=== PATIENT | male | born 1965 | race African-American/Black ===

== ENCOUNTER 2016-05-20 10:17 | Inpatient (IN) | payer OTHER ==
[2016-05-20 10:42] VITALS: BMI 31.4
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
[2016-05-20] MEDS ORDERED: MAGNESIUM HYDROX 2400MG/30ML ORAL SUSPENSION 30 ML CUP PO PRN (11:15)
[2016-05-20] MEDS ORDERED: NICOTINE POLACRILEX 4 MG GUM BUC PRN (11:15)
[2016-05-20] MEDS ORDERED: IBUPROFEN 400 MG TABLET (FP) PO PRN (11:15)
[2016-05-20] MEDS ORDERED: MENTHOL/PHENOL 1 EACH UD MM PRN (11:15)
[2016-05-20] MEDS ORDERED: guaiFENesin/D-METHORPHAN HB 10 ML UNIT-DOSE CUPS PO PRN (11:15)
[2016-05-20] MEDS ORDERED: MAG HYDROX/AL HYDROX/SIMETH 30 ML UNIT-DOSE CUP PO PRN (11:15)
[2016-05-20] MEDS ORDERED: chlordiazePOXIDE HCL 25 MG CAPSULE PO PRN (11:15)
[2016-05-20] MEDS ORDERED: hydrOXYzine PAMOATE 50 MG CAPSULE (FP) PO PRN (11:15)
[2016-05-20] MEDS ORDERED: P-EPHED 60MG/TRIPROLIDI 2.5MG TABLET PO PRN (11:15)
[2016-05-20] MEDS ORDERED: LOPERAMIDE HCL 2 MG CAPSULE PO PRN (11:15)
[2016-05-20] MEDS ORDERED: ACETAMINOPHEN 325 MG TABLET (FP) PO PRN (11:15)
[2016-05-20] MEDS ORDERED: MAGNESIUM CITRATE 300 ML BOTTLE PO PRN (11:15)
[2016-05-20 13:43] LABS: URINE APPEARANCE CLEAR; URINE BILIRUBIN NEGATIVE (NEGATIVE); URINE BLOOD NEGATIVE (NEGATIVE); URINE COLOR YELLOW; URINE GLUCOSE (UA) NEGATIVE (NEGATIVE); URINE KETONE NEGATIVE (NEGATIVE); URINE LEUK ESTERASE NEGATIVE (NEGATIVE); URINE NITRITE NEGATIVE (NEGATIVE); URINE PROTEIN NEGATIVE (NEGATIVE); URINE UROBILINOGEN NEGATIVE E.U./dl (0.2-1.0)
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
[2016-05-20] MEDS: chlordiazePOXIDE HCL 25 MG CAPSULE PO SCH ×2 (17:29→22:10)
[2016-05-20] MEDS ORDERED: diphenhydrAMINE HCL 50 MG CAPSULE PO PRN (22:00)
[2016-05-20] MEDS: THIAMINE HCL 100 MG TABLET (FP) PO SCH (22:10)
[2016-05-21] MEDS: chlordiazePOXIDE HCL 25 MG CAPSULE PO SCH ×4 (05:40→22:24)
[2016-05-21 09:46] LABS: MCH 25.7 pg (25.7-33.7); MEAN CELL VOLUME 80.4 fl (80-96); MEAN PLT VOLUME 8.6 fl (7.5-11.1); PLATELET COUNT 179 K/MM3 (134-434); RDW 14.5 % (11.9-15.9)
[2016-05-21] MEDS: PRENATAL VITAMINS W/ FOLIC ACID TABLET (FP) PO SCH (10:08)
[2016-05-21 10:19] LABS: ALBUMIN 3.2 g/dl (3.4-5.0); ALK PHOS 52 U/L (45-117); ANION GAP 8 (8-16); BILIRUBIN,TOTAL 0.5 mg/dL (0.2-1.0); CALCIUM 8.7 mg/dL (8.5-10.1); CO2 25 mmol/L (21-32); GLUCOSE,RANDOM 106 mg/dL (74-106); SGOT/AST 14 U/L (15-37); SGPT/ALT 21 U/L (12-78); TOT PROT 6.4 g/dl (6.4-8.2)
--- NOTE | 2016-05-21 14:27 | PN ---
S CIWA - CIWA Score Nausea/Vomitin Muscle Tremors: 3 Anxiety: 1-Mildly Anxious Agitation: 2 Paroxysmal Sweats: 3 Orientation: 0-Oriented Tacttile Disturbances: 1-Very Mild Itch/Numbness Auditory Disturbances: 0-None Visual Disturbances: 1-Very Mild Sensitivity Headache: 0-None Present CIWA-Ar Total Score: 13 BHS Progress Note (SOAP) Subjective: Body Aches, Headache, Sweating, Interrupted Sleep, Diarrhea. Objective: 05/21/16 14:26 Vital Signs Temperature 97.1 F L 05/21/16 13:21 Pulse Rate 74 05/21/16 13:21 Respiratory Rate 18 05/21/16 13:21 Blood Pressure 114/79 05/21/16 13:21 O2 Sat by Pulse Oximetry (%) Laboratory Last Values WBC 4.0 K/mm3 (4.0-10.0) 05/21/16 07:30 RBC 4.97 M/mm3 (4.00-5.60) 05/21/16 07:30 Hgb 12.8 GM/dL (11.7-16.9) 05/21/16 07:30 Hct 39.9 % (35.4-49) 05/21/16 07:30 MCV 80.4 fl (80-96) 05/21/16 07:30 MCHC 32.0 g/dl (32.0-35.9) 05/21/16 07:30 RDW 14.5 % (11.9-15.9) 05/21/16 07:30 Plt Count 179 K/MM3 (134-434) 05/21/16 07:30 MPV 8.6 fl (7.5-11.1) 05/21/16 07:30 Sodium 142 mmol/L (136-145) 05/21/16 07:20 Potassium 4.1 mmol/L (3.5-5.1) 05/21/16 07:20 Chloride 109 mmol/L (98-107) H 05/21/16 07:20 Carbon Dioxide 25 mmol/L (21-32) 05/21/16 07:20 Anion Gap 8 (8-16) 05/21/16 07:20 BUN 13 mg/dL (7-18) 05/21/16 07:20 Creatinine 1.0 mg/dL (0.7-1.3) D 05/21/16 07:20 Creat Clearance w eGFR > 60 (>60) 05/21/16 07:20 Random Glucose 106 mg/dL (74-106) 05/21/16 07:20 Calcium 8.7 mg/dL (8.5-10.1) 05/21/16 07:20 Total Bilirubin 0.5 mg/dL (0.2-1.0) D 05/21/16 07:20 AST 14 U/L (15-37) L 05/21/16 07:20 ALT 21 U/L (12-78) 05/21/16 07:20 Alkaline Phosphatase 52 U/L (45-117) 05/21/16 07:20 Total Protein 6.4 g/dl (6.4-8.2) 05/21/16 07:20 Albumin 3.2 g/dl (3.4-5.0) L 05/21/16 07:20 Urine Color Yellow 05/20/16 13:34 Urine Appearance Clear 05/20/16 13:34 Urine pH 5.0 (5.0-8.0) 05/20/16 13:34 Ur Specific [place] 1.025 (1.001-1.035) 05/20/16 13:34 Urine Protein Negative (NEGATIVE) 05/20/16 13:34 Urine Glucose (UA) Negative (NEGATIVE) 05/20/16 13:34 Urine Ketones Negative (NEGATIVE) 05/20/16 13:34 Urine Blood Negative (NEGATIVE) 05/20/16 13:34 Urine Nitrite Negative (NEGATIVE) 05/20/16 13:34 Urine Bilirubin Negative (NEGATIVE) 05/20/16 13:34 Urine Urobilinogen Negative E.U./dl (0.2-1.0) 05/20/16 13:34 Ur Leukocyte Esterase Negative (NEGATIVE) 05/20/16 13:34 LABS NOTED. Assessment: 05/21/16 14:26 WITHDRAWAL SYMPTOMS. Plan: CONTINUE DETOX.
[2016-05-21] MEDS: THIAMINE HCL 100 MG TABLET (FP) PO SCH (22:24)
[2016-05-22] MEDS: chlordiazePOXIDE HCL 25 MG CAPSULE PO SCH ×2 (05:54→10:36)
[2016-05-22] MEDS: PRENATAL VITAMINS W/ FOLIC ACID TABLET (FP) PO SCH (10:36)
--- NOTE | 2016-05-22 14:09 | PN ---
S CIWA - CIWA Score Nausea/Vomitin-No Nausea/No Vomiting Muscle Tremors: 3 Anxiety: 4-Mod. Anxious/Guarded Agitation: 4-Moderately Restless Paroxysmal Sweats: 3 Orientation: 0-Oriented Tacttile Disturbances: 0-None Auditory Disturbances: 0-None Visual Disturbances: 0-None Headache: 0-None Present CIWA-Ar Total Score: 14 BHS Progress Note (SOAP) Subjective: ANXIETY,TREMORS,SWEATING,INTERRUPTED SLEEP,RESTLESS. Objective: 05/22/16 14:08 Vital Signs - 8 hr 05/22/16 05/22/16 06:18 10:37 Temperature 98.1 F 97.4 F L Pulse Rate 67 73 Respiratory 18 16 Rate Blood Pressure 125/87 141/91 Laboratory Tests 05/20/16 05/21/16 05/21/16 13:34 07:20 07:20 WBC RBC Hgb Hct MCV MCHC RDW Plt Count MPV Sodium 142 Potassium 4.1 Chloride 109 H Carbon Dioxide 25 Anion Gap 8 BUN 13 Creatinine 1.0 D Creat Clearance w eGFR > 60 Random Glucose 106 Calcium 8.7 Total Bilirubin 0.5 D AST 14 L ALT 21 Alkaline Phosphatase 52 Total Protein 6.4 Albumin 3.2 L Urine Color Yellow Urine Appearance Clear Urine pH 5.0 Ur Specific [place] 1.025 Urine Protein Negative Urine Glucose (UA) Negative Urine Ketones Negative Urine Blood Negative Urine Nitrite Negative Urine Bilirubin Negative Urine Urobilinogen Negative Ur Leukocyte Esterase Negative RPR Titer Nonreactive 05/21/16 07:30 WBC 4.0 RBC 4.97 Hgb 12.8 Hct 39.9 MCV 80.4 MCHC 32.0 RDW 14.5 Plt Count 179 MPV 8.6 Sodium Potassium Chloride Carbon Dioxide Anion Gap BUN Creatinine Creat Clearance w eGFR Random Glucose Calcium Total Bilirubin AST ALT Alkaline Phosphatase Total Protein Albumin Urine Color Urine Appearance Urine pH Ur Specific [place] Urine Protein Urine Glucose (UA) Urine Ketones Urine Blood Urine Nitrite Urine Bilirubin Urine Urobilinogen Ur Leukocyte Esterase RPR Titer LABS NOTED Assessment: 05/22/16 14:08 WITHDRAWAL SX. Plan: CONTINUE DETOX
[2016-05-22] MEDS: chlordiazePOXIDE 5 MG CAPSULE PO SCH ×2 (17:43→22:15)
[2016-05-22] MEDS: THIAMINE HCL 100 MG TABLET (FP) PO SCH (22:15)
[2016-05-23] MEDS: chlordiazePOXIDE 5 MG CAPSULE PO SCH ×2 (05:47→10:25)
[2016-05-23] MEDS: PRENATAL VITAMINS W/ FOLIC ACID TABLET (FP) PO SCH (10:25)
--- NOTE | 2016-05-23 13:43 | PN ---
BHS Progress Note (SOAP) Subjective: SWEATING,INTERRUPTED SLEEP,RESTLESS Objective: 05/23/16 13:41 Vital Signs - 8 hr 05/23/16 05/23/16 06:42 10:50 Temperature 96.9 F L 96.2 F L Pulse Rate 82 76 Respiratory 16 18 Rate Blood Pressure 123/89 130/90 Laboratory Last Values WBC 4.0 K/mm3 (4.0-10.0) 05/21/16 07:30 RBC 4.97 M/mm3 (4.00-5.60) 05/21/16 07:30 Hgb 12.8 GM/dL (11.7-16.9) 05/21/16 07:30 Hct 39.9 % (35.4-49) 05/21/16 07:30 MCV 80.4 fl (80-96) 05/21/16 07:30 MCHC 32.0 g/dl (32.0-35.9) 05/21/16 07:30 RDW 14.5 % (11.9-15.9) 05/21/16 07:30 Plt Count 179 K/MM3 (134-434) 05/21/16 07:30 MPV 8.6 fl (7.5-11.1) 05/21/16 07:30 Sodium 142 mmol/L (136-145) 05/21/16 07:20 Potassium 4.1 mmol/L (3.5-5.1) 05/21/16 07:20 Chloride 109 mmol/L (98-107) H 05/21/16 07:20 Carbon Dioxide 25 mmol/L (21-32) 05/21/16 07:20 Anion Gap 8 (8-16) 05/21/16 07:20 BUN 13 mg/dL (7-18) 05/21/16 07:20 Creatinine 1.0 mg/dL (0.7-1.3) D 05/21/16 07:20 Creat Clearance w eGFR > 60 (>60) 05/21/16 07:20 Random Glucose 106 mg/dL (74-106) 05/21/16 07:20 Calcium 8.7 mg/dL (8.5-10.1) 05/21/16 07:20 Total Bilirubin 0.5 mg/dL (0.2-1.0) D 05/21/16 07:20 AST 14 U/L (15-37) L 05/21/16 07:20 ALT 21 U/L (12-78) 05/21/16 07:20 Alkaline Phosphatase 52 U/L (45-117) 05/21/16 07:20 Total Protein 6.4 g/dl (6.4-8.2) 05/21/16 07:20 Albumin 3.2 g/dl (3.4-5.0) L 05/21/16 07:20 Urine Color Yellow 05/20/16 13:34 Urine Appearance Clear 05/20/16 13:34 Urine pH 5.0 (5.0-8.0) 05/20/16 13:34 Ur Specific [place] 1.025 (1.001-1.035) 05/20/16 13:34 Urine Protein Negative (NEGATIVE) 05/20/16 13:34 Urine Glucose (UA) Negative (NEGATIVE) 05/20/16 13:34 Urine Ketones Negative (NEGATIVE) 05/20/16 13:34 Urine Blood Negative (NEGATIVE) 05/20/16 13:34 Urine Nitrite Negative (NEGATIVE) 05/20/16 13:34 Urine Bilirubin Negative (NEGATIVE) 05/20/16 13:34 Urine Urobilinogen Negative E.U./dl (0.2-1.0) 05/20/16 13:34 Ur Leukocyte Esterase Negative (NEGATIVE) 05/20/16 13:34 RPR Titer Nonreactive (NONREACTIVE) 05/21/16 07:20 LABS NOTED Assessment: 05/23/16 13:42 WITHDRAWAL SX. Plan: CONTINUE DETOX
[2016-05-23] MEDS: chlordiazePOXIDE HCL 10 MG CAPSULE PO SCH ×2 (17:22→22:36)
[2016-05-23] MEDS: THIAMINE HCL 100 MG TABLET (FP) PO SCH (22:36)
[2016-05-24] MEDS: chlordiazePOXIDE HCL 10 MG CAPSULE PO SCH ×2 (06:40→10:08)
[2016-05-24 06:58] VITALS: BP 135/94; PULSE 73; TEMP 98.5
--- NOTE | 2016-05-24 08:39 | PN ---
S Progress Note (SOAP) Subjective: ALERT,NO COMPLAINT Objective: 05/24/16 08:37 Vital Signs Temperature 98.5 F 05/24/16 06:57 Pulse Rate 73 05/24/16 06:57 Respiratory Rate 18 05/24/16 06:57 Blood Pressure 135/94 05/24/16 06:57 O2 Sat by Pulse Oximetry (%) Assessment: 05/24/16 08:38 DETOX COMPLETED,NO WITHDRAWAL SYMPTOM Plan: DISCHARGE TODAY,FOLLOW UP WITH AFTER CARE PROGRAM ARRANGEMENT
--- NOTE | 2016-05-24 08:41 | DS ---
[facility] Detox Discharge Summary Admission Date: 05/20/16 Discharge Date: 05/24/16 - History Present History: Alcohol Dependence, Cocaine Dependence Additional Comments: FOLLOW UP WITH AFTER CARE PROGRAM ARRANGEMENT Pertinent Past History: DEPRESSION - Physical Exam Results Vital Signs: Vital Signs Temperature 98.5 F 05/24/16 06:57 Pulse Rate 73 05/24/16 06:57 Respiratory Rate 18 05/24/16 06:57 Blood Pressure 135/94 05/24/16 06:57 O2 Sat by Pulse Oximetry (%) Pertinent Admission Physical Exam Findings: WITHDRAWAL SYMPTOM - Treatment Hospital Course: Detox Protocol Followed, Detoxed Safely, Responded well, Discharged Condition Good Patient has Accepted a Rehab Referral to: DECLINED - Medication Discharge Medications: Ambulatory Orders Bupropion HCl [Wellbutrin -] 75 mg PO DAILY 05/20/16 - AMA Did Patient Leave Against Medical Advice: No
[2016-05-24] MEDS: PRENATAL VITAMINS W/ FOLIC ACID TABLET (FP) PO SCH (10:08)
== END 2016-05-24 09:00 | disposition home or self-care (01) | DRG 774 ==
LOC: YASAS 10:17 → Y3N 11:45
PROVIDERS: ADMIT Internal Medicine; ATTEND Internal Medicine
PROC: HZ2ZZZZ Detoxification Services for Substance Abuse Treatment (ICD-10-PCS; principal; 2016-05-20)
DX: F10.230 Alcohol dependence with withdrawal, uncomplicated (principal); F14.20 Cocaine dependence, uncomplicated; F17.210 Nicotine dependence, cigarettes, uncomplicated; F19.24 Other psychoactive substance dependence with psychoactive substance-induced mood disorder; Z86.69 Personal history of other diseases of the nervous system and sense organs; Z87.442 Personal history of urinary calculi
CPT/HCPCS: 36415; 80053; 81003; 85027; 86593; 93005; 93010

== ENCOUNTER 2016-08-30 09:34 | Inpatient (IN) | payer OTHER ==
[2016-08-30 10:21] VITALS: BMI 29.7
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
[2016-08-30] MEDS ORDERED: MAGNESIUM CITRATE 300 ML BOTTLE PO PRN (13:57)
[2016-08-30] MEDS ORDERED: NICOTINE POLACRILEX 2 MG GUM BUC PRN (13:57)
[2016-08-30] MEDS ORDERED: ACETAMINOPHEN 325 MG TABLET (FP) PO PRN (13:57)
[2016-08-30] MEDS ORDERED: hydrOXYzine PAMOATE 25 MG CAPSULE (FP) PO PRN (13:57)
[2016-08-30] MEDS ORDERED: IBUPROFEN 400 MG TABLET (FP) PO PRN (13:57)
[2016-08-30] MEDS ORDERED: guaiFENesin/D-METHORPHAN HB 10 ML UNIT-DOSE CUPS PO PRN (13:57)
[2016-08-30] MEDS ORDERED: MENTHOL/PHENOL 1 EACH UD MM PRN (13:57)
[2016-08-30] MEDS ORDERED: diphenhydrAMINE HCL 50 MG CAPSULE PO PRN (13:57)
[2016-08-30] MEDS ORDERED: P-EPHED 60MG/TRIPROLIDI 2.5MG TABLET PO PRN (13:57)
[2016-08-30] MEDS ORDERED: chlordiazePOXIDE HCL 25 MG CAPSULE PO PRN (13:57)
[2016-08-30] MEDS ORDERED: LOPERAMIDE HCL 2 MG CAPSULE PO PRN (13:57)
[2016-08-30] MEDS ORDERED: MAGNESIUM HYDROX 2400MG/30ML ORAL SUSPENSION 30 ML CUP PO PRN (13:57)
[2016-08-30] MEDS ORDERED: MAG HYDROX/AL HYDROX/SIMETH 30 ML UNIT-DOSE CUP PO PRN (13:57)
[2016-08-30] MEDS ORDERED: chlordiazePOXIDE HCL 25 MG CAPSULE PO ONE (14:02)
[2016-08-30] MEDS: NICOTINE 14 MG/24 HOURS TOPICAL PATCH TD SCH (14:34)
[2016-08-30 17:02] LABS: URINE APPEARANCE CLEAR; URINE BILIRUBIN NEGATIVE (NEGATIVE); URINE BLOOD NEGATIVE (NEGATIVE); URINE COLOR COLORLESS; URINE GLUCOSE (UA) NEGATIVE (NEGATIVE); URINE KETONE NEGATIVE (NEGATIVE); URINE LEUK ESTERASE NEGATIVE (NEGATIVE); URINE NITRITE NEGATIVE (NEGATIVE); URINE PROTEIN NEGATIVE (NEGATIVE); URINE UROBILINOGEN NEGATIVE E.U./dl (0.2-1.0)
[2016-08-30 17:06] LABS: HIV 1 & 2 AB NEGATIVE; HIV 1 AGp24 NEGATIVE
[2016-08-30] MEDS: chlordiazePOXIDE HCL 25 MG CAPSULE PO SCH ×2 (19:16→22:09)
[2016-08-30] MEDS: THIAMINE HCL 100 MG TABLET (FP) PO SCH (22:09)
[2016-08-31] MEDS: chlordiazePOXIDE HCL 25 MG CAPSULE PO SCH ×4 (06:10→22:07)
[2016-08-31 09:42] LABS: MCH 25.9 pg (25.7-33.7); MCHC 32.3 g/dl (32.0-35.9); MEAN CELL VOLUME 80.3 fl (80-96); MEAN PLT VOLUME 8.5 fl (7.5-11.1); RDW 14.3 % (11.9-15.9); WHITE BLOOD COUNT 9.6 K/mm3 (4.0-10.0)
--- NOTE | 2016-08-31 09:57 | PN ---
S CIWA - CIWA Score Nausea/Vomitin Muscle Tremors: 3 Anxiety: 3 Agitation: 3 Paroxysmal Sweats: 1-Minimal Palms Moist Orientation: 0-Oriented Tacttile Disturbances: 1-Very Mild Itch/Numbness Auditory Disturbances: 1-Very Mild Visual Disturbances: 1-Very Mild Sensitivity Headache: 2-Mild CIWA-Ar Total Score: 18 BHS Progress Note (SOAP) Subjective: alert,irritable,anxious,pain in body,back,tremor,interrupted sleep Objective: 08/31/16 09:55 Vital Signs Temperature 96.8 F L 08/31/16 09:50 Pulse Rate 64 08/31/16 09:50 Respiratory Rate 18 08/31/16 09:50 Blood Pressure 127/87 08/31/16 09:50 O2 Sat by Pulse Oximetry (%) 08/31/16 09:56 ekg nsr,normal ecg Laboratory Last Values WBC 9.6 K/mm3 (4.0-10.0) D 08/31/16 06:00 RBC 5.34 M/mm3 (4.00-5.60) 08/31/16 06:00 Hgb 13.9 GM/dL (11.7-16.9) 08/31/16 06:00 Hct 42.9 % (35.4-49) 08/31/16 06:00 MCV 80.3 fl (80-96) 08/31/16 06:00 MCHC 32.3 g/dl (32.0-35.9) 08/31/16 06:00 RDW 14.3 % (11.9-15.9) 08/31/16 06:00 MPV 8.5 fl (7.5-11.1) 08/31/16 06:00 Urine Color Colorless 08/30/16 15:00 Urine Appearance Clear 08/30/16 15:00 Urine pH 6.0 (5.0-8.0) 08/30/16 15:00 Ur Specific [place] 1.004 (1.001-1.035) 08/30/16 15:00 Urine Protein Negative (NEGATIVE) 08/30/16 15:00 Urine Glucose (UA) Negative (NEGATIVE) 08/30/16 15:00 Urine Ketones Negative (NEGATIVE) 08/30/16 15:00 Urine Blood Negative (NEGATIVE) 08/30/16 15:00 Urine Nitrite Negative (NEGATIVE) 08/30/16 15:00 Urine Bilirubin Negative (NEGATIVE) 08/30/16 15:00 Urine Urobilinogen Negative E.U./dl (0.2-1.0) 08/30/16 15:00 Ur Leukocyte Esterase Negative (NEGATIVE) 08/30/16 15:00 HIV 1&2 Antibody Screen Negative 08/30/16 10:00 HIV P24 Antigen Negative 08/30/16 10:00 labs pending Assessment: 08/31/16 09:57 withdrawal symptom Plan: continue detox
[2016-08-31] MEDS: PRENATAL VITAMINS W/ FOLIC ACID TABLET (FP) PO SCH (10:11)
[2016-08-31] MEDS: NICOTINE 14 MG/24 HOURS TOPICAL PATCH TD SCH (10:12)
--- NOTE | 2016-08-31 10:16 | CONSULT ---
[facility] Psychiatric Consult - Data Date of interview: 08/31/16 Admission source: [facility] Identifying data: This is 51 years old male with no psychiatric hospitalization history intoxicated with: Cocaine, Alcohol and Nicotine Substance Abuse History: Smoking history: Current every day smoker. Have you smoked in the past 12 months: Yes. Aproximately how many cigarettes per day: 14. Cigars Per Day: 0. Hx Chewing Tobacco Use: No. Initiated information on smoking cessation: Yes. 'Breaking Loose' booklet given: 08/30/16. - Substance & Tx. History. Hx Alcohol Use: Yes (BEER). Hx Substance Use: (COCAINE). Substance Use Type: Alcohol, Cocaine. Hx Substance Use Treatment: Yes ([facility]- DETOX). - Substances Abused. Alcohol. Route: Oral. Frequency: Daily. Amount used: 12 pk beer. Age of first use: 25. Date of Last Use: 08/30/16. * * Cocaine. Route: Smoking. Frequency: Daily. Amount used: $20-50. Age of first use: 25. Date of Last Use: 08/30/16 Medical History: Denies Psychiatric History: Patient reports history of dewpression, as per computer thereis a history of MDD, reports no medications taking prior to admission, denies suicidal history as well Physical/Sexual Abuse/Trauma History: Denies Additional Comment: Observation. Detox Unit Care Protocol Mental Status Exam - Mental Status Exam Alert and Oriented to: Person Cognitive Function: Fair Patient Appearance: Unkempt Mood: Sad Affect: Mood Congruent Patient Behavior: Cooperative Speech Pattern: Appropriate Voice Loudness: Mildly Soft/Quiet Thought Process: Circumstantial Thought Disorder: Being Controlled Hallucinations: Denies Suicidal Ideation: Denies Homicidal Ideation: Denies Insight/Judgement: Fair Sleep: Difficulty falling asleep Appetite: Fair Muscle strength/Tone: Normal Gait/Station: Normal Additional Comments: Observation. Detox Unit Care Protocol Psychiatric Findings - Problem List ([place] 1, 2,3) (1) Cocaine dependence, uncomplicated Current Visit: Yes Status: Acute (2) Nicotine dependence Current Visit: Yes Status: Acute Qualifiers: Nicotine product type: cigarettes Substance use status: in withdrawal Qualified Code(s): F17.213 - Nicotine dependence, cigarettes, with withdrawal (3) Alcohol dependence with uncomplicated withdrawal Current Visit: No Status: Acute (4) MDD (major depressive disorder) Current Visit: No Status: Suspected (5) Substance induced mood disorder Current Visit: No Status: Suspected - Initial Treatment Plan Initial Treatment Plan: Observation. Detox Unit Care Protocol
[2016-08-31 10:35] LABS: ALBUMIN 4.1 g/dl (3.4-5.0); ALK PHOS 62 U/L (45-117); ANION GAP 14 (8-16); BILIRUBIN,TOTAL 0.5 mg/dL (0.2-1.0); CALCIUM 9.1 mg/dL (8.5-10.1); CO2 24 mmol/L (21-32); COCKROFT - GAULT 89.77; CREATININE 1.2 mg/dL (0.7-1.3); GLUCOSE,RANDOM 103 mg/dL (74-106); SGOT/AST 20 U/L (15-37); SGPT/ALT 20 U/L (12-78); TOT PROT 7.7 g/dl (6.4-8.2)
--- NOTE | 2016-08-31 11:49 | EKG ---
Test Reason : Blood Pressure : / mmHG Vent. Rate : 070 BPM Atrial Rate : 070 BPM P-R Int : 164 ms QRS Dur : 108 ms QT Int : 406 ms P-R-T Axes : 057 046 037 degrees QTc Int : 438 ms NORMAL SINUS RHYTHM NORMAL ECG NO PREVIOUS ECGS AVAILABLE Confirmed by RAMYA HARO MD ([id number]) on 08/31/2016 11:49:00 AM Referred By: Cristo Polk Confirmed By:RAMYA HARO MD
[2016-08-31 13:49] LABS: PLATELET ESTIMATE ADEQUATE (NORMAL)
[2016-08-31] MEDS: THIAMINE HCL 100 MG TABLET (FP) PO SCH (22:07)
[2016-09-01] MEDS: chlordiazePOXIDE HCL 25 MG CAPSULE PO SCH ×2 (05:17→10:37)
--- NOTE | 2016-09-01 10:03 | PN ---
S CIWA - CIWA Score Nausea/Vomitin Muscle Tremors: 3 Anxiety: 3 Agitation: 2 Paroxysmal Sweats: 1-Minimal Palms Moist Orientation: 0-Oriented Tacttile Disturbances: 1-Very Mild Itch/Numbness Auditory Disturbances: 1-Very Mild Visual Disturbances: 1-Very Mild Sensitivity Headache: 2-Mild CIWA-Ar Total Score: 17 BHS Progress Note (SOAP) Subjective: ALERT,IRRITABLE,ANXIOUS,INTERRUPTED SLEEP,TREMOR Objective: 09/01/16 10:02 Vital Signs Temperature 98.2 F 09/01/16 06:00 Pulse Rate 69 09/01/16 06:00 Respiratory Rate 18 09/01/16 06:00 Blood Pressure 129/80 09/01/16 06:00 O2 Sat by Pulse Oximetry (%) Laboratory Last Values WBC 9.6 K/mm3 (4.0-10.0) D 08/31/16 06:00 RBC 5.34 M/mm3 (4.00-5.60) 08/31/16 06:00 Hgb 13.9 GM/dL (11.7-16.9) 08/31/16 06:00 Hct 42.9 % (35.4-49) 08/31/16 06:00 MCV 80.3 fl (80-96) 08/31/16 06:00 MCHC 32.3 g/dl (32.0-35.9) 08/31/16 06:00 RDW 14.3 % (11.9-15.9) 08/31/16 06:00 Plt Count No Result Required. 08/31/16 06:00 MPV 8.5 fl (7.5-11.1) 08/31/16 06:00 Platelet Estimate Adequate (NORMAL) 08/31/16 06:00 Platelet Comment Slt plt clumping 08/31/16 06:00 Sodium 142 mmol/L (136-145) 08/31/16 06:00 Potassium 3.7 mmol/L (3.5-5.1) 08/31/16 06:00 Chloride 104 mmol/L (98-107) 08/31/16 06:00 Carbon Dioxide 24 mmol/L (21-32) 08/31/16 06:00 Anion Gap 14 (8-16) 08/31/16 06:00 BUN 13 mg/dL (7-18) 08/31/16 06:00 Creatinine 1.2 mg/dL (0.7-1.3) 08/31/16 06:00 Creat Clearance w eGFR > 60 (>60) 08/31/16 06:00 Random Glucose 103 mg/dL (74-106) 08/31/16 06:00 Calcium 9.1 mg/dL (8.5-10.1) 08/31/16 06:00 Total Bilirubin 0.5 mg/dL (0.2-1.0) 08/31/16 06:00 AST 20 U/L (15-37) D 08/31/16 06:00 ALT 20 U/L (12-78) 08/31/16 06:00 Alkaline Phosphatase 62 U/L (45-117) 08/31/16 06:00 Total Protein 7.7 g/dl (6.4-8.2) D 08/31/16 06:00 Albumin 4.1 g/dl (3.4-5.0) D 08/31/16 06:00 Urine Color Colorless 08/30/16 15:00 Urine Appearance Clear 08/30/16 15:00 Urine pH 6.0 (5.0-8.0) 08/30/16 15:00 Ur Specific [place] 1.004 (1.001-1.035) 08/30/16 15:00 Urine Protein Negative (NEGATIVE) 08/30/16 15:00 Urine Glucose (UA) Negative (NEGATIVE) 08/30/16 15:00 Urine Ketones Negative (NEGATIVE) 08/30/16 15:00 Urine Blood Negative (NEGATIVE) 08/30/16 15:00 Urine Nitrite Negative (NEGATIVE) 08/30/16 15:00 Urine Bilirubin Negative (NEGATIVE) 08/30/16 15:00 Urine Urobilinogen Negative E.U./dl (0.2-1.0) 08/30/16 15:00 Ur Leukocyte Esterase Negative (NEGATIVE) 08/30/16 15:00 RPR Titer Nonreactive (NONREACTIVE) 08/31/16 06:00 HIV 1&2 Antibody Screen Negative 08/30/16 10:00 HIV P24 Antigen Negative 08/30/16 10:00 Assessment: 09/01/16 10:02 WITHDRAWAL SYMPTOM Plan: CONTINUE DETOX
[2016-09-01] MEDS: PRENATAL VITAMINS W/ FOLIC ACID TABLET (FP) PO SCH (10:37)
[2016-09-01] MEDS: NICOTINE 14 MG/24 HOURS TOPICAL PATCH TD SCH (10:37)
[2016-09-01] MEDS: chlordiazePOXIDE 5 MG CAPSULE PO SCH ×2 (17:30→22:52)
[2016-09-01] MEDS: THIAMINE HCL 100 MG TABLET (FP) PO SCH (22:52)
[2016-09-02] MEDS: chlordiazePOXIDE 5 MG CAPSULE PO SCH ×2 (06:17→11:17)
[2016-09-02] MEDS: PRENATAL VITAMINS W/ FOLIC ACID TABLET (FP) PO SCH (11:17)
[2016-09-02] MEDS: NICOTINE 14 MG/24 HOURS TOPICAL PATCH TD SCH (11:17)
--- NOTE | 2016-09-02 14:15 | PN ---
BHS Progress Note (SOAP) Subjective: ALERT,IRRITABLE,ANXIOUS,INTERRUPTED SLEEP Objective: 09/02/16 14:14 Vital Signs Temperature 97.9 F 09/02/16 10:25 Pulse Rate 70 09/02/16 10:25 Respiratory Rate 16 09/02/16 10:25 Blood Pressure 137/94 09/02/16 10:25 O2 Sat by Pulse Oximetry (%) Assessment: 09/02/16 14:15 WITHDRAWAL SYMPTOM Plan: CONTINUE DETOX,DISCHARGE IN [place]
[2016-09-02] MEDS: chlordiazePOXIDE HCL 10 MG CAPSULE PO SCH ×2 (17:55→22:59)
[2016-09-02] MEDS ORDERED: chlordiazePOXIDE 5 MG CAPSULE ONE (21:49)
[2016-09-02] MEDS: THIAMINE HCL 100 MG TABLET (FP) PO SCH (22:36)
[2016-09-03] MEDS ORDERED: chlordiazePOXIDE 5 MG CAPSULE ONE (04:24)
[2016-09-03] MEDS: chlordiazePOXIDE HCL 10 MG CAPSULE PO SCH (05:40)
[2016-09-03 06:57] VITALS: BP 140/90; PULSE 82; TEMP 97.5
--- NOTE | 2016-09-03 08:05 | PN ---
S Progress Note (SOAP) Subjective: ALERT,NO COMPLAINT Objective: 09/03/16 08:16 Vital Signs Temperature 97.5 F L 09/03/16 06:56 Pulse Rate 82 09/03/16 06:56 Respiratory Rate 20 09/03/16 06:56 Blood Pressure 140/90 09/03/16 06:56 O2 Sat by Pulse Oximetry (%) 09/03/16 08:16 Assessment: 09/03/16 08:16 DETOX COMPLETED,NO WITHDRAWAL SYMPTOM 09/03/16 08:16 Plan: DISCHARGE TODAY,FOLLOW UP WITH AFTER CARE PROGRAM ARRANGEMENT
--- NOTE | 2016-09-03 08:23 | DS ---
[facility] Detox Discharge Summary Admission Date: 08/30/16 Discharge Date: 09/03/16 - History Present History: Alcohol Dependence, Cocaine Dependence Additional Comments: FOLLOW UP WITH AFTER CARE PROGRAM ARRANGEMENT Pertinent Past History: NICOTINE DEPENDENCE - Physical Exam Results Vital Signs: Vital Signs Temperature 97.5 F L 09/03/16 06:56 Pulse Rate 82 09/03/16 06:56 Respiratory Rate 20 09/03/16 06:56 Blood Pressure 140/90 09/03/16 06:56 O2 Sat by Pulse Oximetry (%) Pertinent Admission Physical Exam Findings: WITHDRAWAL SYMPTOM - Treatment Hospital Course: Detox Protocol Followed, Detoxed Safely, Responded well, Discharged Condition Good Patient has Accepted a Rehab Referral to: DECLINED - Medication Discharge Medications: Ambulatory Orders NK [No Known Home Medication] 08/30/16 - Diagnosis (1) Cocaine dependence, uncomplicated Current Visit: Yes Status: Acute (2) Nicotine dependence Current Visit: Yes Status: Acute Qualifiers: Nicotine product type: cigarettes Substance use status: in withdrawal Qualified Code(s): F17.213 - Nicotine dependence, cigarettes, with withdrawal (3) Alcohol dependence with uncomplicated withdrawal Current Visit: No Status: Acute (4) MDD (major depressive disorder) Current Visit: No Status: Suspected - AMA Did Patient Leave Against Medical Advice: No
== END 2016-09-03 09:19 | disposition home or self-care (01) | DRG 774 ==
LOC: YASAS 09:34 → Y6N 11:34
PROVIDERS: ADMIT Internal Medicine Addiction Medicine; ATTEND Internal Medicine Addiction Medicine
PROC: HZ2ZZZZ Detoxification Services for Substance Abuse Treatment (ICD-10-PCS; principal; 2016-08-30)
DX: F10.230 Alcohol dependence with withdrawal, uncomplicated (principal); F14.20 Cocaine dependence, uncomplicated; F17.213 Nicotine dependence, cigarettes, with withdrawal; F33.9 Major depressive disorder, recurrent, unspecified; F19.24 Other psychoactive substance dependence with psychoactive substance-induced mood disorder; Z91.14 Patient's other noncompliance with medication regimen
CPT/HCPCS: 36415; 80053; 81003; 85027; 86593; 87389; 93005; 93010

== ENCOUNTER 2017-01-03 13:52 | Inpatient (IN) | payer OTHER ==
[2017-01-03 16:48] VITALS: BMI 29.0
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
[2017-01-03] MEDS ORDERED: guaiFENesin/D-METHORPHAN HB 10 ML UNIT-DOSE CUPS PO PRN (18:41)
[2017-01-03] MEDS ORDERED: hydrOXYzine PAMOATE 50 MG CAPSULE (FP) PO PRN (18:41)
[2017-01-03] MEDS ORDERED: ACETAMINOPHEN 325 MG TABLET (FP) PO PRN (18:41)
[2017-01-03] MEDS ORDERED: MAGNESIUM HYDROX 2400MG/30ML ORAL SUSPENSION 30 ML CUP PO PRN (18:41)
[2017-01-03] MEDS ORDERED: NICOTINE POLACRILEX 4 MG GUM BC PRN (18:41)
[2017-01-03] MEDS ORDERED: diphenhydrAMINE HCL 50 MG CAPSULE PO PRN (18:41)
[2017-01-03] MEDS ORDERED: MAG HYDROX/AL HYDROX/SIMETH 30 ML UNIT-DOSE CUP PO PRN (18:41)
[2017-01-03] MEDS ORDERED: chlordiazePOXIDE HCL 25 MG CAPSULE PO PRN (18:41)
[2017-01-03] MEDS ORDERED: MENTHOL/PHENOL 1 EACH UD MM PRN (18:41)
[2017-01-03] MEDS ORDERED: MAGNESIUM CITRATE 300 ML BOTTLE PO PRN (18:41)
[2017-01-03] MEDS ORDERED: P-EPHED 60MG/TRIPROLIDI 2.5MG TABLET PO PRN (18:41)
[2017-01-03] MEDS ORDERED: LOPERAMIDE HCL 2 MG CAPSULE PO PRN (18:41)
[2017-01-03] MEDS: THIAMINE HCL 100 MG TABLET (FP) PO SCH (23:00)
[2017-01-03] MEDS: chlordiazePOXIDE HCL 25 MG CAPSULE PO SCH (23:00)
[2017-01-03] MEDS: RANITIDINE HCL 150 MG TABLET (FP) PO SCH (23:00)
[2017-01-03 23:32] LABS: PH,URINE 5.5 (5.0-8.0); URINE APPEARANCE SL CLOUDY; URINE BILIRUBIN NEGATIVE (NEGATIVE); URINE BLOOD NEGATIVE (NEGATIVE); URINE COLOR LT. YELLOW; URINE GLUCOSE (UA) NEGATIVE (NEGATIVE); URINE KETONE NEGATIVE (NEGATIVE); URINE NITRITE NEGATIVE (NEGATIVE); URINE PROTEIN NEGATIVE (NEGATIVE); URINE UROBILINOGEN 0.2 mg/dL (0.2-1.0)
[2017-01-03 23:33] LABS: URINE LEUK ESTERASE TRACE (NEGATIVE)
[2017-01-04 01:20] LABS: URINE BACTERIA RARE /hpf (NONE SEEN); URINE HYALINE CAST 7 /lpf; URINE MUCUS MANY; URINE RBC <1 /hpf (0-3); URINE WBC 27 /hpf (3-5)
[2017-01-04] MEDS: chlordiazePOXIDE HCL 25 MG CAPSULE PO SCH ×4 (06:21→22:50)
[2017-01-04 09:52] LABS: MCH 26.7 pg (25.7-33.7); MCHC 33.1 g/dl (32.0-35.9); MEAN CELL VOLUME 80.7 fl (80-96); MEAN PLT VOLUME 8.7 fl (7.5-11.1); PLATELET COUNT 172 K/MM3 (134-434); RDW 14.1 % (11.9-15.9); WHITE BLOOD COUNT 3.8 K/mm3 (4.0-10.0)
[2017-01-04 10:27] LABS: ALK PHOS 58 U/L (45-117); ANION GAP 7 (8-16); BILIRUBIN,TOTAL 0.3 mg/dL (0.2-1.0); CALCIUM 8.2 mg/dL (8.5-10.1); CO2 27 mmol/L (21-32); CREATININE 1.3 mg/dL (0.7-1.3); GLUCOSE,RANDOM 111 mg/dL (74-106); SGOT/AST 15 U/L (15-37); SGPT/ALT 15 U/L (12-78); TOT PROT 6.1 g/dl (6.4-8.2)
[2017-01-04 11:03] LABS: HIV 1 & 2 AB NEGATIVE; HIV 1 AGp24 NEGATIVE
[2017-01-04] MEDS: RANITIDINE HCL 150 MG TABLET (FP) PO SCH ×2 (11:21→22:49)
[2017-01-04] MEDS: NICOTINE 21 MG/24 HOURS TOPICAL PATCH TD SCH (11:21)
[2017-01-04] MEDS: PRENATAL VITAMINS W/ FOLIC ACID TABLET (FP) PO SCH (11:21)
--- NOTE | 2017-01-04 12:26 | PN ---
[facility] CIWA - CIWA Score Nausea/Vomitin-No Nausea/No Vomiting Muscle Tremors: 4-Moderate,w/Arms Extend Anxiety: 4-Mod. Anxious/Guarded Agitation: 4-Moderately Restless Paroxysmal Sweats: 1-Minimal Palms Moist Orientation: 0-Oriented Tacttile Disturbances: 3-Moderate Itch/Numb/Burn Auditory Disturbances: 0-None Visual Disturbances: 0-None Headache: 0-None Present CIWA-Ar Total Score: 16 BHS Progress Note (SOAP) Subjective: ANXIETY,SWEATS,TREMORS. Objective: 01/04/17 12:24 Vital Signs Temperature 96.7 F L 01/04/17 09:58 Pulse Rate 57 L 01/04/17 09:58 Respiratory Rate 18 01/04/17 09:58 Blood Pressure 142/96 01/04/17 09:58 O2 Sat by Pulse Oximetry (%) Laboratory Last Values WBC 3.8 K/mm3 (4.0-10.0) L D 01/04/17 07:00 RBC 5.03 M/mm3 (4.00-5.60) 01/04/17 07:00 Hgb 13.4 GM/dL (11.7-16.9) 01/04/17 07:00 Hct 40.6 % (35.4-49) 01/04/17 07:00 MCV 80.7 fl (80-96) 01/04/17 07:00 MCH 26.7 pg (25.7-33.7) 01/04/17 07:00 MCHC 33.1 g/dl (32.0-35.9) 01/04/17 07:00 RDW 14.1 % (11.9-15.9) 01/04/17 07:00 Plt Count 172 K/MM3 (134-434) 01/04/17 07:00 MPV 8.7 fl (7.5-11.1) 01/04/17 07:00 Sodium 142 mmol/L (136-145) 01/04/17 07:00 Potassium 3.8 mmol/L (3.5-5.1) 01/04/17 07:00 Chloride 108 mmol/L (98-107) H 01/04/17 07:00 Carbon Dioxide 27 mmol/L (21-32) 01/04/17 07:00 Anion Gap 7 (8-16) L 01/04/17 07:00 BUN 17 mg/dL (7-18) D 01/04/17 07:00 Creatinine 1.3 mg/dL (0.7-1.3) 01/04/17 07:00 Creat Clearance w eGFR 58.43 (>60) 01/04/17 07:00 Random Glucose 111 mg/dL (74-106) H 01/04/17 07:00 Calcium 8.2 mg/dL (8.5-10.1) L 01/04/17 07:00 Total Bilirubin 0.3 mg/dL (0.2-1.0) D 01/04/17 07:00 AST 15 U/L (15-37) D 01/04/17 07:00 ALT 15 U/L (12-78) D 01/04/17 07:00 Alkaline Phosphatase 58 U/L (45-117) 01/04/17 07:00 Total Protein 6.1 g/dl (6.4-8.2) L D 01/04/17 07:00 Albumin 3.0 g/dl (3.4-5.0) L D 01/04/17 07:00 Urine Color Lt. yellow 01/03/17 20:56 Urine Appearance Sl cloudy 01/03/17 20:56 Urine pH 5.5 (5.0-8.0) 01/03/17 20:56 Ur Specific [place] 1.025 (1.005-1.025) 01/03/17 20:56 Urine Protein Negative (NEGATIVE) 01/03/17 20:56 Urine Glucose (UA) Negative (NEGATIVE) 01/03/17 20:56 Urine Ketones Negative (NEGATIVE) 01/03/17 20:56 Urine Blood Negative (NEGATIVE) 01/03/17 20:56 Urine Nitrite Negative (NEGATIVE) 01/03/17 20:56 Urine Bilirubin Negative (NEGATIVE) 01/03/17 20:56 Urine Urobilinogen 0.2 mg/dL (0.2-1.0) 01/03/17 20:56 Ur Leukocyte Esterase Trace (NEGATIVE) 01/03/17 20:56 Urine RBC <1 /hpf (0-3) 01/03/17 20:56 Urine WBC 27 /hpf (3-5) 01/03/17 20:56 Ur Epithelial Cells Rare /hpf (FEW) 01/03/17 20:56 Urine Bacteria Rare /hpf (NONE SEEN) 01/03/17 20:56 Hyaline Casts 7 /lpf 01/03/17 20:56 Urine Mucus Many 01/03/17 20:56 RPR Titer Nonreactive (NONREACTIVE) 01/04/17 07:00 HIV 1&2 Antibody Screen Negative 01/04/17 07:00 HIV P24 Antigen Negative 01/04/17 07:00 LABS NOTED Assessment: 01/04/17 12:25 WITHDRAWAL SX Plan: CONTINUE DETOX
--- NOTE | 2017-01-04 14:59 | EKG ---
Test Reason : Blood Pressure : / mmHG Vent. Rate : 071 BPM Atrial Rate : 071 BPM P-R Int : 158 ms QRS Dur : 102 ms QT Int : 406 ms P-R-T Axes : 054 048 035 degrees QTc Int : 441 ms NORMAL SINUS RHYTHM NORMAL ECG WHEN COMPARED WITH ECG OF 30-AUG-2016 13:41, NO SIGNIFICANT CHANGE WAS FOUND Confirmed by RAMYA HARO MD ([id number]) on 01/04/2017 2:59:21 PM Referred By: Balta Manuel Confirmed By:RAMYA HARO MD
[2017-01-04] MEDS: THIAMINE HCL 100 MG TABLET (FP) PO SCH (22:49)
[2017-01-05] MEDS: chlordiazePOXIDE HCL 25 MG CAPSULE PO SCH ×3 (06:07→19:01)
[2017-01-05] MEDS: RANITIDINE HCL 150 MG TABLET (FP) PO SCH ×2 (11:19→22:13)
[2017-01-05] MEDS: PRENATAL VITAMINS W/ FOLIC ACID TABLET (FP) PO SCH (11:19)
[2017-01-05] MEDS: NICOTINE 21 MG/24 HOURS TOPICAL PATCH TD SCH (11:20)
--- NOTE | 2017-01-05 12:36 | PN ---
[facility] CIWA - CIWA Score Nausea/Vomitin-No Nausea/No Vomiting Muscle Tremors: 4-Moderate,w/Arms Extend Anxiety: 4-Mod. Anxious/Guarded Agitation: 3 Paroxysmal Sweats: 2 Orientation: 0-Oriented Tacttile Disturbances: 2-Mild Itch/Numbness/Burn Auditory Disturbances: 0-None Visual Disturbances: 0-None Headache: 0-None Present CIWA-Ar Total Score: 15 BHS Progress Note (SOAP) Subjective: ANXIETY,SWEATS,FATIGUE. Objective: 01/05/17 12:35 Vital Signs Temperature 96.7 F L 01/05/17 09:40 Pulse Rate 18 L 01/05/17 09:40 Respiratory Rate 78 H 01/05/17 09:40 Blood Pressure 121/86 01/05/17 09:40 O2 Sat by Pulse Oximetry (%) Laboratory Last Values WBC 3.8 K/mm3 (4.0-10.0) L D 01/04/17 07:00 RBC 5.03 M/mm3 (4.00-5.60) 01/04/17 07:00 Hgb 13.4 GM/dL (11.7-16.9) 01/04/17 07:00 Hct 40.6 % (35.4-49) 01/04/17 07:00 MCV 80.7 fl (80-96) 01/04/17 07:00 MCH 26.7 pg (25.7-33.7) 01/04/17 07:00 MCHC 33.1 g/dl (32.0-35.9) 01/04/17 07:00 RDW 14.1 % (11.9-15.9) 01/04/17 07:00 Plt Count 172 K/MM3 (134-434) 01/04/17 07:00 MPV 8.7 fl (7.5-11.1) 01/04/17 07:00 Sodium 142 mmol/L (136-145) 01/04/17 07:00 Potassium 3.8 mmol/L (3.5-5.1) 01/04/17 07:00 Chloride 108 mmol/L (98-107) H 01/04/17 07:00 Carbon Dioxide 27 mmol/L (21-32) 01/04/17 07:00 Anion Gap 7 (8-16) L 01/04/17 07:00 BUN 17 mg/dL (7-18) D 01/04/17 07:00 Creatinine 1.3 mg/dL (0.7-1.3) 01/04/17 07:00 Creat Clearance w eGFR 58.43 (>60) 01/04/17 07:00 Random Glucose 111 mg/dL (74-106) H 01/04/17 07:00 Calcium 8.2 mg/dL (8.5-10.1) L 01/04/17 07:00 Total Bilirubin 0.3 mg/dL (0.2-1.0) D 01/04/17 07:00 AST 15 U/L (15-37) D 01/04/17 07:00 ALT 15 U/L (12-78) D 01/04/17 07:00 Alkaline Phosphatase 58 U/L (45-117) 01/04/17 07:00 Total Protein 6.1 g/dl (6.4-8.2) L D 01/04/17 07:00 Albumin 3.0 g/dl (3.4-5.0) L D 01/04/17 07:00 Urine Color Lt. yellow 01/03/17 20:56 Urine Appearance Sl cloudy 01/03/17 20:56 Urine pH 5.5 (5.0-8.0) 01/03/17 20:56 Ur Specific [place] 1.025 (1.005-1.025) 01/03/17 20:56 Urine Protein Negative (NEGATIVE) 01/03/17 20:56 Urine Glucose (UA) Negative (NEGATIVE) 01/03/17 20:56 Urine Ketones Negative (NEGATIVE) 01/03/17 20:56 Urine Blood Negative (NEGATIVE) 01/03/17 20:56 Urine Nitrite Negative (NEGATIVE) 01/03/17 20:56 Urine Bilirubin Negative (NEGATIVE) 01/03/17 20:56 Urine Urobilinogen 0.2 mg/dL (0.2-1.0) 01/03/17 20:56 Ur Leukocyte Esterase Trace (NEGATIVE) 01/03/17 20:56 Urine RBC <1 /hpf (0-3) 01/03/17 20:56 Urine WBC 27 /hpf (3-5) 01/03/17 20:56 Ur Epithelial Cells Rare /hpf (FEW) 01/03/17 20:56 Urine Bacteria Rare /hpf (NONE SEEN) 01/03/17 20:56 Hyaline Casts 7 /lpf 01/03/17 20:56 Urine Mucus Many 01/03/17 20:56 RPR Titer Nonreactive (NONREACTIVE) 01/04/17 07:00 HIV 1&2 Antibody Screen Negative 01/04/17 07:00 HIV P24 Antigen Negative 01/04/17 07:00 Assessment: 01/05/17 12:35 WITHDRAWAL SX Plan: CONTINUE DETOX REPEAT UA INCREASE PO FLUIDS
[2017-01-05] MEDS: THIAMINE HCL 100 MG TABLET (FP) PO SCH (22:13)
[2017-01-05] MEDS: chlordiazePOXIDE 5 MG CAPSULE PO SCH (22:13)
[2017-01-06] MEDS: chlordiazePOXIDE 5 MG CAPSULE PO SCH ×3 (05:39→18:17)
[2017-01-06] MEDS: RANITIDINE HCL 150 MG TABLET (FP) PO SCH ×2 (11:15→22:48)
[2017-01-06] MEDS: PRENATAL VITAMINS W/ FOLIC ACID TABLET (FP) PO SCH (11:15)
[2017-01-06] MEDS: NICOTINE 21 MG/24 HOURS TOPICAL PATCH TD SCH (11:16)
--- NOTE | 2017-01-06 19:44 | PN ---
S Progress Note (SOAP) Subjective: Diarrhea, Fatigue, Sweating. Objective: PT. A & O X 2 (DISORIENTED ABOUT DAY / DATE). PT. OBSERVED AMBULATING ON UNIT. NO ACUTE DISTRESS. 01/06/17 19:40 Vital Signs Temperature 97.8 F 01/06/17 18:51 Pulse Rate 69 01/06/17 18:51 Respiratory Rate 18 01/06/17 18:51 Blood Pressure 130/82 01/06/17 18:51 O2 Sat by Pulse Oximetry (%) Laboratory Tests 01/03/17 01/04/17 01/04/17 20:56 07:00 07:00 WBC 3.8 L D RBC 5.03 Hgb 13.4 Hct 40.6 MCV 80.7 MCH 26.7 MCHC 33.1 RDW 14.1 Plt Count 172 MPV 8.7 Sodium Potassium Chloride Carbon Dioxide Anion Gap BUN Creatinine Creat Clearance w eGFR Random Glucose Calcium Total Bilirubin AST ALT Alkaline Phosphatase Total Protein Albumin Urine Color Lt. yellow Urine Appearance Sl cloudy Urine pH 5.5 Ur Specific [place] 1.025 Urine Protein Negative Urine Glucose (UA) Negative Urine Ketones Negative Urine Blood Negative Urine Nitrite Negative Urine Bilirubin Negative Urine Urobilinogen 0.2 Ur Leukocyte Esterase Trace Urine RBC <1 Urine WBC 27 Ur Epithelial Cells Rare Urine Bacteria Rare Hyaline Casts 7 Urine Mucus Many RPR Titer HIV 1&2 Antibody Screen Negative HIV P24 Antigen Negative 01/04/17 01/04/17 07:00 07:00 WBC RBC Hgb Hct MCV MCH MCHC RDW Plt Count MPV Sodium 142 Potassium 3.8 Chloride 108 H Carbon Dioxide 27 Anion Gap 7 L BUN 17 D Creatinine 1.3 Creat Clearance w eGFR 58.43 Random Glucose 111 H Calcium 8.2 L Total Bilirubin 0.3 D AST 15 D ALT 15 D Alkaline Phosphatase 58 Total Protein 6.1 L D Albumin 3.0 L D Urine Color Urine Appearance Urine pH Ur Specific [place] Urine Protein Urine Glucose (UA) Urine Ketones Urine Blood Urine Nitrite Urine Bilirubin Urine Urobilinogen Ur Leukocyte Esterase Urine RBC Urine WBC Ur Epithelial Cells Urine Bacteria Hyaline Casts Urine Mucus RPR Titer Nonreactive HIV 1&2 Antibody Screen HIV P24 Antigen LABS NOTED. Assessment: 01/06/17 19:41 WITHDRAWAL SYMPTOMS. Plan: CONTINUE DETOX.
[2017-01-06] MEDS: chlordiazePOXIDE HCL 10 MG CAPSULE PO SCH (22:47)
[2017-01-06] MEDS: THIAMINE HCL 100 MG TABLET (FP) PO SCH (22:47)
[2017-01-07] MEDS: chlordiazePOXIDE HCL 10 MG CAPSULE PO SCH ×2 (05:28→10:06)
[2017-01-07 10:01] VITALS: BP 131/57; PULSE 66; TEMP 97.4
[2017-01-07] MEDS: PRENATAL VITAMINS W/ FOLIC ACID TABLET (FP) PO SCH (10:06)
[2017-01-07] MEDS: NICOTINE 21 MG/24 HOURS TOPICAL PATCH TD SCH (10:06)
[2017-01-07] MEDS: RANITIDINE HCL 150 MG TABLET (FP) PO SCH (10:06)
--- NOTE | 2017-01-07 13:45 | DS ---
[facility] Detox Discharge Summary Admission Date: 01/03/17 Discharge Date: 01/07/17 - History Present History: Alcohol Dependence, Cocaine Dependence Pertinent Past History: Denies - Physical Exam Results Vital Signs: Vital Signs Temperature 97.4 F L 01/07/17 10:01 Pulse Rate 66 01/07/17 10:01 Respiratory Rate 18 01/07/17 10:01 Blood Pressure 131/57 01/07/17 10:01 O2 Sat by Pulse Oximetry (%) Pertinent Admission Physical Exam Findings: Withdrawal symptoms Laboratory Tests 01/03/17 01/04/17 01/04/17 20:56 07:00 07:00 WBC 3.8 L D RBC 5.03 Hgb 13.4 Hct 40.6 MCV 80.7 MCH 26.7 MCHC 33.1 RDW 14.1 Plt Count 172 MPV 8.7 Sodium Potassium Chloride Carbon Dioxide Anion Gap BUN Creatinine Creat Clearance w eGFR Random Glucose Calcium Total Bilirubin AST ALT Alkaline Phosphatase Total Protein Albumin Urine Color Lt. yellow Urine Appearance Sl cloudy Urine pH 5.5 Ur Specific [place] 1.025 Urine Protein Negative Urine Glucose (UA) Negative Urine Ketones Negative Urine Blood Negative Urine Nitrite Negative Urine Bilirubin Negative Urine Urobilinogen 0.2 Ur Leukocyte Esterase Trace Urine RBC <1 Urine WBC 27 Ur Epithelial Cells Rare Urine Bacteria Rare Hyaline Casts 7 Urine Mucus Many RPR Titer HIV 1&2 Antibody Screen Negative HIV P24 Antigen Negative 01/04/17 01/04/17 07:00 07:00 WBC RBC Hgb Hct MCV MCH MCHC RDW Plt Count MPV Sodium 142 Potassium 3.8 Chloride 108 H Carbon Dioxide 27 Anion Gap 7 L BUN 17 D Creatinine 1.3 Creat Clearance w eGFR 58.43 Random Glucose 111 H Calcium 8.2 L Total Bilirubin 0.3 D AST 15 D ALT 15 D Alkaline Phosphatase 58 Total Protein 6.1 L D Albumin 3.0 L D Urine Color Urine Appearance Urine pH Ur Specific [place] Urine Protein Urine Glucose (UA) Urine Ketones Urine Blood Urine Nitrite Urine Bilirubin Urine Urobilinogen Ur Leukocyte Esterase Urine RBC Urine WBC Ur Epithelial Cells Urine Bacteria Hyaline Casts Urine Mucus RPR Titer Nonreactive HIV 1&2 Antibody Screen HIV P24 Antigen Labs noted - Treatment Hospital Course: Detox Protocol Followed, Detoxed Safely, Responded well, Discharged Condition Good - Medication Discharge Medications: Ambulatory Orders NK [No Known Home Medication] 01/03/17 - Diagnosis (1) Alcohol dependence with uncomplicated withdrawal Status: Acute (2) Cocaine dependence, uncomplicated Status: Chronic (3) Nicotine dependence Status: Chronic Qualifiers: Nicotine product type: cigarettes Substance use status: in withdrawal Qualified Code(s): F17.213 - Nicotine dependence, cigarettes, with withdrawal (4) GERD (gastroesophageal reflux disease) Status: Acute Qualifiers: Esophagitis presence: without esophagitis Qualified Code(s): K21.9 - Gastro-esophageal reflux disease without esophagitis - AMA Did Patient Leave Against Medical Advice: No
== END 2017-01-07 11:20 | disposition home or self-care (01) | DRG 774 ==
LOC: YASAS 13:52 → Y3N 18:11
PROVIDERS: ADMIT Internal Medicine; ATTEND Internal Medicine
PROC: HZ2ZZZZ Detoxification Services for Substance Abuse Treatment (ICD-10-PCS; principal; 2017-01-03)
DX: F10.230 Alcohol dependence with withdrawal, uncomplicated (principal); F14.20 Cocaine dependence, uncomplicated; F17.213 Nicotine dependence, cigarettes, with withdrawal; K21.9 Gastro-esophageal reflux disease without esophagitis; Z87.438 Personal history of other diseases of male genital organs
CPT/HCPCS: 36415; 80053; 81003; 81015; 85027; 86593; 87389; 93005; 93010

== ENCOUNTER 2017-03-04 09:57 | Inpatient (IN) | payer OTHER ==
[2017-03-04 10:19] VITALS: BMI 31.0
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
[2017-03-04] MEDS ORDERED: MAGNESIUM HYDROX 2400MG/30ML ORAL SUSPENSION 30 ML CUP PO PRN (12:26)
[2017-03-04] MEDS ORDERED: MAGNESIUM CITRATE 300 ML BOTTLE PO PRN (12:26)
[2017-03-04] MEDS ORDERED: NICOTINE POLACRILEX 4 MG GUM BUC PRN (12:26)
[2017-03-04] MEDS ORDERED: hydrOXYzine PAMOATE 50 MG CAPSULE (FP) PO PRN (12:26)
[2017-03-04] MEDS ORDERED: diphenhydrAMINE HCL 50 MG CAPSULE PO PRN (12:26)
[2017-03-04] MEDS ORDERED: chlordiazePOXIDE HCL 25 MG CAPSULE PO PRN (12:26)
[2017-03-04] MEDS ORDERED: guaiFENesin/D-METHORPHAN HB 10 ML UNIT-DOSE CUPS PO PRN (12:26)
[2017-03-04] MEDS ORDERED: P-EPHED 60MG/TRIPROLIDI 2.5MG TABLET PO PRN (12:26)
[2017-03-04] MEDS ORDERED: ACETAMINOPHEN 325 MG TABLET (FP) PO PRN (12:26)
[2017-03-04] MEDS ORDERED: IBUPROFEN 400 MG TABLET (FP) PO PRN (12:26)
[2017-03-04] MEDS ORDERED: LOPERAMIDE HCL 2 MG CAPSULE PO PRN (12:26)
[2017-03-04] MEDS ORDERED: MAG HYDROX/AL HYDROX/SIMETH 30 ML UNIT-DOSE CUP PO PRN (12:26)
[2017-03-04] MEDS ORDERED: MENTHOL/PHENOL 1 EACH UD MM PRN (12:26)
[2017-03-04] MEDS ORDERED: chlordiazePOXIDE HCL 25 MG CAPSULE PO ONE (16:00)
[2017-03-04 17:33] LABS: URINE APPEARANCE CLEAR; URINE BILIRUBIN NEGATIVE (NEGATIVE); URINE BLOOD NEGATIVE (NEGATIVE); URINE COLOR YELLOW; URINE GLUCOSE (UA) NEGATIVE (NEGATIVE); URINE KETONE NEGATIVE (NEGATIVE); URINE NITRITE NEGATIVE (NEGATIVE); URINE PROTEIN NEGATIVE (NEGATIVE)
[2017-03-04] MEDS: chlordiazePOXIDE HCL 25 MG CAPSULE PO SCH ×2 (17:58→22:42)
[2017-03-04 20:32] LABS: URINE LEUK ESTERASE Negative (NEGATIVE)
[2017-03-04] MEDS: THIAMINE HCL 100 MG TABLET (FP) PO SCH (22:42)
[2017-03-05] MEDS: chlordiazePOXIDE HCL 25 MG CAPSULE PO SCH ×4 (05:35→22:34)
[2017-03-05 09:48] LABS: MCHC 31.9 g/dl (32.0-35.9); MEAN CELL VOLUME 81.3 fl (80-96); MEAN PLT VOLUME 8.3 fl (7.5-11.1); PLATELET COUNT 177 K/MM3 (134-434); RDW 13.8 % (11.9-15.9); WHITE BLOOD COUNT 3.6 K/mm3 (4.0-10.0)
[2017-03-05 10:16] LABS: ALBUMIN 3.2 g/dl (3.4-5.0); ALK PHOS 57 U/L (45-117); ANION GAP 7 (8-16); BILIRUBIN,TOTAL 0.3 mg/dL (0.2-1.0); CALCIUM 8.4 mg/dL (8.5-10.1); CO2 27 mmol/L (21-32); CREATININE 1.1 mg/dL (0.7-1.3); GLUCOSE,RANDOM 110 mg/dL (74-106); SGOT/AST 17 U/L (15-37); SGPT/ALT 19 U/L (12-78); TOT PROT 6.3 g/dl (6.4-8.2)
[2017-03-05] MEDS: PRENATAL VITAMINS W/ FOLIC ACID TABLET (FP) PO SCH (10:33)
[2017-03-05] MEDS: NICOTINE 21 MG/24 HOURS TOPICAL PATCH TD SCH (10:35)
[2017-03-05 10:42] LABS: HIV 1 & 2 AB NEGATIVE; HIV 1 AGp24 NEGATIVE
--- NOTE | 2017-03-05 12:15 | PN ---
S CIWA - CIWA Score Nausea/Vomitin Muscle Tremors: 3 Anxiety: 3 Agitation: 2 Paroxysmal Sweats: 1-Minimal Palms Moist Orientation: 0-Oriented Tacttile Disturbances: 1-Very Mild Itch/Numbness Auditory Disturbances: 1-Very Mild Visual Disturbances: 0-None Headache: 2-Mild CIWA-Ar Total Score: 16 BHS Progress Note (SOAP) Subjective: alert,irritable,anxious,interrupted sleep,tremor Objective: 03/05/17 12:14 Vital Signs Temperature 96.7 F L 03/05/17 11:07 Pulse Rate 69 03/05/17 11:07 Respiratory Rate 20 03/05/17 11:07 Blood Pressure 119/76 03/05/17 11:07 O2 Sat by Pulse Oximetry (%) ekg nsr,normal ecg Laboratory Last Values WBC 3.6 K/mm3 (4.0-10.0) L 03/05/17 07:00 RBC 4.93 M/mm3 (4.00-5.60) 03/05/17 07:00 Hgb 12.8 GM/dL (11.7-16.9) 03/05/17 07:00 Hct 40.1 % (35.4-49) 03/05/17 07:00 MCV 81.3 fl (80-96) 03/05/17 07:00 MCH 26.0 pg (25.7-33.7) 03/05/17 07:00 MCHC 31.9 g/dl (32.0-35.9) L 03/05/17 07:00 RDW 13.8 % (11.9-15.9) 03/05/17 07:00 Plt Count 177 K/MM3 (134-434) 03/05/17 07:00 MPV 8.3 fl (7.5-11.1) 03/05/17 07:00 Sodium 141 mmol/L (136-145) 03/05/17 07:00 Potassium 4.2 mmol/L (3.5-5.1) 03/05/17 07:00 Chloride 107 mmol/L (98-107) 03/05/17 07:00 Carbon Dioxide 27 mmol/L (21-32) 03/05/17 07:00 Anion Gap 7 (8-16) L 03/05/17 07:00 BUN 15 mg/dL (7-18) 03/05/17 07:00 Creatinine 1.1 mg/dL (0.7-1.3) 03/05/17 07:00 Creat Clearance w eGFR > 60 (>60) 03/05/17 07:00 Random Glucose 110 mg/dL (74-106) H 03/05/17 07:00 Calcium 8.4 mg/dL (8.5-10.1) L 03/05/17 07:00 Total Bilirubin 0.3 mg/dL (0.2-1.0) 03/05/17 07:00 AST 17 U/L (15-37) 03/05/17 07:00 ALT 19 U/L (12-78) D 03/05/17 07:00 Alkaline Phosphatase 57 U/L (45-117) 03/05/17 07:00 Total Protein 6.3 g/dl (6.4-8.2) L 03/05/17 07:00 Albumin 3.2 g/dl (3.4-5.0) L 03/05/17 07:00 Urine Color Yellow 03/04/17 17:19 Urine Appearance Clear 03/04/17 17:19 Urine pH 5.0 (5.0-8.0) 03/04/17 17:19 Ur Specific [place] 1.020 (1.005-1.025) 03/04/17 17:19 Urine Protein Negative (NEGATIVE) 03/04/17 17:19 Urine Glucose (UA) Negative (NEGATIVE) 03/04/17 17:19 Urine Ketones Negative (NEGATIVE) 03/04/17 17:19 Urine Blood Negative (NEGATIVE) 03/04/17 17:19 Urine Nitrite Negative (NEGATIVE) 03/04/17 17:19 Urine Bilirubin Negative (NEGATIVE) 03/04/17 17:19 Urine Urobilinogen 2.0 mg/dL (0.2-1.0) 03/04/17 17:19 Ur Leukocyte Esterase Negative (NEGATIVE) 03/04/17 17:19 RPR Titer Nonreactive (NONREACTIVE) 03/05/17 07:00 HIV 1&2 Antibody Screen Negative 03/05/17 07:00 HIV P24 Antigen Negative 03/05/17 07:00 Assessment: 03/05/17 12:15 withdrawal symptom Plan: continue detox
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
[2017-03-05] MEDS: THIAMINE HCL 100 MG TABLET (FP) PO SCH (22:34)
[2017-03-06] MEDS: chlordiazePOXIDE HCL 25 MG CAPSULE PO SCH ×2 (05:39→10:36)
--- NOTE | 2017-03-06 07:23 | EKG ---
Test Reason : Blood Pressure : / mmHG Vent. Rate : 065 BPM Atrial Rate : 065 BPM P-R Int : 156 ms QRS Dur : 102 ms QT Int : 418 ms P-R-T Axes : 045 039 026 degrees QTc Int : 434 ms NORMAL SINUS RHYTHM NORMAL ECG WHEN COMPARED WITH ECG OF 03-JAN-2017 18:54, NO SIGNIFICANT CHANGE WAS FOUND Confirmed by BIRDIE PEREZ MD ([id number]) on 03/06/2017 7:23:00 AM Referred By: Confirmed By:BIRDIE PEREZ MD
[2017-03-06] MEDS: PRENATAL VITAMINS W/ FOLIC ACID TABLET (FP) PO SCH (10:36)
[2017-03-06] MEDS: NICOTINE 21 MG/24 HOURS TOPICAL PATCH TD SCH (10:36)
--- NOTE | 2017-03-06 11:15 | PN ---
S CIWA - CIWA Score Nausea/Vomitin Muscle Tremors: 3 Anxiety: 3 Agitation: 2 Paroxysmal Sweats: 1-Minimal Palms Moist Orientation: 0-Oriented Tacttile Disturbances: 1-Very Mild Itch/Numbness Auditory Disturbances: 1-Very Mild Visual Disturbances: 0-None Headache: 2-Mild CIWA-Ar Total Score: 16 BHS Progress Note (SOAP) Subjective: alert,irritable,anxious,interrupted sleep,tremor Objective: 03/06/17 11:14 Vital Signs Temperature 98.4 F 03/06/17 10:00 Pulse Rate 73 03/06/17 10:00 Respiratory Rate 18 03/06/17 10:00 Blood Pressure 139/84 03/06/17 10:00 O2 Sat by Pulse Oximetry (%) Assessment: 03/06/17 11:14 withdrawal symptom Plan: continue detox
[2017-03-06] MEDS: chlordiazePOXIDE 5 MG CAPSULE PO SCH ×2 (18:28→22:40)
[2017-03-06] MEDS: THIAMINE HCL 100 MG TABLET (FP) PO SCH (22:40)
[2017-03-07] MEDS: chlordiazePOXIDE 5 MG CAPSULE PO SCH ×2 (05:25→10:37)
[2017-03-07] MEDS: PRENATAL VITAMINS W/ FOLIC ACID TABLET (FP) PO SCH (10:37)
[2017-03-07] MEDS: NICOTINE 21 MG/24 HOURS TOPICAL PATCH TD SCH (10:37)
--- NOTE | 2017-03-07 11:43 | PN ---
S Progress Note (SOAP) Subjective: alert,irritable,interrupted sleep Objective: 03/07/17 11:42 Vital Signs Temperature 97.9 F 03/07/17 10:00 Pulse Rate 71 03/07/17 10:00 Respiratory Rate 20 03/07/17 10:00 Blood Pressure 130/87 03/07/17 10:00 O2 Sat by Pulse Oximetry (%) Assessment: 03/07/17 11:43 withdrawal symptom Plan: continue detox,discharge in am
[2017-03-07] MEDS: chlordiazePOXIDE HCL 10 MG CAPSULE PO SCH ×2 (17:28→22:42)
[2017-03-07] MEDS: THIAMINE HCL 100 MG TABLET (FP) PO SCH (22:42)
[2017-03-08] MEDS: chlordiazePOXIDE HCL 10 MG CAPSULE PO SCH (05:30)
--- NOTE | 2017-03-08 08:12 | DS ---
[facility] Detox Discharge Summary Admission Date: 03/04/17 Discharge Date: 03/08/17 - History Present History: Alcohol Dependence, Cocaine Dependence Additional Comments: follow up with after care program as arrangement Pertinent Past History: gerd nicotine dependence - Physical Exam Results Vital Signs: Vital Signs Temperature 96.9 F L 03/08/17 06:35 Pulse Rate 70 03/08/17 06:35 Respiratory Rate 18 03/08/17 06:35 Blood Pressure 150/90 03/08/17 06:35 O2 Sat by Pulse Oximetry (%) Pertinent Admission Physical Exam Findings: withdrawal symptom - Treatment Hospital Course: Detox Protocol Followed, Detoxed Safely, Responded well, Discharged Condition Good Patient has Accepted a Rehab Referral to: declined - Medication Discharge Medications: Ambulatory Orders NK [No Known Home Medication] 01/03/17 - Diagnosis (1) Alcohol dependence with uncomplicated withdrawal Current Visit: Yes Status: Acute (2) Cocaine dependence, uncomplicated Current Visit: Yes Status: Acute (3) Nicotine dependence Current Visit: Yes Status: Acute Qualifiers: Nicotine product type: cigarettes Substance use status: uncomplicated Qualified Code(s): F17.210 - Nicotine dependence, cigarettes, uncomplicated; F17.210 - Nicotine dependence, cigarettes, uncomplicated (4) GERD (gastroesophageal reflux disease) Current Visit: Yes Status: Chronic Qualifiers: Esophagitis presence: without esophagitis Qualified Code(s): K21.9 - Gastro-esophageal reflux disease without esophagitis; K21.9 - Gastro- esophageal reflux disease without esophagitis; K21.9 - Gastro-esophageal reflux disease without esophagitis (5) Substance induced mood disorder Current Visit: Yes Status: Acute - AMA Did Patient Leave Against Medical Advice: No
[2017-03-08] MEDS: PRENATAL VITAMINS W/ FOLIC ACID TABLET (FP) PO SCH (09:10)
[2017-03-08 09:55] VITALS: BP 118/70; PULSE 80; TEMP 97.8
== END 2017-03-08 09:20 | disposition home or self-care (01) | DRG 774 ==
LOC: YASAS 09:57 → Y6N 14:04
PROVIDERS: ADMIT Internal Medicine; ATTEND Internal Medicine
PROC: HZ2ZZZZ Detoxification Services for Substance Abuse Treatment (ICD-10-PCS; principal; 2017-03-04)
DX: F10.230 Alcohol dependence with withdrawal, uncomplicated (principal); F14.20 Cocaine dependence, uncomplicated; F17.210 Nicotine dependence, cigarettes, uncomplicated; F19.24 Other psychoactive substance dependence with psychoactive substance-induced mood disorder; F32.9 Major depressive disorder, single episode, unspecified; K21.9 Gastro-esophageal reflux disease without esophagitis
CPT/HCPCS: 36415; 80053; 81003; 85027; 86593; 87389; 93005; 93010

== ENCOUNTER 2017-05-17 10:53 | Inpatient (IN) | payer OTHER ==
[2017-05-17 14:15] VITALS: BMI 32.1
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
[2017-05-17] MEDS ORDERED: MAGNESIUM CITRATE 300 ML BOTTLE PO PRN (15:48)
[2017-05-17] MEDS ORDERED: P-EPHED 60MG/TRIPROLIDI 2.5MG TABLET PO PRN (15:48)
[2017-05-17] MEDS ORDERED: MAG HYDROX/AL HYDROX/SIMETH 30 ML UNIT-DOSE CUP PO PRN (15:48)
[2017-05-17] MEDS ORDERED: IBUPROFEN 400 MG TABLET (FP) PO PRN (15:48)
[2017-05-17] MEDS ORDERED: MAGNESIUM HYDROX 2400MG/30ML ORAL SUSPENSION 30 ML CUP PO PRN (15:48)
[2017-05-17] MEDS ORDERED: guaiFENesin/D-METHORPHAN HB 10 ML UNIT-DOSE CUPS PO PRN (15:48)
[2017-05-17] MEDS ORDERED: ACETAMINOPHEN 325 MG TABLET (FP) PO PRN (15:48)
[2017-05-17] MEDS ORDERED: LOPERAMIDE HCL 2 MG CAPSULE PO PRN (15:48)
[2017-05-17] MEDS ORDERED: chlordiazePOXIDE HCL 25 MG CAPSULE PO PRN (15:48)
[2017-05-17] MEDS ORDERED: NICOTINE POLACRILEX 2 MG GUM BUC PRN (15:48)
[2017-05-17] MEDS ORDERED: MENTHOL/PHENOL 1 EACH UD MM PRN (15:48)
[2017-05-17] MEDS ORDERED: chlordiazePOXIDE HCL 25 MG CAPSULE PO ONE (17:15)
[2017-05-17] MEDS: NICOTINE 14 MG/24 HOURS TOPICAL PATCH TD SCH (17:51)
[2017-05-17] MEDS: chlordiazePOXIDE HCL 25 MG CAPSULE PO SCH ×2 (17:52→22:05)
[2017-05-17 21:01] LABS: URINE APPEARANCE CLEAR; URINE BILIRUBIN NEGATIVE (NEGATIVE); URINE BLOOD NEGATIVE (NEGATIVE); URINE COLOR YELLOW; URINE GLUCOSE (UA) NEGATIVE (NEGATIVE); URINE KETONE NEGATIVE (NEGATIVE); URINE LEUK ESTERASE NEGATIVE (NEGATIVE); URINE NITRITE NEGATIVE (NEGATIVE); URINE PROTEIN NEGATIVE (NEGATIVE); URINE UROBILINOGEN NEGATIVE mg/dL (0.2-1.0)
[2017-05-17] MEDS: THIAMINE HCL 100 MG TABLET (FP) PO SCH (22:05)
[2017-05-18] MEDS: chlordiazePOXIDE HCL 25 MG CAPSULE PO SCH ×4 (05:08→22:14)
--- NOTE | 2017-05-18 09:53 | EKG ---
Test Reason : Blood Pressure : / mmHG Vent. Rate : 073 BPM Atrial Rate : 073 BPM P-R Int : 158 ms QRS Dur : 104 ms QT Int : 404 ms P-R-T Axes : 048 036 024 degrees QTc Int : 445 ms NORMAL SINUS RHYTHM NORMAL ECG WHEN COMPARED WITH ECG OF 04-MAR-2017 14:28, NO SIGNIFICANT CHANGE WAS FOUND Confirmed by ZAIRA SANTANA MD ([id number]) on 05/18/2017 9:52:33 AM Referred By: Confirmed By:ZAIRA SANTANA MD
[2017-05-18 09:56] LABS: HEMATOCRIT 44.2 % (35.4-49); MCHC 31.8 g/dl (32.0-35.9); MEAN CELL VOLUME 81.8 fl (80-96); MEAN PLT VOLUME 8.7 fl (7.5-11.1); PLATELET COUNT 202 K/MM3 (134-434); RDW 13.9 % (11.9-15.9)
[2017-05-18 10:00] LABS: CHLORIDE 108 mmol/L (98-107); POTASSIUM 3.9 mmol/L (3.5-5.1); SODIUM 142 mmol/L (136-145)
[2017-05-18 10:09] LABS: ALBUMIN 3.8 g/dl (3.4-5.0); ALK PHOS 61 U/L (45-117); ANION GAP 7 (8-16); BILIRUBIN,TOTAL 0.5 mg/dL (0.2-1.0); BLOOD UREA NITROGEN 18 mg/dL (7-18); CALCIUM 8.8 mg/dL (8.5-10.1); CO2 27 mmol/L (21-32); CREATININE 1.3 mg/dL (0.7-1.3); GLUCOSE,RANDOM 126 mg/dL (74-106); SGOT/AST 21 U/L (15-37); SGPT/ALT 19 U/L (12-78); TOT PROT 7.3 g/dl (6.4-8.2)
[2017-05-18] MEDS: PRENATAL VITAMINS W/ FOLIC ACID TABLET (FP) PO SCH (10:14)
[2017-05-18] MEDS: NICOTINE 14 MG/24 HOURS TOPICAL PATCH TD SCH (10:14)
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
--- NOTE | 2017-05-18 12:05 | PN ---
[facility] CIWA - CIWA Score Nausea/Vomitin-No Nausea/No Vomiting Muscle Tremors: 4-Moderate,w/Arms Extend Anxiety: 4-Mod. Anxious/Guarded Agitation: 4-Moderately Restless Paroxysmal Sweats: 1-Minimal Palms Moist Orientation: 0-Oriented Tacttile Disturbances: 3-Moderate Itch/Numb/Burn Auditory Disturbances: 0-None Visual Disturbances: 0-None Headache: 0-None Present CIWA-Ar Total Score: 16 BHS Progress Note (SOAP) Subjective: ANXIETY,TREMORS,SWEATS,FATIGUE. Objective: 05/18/17 12:36 Vital Signs Temperature 97.0 F L 05/18/17 09:12 Pulse Rate 74 05/18/17 09:12 Respiratory Rate 20 05/18/17 09:12 Blood Pressure 105/74 05/18/17 09:12 O2 Sat by Pulse Oximetry (%) Laboratory Last Values WBC 5.0 K/mm3 (4.0-10.0) D 05/18/17 06:05 RBC 5.40 M/mm3 (4.00-5.60) 05/18/17 06:05 Hgb 14.0 GM/dL (11.7-16.9) 05/18/17 06:05 Hct 44.2 % (35.4-49) 05/18/17 06:05 MCV 81.8 fl (80-96) 05/18/17 06:05 MCH 26.0 pg (25.7-33.7) 05/18/17 06:05 MCHC 31.8 g/dl (32.0-35.9) L 05/18/17 06:05 RDW 13.9 % (11.9-15.9) 05/18/17 06:05 Plt Count 202 K/MM3 (134-434) 05/18/17 06:05 MPV 8.7 fl (7.5-11.1) 05/18/17 06:05 Sodium 142 mmol/L (136-145) 05/18/17 06:05 Potassium 3.9 mmol/L (3.5-5.1) 05/18/17 06:05 Chloride 108 mmol/L (98-107) H 05/18/17 06:05 Carbon Dioxide 27 mmol/L (21-32) 05/18/17 06:05 Anion Gap 7 (8-16) L 05/18/17 06:05 BUN 18 mg/dL (7-18) 05/18/17 06:05 Creatinine 1.3 mg/dL (0.7-1.3) 05/18/17 06:05 Creat Clearance w eGFR 58.20 (>60) 05/18/17 06:05 Random Glucose 126 mg/dL (74-106) H 05/18/17 06:05 Calcium 8.8 mg/dL (8.5-10.1) 05/18/17 06:05 Total Bilirubin 0.5 mg/dL (0.2-1.0) D 05/18/17 06:05 AST 21 U/L (15-37) D 05/18/17 06:05 ALT 19 U/L (12-78) 05/18/17 06:05 Alkaline Phosphatase 61 U/L (45-117) 05/18/17 06:05 Total Protein 7.3 g/dl (6.4-8.2) 05/18/17 06:05 Albumin 3.8 g/dl (3.4-5.0) 05/18/17 06:05 Urine Color Yellow 05/17/17 18:30 Urine Appearance Clear 05/17/17 18:30 Urine pH 5.0 (5.0-8.0) 05/17/17 18:30 Ur Specific [place] 1.023 (1.001-1.035) 05/17/17 18:30 Urine Protein Negative (NEGATIVE) 05/17/17 18:30 Urine Glucose (UA) Negative (NEGATIVE) 05/17/17 18:30 Urine Ketones Negative (NEGATIVE) 05/17/17 18:30 Urine Blood Negative (NEGATIVE) 05/17/17 18:30 Urine Nitrite Negative (NEGATIVE) 05/17/17 18:30 Urine Bilirubin Negative (NEGATIVE) 05/17/17 18:30 Urine Urobilinogen Negative mg/dL (0.2-1.0) 05/17/17 18:30 Ur Leukocyte Esterase Negative (NEGATIVE) 05/17/17 18:30 RPR Titer Nonreactive (NONREACTIVE) 05/18/17 06:05 Assessment: 05/18/17 12:36 WITHDRAWAL SX Plan: CONTINUE DETOX
[2017-05-18] MEDS: THIAMINE HCL 100 MG TABLET (FP) PO SCH (22:14)
[2017-05-19] MEDS: chlordiazePOXIDE HCL 25 MG CAPSULE PO SCH ×2 (05:38→10:14)
[2017-05-19] MEDS: PRENATAL VITAMINS W/ FOLIC ACID TABLET (FP) PO SCH (10:13)
[2017-05-19] MEDS: NICOTINE 14 MG/24 HOURS TOPICAL PATCH TD SCH (10:14)
--- NOTE | 2017-05-19 15:59 | PN ---
[facility] CIWA - CIWA Score Nausea/Vomitin-No Nausea/No Vomiting Muscle Tremors: 4-Moderate,w/Arms Extend Anxiety: 3 Agitation: 3 Paroxysmal Sweats: No Perspiration Orientation: 0-Oriented Tacttile Disturbances: 2-Mild Itch/Numbness/Burn Auditory Disturbances: 2-Mild Harshness/Frighten Visual Disturbances: 2-Mild Sensitivity Headache: 0-None Present CIWA-Ar Total Score: 16 S Progress Note (SOAP) Subjective: Constipation, Fatigue, Tremors. Objective: PT. A & O X 3. NO ACUTE DISTRESS. 05/19/17 16:00 Vital Signs Temperature 97.1 F L 05/19/17 13:30 Pulse Rate 72 05/19/17 13:30 Respiratory Rate 17 05/19/17 13:30 Blood Pressure 128/83 05/19/17 13:30 O2 Sat by Pulse Oximetry (%) Laboratory Tests 05/17/17 05/17/17 05/18/17 09:25 18:30 06:05 WBC 5.0 D RBC 5.40 Hgb 14.0 Hct 44.2 MCV 81.8 MCH 26.0 MCHC 31.8 L RDW 13.9 Plt Count 202 MPV 8.7 Sodium Potassium Chloride Carbon Dioxide Anion Gap BUN Creatinine Creat Clearance w eGFR Random Glucose Calcium Total Bilirubin AST ALT Alkaline Phosphatase Total Protein Albumin Urine Color Yellow Urine Appearance Clear Urine pH 5.0 Ur Specific [place] 1.023 Urine Protein Negative Urine Glucose (UA) Negative Urine Ketones Negative Urine Blood Negative Urine Nitrite Negative Urine Bilirubin Negative Urine Urobilinogen Negative Ur Leukocyte Esterase Negative RPR Titer HIV 1&2 Antibody Screen Negative HIV P24 Antigen Negative 05/18/17 05/18/17 06:05 06:05 WBC RBC Hgb Hct MCV MCH MCHC RDW Plt Count MPV Sodium 142 Potassium 3.9 Chloride 108 H Carbon Dioxide 27 Anion Gap 7 L BUN 18 Creatinine 1.3 Creat Clearance w eGFR 58.20 Random Glucose 126 H Calcium 8.8 Total Bilirubin 0.5 D AST 21 D ALT 19 Alkaline Phosphatase 61 Total Protein 7.3 Albumin 3.8 Urine Color Urine Appearance Urine pH Ur Specific [place] Urine Protein Urine Glucose (UA) Urine Ketones Urine Blood Urine Nitrite Urine Bilirubin Urine Urobilinogen Ur Leukocyte Esterase RPR Titer Nonreactive HIV 1&2 Antibody Screen HIV P24 Antigen LABS NOTED. Assessment: 05/19/17 16:00 WITHDRAWAL SYMPTOMS. Plan: CONTINUE DETOX.
[2017-05-19] MEDS: chlordiazePOXIDE 5 MG CAPSULE PO SCH ×2 (17:41→22:13)
[2017-05-19] MEDS: THIAMINE HCL 100 MG TABLET (FP) PO SCH (22:13)
[2017-05-20] MEDS: chlordiazePOXIDE 5 MG CAPSULE PO SCH ×2 (05:34→10:08)
[2017-05-20] MEDS: PRENATAL VITAMINS W/ FOLIC ACID TABLET (FP) PO SCH (10:08)
[2017-05-20] MEDS: NICOTINE 14 MG/24 HOURS TOPICAL PATCH TD SCH (10:09)
--- NOTE | 2017-05-20 11:18 | PN ---
BHS Progress Note (SOAP) Subjective: Sweating, stomach ache, interrupted sleep, tremor, chills, back pain Objective: 05/20/17 11:14 Last Vital Signs Temp Pulse Resp BP Pulse Ox 96.8 F L 72 19 136/86 05/20/17 09:01 05/20/17 09:01 05/20/17 09:01 05/20/17 09:01 Laboratory Tests 05/17/17 05/17/17 05/18/17 09:25 18:30 06:05 WBC 5.0 D RBC 5.40 Hgb 14.0 Hct 44.2 MCV 81.8 MCH 26.0 MCHC 31.8 L RDW 13.9 Plt Count 202 MPV 8.7 Sodium Potassium Chloride Carbon Dioxide Anion Gap BUN Creatinine Creat Clearance w eGFR Random Glucose Calcium Total Bilirubin AST ALT Alkaline Phosphatase Total Protein Albumin Urine Color Yellow Urine Appearance Clear Urine pH 5.0 Ur Specific [place] 1.023 Urine Protein Negative Urine Glucose (UA) Negative Urine Ketones Negative Urine Blood Negative Urine Nitrite Negative Urine Bilirubin Negative Urine Urobilinogen Negative Ur Leukocyte Esterase Negative RPR Titer HIV 1&2 Antibody Screen Negative HIV P24 Antigen Negative 05/18/17 05/18/17 06:05 06:05 WBC RBC Hgb Hct MCV MCH MCHC RDW Plt Count MPV Sodium 142 Potassium 3.9 Chloride 108 H Carbon Dioxide 27 Anion Gap 7 L BUN 18 Creatinine 1.3 Creat Clearance w eGFR 58.20 Random Glucose 126 H Calcium 8.8 Total Bilirubin 0.5 D AST 21 D ALT 19 Alkaline Phosphatase 61 Total Protein 7.3 Albumin 3.8 Urine Color Urine Appearance Urine pH Ur Specific [place] Urine Protein Urine Glucose (UA) Urine Ketones Urine Blood Urine Nitrite Urine Bilirubin Urine Urobilinogen Ur Leukocyte Esterase RPR Titer Nonreactive HIV 1&2 Antibody Screen HIV P24 Antigen Labs noted: prerenal azotemia and hyperglycemia Assessment: 05/20/17 11:16 Withdrawal symptoms Noted with prerenal azotemia and hyperglycemia Plan: Continue detox Prerenal azotemia: encouraged to drink lots of water for hydration, repeat BMP Hyperglycemia: repeat fasting glucose, send HbA1c
[2017-05-20] MEDS: chlordiazePOXIDE HCL 10 MG CAPSULE PO SCH ×2 (17:20→22:13)
[2017-05-20] MEDS: THIAMINE HCL 100 MG TABLET (FP) PO SCH (22:13)
[2017-05-21] MEDS: chlordiazePOXIDE HCL 10 MG CAPSULE PO SCH ×2 (05:02→10:08)
[2017-05-21 09:18] VITALS: BP 136/93; PULSE 75; TEMP 96.5
[2017-05-21] MEDS: NICOTINE 14 MG/24 HOURS TOPICAL PATCH TD SCH (10:08)
[2017-05-21] MEDS: PRENATAL VITAMINS W/ FOLIC ACID TABLET (FP) PO SCH (10:08)
[2017-05-21] MEDS ORDERED: BACITRACIN 0.9 GM PACKET TP SCH (11:30)
--- NOTE | 2017-05-21 12:00 | PN ---
BHS Progress Note (SOAP) Subjective: DECREASED ANXIETY. SWEATS. PT REFERRED TO REHAB IF BED AVAILABLE TODAY. Objective: 05/21/17 11:59 Vital Signs Temperature 96.5 F L 05/21/17 09:17 Pulse Rate 75 05/21/17 09:17 Respiratory Rate 18 05/21/17 09:17 Blood Pressure 136/93 05/21/17 09:17 O2 Sat by Pulse Oximetry (%) Laboratory Last Values WBC 5.0 K/mm3 (4.0-10.0) D 05/18/17 06:05 RBC 5.40 M/mm3 (4.00-5.60) 05/18/17 06:05 Hgb 14.0 GM/dL (11.7-16.9) 05/18/17 06:05 Hct 44.2 % (35.4-49) 05/18/17 06:05 MCV 81.8 fl (80-96) 05/18/17 06:05 MCH 26.0 pg (25.7-33.7) 05/18/17 06:05 MCHC 31.8 g/dl (32.0-35.9) L 05/18/17 06:05 RDW 13.9 % (11.9-15.9) 05/18/17 06:05 Plt Count 202 K/MM3 (134-434) 05/18/17 06:05 MPV 8.7 fl (7.5-11.1) 05/18/17 06:05 Sodium 142 mmol/L (136-145) 05/18/17 06:05 Potassium 3.9 mmol/L (3.5-5.1) 05/18/17 06:05 Chloride 108 mmol/L (98-107) H 05/18/17 06:05 Carbon Dioxide 27 mmol/L (21-32) 05/18/17 06:05 Anion Gap 7 (8-16) L 05/18/17 06:05 BUN 18 mg/dL (7-18) 05/18/17 06:05 Creatinine 1.3 mg/dL (0.7-1.3) 05/18/17 06:05 Creat Clearance w eGFR 58.20 (>60) 05/18/17 06:05 Random Glucose 126 mg/dL (74-106) H 05/18/17 06:05 Calcium 8.8 mg/dL (8.5-10.1) 05/18/17 06:05 Total Bilirubin 0.5 mg/dL (0.2-1.0) D 05/18/17 06:05 AST 21 U/L (15-37) D 05/18/17 06:05 ALT 19 U/L (12-78) 05/18/17 06:05 Alkaline Phosphatase 61 U/L (45-117) 05/18/17 06:05 Total Protein 7.3 g/dl (6.4-8.2) 05/18/17 06:05 Albumin 3.8 g/dl (3.4-5.0) 05/18/17 06:05 Urine Color Yellow 05/17/17 18:30 Urine Appearance Clear 05/17/17 18:30 Urine pH 5.0 (5.0-8.0) 05/17/17 18:30 Ur Specific [place] 1.023 (1.001-1.035) 05/17/17 18:30 Urine Protein Negative (NEGATIVE) 05/17/17 18:30 Urine Glucose (UA) Negative (NEGATIVE) 05/17/17 18:30 Urine Ketones Negative (NEGATIVE) 05/17/17 18:30 Urine Blood Negative (NEGATIVE) 05/17/17 18:30 Urine Nitrite Negative (NEGATIVE) 05/17/17 18:30 Urine Bilirubin Negative (NEGATIVE) 05/17/17 18:30 Urine Urobilinogen Negative mg/dL (0.2-1.0) 05/17/17 18:30 Ur Leukocyte Esterase Negative (NEGATIVE) 05/17/17 18:30 RPR Titer Nonreactive (NONREACTIVE) 05/18/17 06:05 HIV 1&2 Antibody Screen Negative 05/17/17 09:25 HIV P24 Antigen Negative 05/17/17 09:25 Assessment: 05/21/17 11:59 WITHDRAWAL SX Plan: CONTINUE DETOX
[2017-05-21 12:18] LABS: ANION GAP 9 (8-16); BLOOD UREA NITROGEN 16 mg/dL (7-18); CALCIUM 8.2 mg/dL (8.5-10.1); CHLORIDE 109 mmol/L (98-107); CO2 26 mmol/L (21-32); CREATININE 1.2 mg/dL (0.7-1.3); GLUCOSE,RANDOM 135 mg/dL (74-106); POTASSIUM 3.8 mmol/L (3.5-5.1); SODIUM 144 mmol/L (136-145)
== END 2017-05-21 01:30 | disposition home or self-care (01) | DRG 774 ==
LOC: YASAS 10:53 → Y3N 15:50
PROVIDERS: ADMIT Internal Medicine; ATTEND Internal Medicine
PROC: HZ2ZZZZ Detoxification Services for Substance Abuse Treatment (ICD-10-PCS; principal; 2017-05-17)
DX: F10.230 Alcohol dependence with withdrawal, uncomplicated (principal); F14.20 Cocaine dependence, uncomplicated; F12.20 Cannabis dependence, uncomplicated; F17.213 Nicotine dependence, cigarettes, with withdrawal; F33.9 Major depressive disorder, recurrent, unspecified; F19.24 Other psychoactive substance dependence with psychoactive substance-induced mood disorder; R79.89 Other specified abnormal findings of blood chemistry; R73.9 Hyperglycemia, unspecified; Z87.438 Personal history of other diseases of male genital organs
CPT/HCPCS: 36415; 80048; 80053; 81003; 83036; 85027; 86593; 87389; 93005; 93010

== ENCOUNTER 2017-07-03 08:42 | Inpatient (IN) | payer OTHER ==
[2017-07-03 10:11] VITALS: BMI 32.5
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
[2017-07-03] MEDS ORDERED: IBUPROFEN 400 MG TABLET (FP) PO PRN (12:01)
[2017-07-03] MEDS ORDERED: guaiFENesin/D-METHORPHAN HB 10 ML UNIT-DOSE CUPS PO PRN (12:01)
[2017-07-03] MEDS ORDERED: LOPERAMIDE HCL 2 MG CAPSULE PO PRN (12:01)
[2017-07-03] MEDS ORDERED: chlordiazePOXIDE HCL 25 MG CAPSULE PO PRN (12:01)
[2017-07-03] MEDS ORDERED: MAGNESIUM CITRATE 300 ML BOTTLE PO PRN (12:01)
[2017-07-03] MEDS ORDERED: MAGNESIUM HYDROX 2400MG/30ML ORAL SUSPENSION 30 ML CUP PO PRN (12:01)
[2017-07-03] MEDS ORDERED: MENTHOL/PHENOL 1 EACH UD MM PRN (12:01)
[2017-07-03] MEDS ORDERED: P-EPHED 60MG/TRIPROLIDI 2.5MG TABLET PO PRN (12:01)
[2017-07-03] MEDS ORDERED: MAG HYDROX/AL HYDROX/SIMETH 30 ML UNIT-DOSE CUP PO PRN (12:01)
[2017-07-03] MEDS ORDERED: hydrOXYzine PAMOATE 50 MG CAPSULE (FP) PO PRN (12:01)
[2017-07-03] MEDS ORDERED: ACETAMINOPHEN 325 MG TABLET (FP) PO PRN (13:00)
[2017-07-03] MEDS ORDERED: chlordiazePOXIDE HCL 25 MG CAPSULE PO ONE (13:00)
[2017-07-03] MEDS: chlordiazePOXIDE HCL 25 MG CAPSULE PO SCH ×2 (17:37→22:25)
[2017-07-03] MEDS: THIAMINE HCL 100 MG TABLET (FP) PO SCH (22:25)
[2017-07-03 23:45] LABS: URINE APPEARANCE CLEAR; URINE BILIRUBIN NEGATIVE (NEGATIVE); URINE BLOOD NEGATIVE (NEGATIVE); URINE COLOR YELLOW; URINE GLUCOSE (UA) NEGATIVE (NEGATIVE); URINE KETONE NEGATIVE (NEGATIVE); URINE LEUK ESTERASE NEGATIVE (NEGATIVE); URINE NITRITE NEGATIVE (NEGATIVE); URINE PROTEIN NEGATIVE (NEGATIVE)
[2017-07-04] MEDS: chlordiazePOXIDE HCL 25 MG CAPSULE PO SCH ×4 (06:11→22:18)
--- NOTE | 2017-07-04 10:04 | EKG ---
Test Reason : Blood Pressure : / mmHG Vent. Rate : 064 BPM Atrial Rate : 064 BPM P-R Int : 166 ms QRS Dur : 096 ms QT Int : 416 ms P-R-T Axes : 049 038 029 degrees QTc Int : 429 ms NORMAL SINUS RHYTHM NORMAL ECG WHEN COMPARED WITH ECG OF 17-MAY-2017 17:53, NO SIGNIFICANT CHANGE WAS FOUND Confirmed by SASCHA OWEN MD ([id number]) on 07/04/2017 10:04:50 AM Referred By: Confirmed By:SASCHA OWEN MD
[2017-07-04 10:07] LABS: HEMATOCRIT 42.4 % (35.4-49); HEMOGLOBIN 13.7 GM/dL (11.7-16.9); MCH 26.1 pg (25.7-33.7); MCHC 32.3 g/dl (32.0-35.9); MEAN CELL VOLUME 80.6 fl (80-96); MEAN PLT VOLUME 8.8 fl (7.5-11.1); PLATELET COUNT 181 K/MM3 (134-434); RBC 5.26 M/mm3 (4.00-5.60); RDW 13.2 % (11.9-15.9); WHITE BLOOD COUNT 5.2 K/mm3 (4.0-10.0)
--- NOTE | 2017-07-04 10:11 | CONSULT ---
[facility] Psychiatric Consult - Data Date of interview: 07/04/17 Admission source: [facility] Identifying data: This IS 52 years old male, , father of one, living alone onPA, with alcohol and cocaine dependence,seeking detox. Reports no psychiatric hospitalization history Substance Abuse History: Smoking Cessation. Smoking history: Current every day smoker. Have you smoked in the past 12 months: Yes. Aproximately how many cigarettes per day: 14. Cigars Per Day: 0. Hx Chewing Tobacco Use: No. Initiated information on smoking cessation: Yes. 'Breaking Loose' booklet given : 07/03/17. - Substance & Tx. History. Hx Alcohol Use: Yes. Hx Substance Use : Yes. Substance Use Type: Alcohol, Cocaine. Hx Substance Use Treatment: Yes ( [facility] 05/17/17 to 05/21/17). - Substances Abused. Alcohol. Route: Oral. Frequency: Daily. Amount used: 1 pint of geoff/6 packs of 22 ozs of beer. Age of first use: 20. Date of Last Use: 07/02/17. Cocaine. Route: Smoking. Frequency: 3-6 times per week. Amount used: 30$. Age of first use: 25. Date of Last Use: 07/02/17 Medical History: Right Knee surgery history, Right kidney stone history Psychiatric History: Patoent reports history of MDD, denies suicidal history, reports taking prior to admission : Wellbutrin XR 300mg poqd Physical/Sexual Abuse/Trauma History: Denies Additional Comment: Wellbutrin XR 300mg poqd Mental Status Exam - Mental Status Exam Alert and Oriented to: Person Cognitive Function: Fair Patient Appearance: Well Groomed Mood: Apprehensive Affect: Mood Congruent Patient Behavior: Cooperative Speech Pattern: Appropriate Voice Loudness: Normal Thought Process: Goal Oriented Thought Disorder: Being Controlled Hallucinations: Denies Suicidal Ideation: Denies Homicidal Ideation: Denies Insight/Judgement: Fair Sleep: Difficulty falling asleep Appetite: Fair Muscle strength/Tone: Normal Gait/Station: Normal Additional Comments: Wellbutrin XR 300mg poqd Psychiatric Findings - Problem List ([place] 1, 2,3) (1) Alcohol dependence with uncomplicated withdrawal Current Visit: No Status: Acute (2) Substance induced mood disorder Current Visit: No Status: Acute (3) Cannabis dependence Current Visit: No Status: Chronic (4) Cocaine dependence, uncomplicated Current Visit: No Status: Chronic (5) MDD (major depressive disorder) Current Visit: No Status: Chronic (6) Nicotine dependence Current Visit: No Status: Chronic Qualifiers: Nicotine product type: cigarettes Substance use status: in withdrawal Qualified Code(s): F17.213 - Nicotine dependence, cigarettes, with withdrawal - Initial Treatment Plan Initial Treatment Plan: Wellbutrin XR 300mg poqd
[2017-07-04 10:52] LABS: ALBUMIN 3.8 g/dl (3.4-5.0); ALK PHOS 62 U/L (45-117); ANION GAP 6 (8-16); BILIRUBIN,TOTAL 0.3 mg/dL (0.2-1.0); BLOOD UREA NITROGEN 17 mg/dL (7-18); CALCIUM 8.9 mg/dL (8.5-10.1); CHLORIDE 108 mmol/L (98-107); CO2 27 mmol/L (21-32); CREATININE 1.2 mg/dL (0.7-1.3); GLUCOSE,RANDOM 105 mg/dL (74-106); POTASSIUM 4.3 mmol/L (3.5-5.1); SGOT/AST 13 U/L (15-37); SGPT/ALT 16 U/L (12-78); SODIUM 141 mmol/L (136-145); TOT PROT 7.2 g/dl (6.4-8.2)
[2017-07-04] MEDS: PRENATAL VITAMINS W/ FOLIC ACID TABLET (FP) PO SCH (10:58)
--- NOTE | 2017-07-04 11:26 | PN ---
S CIWA - CIWA Score Nausea/Vomitin Muscle Tremors: 3 Anxiety: 3 Agitation: 3 Paroxysmal Sweats: 1-Minimal Palms Moist Orientation: 0-Oriented Tacttile Disturbances: 1-Very Mild Itch/Numbness Auditory Disturbances: 1-Very Mild Visual Disturbances: 0-None Headache: 2-Mild CIWA-Ar Total Score: 17 BHS Progress Note (SOAP) Subjective: alert,irritable,anxious,interrupted sleep,tremor,pain in the body Objective: 07/04/17 11:25 Vital Signs Temperature 99.1 F 07/04/17 10:24 Pulse Rate 91 H 07/04/17 10:24 Respiratory Rate 18 07/04/17 10:24 Blood Pressure 144/95 07/04/17 10:24 O2 Sat by Pulse Oximetry (%) 07/04/17 11:25 ekg nsr,normal ecg Laboratory Last Values WBC 5.2 K/mm3 (4.0-10.0) 07/04/17 05:50 RBC 5.26 M/mm3 (4.00-5.60) 07/04/17 05:50 Hgb 13.7 GM/dL (11.7-16.9) 07/04/17 05:50 Hct 42.4 % (35.4-49) 07/04/17 05:50 MCV 80.6 fl (80-96) 07/04/17 05:50 MCH 26.1 pg (25.7-33.7) 07/04/17 05:50 MCHC 32.3 g/dl (32.0-35.9) 07/04/17 05:50 RDW 13.2 % (11.9-15.9) 07/04/17 05:50 Plt Count 181 K/MM3 (134-434) 07/04/17 05:50 MPV 8.8 fl (7.5-11.1) 07/04/17 05:50 Sodium 141 mmol/L (136-145) 07/04/17 05:50 Potassium 4.3 mmol/L (3.5-5.1) 07/04/17 05:50 Chloride 108 mmol/L (98-107) H 07/04/17 05:50 Carbon Dioxide 27 mmol/L (21-32) 07/04/17 05:50 Anion Gap 6 (8-16) L 07/04/17 05:50 BUN 17 mg/dL (7-18) 07/04/17 05:50 Creatinine 1.2 mg/dL (0.7-1.3) 07/04/17 05:50 Creat Clearance w eGFR > 60 (>60) 07/04/17 05:50 Random Glucose 105 mg/dL (74-106) D 07/04/17 05:50 Calcium 8.9 mg/dL (8.5-10.1) 07/04/17 05:50 Total Bilirubin 0.3 mg/dL (0.2-1.0) D 07/04/17 05:50 AST 13 U/L (15-37) L D 07/04/17 05:50 ALT 16 U/L (12-78) 07/04/17 05:50 Alkaline Phosphatase 62 U/L (45-117) 07/04/17 05:50 Total Protein 7.2 g/dl (6.4-8.2) 07/04/17 05:50 Albumin 3.8 g/dl (3.4-5.0) 07/04/17 05:50 Urine Color Yellow 07/03/17 20:21 Urine Appearance Clear 07/03/17 20:21 Urine pH 6.0 (5.0-8.0) 07/03/17 20:21 Ur Specific [place] 1.025 (1.001-1.035) 07/03/17 20:21 Urine Protein Negative (NEGATIVE) 07/03/17 20:21 Urine Glucose (UA) Negative (NEGATIVE) 07/03/17 20:21 Urine Ketones Negative (NEGATIVE) 07/03/17 20:21 Urine Blood Negative (NEGATIVE) 07/03/17 20:21 Urine Nitrite Negative (NEGATIVE) 07/03/17 20:21 Urine Bilirubin Negative (NEGATIVE) 07/03/17 20:21 Urine Urobilinogen 2.0 mg/dL (0.2-1.0) 07/03/17 20:21 Ur Leukocyte Esterase Negative (NEGATIVE) 07/03/17 20:21 Assessment: 07/04/17 11:26 withdrawal symptom Plan: continue detox
[2017-07-04] MEDS ORDERED: FLU VACCINE QUAD 60 MCG/0.5 ML (MDV 17-18) IM ONE (12:00)
[2017-07-04] MEDS: THIAMINE HCL 100 MG TABLET (FP) PO SCH (22:18)
[2017-07-05] MEDS: chlordiazePOXIDE HCL 25 MG CAPSULE PO SCH ×2 (05:53→10:27)
[2017-07-05] MEDS: PRENATAL VITAMINS W/ FOLIC ACID TABLET (FP) PO SCH (10:27)
--- NOTE | 2017-07-05 10:43 | PN ---
S CIWA - CIWA Score Nausea/Vomitin Muscle Tremors: 3 Anxiety: 3 Agitation: 2 Paroxysmal Sweats: 1-Minimal Palms Moist Orientation: 0-Oriented Tacttile Disturbances: 1-Very Mild Itch/Numbness Auditory Disturbances: 1-Very Mild Visual Disturbances: 0-None Headache: 2-Mild CIWA-Ar Total Score: 16 BHS Progress Note (SOAP) Subjective: ALERT,IRRITABLE,ANXIOUS,INTERRUPTED SLEEP,TREMOR Objective: 07/05/17 10:42 Vital Signs Temperature 97.7 F 07/05/17 06:00 Pulse Rate 73 07/05/17 06:00 Respiratory Rate 18 07/05/17 06:00 Blood Pressure 141/91 07/05/17 06:00 O2 Sat by Pulse Oximetry (%) Laboratory Last Values WBC 5.2 K/mm3 (4.0-10.0) 07/04/17 05:50 RBC 5.26 M/mm3 (4.00-5.60) 07/04/17 05:50 Hgb 13.7 GM/dL (11.7-16.9) 07/04/17 05:50 Hct 42.4 % (35.4-49) 07/04/17 05:50 MCV 80.6 fl (80-96) 07/04/17 05:50 MCH 26.1 pg (25.7-33.7) 07/04/17 05:50 MCHC 32.3 g/dl (32.0-35.9) 07/04/17 05:50 RDW 13.2 % (11.9-15.9) 07/04/17 05:50 Plt Count 181 K/MM3 (134-434) 07/04/17 05:50 MPV 8.8 fl (7.5-11.1) 07/04/17 05:50 Sodium 141 mmol/L (136-145) 07/04/17 05:50 Potassium 4.3 mmol/L (3.5-5.1) 07/04/17 05:50 Chloride 108 mmol/L (98-107) H 07/04/17 05:50 Carbon Dioxide 27 mmol/L (21-32) 07/04/17 05:50 Anion Gap 6 (8-16) L 07/04/17 05:50 BUN 17 mg/dL (7-18) 07/04/17 05:50 Creatinine 1.2 mg/dL (0.7-1.3) 07/04/17 05:50 Creat Clearance w eGFR > 60 (>60) 07/04/17 05:50 Random Glucose 105 mg/dL (74-106) D 07/04/17 05:50 Calcium 8.9 mg/dL (8.5-10.1) 07/04/17 05:50 Total Bilirubin 0.3 mg/dL (0.2-1.0) D 07/04/17 05:50 AST 13 U/L (15-37) L D 07/04/17 05:50 ALT 16 U/L (12-78) 07/04/17 05:50 Alkaline Phosphatase 62 U/L (45-117) 07/04/17 05:50 Total Protein 7.2 g/dl (6.4-8.2) 07/04/17 05:50 Albumin 3.8 g/dl (3.4-5.0) 07/04/17 05:50 Urine Color Yellow 07/03/17 20:21 Urine Appearance Clear 07/03/17 20:21 Urine pH 6.0 (5.0-8.0) 07/03/17 20:21 Ur Specific [place] 1.025 (1.001-1.035) 07/03/17 20:21 Urine Protein Negative (NEGATIVE) 07/03/17 20:21 Urine Glucose (UA) Negative (NEGATIVE) 07/03/17 20:21 Urine Ketones Negative (NEGATIVE) 07/03/17 20:21 Urine Blood Negative (NEGATIVE) 07/03/17 20:21 Urine Nitrite Negative (NEGATIVE) 07/03/17 20:21 Urine Bilirubin Negative (NEGATIVE) 07/03/17 20:21 Urine Urobilinogen 2.0 mg/dL (0.2-1.0) 07/03/17 20:21 Ur Leukocyte Esterase Negative (NEGATIVE) 07/03/17 20:21 RPR Titer Nonreactive (NONREACTIVE) 07/04/17 05:50 HIV 1&2 Antibody Screen Negative 07/04/17 05:50 HIV P24 Antigen Negative 07/04/17 05:50 Assessment: 07/05/17 10:42 WITHDRAWAL SYMPTOM Plan: CONTINUE DETOX
[2017-07-05] MEDS: chlordiazePOXIDE 5 MG CAPSULE PO SCH ×2 (16:42→22:14)
[2017-07-05] MEDS: THIAMINE HCL 100 MG TABLET (FP) PO SCH (22:14)
[2017-07-06] MEDS: chlordiazePOXIDE 5 MG CAPSULE PO SCH ×2 (05:29→11:30)
--- NOTE | 2017-07-06 10:42 | PN ---
S Progress Note (SOAP) Subjective: alert,irritable,anxious,interrupted sleep Objective: 07/06/17 10:41 Vital Signs Temperature 97.7 F 07/06/17 06:00 Pulse Rate 83 07/06/17 06:00 Respiratory Rate 18 07/06/17 06:00 Blood Pressure 140/92 07/06/17 06:00 O2 Sat by Pulse Oximetry (%) Assessment: 07/06/17 10:41 withdrawal symptom Plan: continue detox,discharge in am
[2017-07-06] MEDS: PRENATAL VITAMINS W/ FOLIC ACID TABLET (FP) PO SCH (11:30)
--- NOTE | 2017-07-06 15:39 | PN ---
BHS Progress Note Note: Pt is able to go today to rehab. Pt is a feeling comfortable no s/s of withdrawal sx noted. d/c today
--- NOTE | 2017-07-06 15:41 | DS ---
[facility] Detox Discharge Summary Admission Date: 07/03/17 Discharge Date: 07/06/17 - History Present History: Alcohol Dependence, Cannabis Dependence, Cocaine Dependence - Physical Exam Results Vital Signs: Vital Signs Temperature 96.3 F L 07/06/17 13:46 Pulse Rate 82 07/06/17 13:46 Respiratory Rate 18 07/06/17 13:46 Blood Pressure 135/81 07/06/17 13:46 O2 Sat by Pulse Oximetry (%) - Treatment Hospital Course: Detox Protocol Followed, Detoxed Safely, Responded well, Discharged Condition Good, Rehab Referral Accepted - Medication Discharge Medications: Ambulatory Orders Bupropion HCl [Wellbutrin Xl -] 300 mg PO DAILY #30 tab.sr.24h 07/04/17 - Diagnosis (1) History of right knee surgery Current Visit: Yes Status: Chronic (2) Injury of left rotator cuff Current Visit: Yes Status: Chronic (3) Kidney stone on right side Current Visit: Yes Status: Acute (4) Alcohol dependence with uncomplicated withdrawal Current Visit: Yes Status: Chronic (5) Diabetes mellitus Current Visit: Yes Status: Chronic Qualifiers: Diabetes mellitus type: type 1 (6) Substance induced mood disorder Current Visit: No Status: Acute (7) Cannabis dependence Current Visit: No Status: Chronic (8) Cocaine dependence, uncomplicated Current Visit: No Status: Chronic (9) GERD (gastroesophageal reflux disease) Current Visit: No Status: Chronic Qualifiers: Esophagitis presence: without esophagitis Qualified Code(s): K21.9 - Gastro -esophageal reflux disease without esophagitis (10) MDD (major depressive disorder) Current Visit: No Status: Chronic (11) Nicotine dependence Current Visit: No Status: Chronic Qualifiers: Nicotine product type: cigarettes Substance use status: in withdrawal Qualified Code(s): F17.213 - Nicotine dependence, cigarettes, with withdrawal - AMA Did Patient Leave Against Medical Advice: No (going to rehab. )
[2017-07-06] MEDS: chlordiazePOXIDE HCL 10 MG CAPSULE PO SCH ×2 (18:13→22:01)
[2017-07-06] MEDS: THIAMINE HCL 100 MG TABLET (FP) PO SCH (22:01)
[2017-07-07] MEDS: chlordiazePOXIDE HCL 10 MG CAPSULE PO SCH ×2 (05:52→12:08)
--- NOTE | 2017-07-07 08:42 | DS ---
[facility] Detox Discharge Summary Admission Date: 07/03/17 Discharge Date: 07/07/17 - History Present History: Alcohol Dependence, Cocaine Dependence Additional Comments: follow up with after care program rehab as arrangement Pertinent Past History: kidney stone history of right knee injury history of left rotator cuff injury major depressive disorder - Physical Exam Results Vital Signs: Vital Signs Temperature 97.7 F 07/07/17 06:54 Pulse Rate 82 07/07/17 06:54 Respiratory Rate 18 07/07/17 06:54 Blood Pressure 134/87 07/07/17 06:54 O2 Sat by Pulse Oximetry (%) Pertinent Admission Physical Exam Findings: withdrawal symptom and finding - Treatment Hospital Course: Detox Protocol Followed, Detoxed Safely, Responded well, Discharged Condition Good, Rehab Referral Accepted Patient has Accepted a Rehab Referral to: [facility] - Medication Discharge Medications: Ambulatory Orders Bupropion HCl [Wellbutrin Xl -] 300 mg PO DAILY #30 tab.sr.24h 07/04/17 - Diagnosis (1) Alcohol dependence with uncomplicated withdrawal Current Visit: Yes Status: Chronic (2) Cocaine dependence, uncomplicated Current Visit: No Status: Chronic (3) MDD (major depressive disorder) Current Visit: No Status: Chronic (4) Nicotine dependence Current Visit: No Status: Chronic Qualifiers: Nicotine product type: cigarettes Substance use status: in withdrawal Qualified Code(s): F17.213 - Nicotine dependence, cigarettes, with withdrawal (5) History of right knee surgery Current Visit: Yes Status: Chronic (6) Injury of left rotator cuff Current Visit: Yes Status: Chronic (7) Kidney stone on right side Current Visit: Yes Status: Acute - AMA Did Patient Leave Against Medical Advice: No
[2017-07-07 09:54] VITALS: BP 139/90; PULSE 80; TEMP 97.3
[2017-07-07] MEDS: PRENATAL VITAMINS W/ FOLIC ACID TABLET (FP) PO SCH (12:08)
== END 2017-07-07 12:30 | disposition other institution (70) | DRG 774 ==
LOC: YASAS 08:42 → Y6N 12:51
PROVIDERS: ADMIT Internal Medicine; ATTEND Internal Medicine
PROC: HZ2ZZZZ Detoxification Services for Substance Abuse Treatment (ICD-10-PCS; principal; 2017-07-03)
DX: F10.230 Alcohol dependence with withdrawal, uncomplicated (principal); F14.20 Cocaine dependence, uncomplicated; F17.213 Nicotine dependence, cigarettes, with withdrawal; F33.9 Major depressive disorder, recurrent, unspecified; F19.24 Other psychoactive substance dependence with psychoactive substance-induced mood disorder; K21.9 Gastro-esophageal reflux disease without esophagitis; Z87.442 Personal history of urinary calculi; Z87.438 Personal history of other diseases of male genital organs
CPT/HCPCS: 36415; 80053; 81003; 85027; 86593; 87389; 90688; 93005; 93010

== ENCOUNTER 2017-10-01 09:22 | Inpatient (IN) | payer OTHER ==
[2017-10-01 11:02] VITALS: BMI 34.4
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
[2017-10-01] MEDS ORDERED: MAGNESIUM CITRATE 300 ML BOTTLE PO PRN (13:25)
[2017-10-01] MEDS ORDERED: guaiFENesin/D-METHORPHAN HB 10 ML UNIT-DOSE CUPS PO PRN (13:25)
[2017-10-01] MEDS ORDERED: IBUPROFEN 400 MG TABLET (FP) PO PRN (13:25)
[2017-10-01] MEDS ORDERED: NICOTINE POLACRILEX 2 MG GUM BC PRN (13:25)
[2017-10-01] MEDS ORDERED: MENTHOL/PHENOL 1 EACH UD MM PRN (13:25)
[2017-10-01] MEDS ORDERED: ACETAMINOPHEN 325 MG TABLET (FP) PO PRN (13:25)
[2017-10-01] MEDS ORDERED: MAGNESIUM HYDROX 2400MG/30ML ORAL SUSPENSION 30 ML CUP PO PRN (13:25)
[2017-10-01] MEDS ORDERED: P-EPHED 60MG/TRIPROLIDI 2.5MG TABLET PO PRN (13:25)
[2017-10-01] MEDS ORDERED: MAG HYDROX/AL HYDROX/SIMETH 30 ML UNIT-DOSE CUP PO PRN (13:25)
[2017-10-01] MEDS ORDERED: LOPERAMIDE HCL 2 MG CAPSULE PO PRN (13:25)
[2017-10-01] MEDS ORDERED: hydrOXYzine PAMOATE 50 MG CAPSULE (FP) PO PRN (13:25)
[2017-10-01] MEDS ORDERED: chlordiazePOXIDE HCL 25 MG CAPSULE PO PRN (13:27)
[2017-10-01] MEDS ORDERED: chlordiazePOXIDE HCL 25 MG CAPSULE PO ONE (14:30)
[2017-10-01 17:42] LABS: URINE APPEARANCE CLEAR; URINE BILIRUBIN NEGATIVE (<2.0 mg/dL); URINE COLOR YELLOW; URINE GLUCOSE (UA) NEGATIVE (NEGATIVE); URINE KETONE NEGATIVE (NEGATIVE); URINE LEUK ESTERASE NEGATIVE (NEGATIVE); URINE NITRITE NEGATIVE (NEGATIVE); URINE PROTEIN NEGATIVE (NEGATIVE)
[2017-10-01] MEDS: chlordiazePOXIDE HCL 25 MG CAPSULE PO SCH ×2 (17:58→22:13)
[2017-10-01] MEDS ORDERED: MELATONIN 5 MG TABLETS PO PRN (22:00)
[2017-10-01] MEDS: THIAMINE HCL 100 MG TABLET (FP) PO SCH (22:13)
[2017-10-02] MEDS: chlordiazePOXIDE HCL 25 MG CAPSULE PO SCH ×4 (05:20→22:05)
[2017-10-02 10:20] LABS: HEMATOCRIT 39.1 % (35.4-49); HEMOGLOBIN 12.8 GM/dL (11.7-16.9); MCH 26.6 pg (25.7-33.7); MCHC 32.8 g/dl (32.0-35.9); MEAN CELL VOLUME 81.2 fl (80-96); MEAN PLT VOLUME 8.8 fl (7.5-11.1); PLATELET COUNT 184 K/MM3 (134-434); RBC 4.82 M/mm3 (4.00-5.60)
[2017-10-02] MEDS: PRENATAL VITAMINS W/ FOLIC ACID TABLET (FP) PO SCH (10:23)
[2017-10-02] MEDS: NICOTINE 21 MG/24 HOURS TOPICAL PATCH TD SCH (10:24)
[2017-10-02 10:36] LABS: CHLORIDE 108 mmol/L (98-107); POTASSIUM 4.2 mmol/L (3.5-5.1); SODIUM 143 mmol/L (136-145)
[2017-10-02 10:52] LABS: ALBUMIN 3.6 g/dl (3.4-5.0); ALK PHOS 60 U/L (45-117); ANION GAP 7 (8-16); BILIRUBIN,TOTAL 0.4 mg/dL (0.2-1.0); BLOOD UREA NITROGEN 13 mg/dL (7-18); CALCIUM 8.6 mg/dL (8.5-10.1); CO2 28 mmol/L (21-32); CREATININE 1.2 mg/dL (0.7-1.3); GLUCOSE,RANDOM 88 mg/dL (74-106); SGOT/AST 19 U/L (15-37); SGPT/ALT 19 U/L (12-78); TOT PROT 7.2 g/dl (6.4-8.2)
--- NOTE | 2017-10-02 12:01 | EKG ---
Test Reason : Blood Pressure : / mmHG Vent. Rate : 069 BPM Atrial Rate : 069 BPM P-R Int : 158 ms QRS Dur : 104 ms QT Int : 414 ms P-R-T Axes : 042 044 027 degrees QTc Int : 443 ms NORMAL SINUS RHYTHM NORMAL ECG WHEN COMPARED WITH ECG OF 03-JUL-2017 15:10, NO SIGNIFICANT CHANGE WAS FOUND Confirmed by MD ORALIA, SHANI ([id number]) on 10/02/2017 12:01:21 PM Referred By: Confirmed By:SHANI BARTON MD
--- NOTE | 2017-10-02 13:16 | PN ---
S CIWA - CIWA Score Nausea/Vomitin-No Nausea/No Vomiting Muscle Tremors: None Anxiety: 4-Mod. Anxious/Guarded Agitation: 2 Paroxysmal Sweats: 3 Orientation: 0-Oriented Tacttile Disturbances: 0-None Auditory Disturbances: 3-Moderate Harsh/Frighten Visual Disturbances: 3-Moderate Sensitivity Headache: 0-None Present CIWA-Ar Total Score: 15 BHS Progress Note (SOAP) Subjective: Body Aches, Fatigue, Anxious, Sweating. Objective: PATIENT A & O X 3, OBSERVED AMBULATING ON UNIT. NO ACUTE DISTRESS. 10/02/17 13:14 Vital Signs Temperature 97.4 F L 10/02/17 09:18 Pulse Rate 70 10/02/17 09:18 Respiratory Rate 18 10/02/17 09:18 Blood Pressure 103/69 10/02/17 09:18 O2 Sat by Pulse Oximetry (%) Laboratory Tests 10/01/17 10/02/17 10/02/17 14:00 06:00 06:00 WBC 5.0 RBC 4.82 Hgb 12.8 Hct 39.1 MCV 81.2 MCH 26.6 MCHC 32.8 RDW 14.0 Plt Count 184 MPV 8.8 Sodium 143 Potassium 4.2 Chloride 108 H Carbon Dioxide 28 Anion Gap 7 L BUN 13 D Creatinine 1.2 Creat Clearance w eGFR > 60 Random Glucose 88 Calcium 8.6 Total Bilirubin 0.4 D AST 19 D ALT 19 Alkaline Phosphatase 60 Total Protein 7.2 Albumin 3.6 Urine Color Yellow Urine Appearance Clear Urine pH 6.0 Ur Specific [place] 1.024 Urine Protein Negative Urine Glucose (UA) Negative Urine Ketones Negative Urine Blood Negative Urine Nitrite Negative Urine Bilirubin Negative Urine Urobilinogen 2.0 Ur Leukocyte Esterase Negative RPR Titer 10/02/17 06:00 WBC RBC Hgb Hct MCV MCH MCHC RDW Plt Count MPV Sodium Potassium Chloride Carbon Dioxide Anion Gap BUN Creatinine Creat Clearance w eGFR Random Glucose Calcium Total Bilirubin AST ALT Alkaline Phosphatase Total Protein Albumin Urine Color Urine Appearance Urine pH Ur Specific [place] Urine Protein Urine Glucose (UA) Urine Ketones Urine Blood Urine Nitrite Urine Bilirubin Urine Urobilinogen Ur Leukocyte Esterase RPR Titer Nonreactive LABS NOTED. Assessment: 10/02/17 13:15 WITHDRAWAL SYMPTOMS. Plan: CONTINUE DETOX.
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
[2017-10-02] MEDS: THIAMINE HCL 100 MG TABLET (FP) PO SCH (22:05)
[2017-10-02] MEDS: risperiDONE 1 MG TABLET (FP) PO SCH (22:05)
[2017-10-03] MEDS: chlordiazePOXIDE HCL 25 MG CAPSULE PO SCH ×2 (05:38→10:54)
[2017-10-03] MEDS: NICOTINE 21 MG/24 HOURS TOPICAL PATCH TD SCH (10:54)
[2017-10-03] MEDS: risperiDONE 1 MG TABLET (FP) PO SCH ×2 (10:54→22:12)
[2017-10-03] MEDS: PRENATAL VITAMINS W/ FOLIC ACID TABLET (FP) PO SCH (10:54)
--- NOTE | 2017-10-03 14:12 | PN ---
S CIWA - CIWA Score Nausea/Vomitin-No Nausea/No Vomiting Muscle Tremors: 2 Anxiety: 3 Agitation: 3 Paroxysmal Sweats: 2 Orientation: 2-Disoriented Date<2 days Tacttile Disturbances: 0-None Auditory Disturbances: 0-None Visual Disturbances: 2-Mild Sensitivity Headache: 0-None Present CIWA-Ar Total Score: 14 BHS Progress Note (SOAP) Subjective: Anxious, Fatigue, Tremors. Objective: PATIENT A & O X 2 (UNCERTAIN ABOUT CURRENT DAY / DATE). NO ACUTE DISTRESS. 10/03/17 14:14 Vital Signs Temperature 95.5 F L 10/03/17 09:30 Pulse Rate 69 10/03/17 09:30 Respiratory Rate 18 10/03/17 09:30 Blood Pressure 110/77 10/03/17 09:30 O2 Sat by Pulse Oximetry (%) Laboratory Tests 10/01/17 10/02/17 10/02/17 14:00 06:00 06:00 WBC 5.0 RBC 4.82 Hgb 12.8 Hct 39.1 MCV 81.2 MCH 26.6 MCHC 32.8 RDW 14.0 Plt Count 184 MPV 8.8 Sodium 143 Potassium 4.2 Chloride 108 H Carbon Dioxide 28 Anion Gap 7 L BUN 13 D Creatinine 1.2 Creat Clearance w eGFR > 60 Random Glucose 88 Calcium 8.6 Total Bilirubin 0.4 D AST 19 D ALT 19 Alkaline Phosphatase 60 Total Protein 7.2 Albumin 3.6 Urine Color Yellow Urine Appearance Clear Urine pH 6.0 Ur Specific [place] 1.024 Urine Protein Negative Urine Glucose (UA) Negative Urine Ketones Negative Urine Blood Negative Urine Nitrite Negative Urine Bilirubin Negative Urine Urobilinogen 2.0 Ur Leukocyte Esterase Negative RPR Titer 10/02/17 06:00 WBC RBC Hgb Hct MCV MCH MCHC RDW Plt Count MPV Sodium Potassium Chloride Carbon Dioxide Anion Gap BUN Creatinine Creat Clearance w eGFR Random Glucose Calcium Total Bilirubin AST ALT Alkaline Phosphatase Total Protein Albumin Urine Color Urine Appearance Urine pH Ur Specific [place] Urine Protein Urine Glucose (UA) Urine Ketones Urine Blood Urine Nitrite Urine Bilirubin Urine Urobilinogen Ur Leukocyte Esterase RPR Titer Nonreactive LABS NOTED. Assessment: 10/03/17 14:14 WITHDRAWAL SYMPTOMS. Plan: CONTINUE DETOX.
[2017-10-03] MEDS: chlordiazePOXIDE 5 MG CAPSULE PO SCH ×2 (17:43→22:12)
[2017-10-03] MEDS: THIAMINE HCL 100 MG TABLET (FP) PO SCH (22:12)
[2017-10-04] MEDS: chlordiazePOXIDE 5 MG CAPSULE PO SCH ×2 (05:46→10:22)
[2017-10-04] MEDS: PRENATAL VITAMINS W/ FOLIC ACID TABLET (FP) PO SCH (10:22)
[2017-10-04] MEDS: risperiDONE 1 MG TABLET (FP) PO SCH ×2 (10:22→23:31)
[2017-10-04] MEDS: NICOTINE 21 MG/24 HOURS TOPICAL PATCH TD SCH (10:22)
--- NOTE | 2017-10-04 11:37 | PN ---
BHS Progress Note (SOAP) Subjective: Fatigue, Anxious. Objective: PATIENT A & O X 3. NO ACUTE DISTRESS. 10/04/17 11:36 Vital Signs Temperature 96.1 F L 10/04/17 09:31 Pulse Rate 83 10/04/17 09:31 Respiratory Rate 20 10/04/17 09:31 Blood Pressure 95/64 10/04/17 09:31 O2 Sat by Pulse Oximetry (%) Laboratory Tests 10/01/17 10/02/17 10/02/17 14:00 06:00 06:00 WBC 5.0 RBC 4.82 Hgb 12.8 Hct 39.1 MCV 81.2 MCH 26.6 MCHC 32.8 RDW 14.0 Plt Count 184 MPV 8.8 Sodium 143 Potassium 4.2 Chloride 108 H Carbon Dioxide 28 Anion Gap 7 L BUN 13 D Creatinine 1.2 Creat Clearance w eGFR > 60 Random Glucose 88 Calcium 8.6 Total Bilirubin 0.4 D AST 19 D ALT 19 Alkaline Phosphatase 60 Total Protein 7.2 Albumin 3.6 Urine Color Yellow Urine Appearance Clear Urine pH 6.0 Ur Specific [place] 1.024 Urine Protein Negative Urine Glucose (UA) Negative Urine Ketones Negative Urine Blood Negative Urine Nitrite Negative Urine Bilirubin Negative Urine Urobilinogen 2.0 Ur Leukocyte Esterase Negative RPR Titer 10/02/17 06:00 WBC RBC Hgb Hct MCV MCH MCHC RDW Plt Count MPV Sodium Potassium Chloride Carbon Dioxide Anion Gap BUN Creatinine Creat Clearance w eGFR Random Glucose Calcium Total Bilirubin AST ALT Alkaline Phosphatase Total Protein Albumin Urine Color Urine Appearance Urine pH Ur Specific [place] Urine Protein Urine Glucose (UA) Urine Ketones Urine Blood Urine Nitrite Urine Bilirubin Urine Urobilinogen Ur Leukocyte Esterase RPR Titer Nonreactive LABS NOTED. Assessment: 10/04/17 11:36 WITHDRAWAL SYMPTOMS. Plan: CONTINUE DETOX. PATIENT SCHEDULED FOR D/C TOMORROW.
[2017-10-04] MEDS: chlordiazePOXIDE HCL 10 MG CAPSULE PO SCH ×2 (17:50→23:31)
[2017-10-04] MEDS: THIAMINE HCL 100 MG TABLET (FP) PO SCH (23:31)
[2017-10-05] MEDS: chlordiazePOXIDE HCL 10 MG CAPSULE PO SCH (05:46)
[2017-10-05 09:32] VITALS: BP 101/79; PULSE 79; TEMP 93.5
--- NOTE | 2017-10-05 12:42 | PN ---
BHS Progress Note (SOAP) Subjective: Patient denies current Detox symptoms and reports that he feels well overall. Objective: PATIENT A & O X 3, OBSERVED AMBULATING ON UNIT. NO ACUTE DISTRESS. 10/05/17 12:41 Vital Signs Temperature 93.5 F L 10/05/17 09:30 Pulse Rate 79 10/05/17 09:30 Respiratory Rate 16 10/05/17 09:30 Blood Pressure 101/79 10/05/17 09:30 O2 Sat by Pulse Oximetry (%) Laboratory Tests 10/01/17 10/02/17 10/02/17 14:00 06:00 06:00 WBC 5.0 RBC 4.82 Hgb 12.8 Hct 39.1 MCV 81.2 MCH 26.6 MCHC 32.8 RDW 14.0 Plt Count 184 MPV 8.8 Sodium 143 Potassium 4.2 Chloride 108 H Carbon Dioxide 28 Anion Gap 7 L BUN 13 D Creatinine 1.2 Creat Clearance w eGFR > 60 Random Glucose 88 Calcium 8.6 Total Bilirubin 0.4 D AST 19 D ALT 19 Alkaline Phosphatase 60 Total Protein 7.2 Albumin 3.6 Urine Color Yellow Urine Appearance Clear Urine pH 6.0 Ur Specific [place] 1.024 Urine Protein Negative Urine Glucose (UA) Negative Urine Ketones Negative Urine Blood Negative Urine Nitrite Negative Urine Bilirubin Negative Urine Urobilinogen 2.0 Ur Leukocyte Esterase Negative RPR Titer 10/02/17 06:00 WBC RBC Hgb Hct MCV MCH MCHC RDW Plt Count MPV Sodium Potassium Chloride Carbon Dioxide Anion Gap BUN Creatinine Creat Clearance w eGFR Random Glucose Calcium Total Bilirubin AST ALT Alkaline Phosphatase Total Protein Albumin Urine Color Urine Appearance Urine pH Ur Specific [place] Urine Protein Urine Glucose (UA) Urine Ketones Urine Blood Urine Nitrite Urine Bilirubin Urine Urobilinogen Ur Leukocyte Esterase RPR Titer Nonreactive LABS NOTED. Assessment: 10/05/17 12:41 COMPLETION OF DETOX REGIMEN. Plan: PATIENT SCHEDULED FOR DISCHARGE FROM DETOX UNIT TODAY.
--- NOTE | 2017-10-05 12:46 | DS ---
[facility] Detox Discharge Summary Admission Date: 10/01/17 Discharge Date: 10/05/17 - History Present History: Alcohol Dependence, Cannabis Dependence, Cocaine Dependence Additional Comments: PATIENT GOING TO [facility] ([place] FOR AFTERCARE. PATIENT WAS DISCHARGED FORM DETOX UNIT IN STABLE MEDICAL CONDITION. Pertinent Past History: Nicotine Dependence, GERD, Anxiety, Insomnia, Schizoaffective Disorder. - Physical Exam Results Vital Signs: Vital Signs Temperature 93.5 F L 10/05/17 09:30 Pulse Rate 79 10/05/17 09:30 Respiratory Rate 16 10/05/17 09:30 Blood Pressure 101/79 10/05/17 09:30 O2 Sat by Pulse Oximetry (%) Pertinent Admission Physical Exam Findings: WITHDRAWAL SYMPTOMS. Laboratory Tests 10/01/17 10/02/17 10/02/17 14:00 06:00 06:00 WBC 5.0 RBC 4.82 Hgb 12.8 Hct 39.1 MCV 81.2 MCH 26.6 MCHC 32.8 RDW 14.0 Plt Count 184 MPV 8.8 Sodium 143 Potassium 4.2 Chloride 108 H Carbon Dioxide 28 Anion Gap 7 L BUN 13 D Creatinine 1.2 Creat Clearance w eGFR > 60 Random Glucose 88 Calcium 8.6 Total Bilirubin 0.4 D AST 19 D ALT 19 Alkaline Phosphatase 60 Total Protein 7.2 Albumin 3.6 Urine Color Yellow Urine Appearance Clear Urine pH 6.0 Ur Specific [place] 1.024 Urine Protein Negative Urine Glucose (UA) Negative Urine Ketones Negative Urine Blood Negative Urine Nitrite Negative Urine Bilirubin Negative Urine Urobilinogen 2.0 Ur Leukocyte Esterase Negative RPR Titer 10/02/17 06:00 WBC RBC Hgb Hct MCV MCH MCHC RDW Plt Count MPV Sodium Potassium Chloride Carbon Dioxide Anion Gap BUN Creatinine Creat Clearance w eGFR Random Glucose Calcium Total Bilirubin AST ALT Alkaline Phosphatase Total Protein Albumin Urine Color Urine Appearance Urine pH Ur Specific [place] Urine Protein Urine Glucose (UA) Urine Ketones Urine Blood Urine Nitrite Urine Bilirubin Urine Urobilinogen Ur Leukocyte Esterase RPR Titer Nonreactive LABS NOTED. - Treatment Hospital Course: Detox Protocol Followed, Detoxed Safely, Responded well, Discharged Condition Good Patient has Accepted a Rehab Referral to: PATIENT GOING TO [facility] ([place] FOR AFTERCARE. - Medication Discharge Medications: Ambulatory Orders Bupropion HCl [Wellbutrin Xl -] 300 mg PO DAILY #30 tab.sr.24h 07/19/17 Risperidone [Risperdal] 2 mg PO BID #60 tablet 07/19/17 Bupropion HCl [Wellbutrin Xl -] 150 mg PO DAILY #30 tab.sr.24h 10/03/17 Risperidone [Risperdal] 3 mg PO HS #30 tablet 10/03/17 - Diagnosis (1) Anxiety Status: Acute (2) Cocaine dependence, uncomplicated Status: Acute (3) Alcohol dependence with uncomplicated withdrawal Status: Acute (4) Nicotine dependence Status: Acute Qualifiers: Nicotine product type: cigarettes Substance use status: in withdrawal Qualified Code(s): F17.213 - Nicotine dependence, cigarettes, with withdrawal (5) Cannabis dependence Status: Acute (6) MDD (major depressive disorder) Status: Chronic Qualifiers: Major depression recurrence: recurrent Active/Remission status: remission status unspecified Qualified Code(s): F33.9 - Major depressive disorder, recurrent, unspecified (7) Insomnia Status: Acute Qualifiers: Insomnia type: unspecified Qualified Code(s): G47.00 - Insomnia, unspecified (8) Substance induced mood disorder Status: Acute (9) Schizoaffective disorder Status: Chronic Qualifiers: Schizoaffective disorder type: unspecified Qualified Code(s): F25.9 - Schizoaffective disorder, unspecified - AMA Did Patient Leave Against Medical Advice: No
== END 2017-10-05 10:12 | disposition home or self-care (01) | DRG 774 ==
LOC: YASAS 09:22 → Y3N 13:33
PROVIDERS: ADMIT Internal Medicine; ATTEND Internal Medicine
PROC: HZ2ZZZZ Detoxification Services for Substance Abuse Treatment (ICD-10-PCS; principal; 2017-10-01)
DX: F10.230 Alcohol dependence with withdrawal, uncomplicated (principal); F14.20 Cocaine dependence, uncomplicated; F12.20 Cannabis dependence, uncomplicated; F17.213 Nicotine dependence, cigarettes, with withdrawal; F19.24 Other psychoactive substance dependence with psychoactive substance-induced mood disorder; F33.9 Major depressive disorder, recurrent, unspecified; F41.9 Anxiety disorder, unspecified; F25.9 Schizoaffective disorder, unspecified; G47.00 Insomnia, unspecified; Z87.828 Personal history of other (healed) physical injury and trauma; Z87.442 Personal history of urinary calculi
CPT/HCPCS: 36415; 80053; 81003; 85027; 86593; 93005; 93010; J2794

== ENCOUNTER 2018-01-12 11:10 | Inpatient (IN) | payer OTHER ==
[2018-01-12 11:46] VITALS: BMI 32.8
[2018-01-12] MEDS ORDERED: guaiFENesin/D-METHORPHAN HB 10 ML UNIT-DOSE CUPS PO PRN (12:02)
[2018-01-12] MEDS ORDERED: MAGNESIUM CITRATE 300 ML BOTTLE PO PRN (12:02)
[2018-01-12] MEDS ORDERED: LOPERAMIDE HCL 2 MG CAPSULE PO PRN (12:02)
[2018-01-12] MEDS ORDERED: chlordiazePOXIDE HCL 25 MG CAPSULE PO PRN (12:02)
[2018-01-12] MEDS ORDERED: ACETAMINOPHEN 325 MG TABLET (FP) PO PRN (12:02)
[2018-01-12] MEDS ORDERED: hydrOXYzine PAMOATE 25 MG CAPSULE (FP) PO PRN (12:02)
[2018-01-12] MEDS ORDERED: MAG HYDROX/AL HYDROX/SIMETH 30 ML UNIT-DOSE CUP PO PRN (12:02)
[2018-01-12] MEDS ORDERED: IBUPROFEN 400 MG TABLET (FP) PO PRN (12:02)
[2018-01-12] MEDS ORDERED: MENTHOL/PHENOL 1 EACH UD MM PRN (12:02)
[2018-01-12] MEDS ORDERED: P-EPHED 60MG/TRIPROLIDI 2.5MG TABLET PO PRN (12:02)
[2018-01-12] MEDS ORDERED: MAGNESIUM HYDROX 2400MG/30ML ORAL SUSPENSION 30 ML CUP PO PRN (12:02)
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
[2018-01-12] MEDS ORDERED: chlordiazePOXIDE HCL 25 MG CAPSULE PO ONE (12:30)
[2018-01-12] MEDS: chlordiazePOXIDE HCL 25 MG CAPSULE PO SCH ×2 (17:06→22:40)
[2018-01-12 17:15] LABS: URINE APPEARANCE TURBID; URINE BILIRUBIN NEGATIVE (<2.0 mg/dL); URINE COLOR AMBER; URINE GLUCOSE (UA) NEGATIVE (NEGATIVE); URINE KETONE NEGATIVE (NEGATIVE); URINE LEUK ESTERASE NEGATIVE (NEGATIVE); URINE NITRITE NEGATIVE (NEGATIVE); URINE UROBILINOGEN NEGATIVE mg/dL (0.2-1.0)
[2018-01-12 17:17] LABS: URINE PROTEIN 1+ (NEGATIVE)
[2018-01-12 17:19] LABS: EPI CELLS RARE /HPF (FEW); URINE MUCUS RARE
--- NOTE | 2018-01-12 18:46 | EKG ---
Test Reason : Blood Pressure : / mmHG Vent. Rate : 073 BPM Atrial Rate : 073 BPM P-R Int : 158 ms QRS Dur : 104 ms QT Int : 390 ms P-R-T Axes : 051 036 027 degrees QTc Int : 429 ms NORMAL SINUS RHYTHM NORMAL ECG WHEN COMPARED WITH ECG OF 01-OCT-2017 15:15, NO SIGNIFICANT CHANGE WAS FOUND Confirmed by STU NICOLAS MD ([id number]) on 01/12/2018 6:46:34 PM Referred By: Confirmed By:STU NICOLAS MD
[2018-01-12] MEDS ORDERED: MELATONIN 5 MG TABLETS PO PRN (22:00)
[2018-01-12] MEDS: THIAMINE HCL 100 MG TABLET (FP) PO SCH (22:39)
[2018-01-13] MEDS: chlordiazePOXIDE HCL 25 MG CAPSULE PO SCH ×4 (05:15→22:34)
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
[2018-01-13] MEDS: PRENATAL VITAMINS W/ FOLIC ACID TABLET (FP) PO SCH (10:12)
[2018-01-13 10:36] LABS: HEMATOCRIT 40.3 % (35.4-49); HEMOGLOBIN 12.8 GM/dL (11.7-16.9); MCH 25.3 pg (25.7-33.7); MCHC 31.7 g/dl (32.0-35.9); MEAN CELL VOLUME 79.6 fl (80-96); MEAN PLT VOLUME 8.4 fl (7.5-11.1); PLATELET COUNT 147 K/MM3 (134-434); RBC 5.06 M/mm3 (4.00-5.60); RDW 14.4 % (11.9-15.9); WHITE BLOOD COUNT 4.2 K/mm3 (4.0-10.0)
[2018-01-13 10:37] LABS: CHLORIDE 109 mmol/L (98-107); POTASSIUM 4.2 mmol/L (3.5-5.1); SODIUM 143 mmol/L (136-145)
[2018-01-13 10:43] LABS: ALBUMIN 3.5 g/dl (3.4-5.0); ANION GAP 8 MMOL/L (8-16); BLOOD UREA NITROGEN 16 mg/dL (7-18); CALCIUM 8.7 mg/dL (8.5-10.1); CO2 26 mmol/L (21-32); CREATININE 1.1 mg/dL (0.7-1.3); GLUCOSE,RANDOM 101 mg/dL (74-106); SGOT/AST 16 U/L (15-37); SGPT/ALT 18 U/L (12-78)
[2018-01-13 10:45] LABS: ALK PHOS 51 U/L (45-117); BILIRUBIN,TOTAL 0.3 mg/dL (0.2-1.0); TOT PROT 6.7 g/dl (6.4-8.2)
[2018-01-13] MEDS: risperiDONE 2 MG TABLET PO SCH (13:23)
--- NOTE | 2018-01-13 14:34 | PN ---
[facility] CIWA - CIWA Score Nausea/Vomitin-Mild Nausea/No Vomiting Muscle Tremors: 4-Moderate,w/Arms Extend Anxiety: 1-Mildly Anxious Agitation: 1-Slight > Activity Paroxysmal Sweats: No Perspiration Orientation: 0-Oriented Tacttile Disturbances: 0-None Auditory Disturbances: 0-None Visual Disturbances: 0-None Headache: 0-None Present CIWA-Ar Total Score: 7 S Progress Note (SOAP) Subjective: Mild anxiety and restlessness. tremors of hands. mild nausea w/o vomiting. Objective: Alert and oriented x 3. Respirations quiet and unlabored. Gait steady. Lab Results WBC 4.2 K/mm3 (4.0-10.0) 01/13/18 07:30 RBC 5.06 M/mm3 (4.00-5.60) 01/13/18 07:30 Hgb 12.8 GM/dL (11.7-16.9) 01/13/18 07:30 Hct 40.3 % (35.4-49) 01/13/18 07:30 MCV 79.6 fl (80-96) L 01/13/18 07:30 MCHC 31.7 g/dl (32.0-35.9) L 01/13/18 07:30 RDW 14.4 % (11.9-15.9) 01/13/18 07:30 Plt Count 147 K/MM3 (134-434) D 01/13/18 07:30 Sodium 143 mmol/L (136-145) 01/13/18 07:30 Potassium 4.2 mmol/L (3.5-5.1) 01/13/18 07:30 Chloride 109 mmol/L (98-107) H 01/13/18 07:30 Carbon Dioxide 26 mmol/L (21-32) 01/13/18 07:30 Anion Gap 8 MMOL/L (8-16) 01/13/18 07:30 BUN 16 mg/dL (7-18) 01/13/18 07:30 Creatinine 1.1 mg/dL (0.7-1.3) 01/13/18 07:30 Random Glucose 101 mg/dL (74-106) 01/13/18 07:30 Calcium 8.7 mg/dL (8.5-10.1) 01/13/18 07:30 Labs reviewed. Vital Signs 01/13/18 10:00 Temperature 97.5 F L Pulse Rate 65 Respiratory 18 Rate Blood Pressure 122/72 01/13/18 14:31 Assessment: Withdrawal symptoms. 01/13/18 14:32 Plan: Continue detox protocol.
[2018-01-13] MEDS: THIAMINE HCL 100 MG TABLET (FP) PO SCH (22:34)
[2018-01-13] MEDS: risperiDONE 3 MG TABLET PO SCH (22:34)
[2018-01-14] MEDS: chlordiazePOXIDE HCL 25 MG CAPSULE PO SCH ×2 (06:04→10:14)
[2018-01-14] MEDS: risperiDONE 2 MG TABLET PO SCH (10:13)
[2018-01-14] MEDS: PRENATAL VITAMINS W/ FOLIC ACID TABLET (FP) PO SCH (10:13)
--- NOTE | 2018-01-14 10:57 | PN ---
S CIWA - CIWA Score Nausea/Vomitin-Mild Nausea/No Vomiting Muscle Tremors: 2 Anxiety: 2 Agitation: 1-Slight > Activity Paroxysmal Sweats: 2 Orientation: 0-Oriented Tacttile Disturbances: 1-Very Mild Itch/Numbness Auditory Disturbances: 0-None Visual Disturbances: 0-None Headache: 0-None Present CIWA-Ar Total Score: 9 BHS Progress Note (SOAP) Subjective: interrupted sleep otherwise better. Objective: 01/14/18 10:56 Vital Signs Temperature 98.7 F 01/14/18 09:29 Pulse Rate 74 01/14/18 09:29 Respiratory Rate 20 01/14/18 09:29 Blood Pressure 113/54 01/14/18 09:29 O2 Sat by Pulse Oximetry (%) Laboratory Tests 01/12/18 01/13/18 01/13/18 12:54 07:30 07:30 WBC 4.2 RBC 5.06 Hgb 12.8 Hct 40.3 MCV 79.6 L MCH 25.3 L MCHC 31.7 L RDW 14.4 Plt Count 147 D MPV 8.4 Sodium 143 Potassium 4.2 Chloride 109 H Carbon Dioxide 26 Anion Gap 8 BUN 16 Creatinine 1.1 Creat Clearance w eGFR > 60 Random Glucose 101 Calcium 8.7 Total Bilirubin 0.3 AST 16 ALT 18 Alkaline Phosphatase 51 Total Protein 6.7 Albumin 3.5 Urine Color [place] Urine Appearance Turbid Urine pH 5.0 Ur Specific [place] 1.026 Urine Protein 1+ H Urine Glucose (UA) Negative Urine Ketones Negative Urine Blood Negative Urine Nitrite Negative Urine Bilirubin Negative Urine Urobilinogen Negative Ur Leukocyte Esterase Negative Urine WBC (Auto) <1 Urine RBC (Auto) None Ur Epithelial Cells Rare Urine Mucus Rare RPR Titer HIV 1&2 Antibody Screen HIV P24 Antigen 01/13/18 01/13/18 07:30 07:30 WBC RBC Hgb Hct MCV MCH MCHC RDW Plt Count MPV Sodium Potassium Chloride Carbon Dioxide Anion Gap BUN Creatinine Creat Clearance w eGFR Random Glucose Calcium Total Bilirubin AST ALT Alkaline Phosphatase Total Protein Albumin Urine Color Urine Appearance Urine pH Ur Specific [place] Urine Protein Urine Glucose (UA) Urine Ketones Urine Blood Urine Nitrite Urine Bilirubin Urine Urobilinogen Ur Leukocyte Esterase Urine WBC (Auto) Urine RBC (Auto) Ur Epithelial Cells Urine Mucus RPR Titer Nonreactive HIV 1&2 Antibody Screen Negative HIV P24 Antigen Negative pt aox3 in nad ambulating Assessment: 01/14/18 10:56 withdrawal sx's Plan: cont. detox increase fluids
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
[2018-01-14] MEDS: chlordiazePOXIDE 5 MG CAPSULE PO SCH ×2 (18:05→22:20)
[2018-01-14] MEDS: THIAMINE HCL 100 MG TABLET (FP) PO SCH (22:20)
[2018-01-14] MEDS: risperiDONE 3 MG TABLET PO SCH (22:23)
[2018-01-15] MEDS: chlordiazePOXIDE 5 MG CAPSULE PO SCH ×2 (05:32→10:20)
[2018-01-15 09:17] VITALS: BP 130/94; PULSE 78; TEMP 97.7
[2018-01-15] MEDS: PRENATAL VITAMINS W/ FOLIC ACID TABLET (FP) PO SCH (10:20)
[2018-01-15] MEDS: risperiDONE 2 MG TABLET PO SCH (10:20)
--- NOTE | 2018-01-15 11:16 | PN ---
[facility] Progress Note Note: Patient medically stable. c/o of interrupted sleep. Vital Signs Temperature 97.7 F 01/15/18 09:17 Pulse Rate 78 01/15/18 09:17 Respiratory Rate 18 01/15/18 09:17 Blood Pressure 130/94 01/15/18 09:17 O2 Sat by Pulse Oximetry (%) Laboratory Last Values WBC 4.2 K/mm3 (4.0-10.0) 01/13/18 07:30 RBC 5.06 M/mm3 (4.00-5.60) 01/13/18 07:30 Hgb 12.8 GM/dL (11.7-16.9) 01/13/18 07:30 Hct 40.3 % (35.4-49) 01/13/18 07:30 MCV 79.6 fl (80-96) L 01/13/18 07:30 MCH 25.3 pg (25.7-33.7) L 01/13/18 07:30 MCHC 31.7 g/dl (32.0-35.9) L 01/13/18 07:30 RDW 14.4 % (11.9-15.9) 01/13/18 07:30 Plt Count 147 K/MM3 (134-434) D 01/13/18 07:30 MPV 8.4 fl (7.5-11.1) 01/13/18 07:30 Sodium 143 mmol/L (136-145) 01/13/18 07:30 Potassium 4.2 mmol/L (3.5-5.1) 01/13/18 07:30 Chloride 109 mmol/L (98-107) H 01/13/18 07:30 Carbon Dioxide 26 mmol/L (21-32) 01/13/18 07:30 Anion Gap 8 MMOL/L (8-16) 01/13/18 07:30 BUN 16 mg/dL (7-18) 01/13/18 07:30 Creatinine 1.1 mg/dL (0.7-1.3) 01/13/18 07:30 Creat Clearance w eGFR > 60 (>60) 01/13/18 07:30 Random Glucose 101 mg/dL (74-106) 01/13/18 07:30 Calcium 8.7 mg/dL (8.5-10.1) 01/13/18 07:30 Total Bilirubin 0.3 mg/dL (0.2-1.0) 01/13/18 07:30 AST 16 U/L (15-37) 01/13/18 07:30 ALT 18 U/L (12-78) 01/13/18 07:30 Alkaline Phosphatase 51 U/L (45-117) 01/13/18 07:30 Total Protein 6.7 g/dl (6.4-8.2) 01/13/18 07:30 Albumin 3.5 g/dl (3.4-5.0) 01/13/18 07:30 Urine Color [place] 01/12/18 12:54 Urine Appearance Turbid 01/12/18 12:54 Urine pH 5.0 (5.0-8.0) 01/12/18 12:54 Ur Specific [place] 1.026 (1.001-1.035) 01/12/18 12:54 Urine Protein 1+ (NEGATIVE) H 01/12/18 12:54 Urine Glucose (UA) Negative (NEGATIVE) 01/12/18 12:54 Urine Ketones Negative (NEGATIVE) 01/12/18 12:54 Urine Blood Negative (NEGATIVE) 01/12/18 12:54 Urine Nitrite Negative (NEGATIVE) 01/12/18 12:54 Urine Bilirubin Negative (<2.0 mg/dL) 01/12/18 12:54 Urine Urobilinogen Negative mg/dL (0.2-1.0) 01/12/18 12:54 Ur Leukocyte Esterase Negative (NEGATIVE) 01/12/18 12:54 Urine WBC (Auto) <1 /hpf (3-5) 01/12/18 12:54 Urine RBC (Auto) None /hpf (0-3) 01/12/18 12:54 Ur Epithelial Cells Rare /HPF (FEW) 01/12/18 12:54 Urine Mucus Rare 01/12/18 12:54 RPR Titer Nonreactive (NONREACTIVE) 01/13/18 07:30 HIV 1&2 Antibody Screen Negative 01/13/18 07:30 HIV P24 Antigen Negative 01/13/18 07:30 Aox3 no distress full ROM ambulating in the unit withdrawal symptoms continue detox
--- NOTE | 2018-01-15 13:06 | DS ---
[facility] Detox Discharge Summary Admission Date: 01/12/18 Discharge Date: 01/15/18 - History Present History: Alcohol Dependence, Cannabis Dependence, Cocaine Dependence Additional Comments: Patient medically stable. Patient to follow up with primary care provider 1 - 2 weeks and follow with after care referral. - Physical Exam Results Vital Signs: Vital Signs Temperature 97.7 F 01/15/18 09:17 Pulse Rate 78 01/15/18 09:17 Respiratory Rate 18 01/15/18 09:17 Blood Pressure 130/94 01/15/18 09:17 O2 Sat by Pulse Oximetry (%) Pertinent Admission Physical Exam Findings: Vital Signs Temperature 97.7 F 01/15/18 09:17 Pulse Rate 78 01/15/18 09:17 Respiratory Rate 18 01/15/18 09:17 Blood Pressure 130/94 01/15/18 09:17 O2 Sat by Pulse Oximetry (%) Laboratory Last Values WBC 4.2 K/mm3 (4.0-10.0) 01/13/18 07:30 RBC 5.06 M/mm3 (4.00-5.60) 01/13/18 07:30 Hgb 12.8 GM/dL (11.7-16.9) 01/13/18 07:30 Hct 40.3 % (35.4-49) 01/13/18 07:30 MCV 79.6 fl (80-96) L 01/13/18 07:30 MCH 25.3 pg (25.7-33.7) L 01/13/18 07:30 MCHC 31.7 g/dl (32.0-35.9) L 01/13/18 07:30 RDW 14.4 % (11.9-15.9) 01/13/18 07:30 Plt Count 147 K/MM3 (134-434) D 01/13/18 07:30 MPV 8.4 fl (7.5-11.1) 01/13/18 07:30 Sodium 143 mmol/L (136-145) 01/13/18 07:30 Potassium 4.2 mmol/L (3.5-5.1) 01/13/18 07:30 Chloride 109 mmol/L (98-107) H 01/13/18 07:30 Carbon Dioxide 26 mmol/L (21-32) 01/13/18 07:30 Anion Gap 8 MMOL/L (8-16) 01/13/18 07:30 BUN 16 mg/dL (7-18) 01/13/18 07:30 Creatinine 1.1 mg/dL (0.7-1.3) 01/13/18 07:30 Creat Clearance w eGFR > 60 (>60) 01/13/18 07:30 Random Glucose 101 mg/dL (74-106) 01/13/18 07:30 Calcium 8.7 mg/dL (8.5-10.1) 01/13/18 07:30 Total Bilirubin 0.3 mg/dL (0.2-1.0) 01/13/18 07:30 AST 16 U/L (15-37) 01/13/18 07:30 ALT 18 U/L (12-78) 01/13/18 07:30 Alkaline Phosphatase 51 U/L (45-117) 01/13/18 07:30 Total Protein 6.7 g/dl (6.4-8.2) 01/13/18 07:30 Albumin 3.5 g/dl (3.4-5.0) 01/13/18 07:30 Urine Color Darlene 01/12/18 12:54 Urine Appearance Turbid 01/12/18 12:54 Urine pH 5.0 (5.0-8.0) 01/12/18 12:54 Ur Specific [place] 1.026 (1.001-1.035) 01/12/18 12:54 Urine Protein 1+ (NEGATIVE) H 01/12/18 12:54 Urine Glucose (UA) Negative (NEGATIVE) 01/12/18 12:54 Urine Ketones Negative (NEGATIVE) 01/12/18 12:54 Urine Blood Negative (NEGATIVE) 01/12/18 12:54 Urine Nitrite Negative (NEGATIVE) 01/12/18 12:54 Urine Bilirubin Negative (<2.0 mg/dL) 01/12/18 12:54 Urine Urobilinogen Negative mg/dL (0.2-1.0) 01/12/18 12:54 Ur Leukocyte Esterase Negative (NEGATIVE) 01/12/18 12:54 Urine WBC (Auto) <1 /hpf (3-5) 01/12/18 12:54 Urine RBC (Auto) None /hpf (0-3) 01/12/18 12:54 Ur Epithelial Cells Rare /HPF (FEW) 01/12/18 12:54 Urine Mucus Rare 01/12/18 12:54 RPR Titer Nonreactive (NONREACTIVE) 01/13/18 07:30 HIV 1&2 Antibody Screen Negative 01/13/18 07:30 HIV P24 Antigen Negative 01/13/18 07:30 - Treatment Hospital Course: Detox Protocol Followed, Detoxed Safely, Responded well, Discharged Condition Good Patient has Accepted a Rehab Referral to: Follow up with out patient care - Medication Discharge Medications: Ambulatory Orders Risperidone [Risperdal] 3 mg PO HS #30 tablet 10/03/17 Risperidone [Risperdal] 2 mg PO DAILY 01/12/18 - Diagnosis (1) Alcohol dependence with uncomplicated withdrawal Status: Chronic (2) Cocaine dependence, uncomplicated Status: Chronic (3) GERD (gastroesophageal reflux disease) Status: Chronic Qualifiers: Esophagitis presence: without esophagitis Qualified Code(s): K21.9 - Gastro -esophageal reflux disease without esophagitis (4) Nicotine dependence Status: Chronic Qualifiers: Nicotine product type: cigarettes Substance use status: in withdrawal Qualified Code(s): F17.213 - Nicotine dependence, cigarettes, with withdrawal - AMA Did Patient Leave Against Medical Advice: No
[2018-01-15] MEDS ORDERED: chlordiazePOXIDE HCL 10 MG CAPSULE PO SCH (17:00)
== END 2018-01-15 13:15 | disposition home or self-care (01) | DRG 774 ==
LOC: YASAS 11:10 → Y6N 12:25
PROVIDERS: ADMIT Surgery; ATTEND Surgery
PROC: HZ2ZZZZ Detoxification Services for Substance Abuse Treatment (ICD-10-PCS; principal; 2018-01-12)
DX: F10.230 Alcohol dependence with withdrawal, uncomplicated (principal); F14.20 Cocaine dependence, uncomplicated; F12.20 Cannabis dependence, uncomplicated; F17.213 Nicotine dependence, cigarettes, with withdrawal; F41.9 Anxiety disorder, unspecified; F19.24 Other psychoactive substance dependence with psychoactive substance-induced mood disorder; F19.282 Other psychoactive substance dependence with psychoactive substance-induced sleep disorder; F25.9 Schizoaffective disorder, unspecified; F20.0 Paranoid schizophrenia; K21.9 Gastro-esophageal reflux disease without esophagitis; Z98.890 Other specified postprocedural states; Z87.442 Personal history of urinary calculi
CPT/HCPCS: 36415; 80053; 81003; 81015; 85027; 86593; 87389; 93005; 93010

== ENCOUNTER 2018-02-28 13:28 | Inpatient (IN) | payer OTHER ==
[2018-02-28 14:33] VITALS: BMI 33.8
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
[2018-02-28] MEDS ORDERED: LOPERAMIDE HCL 2 MG CAPSULE PO PRN (16:28)
[2018-02-28] MEDS ORDERED: MAGNESIUM CITRATE 300 ML BOTTLE PO PRN (16:28)
[2018-02-28] MEDS ORDERED: chlordiazePOXIDE HCL 25 MG CAPSULE PO PRN (16:28)
[2018-02-28] MEDS ORDERED: ACETAMINOPHEN 325 MG TABLET (FP) PO PRN (16:28)
[2018-02-28] MEDS ORDERED: MAGNESIUM HYDROX 2400MG/30ML ORAL SUSPENSION 30 ML CUP PO PRN (16:28)
[2018-02-28] MEDS ORDERED: MAG HYDROX/AL HYDROX/SIMETH 30 ML UNIT-DOSE CUP PO PRN (16:28)
[2018-02-28] MEDS ORDERED: guaiFENesin/D-METHORPHAN HB 10 ML UNIT-DOSE CUPS PO PRN (16:28)
[2018-02-28] MEDS ORDERED: P-EPHED 60MG/TRIPROLIDI 2.5MG TABLET PO PRN (16:28)
[2018-02-28] MEDS ORDERED: IBUPROFEN 400 MG TABLET (FP) PO PRN (16:28)
[2018-02-28] MEDS ORDERED: MENTHOL/PHENOL 1 EACH UD MM PRN (16:28)
[2018-02-28] MEDS ORDERED: NICOTINE POLACRILEX 2 MG GUM BC PRN (16:28)
[2018-02-28] MEDS ORDERED: chlordiazePOXIDE HCL 25 MG CAPSULE PO ONE (18:00)
[2018-02-28] MEDS ORDERED: MELATONIN 5 MG TABLETS PO PRN (22:00)
[2018-02-28] MEDS: THIAMINE HCL 100 MG TABLET (FP) PO SCH (22:24)
[2018-02-28] MEDS: chlordiazePOXIDE HCL 25 MG CAPSULE PO SCH (22:24)
[2018-03-01 00:59] LABS: URINE APPEARANCE CLEAR; URINE BILIRUBIN NEGATIVE (<2.0 mg/dL); URINE COLOR YELLOW; URINE GLUCOSE (UA) NEGATIVE (NEGATIVE); URINE KETONE NEGATIVE (NEGATIVE); URINE LEUK ESTERASE NEGATIVE (NEGATIVE); URINE NITRITE NEGATIVE (NEGATIVE); URINE PROTEIN NEGATIVE (NEGATIVE); URINE UROBILINOGEN NEGATIVE mg/dL (0.2-1.0)
[2018-03-01] MEDS: chlordiazePOXIDE HCL 25 MG CAPSULE PO SCH ×4 (05:55→22:30)
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
[2018-03-01 10:00] LABS: HEMATOCRIT 40.2 % (35.4-49); HEMOGLOBIN 12.6 GM/dL (11.7-16.9); MCH 25.2 pg (25.7-33.7); MCHC 31.4 g/dl (32.0-35.9); MEAN CELL VOLUME 80.2 fl (80-96); MEAN PLT VOLUME 8.4 fl (7.5-11.1); PLATELET COUNT 174 K/MM3 (134-434); RBC 5.02 M/mm3 (4.00-5.60); RDW 14.4 % (11.9-15.9); WHITE BLOOD COUNT 3.6 K/mm3 (4.0-10.0)
[2018-03-01 10:12] LABS: ALBUMIN 3.4 g/dl (3.4-5.0); ALK PHOS 53 U/L (45-117); ANION GAP 4 MMOL/L (8-16); BILIRUBIN,TOTAL 0.5 mg/dL (0.2-1); BLOOD UREA NITROGEN 19 mg/dL (7-18); CALCIUM 8.9 mg/dL (8.5-10.1); CHLORIDE 109 mmol/L (98-107); CO2 26 mmol/L (21-32); GLUCOSE,RANDOM 107 mg/dL (74-106); POTASSIUM 4.4 mmol/L (3.5-5.1); SGOT/AST 26 U/L (15-37); SGPT/ALT 27 U/L (13-61); SODIUM 139 mmol/L (136-145); TOT PROT 6.9 g/dl (6.4-8.2)
--- NOTE | 2018-03-01 10:14 | EKG ---
Test Reason : Blood Pressure : / mmHG Vent. Rate : 070 BPM Atrial Rate : 070 BPM P-R Int : 154 ms QRS Dur : 094 ms QT Int : 432 ms P-R-T Axes : 043 034 030 degrees QTc Int : 466 ms POOR DATA QUALITY, INTERPRETATION MAY BE ADVERSELY AFFECTED NORMAL SINUS RHYTHM NORMAL ECG WHEN COMPARED WITH ECG OF 12-JAN-2018 13:37, NO SIGNIFICANT CHANGE WAS FOUND Confirmed by ESTHER CARDENAS, ZAIRA ([id number]) on 03/01/2018 10:14:36 AM Referred By: Confirmed By:ZAIRA SANTANA MD
[2018-03-01] MEDS: NICOTINE 14 MG/24 HOURS TOPICAL PATCH TD SCH (10:29)
[2018-03-01] MEDS: PRENATAL VITAMINS W/ FOLIC ACID TABLET (FP) PO SCH (10:31)
--- NOTE | 2018-03-01 11:01 | PN ---
S CIWA - CIWA Score Nausea/Vomitin Muscle Tremors: 2 Anxiety: 3 Agitation: 1-Slight > Activity Paroxysmal Sweats: No Perspiration Orientation: 0-Oriented Tacttile Disturbances: 0-None Auditory Disturbances: 0-None Visual Disturbances: 0-None Headache: 3-Moderate CIWA-Ar Total Score: 12 [facility] Progress Note (SOAP) Subjective: PATIENT C/O HEADACHE, SHAKES, NAUSEA AND DIARRHEA Objective: 03/01/18 10:59 Vital Signs Temperature 98.3 F 03/01/18 10:06 Pulse Rate 91 H 03/01/18 10:06 Respiratory Rate 18 03/01/18 10:06 Blood Pressure 103/53 L 03/01/18 10:06 O2 Sat by Pulse Oximetry (%) Laboratory Tests 03/01/18 03/01/18 03/01/18 00:30 07:00 07:00 WBC 3.6 L RBC 5.02 Hgb 12.6 Hct 40.2 MCV 80.2 MCH 25.2 L MCHC 31.4 L RDW 14.4 Plt Count 174 MPV 8.4 Sodium 139 Potassium 4.4 Chloride 109 H Carbon Dioxide 26 Anion Gap 4 L BUN 19 H Creatinine 1.0 Creat Clearance w eGFR > 60 Random Glucose 107 H Calcium 8.9 Total Bilirubin 0.5 AST 26 ALT 27 Alkaline Phosphatase 53 Total Protein 6.9 Albumin 3.4 Urine Color Yellow Urine Appearance Clear Urine pH 5.0 Ur Specific [place] 1.015 Urine Protein Negative Urine Glucose (UA) Negative Urine Ketones Negative Urine Blood Negative Urine Nitrite Negative Urine Bilirubin Negative Urine Urobilinogen Negative Ur Leukocyte Esterase Negative ALERT AND ORIENTED SKIN WARM AND DRY CAR S1S2 RESP CTA BL GI SOFT, BS+, NT EXT +TREMORS, FULL ROM Assessment: 03/01/18 11:00 WITHDRAWAL SYNDROME Plan: CONTINUE DETOX ORDERED CONTINUE ORAL FLUIDS IMMODIUM PRN CONTINUED CONTINUE TO MONITOR CLINICALLY
[2018-03-01] MEDS: risperiDONE 1 MG TABLET (FP) PO SCH (11:54)
[2018-03-01] MEDS: THIAMINE HCL 100 MG TABLET (FP) PO SCH (22:30)
[2018-03-01] MEDS: risperiDONE 2 MG TABLET PO SCH (22:45)
[2018-03-02] MEDS: chlordiazePOXIDE HCL 25 MG CAPSULE PO SCH ×3 (06:14→17:57)
[2018-03-02] MEDS: risperiDONE 1 MG TABLET (FP) PO SCH (10:28)
[2018-03-02] MEDS: NICOTINE 14 MG/24 HOURS TOPICAL PATCH TD SCH (10:28)
[2018-03-02] MEDS: PRENATAL VITAMINS W/ FOLIC ACID TABLET (FP) PO SCH (10:30)
--- NOTE | 2018-03-02 10:54 | PN ---
[facility] CIWA - CIWA Score Nausea/Vomitin-No Nausea/No Vomiting Muscle Tremors: 2 Anxiety: 3 Agitation: 2 Paroxysmal Sweats: 2 Orientation: 0-Oriented Tacttile Disturbances: 2-Mild Itch/Numbness/Burn Auditory Disturbances: 0-None Visual Disturbances: 0-None Headache: 0-None Present CIWA-Ar Total Score: 11 [facility] Progress Note (SOAP) Subjective: fatigue, anxious, dry skin, interrupted sleep, b/t shoulder pain Objective: 03/02/18 10:54 Vital Signs Temperature 97.9 F 03/02/18 10:19 Pulse Rate 82 03/02/18 10:19 Respiratory Rate 18 03/02/18 10:19 Blood Pressure 127/85 03/02/18 10:19 O2 Sat by Pulse Oximetry (%) Laboratory Last Values WBC 3.6 K/mm3 (4.0-10.0) L 03/01/18 07:00 RBC 5.02 M/mm3 (4.00-5.60) 03/01/18 07:00 Hgb 12.6 GM/dL (11.7-16.9) 03/01/18 07:00 Hct 40.2 % (35.4-49) 03/01/18 07:00 MCV 80.2 fl (80-96) 03/01/18 07:00 MCH 25.2 pg (25.7-33.7) L 03/01/18 07:00 MCHC 31.4 g/dl (32.0-35.9) L 03/01/18 07:00 RDW 14.4 % (11.9-15.9) 03/01/18 07:00 Plt Count 174 K/MM3 (134-434) 03/01/18 07:00 MPV 8.4 fl (7.5-11.1) 03/01/18 07:00 Sodium 139 mmol/L (136-145) 03/01/18 07:00 Potassium 4.4 mmol/L (3.5-5.1) 03/01/18 07:00 Chloride 109 mmol/L (98-107) H 03/01/18 07:00 Carbon Dioxide 26 mmol/L (21-32) 03/01/18 07:00 Anion Gap 4 MMOL/L (8-16) L 03/01/18 07:00 BUN 19 mg/dL (7-18) H 03/01/18 07:00 Creatinine 1.0 mg/dL (0.55-1.3) 03/01/18 07:00 Creat Clearance w eGFR > 60 (>60) 03/01/18 07:00 Random Glucose 107 mg/dL (74-106) H 03/01/18 07:00 Calcium 8.9 mg/dL (8.5-10.1) 03/01/18 07:00 Total Bilirubin 0.5 mg/dL (0.2-1) 03/01/18 07:00 AST 26 U/L (15-37) 03/01/18 07:00 ALT 27 U/L (13-61) 03/01/18 07:00 Alkaline Phosphatase 53 U/L (45-117) 03/01/18 07:00 Total Protein 6.9 g/dl (6.4-8.2) 03/01/18 07:00 Albumin 3.4 g/dl (3.4-5.0) 03/01/18 07:00 Urine Color Yellow 03/01/18 00:30 Urine Appearance Clear 03/01/18 00:30 Urine pH 5.0 (5.0-8.0) 03/01/18 00:30 Ur Specific [place] 1.015 (1.010-1.035) 03/01/18 00:30 Urine Protein Negative (NEGATIVE) 03/01/18 00:30 Urine Glucose (UA) Negative (NEGATIVE) 03/01/18 00:30 Urine Ketones Negative (NEGATIVE) 03/01/18 00:30 Urine Blood Negative (NEGATIVE) 03/01/18 00:30 Urine Nitrite Negative (NEGATIVE) 03/01/18 00:30 Urine Bilirubin Negative (<2.0 mg/dL) 03/01/18 00:30 Urine Urobilinogen Negative mg/dL (0.2-1.0) 03/01/18 00:30 Ur Leukocyte Esterase Negative (NEGATIVE) 03/01/18 00:30 RPR Titer Nonreactive (NONREACTIVE) 03/01/18 07:00 HIV 1&2 Antibody Screen Negative 03/01/18 07:00 HIV P24 Antigen Negative 03/01/18 07:00 Aox3 no distress skin intact , + dry skin + b/t shoulder pain, full ROM, ambulating in the unit withdrawal sx increase fluids continue detox continue to monitor
[2018-03-02] MEDS: VITAMINS A AND D TOPICAL OINTMENT 60 GM TUBE TP SCH ×2 (13:37→22:37)
[2018-03-02] MEDS: chlordiazePOXIDE 5 MG CAPSULE PO SCH (22:36)
[2018-03-02] MEDS: THIAMINE HCL 100 MG TABLET (FP) PO SCH (22:36)
[2018-03-02] MEDS: risperiDONE 2 MG TABLET PO SCH (22:36)
[2018-03-03] MEDS: chlordiazePOXIDE 5 MG CAPSULE PO SCH ×3 (06:05→17:03)
[2018-03-03] MEDS: NICOTINE 14 MG/24 HOURS TOPICAL PATCH TD SCH (10:28)
[2018-03-03] MEDS: risperiDONE 1 MG TABLET (FP) PO SCH (10:28)
[2018-03-03] MEDS: PRENATAL VITAMINS W/ FOLIC ACID TABLET (FP) PO SCH (10:28)
[2018-03-03] MEDS: VITAMINS A AND D TOPICAL OINTMENT 60 GM TUBE TP SCH ×2 (10:31→22:47)
--- NOTE | 2018-03-03 13:12 | PN ---
[facility] Progress Note (SOAP) Subjective: feeling better less sweat no tremor no gi distress social with peers in day room Objective: 03/03/18 13:12 Vital Signs Temperature 97.5 F L 03/03/18 09:50 Pulse Rate 82 03/03/18 09:50 Respiratory Rate 18 03/03/18 09:50 Blood Pressure 137/95 03/03/18 09:50 O2 Sat by Pulse Oximetry (%) Laboratory Last Values WBC 3.6 K/mm3 (4.0-10.0) L 03/01/18 07:00 RBC 5.02 M/mm3 (4.00-5.60) 03/01/18 07:00 Hgb 12.6 GM/dL (11.7-16.9) 03/01/18 07:00 Hct 40.2 % (35.4-49) 03/01/18 07:00 MCV 80.2 fl (80-96) 03/01/18 07:00 MCH 25.2 pg (25.7-33.7) L 03/01/18 07:00 MCHC 31.4 g/dl (32.0-35.9) L 03/01/18 07:00 RDW 14.4 % (11.9-15.9) 03/01/18 07:00 Plt Count 174 K/MM3 (134-434) 03/01/18 07:00 MPV 8.4 fl (7.5-11.1) 03/01/18 07:00 Sodium 139 mmol/L (136-145) 03/01/18 07:00 Potassium 4.4 mmol/L (3.5-5.1) 03/01/18 07:00 Chloride 109 mmol/L (98-107) H 03/01/18 07:00 Carbon Dioxide 26 mmol/L (21-32) 03/01/18 07:00 Anion Gap 4 MMOL/L (8-16) L 03/01/18 07:00 BUN 19 mg/dL (7-18) H 03/01/18 07:00 Creatinine 1.0 mg/dL (0.55-1.3) 03/01/18 07:00 Creat Clearance w eGFR > 60 (>60) 03/01/18 07:00 Random Glucose 107 mg/dL (74-106) H 03/01/18 07:00 Calcium 8.9 mg/dL (8.5-10.1) 03/01/18 07:00 Total Bilirubin 0.5 mg/dL (0.2-1) 03/01/18 07:00 AST 26 U/L (15-37) 03/01/18 07:00 ALT 27 U/L (13-61) 03/01/18 07:00 Alkaline Phosphatase 53 U/L (45-117) 03/01/18 07:00 Total Protein 6.9 g/dl (6.4-8.2) 03/01/18 07:00 Albumin 3.4 g/dl (3.4-5.0) 03/01/18 07:00 Urine Color Yellow 03/01/18 00:30 Urine Appearance Clear 03/01/18 00:30 Urine pH 5.0 (5.0-8.0) 03/01/18 00:30 Ur Specific [place] 1.015 (1.010-1.035) 03/01/18 00:30 Urine Protein Negative (NEGATIVE) 03/01/18 00:30 Urine Glucose (UA) Negative (NEGATIVE) 03/01/18 00:30 Urine Ketones Negative (NEGATIVE) 03/01/18 00:30 Urine Blood Negative (NEGATIVE) 03/01/18 00:30 Urine Nitrite Negative (NEGATIVE) 03/01/18 00:30 Urine Bilirubin Negative (<2.0 mg/dL) 03/01/18 00:30 Urine Urobilinogen Negative mg/dL (0.2-1.0) 03/01/18 00:30 Ur Leukocyte Esterase Negative (NEGATIVE) 03/01/18 00:30 RPR Titer Nonreactive (NONREACTIVE) 03/01/18 07:00 HIV 1&2 Antibody Screen Negative 03/01/18 07:00 HIV P24 Antigen Negative 03/01/18 07:00 lab noted Assessment: 03/03/18 13:12 mild withdrawal sx Plan: medically supervised detox
[2018-03-03] MEDS: THIAMINE HCL 100 MG TABLET (FP) PO SCH (22:47)
[2018-03-03] MEDS: risperiDONE 2 MG TABLET PO SCH (22:47)
[2018-03-03] MEDS: chlordiazePOXIDE HCL 10 MG CAPSULE PO SCH (22:47)
[2018-03-04] MEDS: chlordiazePOXIDE HCL 10 MG CAPSULE PO SCH ×2 (06:16→10:29)
--- NOTE | 2018-03-04 08:46 | DS ---
[facility] Detox Discharge Summary Admission Date: 02/28/18 Discharge Date: 03/04/18 - History Present History: Alcohol Dependence Additional Comments: 52 years old male admitted on 02/28/18 with alcohol withdrawal sx completed alcohol detox regimen tolerated well denies alcohol withdrawal sx alert oriented x 3 no acute distress aftercare [facility];s - Physical Exam Results Vital Signs: Vital Signs Temperature 98.1 F 03/04/18 06:00 Pulse Rate 80 03/04/18 06:00 Respiratory Rate 20 03/04/18 06:00 Blood Pressure 110/78 03/04/18 06:00 O2 Sat by Pulse Oximetry (%) Pertinent Admission Physical Exam Findings: alcohol withdrawal sx Vital Signs Temperature 96.7 F L 03/04/18 09:23 Pulse Rate 103 H 03/04/18 09:23 Respiratory Rate 20 03/04/18 09:23 Blood Pressure 134/88 03/04/18 09:23 O2 Sat by Pulse Oximetry (%) Laboratory Last Values WBC 3.6 K/mm3 (4.0-10.0) L 03/01/18 07:00 RBC 5.02 M/mm3 (4.00-5.60) 03/01/18 07:00 Hgb 12.6 GM/dL (11.7-16.9) 03/01/18 07:00 Hct 40.2 % (35.4-49) 03/01/18 07:00 MCV 80.2 fl (80-96) 03/01/18 07:00 MCH 25.2 pg (25.7-33.7) L 03/01/18 07:00 MCHC 31.4 g/dl (32.0-35.9) L 03/01/18 07:00 RDW 14.4 % (11.9-15.9) 03/01/18 07:00 Plt Count 174 K/MM3 (134-434) 03/01/18 07:00 MPV 8.4 fl (7.5-11.1) 03/01/18 07:00 Sodium 139 mmol/L (136-145) 03/01/18 07:00 Potassium 4.4 mmol/L (3.5-5.1) 03/01/18 07:00 Chloride 109 mmol/L (98-107) H 03/01/18 07:00 Carbon Dioxide 26 mmol/L (21-32) 03/01/18 07:00 Anion Gap 4 MMOL/L (8-16) L 03/01/18 07:00 BUN 19 mg/dL (7-18) H 03/01/18 07:00 Creatinine 1.0 mg/dL (0.55-1.3) 03/01/18 07:00 Creat Clearance w eGFR > 60 (>60) 03/01/18 07:00 Random Glucose 107 mg/dL (74-106) H 03/01/18 07:00 Calcium 8.9 mg/dL (8.5-10.1) 03/01/18 07:00 Total Bilirubin 0.5 mg/dL (0.2-1) 03/01/18 07:00 AST 26 U/L (15-37) 03/01/18 07:00 ALT 27 U/L (13-61) 03/01/18 07:00 Alkaline Phosphatase 53 U/L (45-117) 03/01/18 07:00 Total Protein 6.9 g/dl (6.4-8.2) 03/01/18 07:00 Albumin 3.4 g/dl (3.4-5.0) 03/01/18 07:00 Urine Color Yellow 03/01/18 00:30 Urine Appearance Clear 03/01/18 00:30 Urine pH 5.0 (5.0-8.0) 03/01/18 00:30 Ur Specific [place] 1.015 (1.010-1.035) 03/01/18 00:30 Urine Protein Negative (NEGATIVE) 03/01/18 00:30 Urine Glucose (UA) Negative (NEGATIVE) 03/01/18 00:30 Urine Ketones Negative (NEGATIVE) 03/01/18 00:30 Urine Blood Negative (NEGATIVE) 03/01/18 00:30 Urine Nitrite Negative (NEGATIVE) 03/01/18 00:30 Urine Bilirubin Negative (<2.0 mg/dL) 03/01/18 00:30 Urine Urobilinogen Negative mg/dL (0.2-1.0) 03/01/18 00:30 Ur Leukocyte Esterase Negative (NEGATIVE) 03/01/18 00:30 RPR Titer Nonreactive (NONREACTIVE) 03/01/18 07:00 HIV 1&2 Antibody Screen Negative 03/01/18 07:00 HIV P24 Antigen Negative 03/01/18 07:00 lab noted - Treatment Hospital Course: Detox Protocol Followed, Detoxed Safely, Responded well, Discharged Condition Good, Rehab Referral Accepted Patient has Accepted a Rehab Referral to: [facility] - Medication Discharge Medications: Ambulatory Orders Risperidone [Risperdal -] 3 mg PO HS #30 tablet 10/03/17 Risperidone [Risperdal] 2 mg PO DAILY 01/12/18 - Diagnosis (1) Alcohol dependence with uncomplicated withdrawal Current Visit: Yes Status: Acute (2) Schizophrenia Current Visit: Yes Status: Suspected Qualifiers: Schizophrenia type: unspecified Qualified Code(s): F20.9 - Schizophrenia, unspecified (3) Nicotine dependence Current Visit: Yes Status: Acute Qualifiers: Nicotine product type: cigarettes Substance use status: in withdrawal Qualified Code(s): F17.213 - Nicotine dependence, cigarettes, with withdrawal - AMA Did Patient Leave Against Medical Advice: No
[2018-03-04] MEDS: risperiDONE 1 MG TABLET (FP) PO SCH (10:29)
[2018-03-04] MEDS: PRENATAL VITAMINS W/ FOLIC ACID TABLET (FP) PO SCH (10:29)
[2018-03-04] MEDS: VITAMINS A AND D TOPICAL OINTMENT 60 GM TUBE TP SCH (10:30)
[2018-03-04] MEDS: NICOTINE 14 MG/24 HOURS TOPICAL PATCH TD SCH (10:30)
[2018-03-04 13:33] VITALS: BP 140/79; PULSE 86; TEMP 98.1
== END 2018-03-04 13:55 | disposition other institution (70) | DRG 774 ==
LOC: YASAS 13:28 → Y6N 17:40
PROC: HZ2ZZZZ Detoxification Services for Substance Abuse Treatment (ICD-10-PCS; principal; 2018-02-28)
DX: F10.230 Alcohol dependence with withdrawal, uncomplicated (principal); F14.20 Cocaine dependence, uncomplicated; F12.20 Cannabis dependence, uncomplicated; F17.213 Nicotine dependence, cigarettes, with withdrawal; F25.9 Schizoaffective disorder, unspecified; F29 Unspecified psychosis not due to a substance or known physiological condition; K21.9 Gastro-esophageal reflux disease without esophagitis; E66.9 Obesity, unspecified; Z68.33 Body mass index [BMI] 33.0-33.9, adult
CPT/HCPCS: 36415; 80053; 81003; 85027; 86593; 87389; 93005; 93010; J2794

== ENCOUNTER 2018-03-04 14:06 | Inpatient (IN) | payer OTHER ==
[2018-03-04 14:44] VITALS: BMI 34.6
[2018-03-04] MEDS ORDERED: MAG HYDROX/AL HYDROX/SIMETH 30 ML UNIT-DOSE CUP PO PRN (16:16)
[2018-03-04] MEDS ORDERED: ACETAMINOPHEN 325 MG TABLET (FP) PO PRN (16:16)
[2018-03-04] MEDS ORDERED: MENTHOL/PHENOL 1 EACH UD MM PRN (16:16)
[2018-03-04] MEDS ORDERED: hydrOXYzine PAMOATE 50 MG CAPSULE (FP) PO PRN (16:16)
[2018-03-04] MEDS ORDERED: NICOTINE POLACRILEX 2 MG GUM BUC PRN (16:16)
[2018-03-04] MEDS ORDERED: P-EPHED 60MG/TRIPROLIDI 2.5MG TABLET PO PRN (16:16)
[2018-03-04] MEDS ORDERED: MAGNESIUM HYDROX 2400MG/30ML ORAL SUSPENSION 30 ML CUP PO PRN (16:16)
[2018-03-04] MEDS ORDERED: guaiFENesin/D-METHORPHAN HB 10 ML UNIT-DOSE CUPS PO PRN (16:16)
[2018-03-04] MEDS ORDERED: MAGNESIUM CITRATE 300 ML BOTTLE PO PRN (16:16)
[2018-03-04] MEDS ORDERED: IBUPROFEN 400 MG TABLET (FP) PO PRN (16:16)
[2018-03-04] MEDS ORDERED: LOPERAMIDE HCL 2 MG CAPSULE PO PRN (16:16)
--- NOTE | 2018-03-04 16:18 | HP ---
[facility] Rehab Assess/Revision - Admission History Admitted to Rehab from: [facility] [place] Date of Admission to Rehab: 03/04/18 - Vital signs Vital Signs: Vital Signs Period Temp Pulse Resp BP Sys/Lubin Pulse Ox Last 24 Hr 97.8 F 85 18 138/90 - Findings Detox History & Physical reviewed: Yes Concur with findings: Yes Inpatient Rehab Admission - Initial Determination Are CD services needed?: Yes Free of communicable disease: Yes Not in need of hospitalization: Yes - Rehab Admission Criteria Patient is meeting Inpatient Rehab admission criteria:: Yes
[2018-03-04] MEDS ORDERED: MELATONIN 5 MG TABLETS PO PRN (22:00)
[2018-03-04] MEDS: risperiDONE 3 MG TABLET PO SCH (22:10)
[2018-03-04] MEDS: THIAMINE HCL 100 MG TABLET (FP) PO SCH (22:10)
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
[2018-03-05] MEDS: risperiDONE 2 MG TABLET PO SCH (10:51)
[2018-03-05] MEDS: PRENATAL VITAMINS W/ FOLIC ACID TABLET (FP) PO SCH (10:52)
[2018-03-05] MEDS: NICOTINE 14 MG/24 HOURS TOPICAL PATCH TD SCH (10:52)
[2018-03-05] MEDS ORDERED: FLU VACCINE QUAD 60 MCG/0.5 ML (MDV 18-19) IM ONE (12:00)
[2018-03-05] MEDS: risperiDONE 3 MG TABLET PO SCH (21:45)
[2018-03-05] MEDS: THIAMINE HCL 100 MG TABLET (FP) PO SCH (21:45)
[2018-03-06] MEDS: risperiDONE 2 MG TABLET PO SCH (10:40)
[2018-03-06] MEDS: NICOTINE 14 MG/24 HOURS TOPICAL PATCH TD SCH (10:40)
[2018-03-06] MEDS: PRENATAL VITAMINS W/ FOLIC ACID TABLET (FP) PO SCH (10:40)
[2018-03-06] MEDS: risperiDONE 3 MG TABLET PO SCH (22:11)
[2018-03-06] MEDS: THIAMINE HCL 100 MG TABLET (FP) PO SCH (22:11)
[2018-03-07] MEDS: NICOTINE 14 MG/24 HOURS TOPICAL PATCH TD SCH (10:36)
[2018-03-07] MEDS: PRENATAL VITAMINS W/ FOLIC ACID TABLET (FP) PO SCH (10:36)
[2018-03-07] MEDS: risperiDONE 2 MG TABLET PO SCH (10:36)
[2018-03-07] MEDS: THIAMINE HCL 100 MG TABLET (FP) PO SCH (22:15)
[2018-03-07] MEDS: risperiDONE 3 MG TABLET PO SCH (22:15)
[2018-03-08] MEDS: NICOTINE 14 MG/24 HOURS TOPICAL PATCH TD SCH (10:05)
[2018-03-08] MEDS: PRENATAL VITAMINS W/ FOLIC ACID TABLET (FP) PO SCH (10:05)
[2018-03-08] MEDS: risperiDONE 2 MG TABLET PO SCH (10:05)
[2018-03-08] MEDS: THIAMINE HCL 100 MG TABLET (FP) PO SCH (21:43)
[2018-03-08] MEDS: risperiDONE 3 MG TABLET PO SCH (21:43)
[2018-03-09] MEDS: PRENATAL VITAMINS W/ FOLIC ACID TABLET (FP) PO SCH (10:10)
[2018-03-09] MEDS: NICOTINE 14 MG/24 HOURS TOPICAL PATCH TD SCH (10:10)
[2018-03-09] MEDS: risperiDONE 2 MG TABLET PO SCH (10:10)
[2018-03-09] MEDS: risperiDONE 3 MG TABLET PO SCH (22:17)
[2018-03-09] MEDS: THIAMINE HCL 100 MG TABLET (FP) PO SCH (22:17)
[2018-03-10] MEDS: NICOTINE 14 MG/24 HOURS TOPICAL PATCH TD SCH (09:58)
[2018-03-10] MEDS: PRENATAL VITAMINS W/ FOLIC ACID TABLET (FP) PO SCH (09:58)
[2018-03-10] MEDS: risperiDONE 2 MG TABLET PO SCH (09:58)
[2018-03-10] MEDS: THIAMINE HCL 100 MG TABLET (FP) PO SCH (21:43)
[2018-03-10] MEDS: risperiDONE 3 MG TABLET PO SCH (21:43)
[2018-03-11] MEDS: PRENATAL VITAMINS W/ FOLIC ACID TABLET (FP) PO SCH (10:26)
[2018-03-11] MEDS: risperiDONE 2 MG TABLET PO SCH (10:27)
[2018-03-11] MEDS: NICOTINE 14 MG/24 HOURS TOPICAL PATCH TD SCH (10:28)
[2018-03-11] MEDS: THIAMINE HCL 100 MG TABLET (FP) PO SCH (22:00)
[2018-03-11] MEDS: risperiDONE 3 MG TABLET PO SCH (22:00)
[2018-03-12] MEDS: NICOTINE 14 MG/24 HOURS TOPICAL PATCH TD SCH (10:34)
[2018-03-12] MEDS: risperiDONE 2 MG TABLET PO SCH (10:34)
[2018-03-12] MEDS: PRENATAL VITAMINS W/ FOLIC ACID TABLET (FP) PO SCH (10:34)
[2018-03-12] MEDS: THIAMINE HCL 100 MG TABLET (FP) PO SCH (21:53)
[2018-03-12] MEDS: risperiDONE 3 MG TABLET PO SCH (21:53)
[2018-03-13] MEDS: PRENATAL VITAMINS W/ FOLIC ACID TABLET (FP) PO SCH (10:21)
[2018-03-13] MEDS: NICOTINE 14 MG/24 HOURS TOPICAL PATCH TD SCH (10:22)
[2018-03-13] MEDS: risperiDONE 2 MG TABLET PO SCH (10:22)
[2018-03-13] MEDS: risperiDONE 3 MG TABLET PO SCH (21:48)
[2018-03-13] MEDS: THIAMINE HCL 100 MG TABLET (FP) PO SCH (21:49)
[2018-03-14] MEDS: PRENATAL VITAMINS W/ FOLIC ACID TABLET (FP) PO SCH (10:41)
[2018-03-14] MEDS: NICOTINE 14 MG/24 HOURS TOPICAL PATCH TD SCH (10:41)
[2018-03-14] MEDS: risperiDONE 2 MG TABLET PO SCH (10:41)
[2018-03-14] MEDS: THIAMINE HCL 100 MG TABLET (FP) PO SCH (21:59)
[2018-03-14] MEDS: risperiDONE 3 MG TABLET PO SCH (21:59)
[2018-03-15] MEDS: PRENATAL VITAMINS W/ FOLIC ACID TABLET (FP) PO SCH (10:31)
[2018-03-15] MEDS: risperiDONE 2 MG TABLET PO SCH (10:31)
[2018-03-15] MEDS: NICOTINE 14 MG/24 HOURS TOPICAL PATCH TD SCH (10:32)
[2018-03-15] MEDS: risperiDONE 3 MG TABLET PO SCH (21:52)
[2018-03-15] MEDS: THIAMINE HCL 100 MG TABLET (FP) PO SCH (21:52)
[2018-03-16] MEDS: PRENATAL VITAMINS W/ FOLIC ACID TABLET (FP) PO SCH (10:47)
[2018-03-16] MEDS: NICOTINE 14 MG/24 HOURS TOPICAL PATCH TD SCH (10:47)
[2018-03-16] MEDS: risperiDONE 2 MG TABLET PO SCH (10:47)
[2018-03-16] MEDS: risperiDONE 3 MG TABLET PO SCH (22:04)
[2018-03-16] MEDS: THIAMINE HCL 100 MG TABLET (FP) PO SCH (22:04)
[2018-03-17 07:01] VITALS: PULSE 68
[2018-03-17] MEDS: risperiDONE 2 MG TABLET PO SCH (10:31)
[2018-03-17] MEDS: PRENATAL VITAMINS W/ FOLIC ACID TABLET (FP) PO SCH (10:31)
[2018-03-17] MEDS: NICOTINE 14 MG/24 HOURS TOPICAL PATCH TD SCH (10:32)
[2018-03-17] MEDS: THIAMINE HCL 100 MG TABLET (FP) PO SCH (21:12)
[2018-03-17] MEDS: risperiDONE 3 MG TABLET PO SCH (21:12)
--- NOTE | 2018-03-18 06:57 | PN ---
Psychiatric Progress Note Vital Signs: Vital Signs Period Temp Pulse Resp BP Sys/Lubin Pulse Ox Last 24 Hr 97.7 F 68 18-18 131/91 Date of Session: 03/18/18 Chief Complaint:: Discharge Note HPI: Patient addressing Alcohol, Cocaine and Cannabis Dependence comorbid with Nicotine Dependence and Paranoid Schizophrenia ROS: GERD Current Medications: Active Medications Generic Name Dose Route Start Last Admin Trade Name Freq PRN Reason Stop Dose Admin Acetaminophen 650 mg 03/04/18 16:16 Tylenol - PO Q4H PRN FEVER Al Hydroxide/Mg Hydroxide 30 ml 03/04/18 16:16 Mylanta Oral Suspension - PO Q6H PRN DYSPEPSIA Eucalyptus/Menthol/Phenol/Sorbitol 1 each 03/04/18 16:16 Cepastat Lozenge - MM Q4H PRN SORE THROAT Guaifenesin 10 ml 03/04/18 16:16 Robitussin Dm - PO Q6H PRN COUGH Hydroxyzine Pamoate 50 mg 03/04/18 16:16 Vistaril - PO Q4H PRN AGITATION Ibuprofen 400 mg 03/04/18 16:16 Motrin - PO Q6H PRN Pain Level 4-6 Loperamide HCl 4 mg 03/04/18 16:16 Imodium - PO Q6H PRN DIARRHEA Magnesium Citrate 300 ml 03/04/18 16:16 Citroma - PO Q48H PRN CONSTIPATION Magnesium Hydroxide 30 ml 03/04/18 16:16 Milk Of Magnesia - PO DAILY PRN CONSTIPATION Melatonin 5 mg 03/04/18 22:00 Melatonin PO HS PRN INSOMNIA Nicotine 14 mg 03/05/18 10:00 03/17/18 10:32 Nicoderm Patch - TD Not Given DAILY KIAH Nicotine Polacrilex 2 mg 03/04/18 16:16 Nicorette Gum - BUC Q2H PRN NICOTINE REPLACEMENT RX Multivit/Folic Acid/Iron 1 tab 03/05/18 10:00 03/17/18 10:31 Vitamins (Sjr) - PO 1 tab DAILY KIAH Administration Pseudoephedrine/Triprolidine 1 combo 03/04/18 16:16 Actifed - PO TID PRN NASAL CONGESTION Risperidone 2 mg 03/05/18 10:00 03/17/18 10:31 Risperdal - PO 2 mg DAILY KIAH Administration Risperidone 3 mg 03/04/18 22:00 03/17/18 21:12 Risperdal - PO 3 mg HS KIAH Administration Thiamine HCl 100 mg 03/04/18 22:00 03/17/18 21:12 Vitamin B1 - PO 100 mg HS KIAH Administration Current Side Effect: No Lab tests ordered: Yes Lab tests reviewed: Yes Provider note:: Patient has completed this program today. He has met his treatment goals and will continue to address his issues in outpatient treatment at [facility] at [address] [place] [address] [place] [address]. Told grant writer that from his participation in this program, he has learned to surround himself with a sober support network in order to maitain abstinence. He responded well to Risperdal 2 mg daily & 3 mg HS. Scripts for 30 days supply of medication is electronically transmitted to [facility] at [address] [place] [address]. He is stable for discharge today Total face to face time:: 35 Mental Status Exam - Mental Status Exam Alert and Oriented to: Time, Place, Person Cognitive Function: Fair Patient Appearance: Well Groomed Mood: Hopeful, Euthymic Affect: Appropriate Patient Behavior: Cooperative Speech Pattern: Clear Voice Loudness: Normal Thought Process: Intact, Goal Oriented Thought Disorder: Not Present Hallucinations: Denies Suicidal Ideation: Denies Homicidal Ideation: Denies Insight/Judgement: Fair Sleep: Fair Appetite: Good Muscle strength/Tone: Normal Gait/Station: Normal Psychiatric Treatment Plan - Problem List (1) Alcohol dependence Current Visit: No (2) Cocaine dependence Current Visit: No Qualifiers: Substance use status: uncomplicated Qualified Code(s): F14.20 - Cocaine dependence, uncomplicated (3) Cannabis dependence Current Visit: Yes (4) Paranoid schizophrenia Current Visit: No (5) Schizoaffective disorder Current Visit: No Qualifiers: Schizoaffective disorder type: unspecified Qualified Code(s): F25.9 - Schizoaffective disorder, unspecified (6) GERD (gastroesophageal reflux disease) Current Visit: No Qualifiers: Esophagitis presence: without esophagitis Qualified Code(s): K21.9 - Gastro -esophageal reflux disease without esophagitis (7) History of right knee surgery Current Visit: No (8) Injury of left rotator cuff Current Visit: No Qualifiers: Encounter type: sequela Qualified Code(s): S46.002S - Unspecified injury of muscle(s) and tendon(s) of the rotator cuff of left shoulder, sequela (9) Kidney stone on right side Current Visit: No (10) Nicotine dependence Current Visit: No Qualifiers: Nicotine product type: cigarettes Substance use status: in withdrawal Qualified Code(s): F17.213 - Nicotine dependence, cigarettes, with withdrawal Initial treatment plan: Patient is discharged today and referred to [facility] for outpatient treatment
[2018-03-18 07:26] VITALS: BP 143/89; TEMP 97.9
== END 2018-03-18 08:25 | disposition home or self-care (01) | DRG 772 ==
LOC: YASAS 14:06 → Y3W 14:07
PROVIDERS: ADMIT Psychiatry & Neurology Psychiatry; ATTEND Psychiatry & Neurology Psychiatry
PROC: HZ42ZZZ Group Counseling for Substance Abuse Treatment, Cognitive-Behavioral (ICD-10-PCS; principal; 2018-03-04)
DX: F10.20 Alcohol dependence, uncomplicated (principal); F14.20 Cocaine dependence, uncomplicated; F12.20 Cannabis dependence, uncomplicated; F17.213 Nicotine dependence, cigarettes, with withdrawal; F20.0 Paranoid schizophrenia; F25.9 Schizoaffective disorder, unspecified; K21.9 Gastro-esophageal reflux disease without esophagitis; Z87.438 Personal history of other diseases of male genital organs
CPT/HCPCS: 90688; G0008

== ENCOUNTER 2018-04-20 12:40 | Inpatient (IN) | payer OTHER ==
[2018-04-20 13:24] VITALS: BMI 32.2
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
[2018-04-20] MEDS ORDERED: MAGNESIUM HYDROX 2400MG/30ML ORAL SUSPENSION 30 ML CUP PO PRN (15:10)
[2018-04-20] MEDS ORDERED: MENTHOL/PHENOL 1 EACH UD MM PRN (15:10)
[2018-04-20] MEDS ORDERED: IBUPROFEN 400 MG TABLET (FP) PO PRN (15:10)
[2018-04-20] MEDS ORDERED: guaiFENesin/D-METHORPHAN HB 10 ML UNIT-DOSE CUPS PO PRN (15:10)
[2018-04-20] MEDS ORDERED: LOPERAMIDE HCL 2 MG CAPSULE PO PRN (15:10)
[2018-04-20] MEDS ORDERED: MAG HYDROX/AL HYDROX/SIMETH 30 ML UNIT-DOSE CUP PO PRN (15:10)
[2018-04-20] MEDS ORDERED: chlordiazePOXIDE HCL 25 MG CAPSULE PO PRN (15:10)
[2018-04-20] MEDS ORDERED: P-EPHED 60MG/TRIPROLIDI 2.5MG TABLET PO PRN (15:10)
[2018-04-20] MEDS ORDERED: ACETAMINOPHEN 325 MG TABLET (FP) PO PRN (15:10)
[2018-04-20] MEDS ORDERED: MAGNESIUM CITRATE 300 ML BOTTLE PO PRN (15:10)
[2018-04-20] MEDS: chlordiazePOXIDE HCL 25 MG CAPSULE PO SCH ×2 (18:56→22:22)
[2018-04-20] MEDS ORDERED: MELATONIN 5 MG TABLETS PO PRN (22:00)
[2018-04-20] MEDS: THIAMINE HCL 100 MG TABLET (FP) PO SCH (22:22)
[2018-04-20] MEDS: valACYclovir HCL 500 MG TABLET (FP) PO SCH (22:22)
[2018-04-21 02:18] LABS: URINE APPEARANCE CLEAR; URINE BILIRUBIN NEGATIVE (<2.0 mg/dL); URINE COLOR YELLOW; URINE GLUCOSE (UA) NEGATIVE (NEGATIVE); URINE KETONE TRACE (NEGATIVE); URINE LEUK ESTERASE TRACE (NEGATIVE); URINE NITRITE NEGATIVE (NEGATIVE); URINE PROTEIN NEGATIVE (NEGATIVE)
[2018-04-21 02:27] LABS: EPI CELLS RARE /HPF (FEW); URINE MUCUS RARE
[2018-04-21] MEDS: chlordiazePOXIDE HCL 25 MG CAPSULE PO SCH ×4 (05:36→22:46)
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
[2018-04-21] MEDS: PRENATAL VITAMINS W/ FOLIC ACID TABLET (FP) PO SCH (10:07)
[2018-04-21] MEDS: valACYclovir HCL 500 MG TABLET (FP) PO SCH ×2 (10:07→22:46)
[2018-04-21 10:44] LABS: HEMATOCRIT 39.2 % (35.4-49); HEMOGLOBIN 12.3 GM/dL (11.7-16.9); MCH 25.3 pg (25.7-33.7); MCHC 31.4 g/dl (32.0-35.9); MEAN CELL VOLUME 80.4 fl (80-96); MEAN PLT VOLUME 8.4 fl (7.5-11.1); PLATELET COUNT 187 K/MM3 (134-434); RBC 4.88 M/mm3 (4.00-5.60); RDW 14.7 % (11.9-15.9); WHITE BLOOD COUNT 3.4 K/mm3 (4.0-10.0)
[2018-04-21 10:45] LABS: ALBUMIN 3.2 g/dl (3.4-5.0); ALK PHOS 53 U/L (45-117); ANION GAP 9 MMOL/L (8-16); BILIRUBIN,TOTAL 0.2 mg/dL (0.2-1); BLOOD UREA NITROGEN 19 mg/dL (7-18); CALCIUM 8.7 mg/dL (8.5-10.1); CHLORIDE 108 mmol/L (98-107); CO2 28 mmol/L (21-32); CREATININE 1.2 mg/dL (0.55-1.3); GLUCOSE,RANDOM 129 mg/dL (74-106); POTASSIUM 3.9 mmol/L (3.5-5.1); SGOT/AST 18 U/L (15-37); SGPT/ALT 19 U/L (13-61); SODIUM 145 mmol/L (136-145); TOT PROT 6.4 g/dl (6.4-8.2)
--- NOTE | 2018-04-21 14:40 | PN ---
S CIWA - CIWA Score Nausea/Vomitin-Mild Nausea/No Vomiting Muscle Tremors: 3 Anxiety: 2 Agitation: 1-Slight > Activity Paroxysmal Sweats: 1-Minimal Palms Moist Orientation: 1-Uncertain about Date Tacttile Disturbances: 0-None Auditory Disturbances: 0-None Visual Disturbances: 0-None Headache: 1-Very Mild CIWA-Ar Total Score: 10 BHS Progress Note (SOAP) Subjective: tremor sweat restlessness gi distress Objective: 04/21/18 14:39 Vital Signs Temperature 97.6 F 04/21/18 14:09 Pulse Rate 71 04/21/18 14:09 Respiratory Rate 18 04/21/18 14:09 Blood Pressure 115/79 04/21/18 14:09 O2 Sat by Pulse Oximetry (%) Laboratory Last Values WBC 3.4 K/mm3 (4.0-10.0) L 04/21/18 07:10 RBC 4.88 M/mm3 (4.00-5.60) 04/21/18 07:10 Hgb 12.3 GM/dL (11.7-16.9) 04/21/18 07:10 Hct 39.2 % (35.4-49) 04/21/18 07:10 MCV 80.4 fl (80-96) 04/21/18 07:10 MCH 25.3 pg (25.7-33.7) L 04/21/18 07:10 MCHC 31.4 g/dl (32.0-35.9) L 04/21/18 07:10 RDW 14.7 % (11.9-15.9) 04/21/18 07:10 Plt Count 187 K/MM3 (134-434) 04/21/18 07:10 MPV 8.4 fl (7.5-11.1) 04/21/18 07:10 Sodium 145 mmol/L (136-145) 04/21/18 07:10 Potassium 3.9 mmol/L (3.5-5.1) 04/21/18 07:10 Chloride 108 mmol/L (98-107) H 04/21/18 07:10 Carbon Dioxide 28 mmol/L (21-32) 04/21/18 07:10 Anion Gap 9 MMOL/L (8-16) 04/21/18 07:10 BUN 19 mg/dL (7-18) H 04/21/18 07:10 Creatinine 1.2 mg/dL (0.55-1.3) 04/21/18 07:10 Creat Clearance w eGFR > 60 (>60) 04/21/18 07:10 Random Glucose 129 mg/dL (74-106) H 04/21/18 07:10 Calcium 8.7 mg/dL (8.5-10.1) 04/21/18 07:10 Total Bilirubin 0.2 mg/dL (0.2-1) 04/21/18 07:10 AST 18 U/L (15-37) 04/21/18 07:10 ALT 19 U/L (13-61) 04/21/18 07:10 Alkaline Phosphatase 53 U/L (45-117) 04/21/18 07:10 Total Protein 6.4 g/dl (6.4-8.2) 04/21/18 07:10 Albumin 3.2 g/dl (3.4-5.0) L 04/21/18 07:10 Urine Color Yellow 04/21/18 01:00 Urine Appearance Clear 04/21/18 01:00 Urine pH 5.0 (5.0-8.0) 04/21/18 01:00 Ur Specific [place] 1.023 (1.010-1.035) 04/21/18 01:00 Urine Protein Negative (NEGATIVE) 04/21/18 01:00 Urine Glucose (UA) Negative (NEGATIVE) 04/21/18 01:00 Urine Ketones Trace (NEGATIVE) H 04/21/18 01:00 Urine Blood Negative (NEGATIVE) 04/21/18 01:00 Urine Nitrite Negative (NEGATIVE) 04/21/18 01:00 Urine Bilirubin Negative (<2.0 mg/dL) 04/21/18 01:00 Urine Urobilinogen 2.0 mg/dL (0.2-1.0) 04/21/18 01:00 Ur Leukocyte Esterase Trace (NEGATIVE) 04/21/18 01:00 Urine WBC (Auto) 6 /hpf (3-5) 04/21/18 01:00 Urine RBC (Auto) 1 /hpf (0-3) 04/21/18 01:00 Ur Epithelial Cells Rare /HPF (FEW) 04/21/18 01:00 Urine Mucus Rare 04/21/18 01:00 RPR Titer Nonreactive (NONREACTIVE) 04/21/18 07:10 lab noted Assessment: 04/21/18 14:40 withdrawal sx Plan: continue detox
[2018-04-21] MEDS: THIAMINE HCL 100 MG TABLET (FP) PO SCH (22:46)
[2018-04-22] MEDS: chlordiazePOXIDE HCL 25 MG CAPSULE PO SCH ×2 (06:09→10:18)
--- NOTE | 2018-04-22 10:15 | PN ---
[facility] CIWA - CIWA Score Nausea/Vomitin-No Nausea/No Vomiting Muscle Tremors: 3 Anxiety: 3 Agitation: 3 Paroxysmal Sweats: 2 Orientation: 0-Oriented Tacttile Disturbances: 0-None Auditory Disturbances: 0-None Visual Disturbances: 0-None Headache: 0-None Present CIWA-Ar Total Score: 11 S Progress Note (SOAP) Subjective: sweats body aches mild shakes anxiety Objective: 04/22/18 10:14 Vital Signs Temperature 98.2 F 04/22/18 09:09 Pulse Rate 68 04/22/18 09:09 Respiratory Rate 18 04/22/18 09:09 Blood Pressure 117/77 04/22/18 09:09 O2 Sat by Pulse Oximetry (%) Laboratory Tests 04/21/18 04/21/18 04/21/18 01:00 07:10 07:10 WBC 3.4 L RBC 4.88 Hgb 12.3 Hct 39.2 MCV 80.4 MCH 25.3 L MCHC 31.4 L RDW 14.7 Plt Count 187 MPV 8.4 Sodium 145 Potassium 3.9 Chloride 108 H Carbon Dioxide 28 Anion Gap 9 BUN 19 H Creatinine 1.2 Creat Clearance w eGFR > 60 Random Glucose 129 H Calcium 8.7 Total Bilirubin 0.2 AST 18 ALT 19 Alkaline Phosphatase 53 Total Protein 6.4 Albumin 3.2 L Urine Color Yellow Urine Appearance Clear Urine pH 5.0 Ur Specific [place] 1.023 Urine Protein Negative Urine Glucose (UA) Negative Urine Ketones Trace H Urine Blood Negative Urine Nitrite Negative Urine Bilirubin Negative Urine Urobilinogen 2.0 Ur Leukocyte Esterase Trace Urine WBC (Auto) 6 Urine RBC (Auto) 1 Ur Epithelial Cells Rare Urine Mucus Rare RPR Titer 04/21/18 07:10 WBC RBC Hgb Hct MCV MCH MCHC RDW Plt Count MPV Sodium Potassium Chloride Carbon Dioxide Anion Gap BUN Creatinine Creat Clearance w eGFR Random Glucose Calcium Total Bilirubin AST ALT Alkaline Phosphatase Total Protein Albumin Urine Color Urine Appearance Urine pH Ur Specific [place] Urine Protein Urine Glucose (UA) Urine Ketones Urine Blood Urine Nitrite Urine Bilirubin Urine Urobilinogen Ur Leukocyte Esterase Urine WBC (Auto) Urine RBC (Auto) Ur Epithelial Cells Urine Mucus RPR Titer Nonreactive aaox3 ambulating no acute distress Assessment: 04/22/18 10:14 withdrawal sx Plan: continue detox increase fluids
[2018-04-22] MEDS: PRENATAL VITAMINS W/ FOLIC ACID TABLET (FP) PO SCH (10:18)
[2018-04-22] MEDS: valACYclovir HCL 500 MG TABLET (FP) PO SCH ×2 (10:18→22:16)
[2018-04-22] MEDS: chlordiazePOXIDE 5 MG CAPSULE PO SCH ×2 (17:33→22:16)
[2018-04-22] MEDS: THIAMINE HCL 100 MG TABLET (FP) PO SCH (22:16)
[2018-04-23] MEDS: chlordiazePOXIDE 5 MG CAPSULE PO SCH ×2 (05:46→10:11)
--- NOTE | 2018-04-23 10:02 | PN ---
BHS Progress Note (SOAP) Subjective: feeling better little sweats Objective: 04/23/18 10:02 Vital Signs Temperature 97.4 F L 04/23/18 09:16 Pulse Rate 69 04/23/18 09:16 Respiratory Rate 18 04/23/18 09:16 Blood Pressure 144/81 04/23/18 09:16 O2 Sat by Pulse Oximetry (%) aaox3 ambulating no acute distress Assessment: 04/23/18 10:02 mild withdrawal sx Plan: continue detox increase fluids d/c in am
[2018-04-23] MEDS: PRENATAL VITAMINS W/ FOLIC ACID TABLET (FP) PO SCH (10:11)
[2018-04-23] MEDS: valACYclovir HCL 500 MG TABLET (FP) PO SCH ×2 (10:11→22:14)
[2018-04-23] MEDS: chlordiazePOXIDE HCL 10 MG CAPSULE PO SCH ×2 (17:50→22:14)
[2018-04-23] MEDS: THIAMINE HCL 100 MG TABLET (FP) PO SCH (22:15)
[2018-04-24] MEDS: chlordiazePOXIDE HCL 10 MG CAPSULE PO SCH (06:31)
[2018-04-24 07:06] VITALS: BP 139/89; PULSE 62; TEMP 97
--- NOTE | 2018-04-24 09:06 | DS ---
[facility] Detox Discharge Summary Admission Date: 04/20/18 Discharge Date: 04/24/18 - History Present History: Alcohol Dependence, Cannabis Dependence, Cocaine Dependence - Physical Exam Results Vital Signs: Vital Signs Temperature 97 F L 04/24/18 07:05 Pulse Rate 62 04/24/18 07:05 Respiratory Rate 18 04/24/18 07:05 Blood Pressure 139/89 04/24/18 07:05 O2 Sat by Pulse Oximetry (%) - Treatment Hospital Course: Detox Protocol Followed, Detoxed Safely, Responded well, Discharged Condition Good, Rehab Referral Accepted - Medication Discharge Medications: Ambulatory Orders Risperidone [Risperdal -] 2 mg PO DAILY 03/04/18 Risperidone [Risperdal -] 3 mg PO HS #30 tablet 03/18/18 - Diagnosis (1) Alcohol dependence with uncomplicated withdrawal Current Visit: Yes Status: Chronic (2) Cocaine dependence, uncomplicated Current Visit: Yes Status: Chronic (3) Herpes simplex Current Visit: Yes Status: Acute (4) Nicotine dependence Current Visit: Yes Status: Chronic Qualifiers: Nicotine product type: cigarettes Substance use status: in withdrawal Qualified Code(s): F17.213 - Nicotine dependence, cigarettes, with withdrawal (5) Anxiety Current Visit: No Status: Acute (6) Cannabis dependence Current Visit: Yes Status: Chronic (7) Insomnia Current Visit: No Status: Acute Qualifiers: Insomnia type: unspecified Qualified Code(s): G47.00 - Insomnia, unspecified (8) Substance induced mood disorder Current Visit: No Status: Acute (9) Substance induced mood disorder Current Visit: No Status: Acute (10) Substance-induced sleep disorder Current Visit: No Status: Acute (11) Cocaine dependence Current Visit: No Status: Chronic Qualifiers: Substance use status: uncomplicated Qualified Code(s): F14.20 - Cocaine dependence, uncomplicated (12) GERD (gastroesophageal reflux disease) Current Visit: Yes Status: Chronic Qualifiers: Esophagitis presence: without esophagitis Qualified Code(s): K21.9 - Gastro -esophageal reflux disease without esophagitis (13) MDD (major depressive disorder) Current Visit: No Status: Chronic Qualifiers: Major depression recurrence: recurrent Active/Remission status: remission status unspecified Qualified Code(s): F33.9 - Major depressive disorder, recurrent, unspecified (14) Paranoid schizophrenia Current Visit: No Status: Chronic (15) Injury of left rotator cuff Current Visit: No Status: Suspected Qualifiers: Encounter type: sequela Qualified Code(s): S46.002S - Unspecified injury of muscle(s) and tendon(s) of the rotator cuff of left shoulder, sequela (16) Psychiatric disorder Current Visit: No Status: Suspected (17) Schizophrenia Current Visit: No Status: Suspected Qualifiers: Schizophrenia type: unspecified Qualified Code(s): F20.9 - Schizophrenia, unspecified (18) Kidney stone on right side Current Visit: No Status: Resolved (19) Schizoaffective disorder Current Visit: No Status: Ruled-out Qualifiers: Schizoaffective disorder type: unspecified Qualified Code(s): F25.9 - Schizoaffective disorder, unspecified - AMA Did Patient Leave Against Medical Advice: No (referred to outpatient)
== END 2018-04-24 08:59 | disposition home or self-care (01) | DRG 774 ==
LOC: YASAS 12:40 → Y6N 18:13
PROVIDERS: ATTEND Neuromusculoskeletal Medicine & OMM
PROC: HZ2ZZZZ Detoxification Services for Substance Abuse Treatment (ICD-10-PCS; principal; 2018-04-20)
DX: F10.230 Alcohol dependence with withdrawal, uncomplicated (principal); F14.20 Cocaine dependence, uncomplicated; F12.20 Cannabis dependence, uncomplicated; F20.0 Paranoid schizophrenia; F33.9 Major depressive disorder, recurrent, unspecified; F19.24 Other psychoactive substance dependence with psychoactive substance-induced mood disorder; F41.9 Anxiety disorder, unspecified; F99 Mental disorder, not otherwise specified; B00.9 Herpesviral infection, unspecified; G47.00 Insomnia, unspecified; Z87.442 Personal history of urinary calculi; Z86.19 Personal history of other infectious and parasitic diseases
CPT/HCPCS: 36415; 80053; 81003; 81015; 85027; 86593

== ENCOUNTER 2018-07-05 11:28 | Inpatient (IN) | payer OTHER ==
[2018-07-05 11:34] VITALS: BMI 34.1
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
[2018-07-05] MEDS ORDERED: MAGNESIUM HYDROX 2400MG/30ML ORAL SUSPENSION 30 ML CUP PO PRN (12:42)
[2018-07-05] MEDS ORDERED: IBUPROFEN 400 MG TABLET (FP) PO PRN (12:42)
[2018-07-05] MEDS ORDERED: NICOTINE POLACRILEX 2 MG GUM BUC PRN (12:42)
[2018-07-05] MEDS ORDERED: ACETAMINOPHEN 325 MG TABLET (FP) PO PRN (12:42)
[2018-07-05] MEDS ORDERED: MENTHOL/PHENOL 1 EACH UD MM PRN (12:42)
[2018-07-05] MEDS ORDERED: guaiFENesin/D-METHORPHAN HB 10 ML UNIT-DOSE CUPS PO PRN (12:42)
[2018-07-05] MEDS ORDERED: MAGNESIUM CITRATE 300 ML BOTTLE PO PRN (12:42)
[2018-07-05] MEDS ORDERED: MAG HYDROX/AL HYDROX/SIMETH 30 ML UNIT-DOSE CUP PO PRN (12:42)
[2018-07-05] MEDS: diazePAM 5 MG TABLET PO SCH ×2 (14:26→22:08)
[2018-07-05] MEDS ORDERED: MELATONIN 5 MG TABLETS PO PRN (22:00)
[2018-07-05] MEDS: THIAMINE HCL 100 MG TABLET (FP) PO SCH (22:08)
[2018-07-06] MEDS: diazePAM 5 MG TABLET PO SCH ×3 (05:39→22:32)
[2018-07-06] MEDS: PRENATAL VITAMINS W/ FOLIC ACID TABLET (FP) PO SCH (10:45)
[2018-07-06] MEDS: diazePAM 5 MG TABLET PO PRN (10:45)
[2018-07-06 11:28] LABS: ALBUMIN 3.9 g/dl (3.4-5.0); ALK PHOS 54 U/L (45-117); ANION GAP 7 MMOL/L (8-16); BILIRUBIN,TOTAL 0.3 mg/dL (0.2-1); BLOOD UREA NITROGEN 14 mg/dL (7-18); CALCIUM 8.9 mg/dL (8.5-10.1); CHLORIDE 108 mmol/L (98-107); CO2 27 mmol/L (21-32); CREATININE 1.2 mg/dL (0.55-1.3); GLUCOSE,RANDOM 129 mg/dL (74-106); POTASSIUM 3.5 mmol/L (3.5-5.1); SGOT/AST 17 U/L (15-37); SGPT/ALT 22 U/L (13-61); SODIUM 141 mmol/L (136-145); TOT PROT 7.8 g/dl (6.4-8.2)
[2018-07-06 11:41] LABS: HEMATOCRIT 39.6 % (35.4-49); HEMOGLOBIN 13.4 GM/dL (11.7-16.9); MCHC 33.8 g/dl (32.0-35.9); MEAN CELL VOLUME 79.9 fl (80-96); MEAN PLT VOLUME 9.1 fl (7.5-11.1); RBC 4.96 M/mm3 (4.00-5.60); RDW 14.5 % (11.9-15.9); WHITE BLOOD COUNT 5.4 K/mm3 (4.0-10.0)
[2018-07-06] MEDS ORDERED: PNEUMOCOCCAL 23 VACCINE 0.5 ML VIAL IM ONE (12:00)
[2018-07-06] MEDS ORDERED: PNEUMOC 13-VAL CONJ-DIP CRM/PF 0.5 ML DISP.SYRIN IM ONE (12:00)
--- NOTE | 2018-07-06 15:24 | PN ---
S CIWA - CIWA Score Nausea/Vomitin-No Nausea/No Vomiting Muscle Tremors: None Anxiety: 3 Agitation: 1-Slight > Activity Paroxysmal Sweats: 3 Orientation: 0-Oriented Tacttile Disturbances: 0-None Auditory Disturbances: 0-None Visual Disturbances: 0-None Headache: 0-None Present CIWA-Ar Total Score: 7 BHS Progress Note (SOAP) Subjective: Anxious, Sweating. Objective: PATIENT A & O X 3, OBSERVED AMBULATING ON UNIT. IN NO ACUTE DISTRESS. 07/06/18 15:23 Vital Signs Temperature 97.5 F L 07/06/18 14:45 Pulse Rate 79 07/06/18 14:45 Respiratory Rate 20 07/06/18 14:45 Blood Pressure 134/92 07/06/18 14:45 O2 Sat by Pulse Oximetry (%) Laboratory Tests 07/06/18 07/06/18 07/06/18 06:00 06:00 06:00 WBC 5.4 RBC 4.96 Hgb 13.4 Hct 39.6 MCV 79.9 L MCH 27.0 MCHC 33.8 RDW 14.5 Plt Count MPV 9.1 Sodium 141 Potassium 3.5 Chloride 108 H Carbon Dioxide 27 Anion Gap 7 L BUN 14 Creatinine 1.2 Creat Clearance w eGFR > 60 Random Glucose 129 H Calcium 8.9 Total Bilirubin 0.3 AST 17 ALT 22 Alkaline Phosphatase 54 Total Protein 7.8 Albumin 3.9 RPR Titer Nonreactive LABS NOTED. Assessment: 07/06/18 15:24 WITHDRAWAL SYMPTOMS. Plan: CONTINUE DETOX. INCREASE DAILY PO FLUID INTAKE.
--- NOTE | 2018-07-06 16:05 | CONSULT ---
[facility] Psychiatric Consult - Data Date of interview: 07/06/18 Admission source: [facility] Identifying data: Patient refused psychiatric interview.
[2018-07-06] MEDS: THIAMINE HCL 100 MG TABLET (FP) PO SCH (22:32)
[2018-07-07] MEDS: PRENATAL VITAMINS W/ FOLIC ACID TABLET (FP) PO SCH (10:05)
[2018-07-07] MEDS: diazePAM 5 MG TABLET PO SCH ×2 (10:05→22:57)
--- NOTE | 2018-07-07 12:02 | PN ---
S CIWA - CIWA Score Nausea/Vomitin-No Nausea/No Vomiting Muscle Tremors: 2 Anxiety: 1-Mildly Anxious Agitation: 2 Paroxysmal Sweats: 1-Minimal Palms Moist Orientation: 0-Oriented Tacttile Disturbances: 0-None Auditory Disturbances: 0-None Visual Disturbances: 0-None Headache: 0-None Present CIWA-Ar Total Score: 6 BHS Progress Note (SOAP) Subjective: feeling better today tremor sweating trouble sleep through the night otherwise doing ok Objective: 07/07/18 12:01 Vital Signs Temperature 96.5 F L 07/07/18 09:37 Pulse Rate 64 07/07/18 09:37 Respiratory Rate 18 07/07/18 09:37 Blood Pressure 140/96 07/07/18 09:37 O2 Sat by Pulse Oximetry (%) Laboratory Last Values WBC 5.4 K/mm3 (4.0-10.0) 07/06/18 06:00 RBC 4.96 M/mm3 (4.00-5.60) 07/06/18 06:00 Hgb 13.4 GM/dL (11.7-16.9) 07/06/18 06:00 Hct 39.6 % (35.4-49) 07/06/18 06:00 MCV 79.9 fl (80-96) L 07/06/18 06:00 MCH 27.0 pg (25.7-33.7) 07/06/18 06:00 MCHC 33.8 g/dl (32.0-35.9) 07/06/18 06:00 RDW 14.5 % (11.9-15.9) 07/06/18 06:00 Plt Count K/MM3 (134-434) 07/06/18 06:00 MPV 9.1 fl (7.5-11.1) 07/06/18 06:00 Sodium 141 mmol/L (136-145) 07/06/18 06:00 Potassium 3.5 mmol/L (3.5-5.1) 07/06/18 06:00 Chloride 108 mmol/L (98-107) H 07/06/18 06:00 Carbon Dioxide 27 mmol/L (21-32) 07/06/18 06:00 Anion Gap 7 MMOL/L (8-16) L 07/06/18 06:00 BUN 14 mg/dL (7-18) 07/06/18 06:00 Creatinine 1.2 mg/dL (0.55-1.3) 07/06/18 06:00 Creat Clearance w eGFR > 60 (>60) 07/06/18 06:00 Random Glucose 129 mg/dL (74-106) H 07/06/18 06:00 Calcium 8.9 mg/dL (8.5-10.1) 07/06/18 06:00 Total Bilirubin 0.3 mg/dL (0.2-1) 07/06/18 06:00 AST 17 U/L (15-37) 07/06/18 06:00 ALT 22 U/L (13-61) 07/06/18 06:00 Alkaline Phosphatase 54 U/L (45-117) 07/06/18 06:00 Total Protein 7.8 g/dl (6.4-8.2) 07/06/18 06:00 Albumin 3.9 g/dl (3.4-5.0) 07/06/18 06:00 RPR Titer Nonreactive (NONREACTIVE) 07/06/18 06:00 lab noted Assessment: 07/07/18 12:02 withdrawal sx Plan: continue detox
--- NOTE | 2018-07-07 15:58 | DS ---
[facility] Detox Discharge Summary Admission Date: 07/05/18 Discharge Date: 07/07/18 - History Present History: Alcohol Dependence Additional Comments: 53 years old male admitted on 07/05/18 for alcohol withdrawal stabilization insists to leave the detox unit that he has to return to work the day after tomorrow and preferred to return home and prepare for work on 07/09/18 patient is alert no acute distress denies suicidal ideation aftercare 12 step self help meeting Pertinent Past History: discuss avoidable injury from alcohol misuse and positive benefits from sobriety - Physical Exam Results Vital Signs: Vital Signs Temperature 97.1 F L 07/07/18 13:51 Pulse Rate 74 07/07/18 13:51 Respiratory Rate 20 07/07/18 13:51 Blood Pressure 139/92 07/07/18 13:51 O2 Sat by Pulse Oximetry (%) Pertinent Admission Physical Exam Findings: alcohol withdrawal sx Laboratory Last Values WBC 5.4 K/mm3 (4.0-10.0) 07/06/18 06:00 RBC 4.96 M/mm3 (4.00-5.60) 07/06/18 06:00 Hgb 13.4 GM/dL (11.7-16.9) 07/06/18 06:00 Hct 39.6 % (35.4-49) 07/06/18 06:00 MCV 79.9 fl (80-96) L 07/06/18 06:00 MCH 27.0 pg (25.7-33.7) 07/06/18 06:00 MCHC 33.8 g/dl (32.0-35.9) 07/06/18 06:00 RDW 14.5 % (11.9-15.9) 07/06/18 06:00 Plt Count K/MM3 (134-434) 07/06/18 06:00 MPV 9.1 fl (7.5-11.1) 07/06/18 06:00 Sodium 141 mmol/L (136-145) 07/06/18 06:00 Potassium 3.5 mmol/L (3.5-5.1) 07/06/18 06:00 Chloride 108 mmol/L (98-107) H 07/06/18 06:00 Carbon Dioxide 27 mmol/L (21-32) 07/06/18 06:00 Anion Gap 7 MMOL/L (8-16) L 07/06/18 06:00 BUN 14 mg/dL (7-18) 07/06/18 06:00 Creatinine 1.2 mg/dL (0.55-1.3) 07/06/18 06:00 Creat Clearance w eGFR > 60 (>60) 07/06/18 06:00 Random Glucose 129 mg/dL (74-106) H 07/06/18 06:00 Calcium 8.9 mg/dL (8.5-10.1) 07/06/18 06:00 Total Bilirubin 0.3 mg/dL (0.2-1) 07/06/18 06:00 AST 17 U/L (15-37) 07/06/18 06:00 ALT 22 U/L (13-61) 07/06/18 06:00 Alkaline Phosphatase 54 U/L (45-117) 07/06/18 06:00 Total Protein 7.8 g/dl (6.4-8.2) 07/06/18 06:00 Albumin 3.9 g/dl (3.4-5.0) 07/06/18 06:00 RPR Titer Nonreactive (NONREACTIVE) 07/06/18 06:00 lab noted - Treatment Hospital Course: Detox Protocol Followed, Responded well Patient has Accepted a Rehab Referral to: [facility] 12 step self help meeting - Medication Discharge Medications: Ambulatory Orders NK [No Known Home Medication] 07/05/18 - Diagnosis (1) Alcohol dependence with uncomplicated withdrawal Current Visit: Yes Status: Acute (2) Substance induced mood disorder Current Visit: Yes Status: Suspected (3) GERD (gastroesophageal reflux disease) Current Visit: Yes Status: Chronic Qualifiers: Esophagitis presence: without esophagitis Qualified Code(s): K21.9 - Gastro -esophageal reflux disease without esophagitis (4) Nicotine dependence Current Visit: Yes Status: Acute Qualifiers: Nicotine product type: cigarettes Substance use status: in withdrawal Qualified Code(s): F17.213 - Nicotine dependence, cigarettes, with withdrawal - AMA Did Patient Leave Against Medical Advice: Yes
[2018-07-07] MEDS: THIAMINE HCL 100 MG TABLET (FP) PO SCH (22:57)
[2018-07-08] MEDS: diazePAM 5 MG TABLET PO PRN (06:11)
[2018-07-08] MEDS: PRENATAL VITAMINS W/ FOLIC ACID TABLET (FP) PO SCH (10:07)
[2018-07-08] MEDS: diazePAM 5 MG TABLET PO SCH ×2 (10:07→22:12)
--- NOTE | 2018-07-08 13:54 | PN ---
S CIWA - CIWA Score Nausea/Vomitin-No Nausea/No Vomiting Muscle Tremors: 1-None Visible, but [place] Anxiety: 0-No Anxiety, at Ease Agitation: 1-Slight > Activity Paroxysmal Sweats: No Perspiration Orientation: 0-Oriented Tacttile Disturbances: 0-None Auditory Disturbances: 0-None Visual Disturbances: 0-None Headache: 1-Very Mild CIWA-Ar Total Score: 3 BHS Progress Note (SOAP) Subjective: feeling better mild tremor less sweating sleep better at night Objective: 07/08/18 13:53 Vital Signs Temperature 97.0 F L 07/08/18 13:48 Pulse Rate 75 07/08/18 13:48 Respiratory Rate 20 07/08/18 13:48 Blood Pressure 131/88 07/08/18 13:48 O2 Sat by Pulse Oximetry (%) Laboratory Last Values WBC 5.4 K/mm3 (4.0-10.0) 07/06/18 06:00 RBC 4.96 M/mm3 (4.00-5.60) 07/06/18 06:00 Hgb 13.4 GM/dL (11.7-16.9) 07/06/18 06:00 Hct 39.6 % (35.4-49) 07/06/18 06:00 MCV 79.9 fl (80-96) L 07/06/18 06:00 MCH 27.0 pg (25.7-33.7) 07/06/18 06:00 MCHC 33.8 g/dl (32.0-35.9) 07/06/18 06:00 RDW 14.5 % (11.9-15.9) 07/06/18 06:00 Plt Count K/MM3 (134-434) 07/06/18 06:00 MPV 9.1 fl (7.5-11.1) 07/06/18 06:00 Sodium 141 mmol/L (136-145) 07/06/18 06:00 Potassium 3.5 mmol/L (3.5-5.1) 07/06/18 06:00 Chloride 108 mmol/L (98-107) H 07/06/18 06:00 Carbon Dioxide 27 mmol/L (21-32) 07/06/18 06:00 Anion Gap 7 MMOL/L (8-16) L 07/06/18 06:00 BUN 14 mg/dL (7-18) 07/06/18 06:00 Creatinine 1.2 mg/dL (0.55-1.3) 07/06/18 06:00 Creat Clearance w eGFR > 60 (>60) 07/06/18 06:00 Random Glucose 129 mg/dL (74-106) H 07/06/18 06:00 Calcium 8.9 mg/dL (8.5-10.1) 07/06/18 06:00 Total Bilirubin 0.3 mg/dL (0.2-1) 07/06/18 06:00 AST 17 U/L (15-37) 07/06/18 06:00 ALT 22 U/L (13-61) 07/06/18 06:00 Alkaline Phosphatase 54 U/L (45-117) 07/06/18 06:00 Total Protein 7.8 g/dl (6.4-8.2) 07/06/18 06:00 Albumin 3.9 g/dl (3.4-5.0) 07/06/18 06:00 RPR Titer Nonreactive (NONREACTIVE) 07/06/18 06:00 lab noted Assessment: 07/08/18 13:53 mild withdrawal sx Plan: continue detox
[2018-07-08] MEDS: THIAMINE HCL 100 MG TABLET (FP) PO SCH (22:12)
[2018-07-09] MEDS: PRENATAL VITAMINS W/ FOLIC ACID TABLET (FP) PO SCH (09:32)
[2018-07-09] MEDS ORDERED: diazePAM 5 MG TABLET PO SCH (10:00)
[2018-07-09] MEDS ORDERED: LISINOPRIL 10 MG TABLET (FP) PO SCH (10:00)
--- NOTE | 2018-07-09 13:18 | DS ---
[facility] Detox Discharge Summary Admission Date: 07/05/18 Discharge Date: 07/09/18 - History Present History: Alcohol Dependence Additional Comments: 53 years old male admitted on 07/05/18 for alcohol withdrawal stabilization completed detox regimen aftercare [facility] Pertinent Past History: patient is doing well with lisinopril 10 mg bid will increase to 20 mg bid while in [facility] - Physical Exam Results Vital Signs: Vital Signs Temperature 96.4 F L 07/09/18 09:39 Pulse Rate 83 07/09/18 09:39 Respiratory Rate 18 07/09/18 09:39 Blood Pressure 155/102 H 07/09/18 09:39 O2 Sat by Pulse Oximetry (%) Pertinent Admission Physical Exam Findings: alcohol withdrawal sx Laboratory Last Values WBC 5.4 K/mm3 (4.0-10.0) 07/06/18 06:00 RBC 4.96 M/mm3 (4.00-5.60) 07/06/18 06:00 Hgb 13.4 GM/dL (11.7-16.9) 07/06/18 06:00 Hct 39.6 % (35.4-49) 07/06/18 06:00 MCV 79.9 fl (80-96) L 07/06/18 06:00 MCH 27.0 pg (25.7-33.7) 07/06/18 06:00 MCHC 33.8 g/dl (32.0-35.9) 07/06/18 06:00 RDW 14.5 % (11.9-15.9) 07/06/18 06:00 Plt Count K/MM3 (134-434) 07/06/18 06:00 MPV 9.1 fl (7.5-11.1) 07/06/18 06:00 Sodium 141 mmol/L (136-145) 07/06/18 06:00 Potassium 3.5 mmol/L (3.5-5.1) 07/06/18 06:00 Chloride 108 mmol/L (98-107) H 07/06/18 06:00 Carbon Dioxide 27 mmol/L (21-32) 07/06/18 06:00 Anion Gap 7 MMOL/L (8-16) L 07/06/18 06:00 BUN 14 mg/dL (7-18) 07/06/18 06:00 Creatinine 1.2 mg/dL (0.55-1.3) 07/06/18 06:00 Creat Clearance w eGFR > 60 (>60) 07/06/18 06:00 Random Glucose 129 mg/dL (74-106) H 07/06/18 06:00 Calcium 8.9 mg/dL (8.5-10.1) 07/06/18 06:00 Total Bilirubin 0.3 mg/dL (0.2-1) 07/06/18 06:00 AST 17 U/L (15-37) 07/06/18 06:00 ALT 22 U/L (13-61) 07/06/18 06:00 Alkaline Phosphatase 54 U/L (45-117) 07/06/18 06:00 Total Protein 7.8 g/dl (6.4-8.2) 07/06/18 06:00 Albumin 3.9 g/dl (3.4-5.0) 07/06/18 06:00 RPR Titer Nonreactive (NONREACTIVE) 07/06/18 06:00 lab noted - Treatment Hospital Course: Detox Protocol Followed, Detoxed Safely, Responded well, Discharged Condition Good, Rehab Referral Accepted Patient has Accepted a Rehab Referral to: [facility] - Medication Discharge Medications: Ambulatory Orders Lisinopril [Prinivil] 10 mg PO BID #60 tablet 07/09/18 - Diagnosis (1) Alcohol dependence with uncomplicated withdrawal Current Visit: Yes Status: Acute (2) Substance induced mood disorder Current Visit: Yes Status: Suspected (3) GERD (gastroesophageal reflux disease) Current Visit: Yes Status: Chronic Qualifiers: Esophagitis presence: without esophagitis Qualified Code(s): K21.9 - Gastro -esophageal reflux disease without esophagitis (4) Nicotine dependence Current Visit: Yes Status: Acute Qualifiers: Nicotine product type: cigarettes Substance use status: in withdrawal Qualified Code(s): F17.213 - Nicotine dependence, cigarettes, with withdrawal - AMA Did Patient Leave Against Medical Advice: No
[2018-07-09 13:37] VITALS: BP 138/90; PULSE 77; TEMP 97
== END 2018-07-09 12:40 | disposition other institution (70) | DRG 775 ==
LOC: YASAS 11:28 → Y3N 13:05
PROVIDERS: ADMIT Surgery; ATTEND Surgery
PROC: HZ2ZZZZ Detoxification Services for Substance Abuse Treatment (ICD-10-PCS; principal; 2018-07-05)
DX: F10.230 Alcohol dependence with withdrawal, uncomplicated (principal); F17.213 Nicotine dependence, cigarettes, with withdrawal; F19.24 Other psychoactive substance dependence with psychoactive substance-induced mood disorder; F20.9 Schizophrenia, unspecified; F32.9 Major depressive disorder, single episode, unspecified; K21.9 Gastro-esophageal reflux disease without esophagitis
CPT/HCPCS: 36415; 80053; 85027; 86593; 90732; G0009

== ENCOUNTER 2018-07-09 12:49 | Inpatient (IN) | payer OTHER ==
[2018-07-09] MEDS ORDERED: MAGNESIUM HYDROX 2400MG/30ML ORAL SUSPENSION 30 ML CUP PO PRN (13:20)
[2018-07-09] MEDS ORDERED: ACETAMINOPHEN 325 MG TABLET (FP) PO PRN (13:20)
[2018-07-09] MEDS ORDERED: IBUPROFEN 400 MG TABLET (FP) PO PRN (13:20)
[2018-07-09] MEDS ORDERED: guaiFENesin/D-METHORPHAN HB 10 ML UNIT-DOSE CUPS PO PRN (13:20)
[2018-07-09] MEDS ORDERED: MAGNESIUM CITRATE 300 ML BOTTLE PO PRN (13:20)
[2018-07-09] MEDS ORDERED: NICOTINE POLACRILEX 2 MG GUM BUC PRN (13:20)
[2018-07-09] MEDS ORDERED: MAG HYDROX/AL HYDROX/SIMETH 30 ML UNIT-DOSE CUP PO PRN (13:20)
[2018-07-09] MEDS ORDERED: LOPERAMIDE HCL 2 MG CAPSULE PO PRN (13:20)
[2018-07-09] MEDS ORDERED: P-EPHED 60MG/TRIPROLIDI 2.5MG TABLET PO PRN (13:20)
[2018-07-09] MEDS ORDERED: MENTHOL/PHENOL 1 EACH UD MM PRN (13:20)
[2018-07-09] MEDS ORDERED: NICOTINE 14 MG/24 HOURS TOPICAL PATCH TD PRN (13:20)
--- NOTE | 2018-07-09 13:20 | HP ---
[facility] Rehab Assess/Revision - Admission History Admitted to Rehab from: [facility] Date of Admission to Rehab: 07/09/18 - Vital signs Vital Signs: Vital Signs Period Temp Pulse Resp BP Sys/Lubin Pulse Ox Last 24 Hr 98.1 F 80 18 132/94 - Findings Detox History & Physical reviewed: Yes Concur with findings: Yes Comments/Additional Findings: transferred from detox to rehab admission as per protocol Inpatient Rehab Admission - Rehab Decision to Admit Inpatient rehab admission?: Yes - Initial Determination Are CD services needed?: Yes Free of communicable disease: Yes Not in need of hospitalization: Yes - Rehab Admission Criteria Previous failed treatment: Yes Poor recovery environment: Yes Comorbidities: Yes Lacks judgement: No Patient is meeting Inpatient Rehab admission criteria:: Yes
[2018-07-09 13:54] VITALS: BMI 34.4
[2018-07-09] MEDS ORDERED: MELATONIN 5 MG TABLETS PO PRN (22:00)
[2018-07-09] MEDS: LISINOPRIL 10 MG TABLET (FP) PO SCH (23:19)
[2018-07-09] MEDS: THIAMINE HCL 100 MG TABLET (FP) PO SCH (23:19)
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
[2018-07-10] MEDS: LISINOPRIL 20 MG TABLET (FP) PO SCH (10:01)
[2018-07-10] MEDS: PRENATAL VITAMINS W/ FOLIC ACID TABLET (FP) PO SCH (10:01)
--- NOTE | 2018-07-10 12:15 | PN ---
[facility] Progress Note Note: REQUEST FO FASTING BGM RE: RANDOM GLC 129 MG/DL WHILE IN DETOX. DENIED HX DM. Vital Signs - 24 hr 07/09/18 07/09/18 07/10/18 13:15 13:31 00:30 Temperature 98.1 F 98.1 F Pulse Rate 80 80 Respiratory 18 18 18 Rate Blood Pressure 132/94 132/94 07/10/18 07/10/18 03:30 06:50 Temperature 97.5 F L Pulse Rate 70 Respiratory 18 18 Rate Blood Pressure 146/96 NAD PLAN:FASTING BGM X 2 DAYS
[2018-07-10] MEDS: THIAMINE HCL 100 MG TABLET (FP) PO SCH (21:57)
[2018-07-10] MEDS: LISINOPRIL 10 MG TABLET (FP) PO SCH (21:57)
[2018-07-11] MEDS: PRENATAL VITAMINS W/ FOLIC ACID TABLET (FP) PO SCH (09:56)
[2018-07-11] MEDS: LISINOPRIL 20 MG TABLET (FP) PO SCH (09:56)
[2018-07-11] MEDS: THIAMINE HCL 100 MG TABLET (FP) PO SCH (21:32)
[2018-07-11] MEDS: LISINOPRIL 10 MG TABLET (FP) PO SCH (21:32)
[2018-07-12] MEDS: PRENATAL VITAMINS W/ FOLIC ACID TABLET (FP) PO SCH (09:45)
[2018-07-12] MEDS: LISINOPRIL 20 MG TABLET (FP) PO SCH (09:45)
[2018-07-12] MEDS: THIAMINE HCL 100 MG TABLET (FP) PO SCH (21:35)
[2018-07-12] MEDS: LISINOPRIL 10 MG TABLET (FP) PO SCH (21:35)
[2018-07-13] MEDS: PRENATAL VITAMINS W/ FOLIC ACID TABLET (FP) PO SCH (09:29)
[2018-07-13] MEDS: LISINOPRIL 20 MG TABLET (FP) PO SCH (09:29)
[2018-07-13] MEDS: LISINOPRIL 10 MG TABLET (FP) PO SCH (22:17)
[2018-07-13] MEDS: THIAMINE HCL 100 MG TABLET (FP) PO SCH (22:17)
[2018-07-14] MEDS: LISINOPRIL 20 MG TABLET (FP) PO SCH (09:46)
[2018-07-14] MEDS: PRENATAL VITAMINS W/ FOLIC ACID TABLET (FP) PO SCH (09:47)
[2018-07-14] MEDS: LISINOPRIL 10 MG TABLET (FP) PO SCH (21:08)
[2018-07-14] MEDS: THIAMINE HCL 100 MG TABLET (FP) PO SCH (21:08)
[2018-07-15] MEDS: PRENATAL VITAMINS W/ FOLIC ACID TABLET (FP) PO SCH (09:58)
[2018-07-15] MEDS: LISINOPRIL 20 MG TABLET (FP) PO SCH (09:58)
--- NOTE | 2018-07-15 12:38 | PN ---
[facility] Progress Note Note: NURSING REPORT ON PT WHO HAVE BEEN REFUSING HIS BP(LISINOPRIL) MED AT NIGHT BUT TAKES THE 10 A. M DOSE Vital Signs - 24 hr 07/15/18 07/15/18 07/15/18 00:30 03:30 06:37 Temperature 98.3 F Pulse Rate 76 Respiratory 18 18 18 Rate Blood Pressure 137/86 Laboratory Tests 07/11/18 07/12/18 07:03 07:13 POC Glucometer 117 114 HX HTN DENIES HX DM. PLAN:MET AND DISCUSS WITH PT DIETARY CHANGES-ELIZABETH/NCS DIETS-PT NOT READY FOR DIETARY CHANGE PT AGREED TO MEDICATION TIME CHANGE OF LISINOPRIL FROM 10 PM TO 8 PM. SUGGESTED TO PT ABOUT DIETARY CONSULT--WILL F/U AGAIN WITH PT. FOLLOW UP WITH PCP FOR MEDICAL MANAGEMENT AND MONITORING.
[2018-07-15] MEDS: LISINOPRIL 10 MG TABLET (FP) PO SCH (23:04)
[2018-07-15] MEDS: THIAMINE HCL 100 MG TABLET (FP) PO SCH (23:04)
[2018-07-16] MEDS: LISINOPRIL 20 MG TABLET (FP) PO SCH (09:57)
[2018-07-16] MEDS: PRENATAL VITAMINS W/ FOLIC ACID TABLET (FP) PO SCH (09:57)
[2018-07-16] MEDS: THIAMINE HCL 100 MG TABLET (FP) PO SCH (21:14)
[2018-07-16] MEDS: LISINOPRIL 10 MG TABLET (FP) PO SCH (21:14)
[2018-07-17] MEDS: LISINOPRIL 20 MG TABLET (FP) PO SCH (09:55)
[2018-07-17] MEDS: PRENATAL VITAMINS W/ FOLIC ACID TABLET (FP) PO SCH (09:55)
[2018-07-17] MEDS: THIAMINE HCL 100 MG TABLET (FP) PO SCH (21:14)
[2018-07-17] MEDS: LISINOPRIL 10 MG TABLET (FP) PO SCH (21:14)
[2018-07-18 07:04] VITALS: BP 155/102; PULSE 73; TEMP 97.4
[2018-07-18] MEDS: LISINOPRIL 20 MG TABLET (FP) PO SCH (09:54)
[2018-07-18] MEDS: PRENATAL VITAMINS W/ FOLIC ACID TABLET (FP) PO SCH (09:54)
--- NOTE | 2018-07-18 10:05 | PN ---
[facility] Progress Note Note: PT COMPLETED REHAB AND DISCHARGED TODAY. PT MET WITH TRAVEL MED SURG RN JW BIRD AND HAS BEEN REFERRED TO [facility] ON [phone] FOR CD AFTERCARE. PT REPORTS HE KNOWS HE HAS PCP ON [place], [place] BUT DON 'T REMEMBER NAME OF HIS DOCTOR. [facility] FOR HTN BELOW ELECTRONICALLY SENT TO PT'S HOME PHARMACY FOR SEAM FELLER. ALERT O X 3. DENIES S/H/ I. Home Medications Medication Instructions Recorded Lisinopril [Prinivil] 10 mg PO HS@1999 #30 tablet 07/18/18 Lisinopril [Prinivil] 20 mg PO DAILY #30 tablet 07/18/18 Vital Signs - 24 hr 07/17/18 07/18/18 07/18/18 21:00 00:30 03:30 Temperature Pulse Rate 66 Respiratory 18 18 Rate Blood Pressure 121/73 07/18/18 07:04 Temperature 97.4 F L Pulse Rate 73 Respiratory 18 Rate Blood Pressure 155/102 H NAD MEDICALLY STABLE PLAN:FOLLOW UP WITH CD AFTERCARE AT [facility] RECOMMENDED. FOLLOW UP WITH YOUR PCP WITHIN 1-2 WEEKS AFTER DISCHARGE.
== END 2018-07-18 10:17 | disposition home or self-care (01) | DRG 772 ==
LOC: YASAS 12:49 → Y5N 12:50
PROVIDERS: ADMIT Neuromusculoskeletal Medicine & OMM; ATTEND Neuromusculoskeletal Medicine & OMM
PROC: HZ42ZZZ Group Counseling for Substance Abuse Treatment, Cognitive-Behavioral (ICD-10-PCS; principal; 2018-07-09)
DX: F14.20 Cocaine dependence, uncomplicated (principal); F17.213 Nicotine dependence, cigarettes, with withdrawal; F20.0 Paranoid schizophrenia; F25.9 Schizoaffective disorder, unspecified; F19.24 Other psychoactive substance dependence with psychoactive substance-induced mood disorder; F19.282 Other psychoactive substance dependence with psychoactive substance-induced sleep disorder; I10 Essential (primary) hypertension; K21.9 Gastro-esophageal reflux disease without esophagitis; Z87.442 Personal history of urinary calculi; Z87.438 Personal history of other diseases of male genital organs
CPT/HCPCS: 82962

== ENCOUNTER 2018-10-02 13:22 | Inpatient (IN) | payer OTHER ==
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
[2018-10-02] MEDS ORDERED: chlordiazePOXIDE HCL 10 MG CAPSULE PO PRN (18:29)
[2018-10-02] MEDS ORDERED: IBUPROFEN 400 MG TABLET (FP) PO PRN (18:29)
[2018-10-02] MEDS ORDERED: DICYCLOMINE HCL 10 MG CAPSULE PO PRN (18:29)
[2018-10-02] MEDS ORDERED: P-EPHED 60MG/TRIPROLIDI 2.5MG TABLET PO PRN (18:29)
[2018-10-02] MEDS ORDERED: BISMUTH SUBSALICYLATE 524 MG/30 ML UD PO PRN (18:29)
[2018-10-02] MEDS ORDERED: BACLOFEN 10 MG TABLET (FP) PO PRN (18:29)
[2018-10-02] MEDS ORDERED: MAGNESIUM CITRATE 300 ML BOTTLE PO PRN (18:29)
[2018-10-02] MEDS ORDERED: hydrOXYzine PAMOATE 25 MG CAPSULE (FP) PO PRN (18:29)
[2018-10-02] MEDS ORDERED: ONDANSETRON *ODT* 4 MG TABLET SL PRN (18:29)
[2018-10-02] MEDS ORDERED: MAG HYDROX/AL HYDROX/SIMETH 30 ML UNIT-DOSE CUP PO PRN (18:29)
[2018-10-02] MEDS ORDERED: MENTHOL/PHENOL 1 EACH UD MM PRN (18:29)
[2018-10-02] MEDS ORDERED: ACETAMINOPHEN 325 MG TABLET (FP) PO PRN ×2 (18:29)
[2018-10-02] MEDS ORDERED: METHOCARBAMOL 500 MG TABLET PO PRN (18:29)
[2018-10-02] MEDS ORDERED: MAGNESIUM HYDROX 2400MG/30ML ORAL SUSPENSION 30 ML CUP PO PRN (18:29)
[2018-10-02] MEDS ORDERED: NICOTINE POLACRILEX 2 MG GUM BUC PRN (18:29)
[2018-10-02] MEDS ORDERED: MELATONIN 5 MG TABLETS PO PRN (18:29)
[2018-10-02 18:57] VITALS: BMI 36.0
[2018-10-02] MEDS: THIAMINE HCL 100 MG TABLET (FP) PO SCH (21:46)
[2018-10-02] MEDS: chlordiazePOXIDE HCL 25 MG CAPSULE PO SCH (21:46)
[2018-10-03] MEDS: chlordiazePOXIDE HCL 25 MG CAPSULE PO SCH ×2 (06:25→15:45)
[2018-10-03] MEDS: PRENATAL VITAMINS W/ FOLIC ACID TABLET (FP) PO SCH (09:46)
[2018-10-03] MEDS: NICOTINE 21 MG/24 HOURS TOPICAL PATCH TD SCH (09:46)
[2018-10-03 10:01] LABS: HEMATOCRIT 37.4 % (35.4-49); HEMOGLOBIN 11.8 GM/dL (11.7-16.9); MCH 25.4 pg (25.7-33.7); MCHC 31.7 g/dl (32.0-35.9); MEAN CELL VOLUME 80.3 fl (80-96); MEAN PLT VOLUME 8.6 fl (7.5-11.1); PLATELET COUNT 181 K/MM3 (134-434); RBC 4.66 M/mm3 (4.00-5.60); RDW 14.3 % (11.9-15.9); WHITE BLOOD COUNT 3.3 K/mm3 (4.0-10.0)
[2018-10-03 10:13] LABS: ALBUMIN 3.2 g/dl (3.4-5.0); BILIRUBIN,TOTAL 0.3 mg/dL (0.2-1); CALCIUM 8.7 mg/dL (8.5-10.1); CREATININE 1.2 mg/dL (0.55-1.3); POTASSIUM 3.8 mmol/L (3.5-5.1); TOT PROT 6.4 g/dl (6.4-8.2)
[2018-10-03 13:23] LABS: PH,URINE 5.5 (5.0-8.0); URINE APPEARANCE Turbid; URINE BILIRUBIN 1+ (NEGATIVE); URINE COLOR Yellow; URINE GLUCOSE (UA) Negative (NEGATIVE); URINE KETONE Trace (NEGATIVE); URINE LEUK ESTERASE Negative (NEGATIVE); URINE NITRITE Negative (NEGATIVE); URINE PROTEIN Negative (NEGATIVE)
--- NOTE | 2018-10-03 14:51 | PN ---
S CIWA - CIWA Score Nausea/Vomitin Muscle Tremors: 3 Anxiety: 2 Agitation: 3 Paroxysmal Sweats: 1-Minimal Palms Moist Orientation: 0-Oriented Tacttile Disturbances: 1-Very Mild Itch/Numbness Auditory Disturbances: 1-Very Mild Visual Disturbances: 0-None Headache: 2-Mild CIWA-Ar Total Score: 15 S Progress Note (SOAP) Subjective: alert,irritable,anxious,interrupted slep Objective: 10/03/18 14:49 Vital Signs Temperature 98.1 F 10/03/18 10:36 Pulse Rate 77 10/03/18 10:36 Respiratory Rate 19 10/03/18 10:36 Blood Pressure 113/73 10/03/18 10:36 O2 Sat by Pulse Oximetry (%) 10/03/18 14:49 Laboratory Last Values WBC 3.3 K/mm3 (4.0-10.0) L 10/03/18 07:00 RBC 4.66 M/mm3 (4.00-5.60) 10/03/18 07:00 Hgb 11.8 GM/dL (11.7-16.9) 10/03/18 07:00 Hct 37.4 % (35.4-49) 10/03/18 07:00 MCV 80.3 fl (80-96) 10/03/18 07:00 MCH 25.4 pg (25.7-33.7) L 10/03/18 07:00 MCHC 31.7 g/dl (32.0-35.9) L 10/03/18 07:00 RDW 14.3 % (11.9-15.9) 10/03/18 07:00 Plt Count 181 K/MM3 (134-434) 10/03/18 07:00 MPV 8.6 fl (7.5-11.1) 10/03/18 07:00 Sodium 143 mmol/L (136-145) 10/03/18 07:00 Potassium 3.8 mmol/L (3.5-5.1) 10/03/18 07:00 Chloride 110 mmol/L (98-107) H 10/03/18 07:00 Carbon Dioxide 27 mmol/L (21-32) 10/03/18 07:00 Anion Gap 6 MMOL/L (8-16) L 10/03/18 07:00 BUN 14 mg/dL (7-18) 10/03/18 07:00 Creatinine 1.2 mg/dL (0.55-1.3) 10/03/18 07:00 Est GFR (CKD-EPI)AfAm 80.10 10/03/18 07:00 Est GFR (CKD-EPI)NonAf 69.11 10/03/18 07:00 Random Glucose 117 mg/dL (74-106) H 10/03/18 07:00 Calcium 8.7 mg/dL (8.5-10.1) 10/03/18 07:00 Total Bilirubin 0.3 mg/dL (0.2-1) 10/03/18 07:00 AST 16 U/L (15-37) 10/03/18 07:00 ALT 19 U/L (13-61) 10/03/18 07:00 Alkaline Phosphatase 48 U/L (45-117) 10/03/18 07:00 Total Protein 6.4 g/dl (6.4-8.2) 10/03/18 07:00 Albumin 3.2 g/dl (3.4-5.0) L 10/03/18 07:00 Urine Color Yellow 10/02/18 10:00 Urine Appearance Turbid 10/02/18 10:00 Urine pH 5.5 (5.0-8.0) 10/02/18 10:00 Ur Specific [place] 1.025 (1.010-1.035) 10/02/18 10:00 Urine Protein Negative (NEGATIVE) 10/02/18 10:00 Urine Glucose (UA) Negative (NEGATIVE) 10/02/18 10:00 Urine Ketones Trace (NEGATIVE) 10/02/18 10:00 Urine Blood Negative (NEGATIVE) 10/02/18 10:00 Urine Nitrite Negative (NEGATIVE) 10/02/18 10:00 Urine Bilirubin 1+ (NEGATIVE) H 10/02/18 10:00 Urine Urobilinogen 1.0 mg/dL (0.2-1.0) 10/02/18 10:00 Ur Leukocyte Esterase Negative (NEGATIVE) 10/02/18 10:00 RPR Titer Nonreactive (NONREACTIVE) 10/03/18 07:00 Assessment: 10/03/18 14:50 withdrawal symptom Plan: continue detox
[2018-10-03] MEDS: THIAMINE HCL 100 MG TABLET (FP) PO SCH (22:10)
[2018-10-03] MEDS: chlordiazePOXIDE 5 MG CAPSULE PO SCH (22:10)
[2018-10-04] MEDS: chlordiazePOXIDE 5 MG CAPSULE PO SCH ×2 (05:29→13:57)
[2018-10-04] MEDS: NICOTINE 21 MG/24 HOURS TOPICAL PATCH TD SCH (10:42)
[2018-10-04] MEDS: PRENATAL VITAMINS W/ FOLIC ACID TABLET (FP) PO SCH (10:44)
--- NOTE | 2018-10-04 14:54 | PN ---
S CIWA - CIWA Score Nausea/Vomitin-Mild Nausea/No Vomiting Muscle Tremors: 1-None Visible, but [place] Anxiety: 1-Mildly Anxious Agitation: 1-Slight > Activity Paroxysmal Sweats: 1-Minimal Palms Moist Orientation: 0-Oriented Tacttile Disturbances: 0-None Auditory Disturbances: 0-None Visual Disturbances: 0-None Headache: 1-Very Mild CIWA-Ar Total Score: 6 [facility] Progress Note (SOAP) Subjective: pt states doing well with alcohol detox protocol day #3. O: Vital Signs - 24 hr 10/03/18 10/03/18 10/03/18 15:27 17:09 21:51 Temperature 97.9 F 98.2 F 97.9 F Pulse Rate 68 81 70 Respiratory 18 18 18 Rate Blood Pressure 116/79 110/77 129/83 10/04/18 10/04/18 10/04/18 00:30 03:30 07:06 Temperature 97.5 F L Pulse Rate 68 Respiratory 18 18 18 Rate Blood Pressure 134/74 10/04/18 10/04/18 09:12 13:38 Temperature 98.1 F 97.9 F Pulse Rate 67 76 Respiratory 18 18 Rate Blood Pressure 126/79 117/78 Laboratory Tests 10/02/18 10/03/18 10/03/18 10:00 07:00 07:00 WBC 3.3 L RBC 4.66 Hgb 11.8 Hct 37.4 MCV 80.3 MCH 25.4 L MCHC 31.7 L RDW 14.3 Plt Count 181 MPV 8.6 Sodium 143 Potassium 3.8 Chloride 110 H Carbon Dioxide 27 Anion Gap 6 L BUN 14 Creatinine 1.2 Est GFR (CKD-EPI)AfAm 80.10 Est GFR (CKD-EPI)NonAf 69.11 Random Glucose 117 H Calcium 8.7 Total Bilirubin 0.3 AST 16 ALT 19 Alkaline Phosphatase 48 Total Protein 6.4 Albumin 3.2 L Urine Color Yellow Urine Appearance Turbid Urine pH 5.5 Ur Specific [place] 1.025 Urine Protein Negative Urine Glucose (UA) Negative Urine Ketones Trace Urine Blood Negative Urine Nitrite Negative Urine Bilirubin 1+ H Urine Urobilinogen 1.0 Ur Leukocyte Esterase Negative RPR Titer 10/03/18 07:00 WBC RBC Hgb Hct MCV MCH MCHC RDW Plt Count MPV Sodium Potassium Chloride Carbon Dioxide Anion Gap BUN Creatinine Est GFR (CKD-EPI)AfAm Est GFR (CKD-EPI)NonAf Random Glucose Calcium Total Bilirubin AST ALT Alkaline Phosphatase Total Protein Albumin Urine Color Urine Appearance Urine pH Ur Specific [place] Urine Protein Urine Glucose (UA) Urine Ketones Urine Blood Urine Nitrite Urine Bilirubin Urine Urobilinogen Ur Leukocyte Esterase RPR Titer Nonreactive a/p: continue alcohol detox protocol- pt doing well
[2018-10-04] MEDS ORDERED: chlordiazePOXIDE HCL 10 MG CAPSULE PO PRN (21:00)
[2018-10-04] MEDS: THIAMINE HCL 100 MG TABLET (FP) PO SCH (21:47)
[2018-10-04] MEDS: chlordiazePOXIDE HCL 10 MG CAPSULE PO SCH (21:47)
[2018-10-05] MEDS: chlordiazePOXIDE HCL 10 MG CAPSULE PO SCH ×3 (05:56→22:16)
--- NOTE | 2018-10-05 10:48 | PN ---
S CIWA - CIWA Score Nausea/Vomitin-No Nausea/No Vomiting Muscle Tremors: 2 Anxiety: 2 Agitation: 0-Normal Activity Paroxysmal Sweats: 2 Orientation: 0-Oriented Tacttile Disturbances: 1-Very Mild Itch/Numbness Auditory Disturbances: 0-None Visual Disturbances: 0-None Headache: 1-Very Mild CIWA-Ar Total Score: 8 S Progress Note (SOAP) Subjective: c/o sweats, headache, interrupted sleep, anxiety, and tremor. Objective: 10/05/18 10:46 Vital Signs 10/05/18 10/05/18 06:00 09:24 Temperature 97.7 F 97.1 F L Pulse Rate 70 75 Respiratory 20 18 Rate Blood Pressure 136/83 133/92 Laboratory Last Values WBC 3.3 K/mm3 (4.0-10.0) L 10/03/18 07:00 RBC 4.66 M/mm3 (4.00-5.60) 10/03/18 07:00 Hgb 11.8 GM/dL (11.7-16.9) 10/03/18 07:00 Hct 37.4 % (35.4-49) 10/03/18 07:00 MCV 80.3 fl (80-96) 10/03/18 07:00 MCH 25.4 pg (25.7-33.7) L 10/03/18 07:00 MCHC 31.7 g/dl (32.0-35.9) L 10/03/18 07:00 RDW 14.3 % (11.9-15.9) 10/03/18 07:00 Plt Count 181 K/MM3 (134-434) 10/03/18 07:00 MPV 8.6 fl (7.5-11.1) 10/03/18 07:00 Sodium 143 mmol/L (136-145) 10/03/18 07:00 Potassium 3.8 mmol/L (3.5-5.1) 10/03/18 07:00 Chloride 110 mmol/L (98-107) H 10/03/18 07:00 Carbon Dioxide 27 mmol/L (21-32) 10/03/18 07:00 Anion Gap 6 MMOL/L (8-16) L 10/03/18 07:00 BUN 14 mg/dL (7-18) 10/03/18 07:00 Creatinine 1.2 mg/dL (0.55-1.3) 10/03/18 07:00 Est GFR (CKD-EPI)AfAm 80.10 10/03/18 07:00 Est GFR (CKD-EPI)NonAf 69.11 10/03/18 07:00 Random Glucose 117 mg/dL (74-106) H 10/03/18 07:00 Calcium 8.7 mg/dL (8.5-10.1) 10/03/18 07:00 Total Bilirubin 0.3 mg/dL (0.2-1) 10/03/18 07:00 AST 16 U/L (15-37) 10/03/18 07:00 ALT 19 U/L (13-61) 10/03/18 07:00 Alkaline Phosphatase 48 U/L (45-117) 10/03/18 07:00 Total Protein 6.4 g/dl (6.4-8.2) 10/03/18 07:00 Albumin 3.2 g/dl (3.4-5.0) L 10/03/18 07:00 Urine Color Yellow 10/02/18 10:00 Urine Appearance Turbid 10/02/18 10:00 Urine pH 5.5 (5.0-8.0) 10/02/18 10:00 Ur Specific [place] 1.025 (1.010-1.035) 10/02/18 10:00 Urine Protein Negative (NEGATIVE) 10/02/18 10:00 Urine Glucose (UA) Negative (NEGATIVE) 10/02/18 10:00 Urine Ketones Trace (NEGATIVE) 10/02/18 10:00 Urine Blood Negative (NEGATIVE) 10/02/18 10:00 Urine Nitrite Negative (NEGATIVE) 10/02/18 10:00 Urine Bilirubin 1+ (NEGATIVE) H 10/02/18 10:00 Urine Urobilinogen 1.0 mg/dL (0.2-1.0) 10/02/18 10:00 Ur Leukocyte Esterase Negative (NEGATIVE) 10/02/18 10:00 RPR Titer Nonreactive (NONREACTIVE) 10/03/18 07:00 10/05/18 10:46 Labs noted. Assessment: 10/05/18 10:46 AOX3, no acute distress full ROM, ambulating in the unit. withdrawal symptoms. Plan: continue detox. increase fluids
[2018-10-05] MEDS: PRENATAL VITAMINS W/ FOLIC ACID TABLET (FP) PO SCH (10:52)
[2018-10-05] MEDS: NICOTINE 21 MG/24 HOURS TOPICAL PATCH TD SCH (10:53)
[2018-10-05] MEDS: THIAMINE HCL 100 MG TABLET (FP) PO SCH (22:16)
[2018-10-06 09:52] VITALS: BP 139/99; PULSE 77; TEMP 97.5
[2018-10-06] MEDS: PRENATAL VITAMINS W/ FOLIC ACID TABLET (FP) PO SCH (10:56)
[2018-10-06] MEDS: NICOTINE 21 MG/24 HOURS TOPICAL PATCH TD SCH (10:57)
--- NOTE | 2018-10-06 15:23 | DS ---
[facility] Detox Discharge Summary Admission Date: 10/02/18 Discharge Date: 10/06/18 - History Present History: Alcohol Dependence, Cocaine Dependence Additional Comments: Patient admitted to [facility]. Patient is A/A/Ox3, in nad, and denies any complaints. Pertinent Past History: GERD HTN (noncompliant with lisinopril 20mg daily) Cocaine dependence Nicotine dependence Depression - Physical Exam Results Vital Signs: Vital Signs Temperature 97.5 F L 10/06/18 09:52 Pulse Rate 77 10/06/18 09:52 Respiratory Rate 18 10/06/18 09:52 Blood Pressure 139/99 10/06/18 09:52 O2 Sat by Pulse Oximetry (%) Pertinent Admission Physical Exam Findings: Withdrawal symptoms Laboratory Tests 10/02/18 10/03/18 10/03/18 10:00 07:00 07:00 WBC 3.3 L RBC 4.66 Hgb 11.8 Hct 37.4 MCV 80.3 MCH 25.4 L MCHC 31.7 L RDW 14.3 Plt Count 181 MPV 8.6 Sodium 143 Potassium 3.8 Chloride 110 H Carbon Dioxide 27 Anion Gap 6 L BUN 14 Creatinine 1.2 Est GFR (CKD-EPI)AfAm 80.10 Est GFR (CKD-EPI)NonAf 69.11 Random Glucose 117 H Calcium 8.7 Total Bilirubin 0.3 AST 16 ALT 19 Alkaline Phosphatase 48 Total Protein 6.4 Albumin 3.2 L Urine Color Yellow Urine Appearance Turbid Urine pH 5.5 Ur Specific [place] 1.025 Urine Protein Negative Urine Glucose (UA) Negative Urine Ketones Trace Urine Blood Negative Urine Nitrite Negative Urine Bilirubin 1+ H Urine Urobilinogen 1.0 Ur Leukocyte Esterase Negative RPR Titer 10/03/18 07:00 WBC RBC Hgb Hct MCV MCH MCHC RDW Plt Count MPV Sodium Potassium Chloride Carbon Dioxide Anion Gap BUN Creatinine Est GFR (CKD-EPI)AfAm Est GFR (CKD-EPI)NonAf Random Glucose Calcium Total Bilirubin AST ALT Alkaline Phosphatase Total Protein Albumin Urine Color Urine Appearance Urine pH Ur Specific [place] Urine Protein Urine Glucose (UA) Urine Ketones Urine Blood Urine Nitrite Urine Bilirubin Urine Urobilinogen Ur Leukocyte Esterase RPR Titer Nonreactive Labs reviewed: abnormal UA - Treatment Hospital Course: Detox Protocol Followed, Detoxed Safely, Responded well, Discharged Condition Good, Rehab Referral Accepted - Medication Discharge Medications: Ambulatory Orders Lisinopril [Prinivil] 20 mg PO DAILY #30 tablet 07/18/18 Risperidone [Risperdal -] 3 mg PO HS 10/02/18 Risperidone [Risperdal] 2 mg PO DAILY 10/02/18 Bupropion HCl [Wellbutrin -] 300 mg PO DAILY 10/06/18 - Diagnosis (1) Alcohol dependence with uncomplicated withdrawal Status: Acute (2) HTN (hypertension) Status: Chronic Qualifiers: Hypertension type: essential hypertension Qualified Code(s): I10 - Essential (primary) hypertension (3) Cocaine dependence, uncomplicated Status: Chronic (4) GERD (gastroesophageal reflux disease) Status: Chronic Qualifiers: Esophagitis presence: without esophagitis Qualified Code(s): K21.9 - Gastro -esophageal reflux disease without esophagitis (5) Nicotine dependence Status: Chronic Qualifiers: Nicotine product type: cigarettes Substance use status: in withdrawal Qualified Code(s): F17.213 - Nicotine dependence, cigarettes, with withdrawal (6) Non compliance w medication regimen Status: Chronic (7) Abnormal finding on urinalysis Status: Acute - AMA Did Patient Leave Against Medical Advice: No (Accepted into [facility])
== END 2018-10-06 12:35 | disposition other institution (70) | DRG 774 ==
LOC: YASAS 13:22 → Y6N 19:15
PROVIDERS: ADMIT Surgery; ATTEND Surgery
PROC: HZ2ZZZZ Detoxification Services for Substance Abuse Treatment (ICD-10-PCS; principal; 2018-10-02)
DX: F10.230 Alcohol dependence with withdrawal, uncomplicated (principal); F14.20 Cocaine dependence, uncomplicated; F12.20 Cannabis dependence, uncomplicated; F17.210 Nicotine dependence, cigarettes, uncomplicated; F19.282 Other psychoactive substance dependence with psychoactive substance-induced sleep disorder; F19.24 Other psychoactive substance dependence with psychoactive substance-induced mood disorder; F20.9 Schizophrenia, unspecified; F41.9 Anxiety disorder, unspecified; F32.9 Major depressive disorder, single episode, unspecified; I10 Essential (primary) hypertension; K21.9 Gastro-esophageal reflux disease without esophagitis; Z91.013 Allergy to seafood
CPT/HCPCS: 36415; 80053; 81003; 85027; 86593

== ENCOUNTER 2018-10-06 12:43 | Inpatient (IN) | payer OTHER ==
[2018-10-06] MEDS ORDERED: MAG HYDROX/AL HYDROX/SIMETH 30 ML UNIT-DOSE CUP PO PRN (15:27)
[2018-10-06] MEDS ORDERED: guaiFENesin 200 MG/10 ML 10 ML UNIT-DOSE CUPS PO PRN (15:27)
[2018-10-06] MEDS ORDERED: MENTHOL/PHENOL 1 EACH UD MM PRN (15:27)
[2018-10-06] MEDS ORDERED: MAGNESIUM CITRATE 300 ML BOTTLE PO PRN (15:27)
[2018-10-06] MEDS ORDERED: P-EPHED 60MG/TRIPROLIDI 2.5MG TABLET PO PRN (15:27)
[2018-10-06] MEDS ORDERED: MAGNESIUM HYDROX 2400MG/30ML ORAL SUSPENSION 30 ML CUP PO PRN (15:27)
[2018-10-06] MEDS ORDERED: ACETAMINOPHEN 325 MG TABLET (FP) PO PRN (15:27)
[2018-10-06] MEDS ORDERED: NICOTINE POLACRILEX 2 MG GUM BUC PRN (15:27)
[2018-10-06] MEDS ORDERED: LOPERAMIDE HCL 2 MG CAPSULE PO PRN (15:27)
[2018-10-06] MEDS ORDERED: IBUPROFEN 400 MG TABLET (FP) PO PRN (15:27)
[2018-10-06] MEDS ORDERED: hydrOXYzine PAMOATE 50 MG CAPSULE (FP) PO PRN (15:27)
--- NOTE | 2018-10-06 15:27 | HP ---
[facility] Rehab Assess/Revision - Admission History Admitted to Rehab from: [facility] Date of Admission to Rehab: 10/06/2018 - Vital signs Vital Signs: Vital Signs Period Temp Pulse Resp BP Sys/Lubin Pulse Ox Last 24 Hr 97.8 F 76 16 141/88 - Findings Detox History & Physical reviewed: Yes Concur with findings: Yes Inpatient Rehab Admission - Rehab Decision to Admit Inpatient rehab admission?: Yes - Initial Determination Are CD services needed?: No Free of communicable disease: Yes Not in need of hospitalization: No - Rehab Admission Criteria Previous failed treatment: Yes Poor recovery environment: Yes Comorbidities: Yes Lacks judgement: Yes Patient is meeting Inpatient Rehab admission criteria:: Yes
[2018-10-06] MEDS ORDERED: LISINOPRIL 20 MG TABLET (FP) PO ONE (15:31)
[2018-10-06] MEDS: THIAMINE HCL 100 MG TABLET (FP) PO SCH (21:20)
[2018-10-06] MEDS ORDERED: MELATONIN 5 MG TABLETS PO PRN (22:00)
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
[2018-10-07] MEDS: PRENATAL VITAMINS W/ FOLIC ACID TABLET (FP) PO SCH (10:38)
[2018-10-07] MEDS: LISINOPRIL 20 MG TABLET (FP) PO SCH (10:38)
[2018-10-07] MEDS: risperiDONE 1 MG TABLET (FP) PO SCH ×2 (10:40→21:35)
[2018-10-07] MEDS: THIAMINE HCL 100 MG TABLET (FP) PO SCH (21:35)
[2018-10-08] MEDS: PRENATAL VITAMINS W/ FOLIC ACID TABLET (FP) PO SCH (10:00)
[2018-10-08] MEDS: risperiDONE 1 MG TABLET (FP) PO SCH ×2 (10:00→21:21)
[2018-10-08] MEDS: LISINOPRIL 20 MG TABLET (FP) PO SCH (10:00)
[2018-10-08] MEDS: THIAMINE HCL 100 MG TABLET (FP) PO SCH (21:21)
[2018-10-09] MEDS: risperiDONE 1 MG TABLET (FP) PO SCH (10:15)
[2018-10-09] MEDS: LISINOPRIL 20 MG TABLET (FP) PO SCH (10:16)
[2018-10-09] MEDS: PRENATAL VITAMINS W/ FOLIC ACID TABLET (FP) PO SCH (10:16)
[2018-10-09 10:27] LABS: PH,URINE 7.5 (5.0-8.0); URINE APPEARANCE CLEAR; URINE BILIRUBIN NEGATIVE (NEGATIVE); URINE COLOR YELLOW; URINE GLUCOSE (UA) NEGATIVE (NEGATIVE); URINE KETONE NEGATIVE (NEGATIVE); URINE LEUK ESTERASE NEGATIVE (NEGATIVE); URINE NITRITE NEGATIVE (NEGATIVE); URINE PROTEIN NEGATIVE (NEGATIVE)
--- NOTE | 2018-10-09 18:49 | PN ---
Psychiatric Progress Note Vital Signs: Vital Signs Period Temp Pulse Resp BP Sys/Lubin Pulse Ox Last 24 Hr 97.4 F 74-75 18-18 127-127/78-79 Date of Session: 10/09/18 Chief Complaint:: " I don't know why I have to see a psychiatrist again ". HPI: Called to re-evaluate this patient, seen on 10/07/18, by Liaison-Psychiatry on admission to [address]. Reason offered : homicidal ideation. Mr Kimbrough is known to [facility]. Diagnosed with schizophrenia. Rehabilitation is uneventful as per review of Multidisciplany notes. ROS: Unremarkable. Current Medications: Active Medications Generic Name Dose Route Start Last Admin Trade Name Freq PRN Reason Stop Dose Admin Acetaminophen 650 mg 10/06/18 15:27 Tylenol - PO Q4H PRN FEVER Al Hydroxide/Mg Hydroxide 30 ml 10/06/18 15:27 Mylanta Oral Suspension - PO Q6H PRN DYSPEPSIA Eucalyptus/Menthol/Phenol/Sorbitol 1 each 10/06/18 15:27 Cepastat Lozenge - MM Q4H PRN SORE THROAT Guaifenesin 10 ml 10/06/18 15:27 Robitussin - PO Q6H PRN COUGH Hydroxyzine Pamoate 50 mg 10/06/18 15:27 Vistaril - PO Q6H PRN AGITATION Ibuprofen 400 mg 10/06/18 15:27 Motrin - PO Q6H PRN Pain Level 4-6 Lisinopril 20 mg 10/07/18 10:00 10/09/18 10:16 Prinivil PO 20 mg DAILY KIAH Administration Loperamide HCl 4 mg 10/06/18 15:27 Imodium - PO Q6H PRN DIARRHEA Magnesium Citrate 300 ml 10/06/18 15:27 Citroma - PO Q48H PRN CONSTIPATION Magnesium Hydroxide 30 ml 10/06/18 15:27 Milk Of Magnesia - PO DAILY PRN CONSTIPATION Melatonin 5 mg 10/06/18 22:00 Melatonin PO HS PRN INSOMNIA Nicotine Polacrilex 2 mg 10/06/18 15:27 Nicorette Gum - BUC Q2H PRN NICOTINE REPLACEMENT RX Multivit/Folic Acid/Iron 1 tab 10/07/18 10:00 10/09/18 10:16 Vitamins (Sjr) - PO 1 tab DAILY KIAH Administration Pseudoephedrine/Triprolidine 1 combo 10/06/18 15:27 Actifed - PO TID PRN NASAL CONGESTION Risperidone 1 mg 10/07/18 10:00 10/09/18 10:15 Risperdal - PO 1 mg BID KIAH Administration Thiamine HCl 100 mg 10/06/18 22:00 10/08/18 21:21 Vitamin B1 - PO 100 mg HS KIAH Administration Medication(s) Change(s): Risperdal is titrated to 2 mg po po daily + 2 mg po hs. At patient's request. Mr Kimbrough indicates that at his [facility] program, he is maintained on a regimen of 2 mg/am + 3 mg/hs. Supported by records at [facility]. Side effects/benefits are discussed with the patient in this session. Gave his verbal consent to MD. Current Side Effect: No Lab tests ordered: No Lab tests reviewed: Yes Provider note:: Chart reviewed. Case discussed with Medical BIBLE READER Jenni Dos Santos. Met with the patient. Mr Kimbrough expresses his " surprise " to meet again with the psychiatrist. When informed of the reason for the visit, the patient adamantly DENIES experiencing or verbalizing homicidal/ suicidal ideation, intent or plan. " I am fine, minding my own business. I am here to complete my rehab and return home and get back to my outpatient poragram. I have a psychiatrist out there ". Patient is observed as calm, friendly, well-mannered and behaviorally controlled. Pleasant on approach. Euthymic. No evidence of a thought disorder during interview. Receptive to teaching about titration of risperdal. Agreeable with plan. Mental status remains stable. Mr Kimbrough is NOT a danger to others or self. He is at his baseline. Total face to face time:: 35 Mental Status Exam - Mental Status Exam Alert and Oriented to: Time, Place, Person Cognitive Function: Good Patient Appearance: Well Groomed (obese) Mood: Hopeful, Euthymic Affect: Appropriate, Normal Range Patient Behavior: Appropriate, Cooperative Speech Pattern: Clear, Appropriate Voice Loudness: Normal Thought Process: Intact, Goal Oriented Thought Disorder: Not Present Hallucinations: Denies Suicidal Ideation: Denies Insight/Judgement: Fair Sleep: Well Appetite: Good Muscle strength/Tone: Normal Gait/Station: Normal Psychiatric Treatment Plan - Problem List (1) Schizophrenia Current Visit: Yes Qualifiers: Schizophrenia type: unspecified Qualified Code(s): F20.9 - Schizophrenia, unspecified Comment: . (2) Alcohol dependence Current Visit: Yes Comment: . (3) Cocaine dependence Current Visit: Yes Qualifiers: Substance use status: uncomplicated Qualified Code(s): F14.20 - Cocaine dependence, uncomplicated Comment: . (4) Cannabis dependence Current Visit: Yes Comment: . (5) Nicotine dependence Current Visit: Yes Qualifiers: Nicotine product type: cigarettes Substance use status: in withdrawal Qualified Code(s): F17.213 - Nicotine dependence, cigarettes, with withdrawal Comment: .
[2018-10-09] MEDS: risperiDONE 2 MG TABLET PO SCH (21:46)
[2018-10-09] MEDS: THIAMINE HCL 100 MG TABLET (FP) PO SCH (21:47)
[2018-10-10] MEDS: LISINOPRIL 20 MG TABLET (FP) PO SCH (10:04)
[2018-10-10] MEDS: PRENATAL VITAMINS W/ FOLIC ACID TABLET (FP) PO SCH (10:04)
[2018-10-10] MEDS: risperiDONE 1 MG TABLET (FP) PO SCH (10:04)
[2018-10-10] MEDS: risperiDONE 2 MG TABLET PO SCH (21:25)
[2018-10-10] MEDS: THIAMINE HCL 100 MG TABLET (FP) PO SCH (21:25)
[2018-10-11] MEDS: LISINOPRIL 20 MG TABLET (FP) PO SCH (10:32)
[2018-10-11] MEDS: risperiDONE 1 MG TABLET (FP) PO SCH (10:32)
[2018-10-11] MEDS: PRENATAL VITAMINS W/ FOLIC ACID TABLET (FP) PO SCH (10:32)
[2018-10-11] MEDS: THIAMINE HCL 100 MG TABLET (FP) PO SCH (21:40)
[2018-10-11] MEDS: risperiDONE 2 MG TABLET PO SCH (21:40)
[2018-10-12] MEDS: risperiDONE 1 MG TABLET (FP) PO SCH (10:11)
[2018-10-12] MEDS: PRENATAL VITAMINS W/ FOLIC ACID TABLET (FP) PO SCH (10:11)
[2018-10-12] MEDS: LISINOPRIL 20 MG TABLET (FP) PO SCH (10:11)
[2018-10-12] MEDS: THIAMINE HCL 100 MG TABLET (FP) PO SCH (21:19)
[2018-10-12] MEDS: risperiDONE 2 MG TABLET PO SCH (21:19)
[2018-10-13] MEDS: risperiDONE 1 MG TABLET (FP) PO SCH (10:05)
[2018-10-13] MEDS: LISINOPRIL 20 MG TABLET (FP) PO SCH (10:05)
[2018-10-13] MEDS: PRENATAL VITAMINS W/ FOLIC ACID TABLET (FP) PO SCH (10:05)
[2018-10-13] MEDS: THIAMINE HCL 100 MG TABLET (FP) PO SCH (21:23)
[2018-10-13] MEDS: risperiDONE 2 MG TABLET PO SCH (21:23)
[2018-10-14] MEDS: risperiDONE 1 MG TABLET (FP) PO SCH (10:25)
[2018-10-14] MEDS: PRENATAL VITAMINS W/ FOLIC ACID TABLET (FP) PO SCH (10:25)
[2018-10-14] MEDS: LISINOPRIL 20 MG TABLET (FP) PO SCH (10:25)
[2018-10-14] MEDS: THIAMINE HCL 100 MG TABLET (FP) PO SCH (21:32)
[2018-10-14] MEDS: risperiDONE 2 MG TABLET PO SCH (21:33)
[2018-10-15] MEDS: PRENATAL VITAMINS W/ FOLIC ACID TABLET (FP) PO SCH (10:34)
[2018-10-15] MEDS: risperiDONE 1 MG TABLET (FP) PO SCH (10:34)
[2018-10-15] MEDS: LISINOPRIL 20 MG TABLET (FP) PO SCH (10:34)
[2018-10-15] MEDS: risperiDONE 2 MG TABLET PO SCH (21:47)
[2018-10-15] MEDS: THIAMINE HCL 100 MG TABLET (FP) PO SCH (21:47)
[2018-10-16] MEDS: PRENATAL VITAMINS W/ FOLIC ACID TABLET (FP) PO SCH (09:53)
[2018-10-16] MEDS: LISINOPRIL 20 MG TABLET (FP) PO SCH (09:53)
[2018-10-16] MEDS: risperiDONE 1 MG TABLET (FP) PO SCH (09:53)
[2018-10-16] MEDS: risperiDONE 2 MG TABLET PO SCH (21:29)
[2018-10-16] MEDS: THIAMINE HCL 100 MG TABLET (FP) PO SCH (21:29)
[2018-10-17] MEDS: risperiDONE 1 MG TABLET (FP) PO SCH (10:25)
[2018-10-17] MEDS: LISINOPRIL 20 MG TABLET (FP) PO SCH (10:25)
[2018-10-17] MEDS: PRENATAL VITAMINS W/ FOLIC ACID TABLET (FP) PO SCH (10:25)
--- NOTE | 2018-10-17 13:50 | PN ---
[facility] Progress Note Note: Patient is scheduled for discharge tomorrow. Scripts for 30 days supply of medications(Risperdal 1 mg/day, Risperdal 2 mg/hs) will be electronically transmitted to [facility] at [address] [place], [place] [id number]
[2018-10-17] MEDS: risperiDONE 2 MG TABLET PO SCH (21:27)
[2018-10-17] MEDS: THIAMINE HCL 100 MG TABLET (FP) PO SCH (21:27)
[2018-10-18 06:29] VITALS: BP 143/87; PULSE 85; TEMP 97.9
[2018-10-18] MEDS: risperiDONE 1 MG TABLET (FP) PO SCH (09:15)
[2018-10-18] MEDS: PRENATAL VITAMINS W/ FOLIC ACID TABLET (FP) PO SCH (09:15)
[2018-10-18] MEDS: LISINOPRIL 20 MG TABLET (FP) PO SCH (09:15)
--- NOTE | 2018-10-18 10:41 | PN ---
[facility] Progress Note (SOAP) Subjective: PT COMPLETED REHAB AND DISCHARGED TODAY. PT HAS BEEN REFERRED TO CD AFTERCARE/ MEDICAL MANAGEMENT AT [facility] ON [address], [place]. PT IS ALERT O X 3. DENIES S/H/I. Objective: 10/18/18 10:40 Vital Signs (72 hours) 10/16/18 10/16/18 10/16/18 00:30 03:30 06:45 Temperature 97.8 F Pulse Rate 76 Respiratory 18 18 18 Rate Blood Pressure 128/86 10/17/18 10/17/18 10/17/18 00:32 03:30 07:50 Temperature 97.5 F L Pulse Rate 79 Respiratory 18 18 20 Rate Blood Pressure 140/77 10/18/18 10/18/18 10/18/18 00:30 03:30 06:28 Temperature 97.9 F Pulse Rate 85 Respiratory 16 16 18 Rate Blood Pressure 143/87 Laboratory Tests 10/07/18 10/08/18 08:30 06:00 Urine Color Yellow Urine Appearance Clear Urine pH 7.5 D Ur Specific [place] 1.018 Urine Protein Negative Urine Glucose (UA) Negative Urine Ketones Negative Urine Blood Negative Urine Nitrite Negative Urine Bilirubin Negative Urine Urobilinogen 1.0 Ur Leukocyte Esterase Negative HIV 1&2 Antibody Screen Negative HIV P24 Antigen Negative Home Medications Medication Instructions Recorded Risperidone [Risperdal -] 3 mg PO HS 10/02/18 Risperidone [Risperdal] 2 mg PO DAILY 10/02/18 Bupropion HCl [Wellbutrin -] 300 mg PO DAILY 10/06/18 Lisinopril [Prinivil] 20 mg PO DAILY #30 tablet 10/17/18 Risperidone [Risperdal -] 1 mg PO DAILY #30 tablet 10/17/18 Risperidone [Risperdal -] 2 mg PO HS #30 tablet 10/17/18 Assessment: 10/18/18 10:40 NAD MEDICALLY STABLE Plan: D/C TODAY FOLLOW UP WITH CD AFTERCARE AND MEDICAL MANAGEMENT RECOMMENDED ON 10/18/18 AT 11:00 A.M
== END 2018-10-18 09:22 | disposition home or self-care (01) | DRG 772 ==
LOC: YASAS 12:43 → Y5N 12:44
PROVIDERS: ADMIT Neuromusculoskeletal Medicine & OMM; ATTEND Neuromusculoskeletal Medicine & OMM
PROC: HZ42ZZZ Group Counseling for Substance Abuse Treatment, Cognitive-Behavioral (ICD-10-PCS; principal; 2018-10-06)
DX: F10.20 Alcohol dependence, uncomplicated (principal); F14.20 Cocaine dependence, uncomplicated; F12.20 Cannabis dependence, uncomplicated; F17.213 Nicotine dependence, cigarettes, with withdrawal; F20.0 Paranoid schizophrenia; I10 Essential (primary) hypertension; K21.9 Gastro-esophageal reflux disease without esophagitis; Z87.438 Personal history of other diseases of male genital organs
CPT/HCPCS: 36415; 81003; 87389; J2794

== ENCOUNTER 2018-11-05 08:14 | Inpatient (IN) | payer OTHER ==
[2018-11-05 08:46] VITALS: BMI 36.3
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
[2018-11-05] MEDS ORDERED: ACETAMINOPHEN 325 MG TABLET (FP) PO PRN (11:07)
[2018-11-05] MEDS ORDERED: IBUPROFEN 400 MG TABLET (FP) PO PRN (11:07)
[2018-11-05] MEDS ORDERED: MAGNESIUM HYDROX 2400MG/30ML ORAL SUSPENSION 30 ML CUP PO PRN (11:07)
[2018-11-05] MEDS ORDERED: NICOTINE POLACRILEX 2 MG GUM BUC PRN (11:07)
[2018-11-05] MEDS ORDERED: MAG HYDROX/AL HYDROX/SIMETH 30 ML UNIT-DOSE CUP PO PRN (11:07)
[2018-11-05] MEDS ORDERED: MENTHOL/PHENOL 1 EACH UD MM PRN (11:07)
[2018-11-05] MEDS ORDERED: hydrOXYzine PAMOATE 25 MG CAPSULE (FP) PO PRN (11:07)
[2018-11-05] MEDS ORDERED: P-EPHED 60MG/TRIPROLIDI 2.5MG TABLET PO PRN (11:07)
[2018-11-05] MEDS ORDERED: LOPERAMIDE HCL 2 MG CAPSULE PO PRN (11:07)
[2018-11-05] MEDS ORDERED: guaiFENesin 200 MG/10 ML 10 ML UNIT-DOSE CUPS PO PRN (11:07)
[2018-11-05] MEDS ORDERED: MAGNESIUM CITRATE 300 ML BOTTLE PO PRN (11:07)
--- NOTE | 2018-11-05 15:13 | PN ---
[facility] Progress Note Note: Patient with history of Schizophrenia, Paranoid type, Polysubstance abuse was admitted to inpatient rehab today. He was recently discharged from facility detox on 10/17/18 on Risperdal 1 mg/day & 2 mg/hs. Will restart patient on that dose pending psychiatric evaluation tomorrow
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
[2018-11-05 17:22] LABS: URINE APPEARANCE CLEAR; URINE BILIRUBIN NEGATIVE (NEGATIVE); URINE COLOR DK YELLOW; URINE GLUCOSE (UA) NEGATIVE (NEGATIVE); URINE KETONE TRACE (NEGATIVE); URINE LEUK ESTERASE NEGATIVE (NEGATIVE); URINE NITRITE NEGATIVE (NEGATIVE); URINE PROTEIN NEGATIVE (NEGATIVE)
[2018-11-05] MEDS: THIAMINE HCL 100 MG TABLET (FP) PO SCH (21:15)
[2018-11-05] MEDS: risperiDONE 2 MG TABLET PO SCH (21:15)
[2018-11-06] MEDS: risperiDONE 1 MG TABLET (FP) PO SCH (09:52)
[2018-11-06] MEDS: LISINOPRIL 20 MG TABLET (FP) PO SCH (09:52)
[2018-11-06] MEDS: PRENATAL VITAMINS W/ FOLIC ACID TABLET (FP) PO SCH (09:52)
[2018-11-06] MEDS: risperiDONE 2 MG TABLET PO SCH (21:38)
[2018-11-06] MEDS: THIAMINE HCL 100 MG TABLET (FP) PO SCH (21:38)
[2018-11-07] MEDS: LISINOPRIL 20 MG TABLET (FP) PO SCH (10:16)
[2018-11-07] MEDS: risperiDONE 1 MG TABLET (FP) PO SCH (10:16)
[2018-11-07] MEDS: PRENATAL VITAMINS W/ FOLIC ACID TABLET (FP) PO SCH (10:16)
[2018-11-07] MEDS: risperiDONE 2 MG TABLET PO SCH (21:34)
[2018-11-07] MEDS: THIAMINE HCL 100 MG TABLET (FP) PO SCH (21:34)
[2018-11-08] MEDS: PRENATAL VITAMINS W/ FOLIC ACID TABLET (FP) PO SCH (10:14)
[2018-11-08] MEDS: risperiDONE 1 MG TABLET (FP) PO SCH (10:14)
[2018-11-08] MEDS: LISINOPRIL 20 MG TABLET (FP) PO SCH (10:15)
[2018-11-08] MEDS: risperiDONE 2 MG TABLET PO SCH (21:47)
[2018-11-08] MEDS: THIAMINE HCL 100 MG TABLET (FP) PO SCH (21:47)
[2018-11-09] MEDS: PRENATAL VITAMINS W/ FOLIC ACID TABLET (FP) PO SCH (10:06)
[2018-11-09] MEDS: risperiDONE 1 MG TABLET (FP) PO SCH (10:06)
[2018-11-09] MEDS: LISINOPRIL 20 MG TABLET (FP) PO SCH (10:06)
[2018-11-09] MEDS: risperiDONE 2 MG TABLET PO SCH (21:36)
[2018-11-09] MEDS: THIAMINE HCL 100 MG TABLET (FP) PO SCH (21:36)
[2018-11-10] MEDS: LISINOPRIL 20 MG TABLET (FP) PO SCH (09:49)
[2018-11-10] MEDS: PRENATAL VITAMINS W/ FOLIC ACID TABLET (FP) PO SCH (09:49)
[2018-11-10] MEDS: risperiDONE 1 MG TABLET (FP) PO SCH (09:49)
[2018-11-10] MEDS: risperiDONE 2 MG TABLET PO SCH (21:25)
[2018-11-10] MEDS: THIAMINE HCL 100 MG TABLET (FP) PO SCH (21:25)
[2018-11-11] MEDS: LISINOPRIL 20 MG TABLET (FP) PO SCH (10:05)
[2018-11-11] MEDS: PRENATAL VITAMINS W/ FOLIC ACID TABLET (FP) PO SCH (10:05)
[2018-11-11] MEDS: risperiDONE 1 MG TABLET (FP) PO SCH (10:05)
[2018-11-11] MEDS: THIAMINE HCL 100 MG TABLET (FP) PO SCH (21:34)
[2018-11-11] MEDS: risperiDONE 2 MG TABLET PO SCH (21:34)
[2018-11-12] MEDS: PRENATAL VITAMINS W/ FOLIC ACID TABLET (FP) PO SCH (09:59)
[2018-11-12] MEDS: risperiDONE 1 MG TABLET (FP) PO SCH (09:59)
[2018-11-12] MEDS: LISINOPRIL 20 MG TABLET (FP) PO SCH (09:59)
[2018-11-12] MEDS: risperiDONE 2 MG TABLET PO SCH (21:17)
[2018-11-12] MEDS: MELATONIN 5 MG TABLETS PO PRN (21:18)
[2018-11-12] MEDS: THIAMINE HCL 100 MG TABLET (FP) PO SCH (21:18)
[2018-11-13] MEDS: LISINOPRIL 20 MG TABLET (FP) PO SCH (10:08)
[2018-11-13] MEDS: PRENATAL VITAMINS W/ FOLIC ACID TABLET (FP) PO SCH (10:08)
[2018-11-13] MEDS: risperiDONE 1 MG TABLET (FP) PO SCH (10:08)
[2018-11-13] MEDS: risperiDONE 2 MG TABLET PO SCH (21:37)
[2018-11-13] MEDS: THIAMINE HCL 100 MG TABLET (FP) PO SCH (21:37)
[2018-11-14] MEDS: risperiDONE 1 MG TABLET (FP) PO SCH (09:48)
[2018-11-14] MEDS: LISINOPRIL 20 MG TABLET (FP) PO SCH (09:48)
[2018-11-14] MEDS: PRENATAL VITAMINS W/ FOLIC ACID TABLET (FP) PO SCH (09:49)
[2018-11-14] MEDS: THIAMINE HCL 100 MG TABLET (FP) PO SCH (21:33)
[2018-11-14] MEDS: risperiDONE 2 MG TABLET PO SCH (21:33)
[2018-11-14] MEDS: MELATONIN 5 MG TABLETS PO PRN (22:05)
[2018-11-15] MEDS: LISINOPRIL 20 MG TABLET (FP) PO SCH (09:40)
[2018-11-15] MEDS: PRENATAL VITAMINS W/ FOLIC ACID TABLET (FP) PO SCH (09:41)
[2018-11-15] MEDS: risperiDONE 1 MG TABLET (FP) PO SCH (09:41)
[2018-11-15] MEDS: THIAMINE HCL 100 MG TABLET (FP) PO SCH (21:15)
[2018-11-15] MEDS: MELATONIN 5 MG TABLETS PO PRN (21:16)
[2018-11-15] MEDS: risperiDONE 2 MG TABLET PO SCH (21:16)
[2018-11-16] MEDS: LISINOPRIL 20 MG TABLET (FP) PO SCH (09:31)
[2018-11-16] MEDS: PRENATAL VITAMINS W/ FOLIC ACID TABLET (FP) PO SCH (09:31)
[2018-11-16] MEDS: risperiDONE 1 MG TABLET (FP) PO SCH (09:31)
[2018-11-16] MEDS: THIAMINE HCL 100 MG TABLET (FP) PO SCH (22:38)
[2018-11-16] MEDS: risperiDONE 2 MG TABLET PO SCH (22:38)
[2018-11-17] MEDS: PRENATAL VITAMINS W/ FOLIC ACID TABLET (FP) PO SCH (10:29)
[2018-11-17] MEDS: risperiDONE 1 MG TABLET (FP) PO SCH (10:29)
[2018-11-17] MEDS: LISINOPRIL 20 MG TABLET (FP) PO SCH (10:29)
[2018-11-17] MEDS: THIAMINE HCL 100 MG TABLET (FP) PO SCH (21:30)
[2018-11-17] MEDS: risperiDONE 2 MG TABLET PO SCH (21:30)
[2018-11-17] MEDS: MELATONIN 5 MG TABLETS PO PRN (21:31)
--- NOTE | 2018-11-18 06:25 | PN ---
[facility] Progress Note Note: Patient is scheduled for discharge today. Scripts for 30 day supply of medications(Risperdal 1 mg/day, Risperdal 2 mg/hs) are electronically transmitted to [facility] at [address] [place] [id number]
[2018-11-18 06:58] VITALS: BP 144/95; PULSE 71; TEMP 97.4
--- NOTE | 2018-11-18 12:49 | PN ---
[facility] Progress Note Note: Laboratory Tests 11/05/18 15:00 Urine Color Dk yellow Urine Appearance Clear Urine pH 5.0 D Ur Specific [place] 1.031 Urine Protein Negative Urine Glucose (UA) Negative Urine Ketones Trace H Urine Blood Negative Urine Nitrite Negative Urine Bilirubin Negative Urine Urobilinogen 1.0 Ur Leukocyte Esterase Negative Urine WBC (Auto) No Result Required. Urine RBC (Auto) No Result Required. Urine Casts (Auto) No Result Required. U Pathogenic Cast Auto No Result Required. U Epithel Cells (Auto) No Result Required. U Sm Round Cell (Auto) No Result Required. Urine Crystals (Auto) No Result Required. Urine Bacteria (Auto) No Result Required. Vital Signs Temperature 97.4 F L 11/18/18 06:57 Pulse Rate 71 11/18/18 06:57 Respiratory Rate 18 11/18/18 06:57 Blood Pressure 144/95 11/18/18 06:57 O2 Sat by Pulse Oximetry (%) PATIENT COMPLETED REHAB TODAY AND IS TO CONTINUE [facility] TREATMENT AT [facility]. PATIENT REPORTS HE ACCOMPLISHED ALL REHAB GOALS AND IS MEDICALLY STABLE AT THIS TIME. NO SI/HI REPORTED BY PATIENT. PATIENT ENCOURAGED TO CONTINUE TREATMENT TO PREVENT RELAPSE AND TO FOLLOW UP WITH PCP WITHIN ONE WEEK OF DISCHARGE. LISINOPRIL SENT PRESCRIBED TO PREFERRED PHARMACY. Ambulatory Orders Lisinopril [Prinivil] 20 mg PO DAILY #30 tablet 11/18/18 Risperidone [Risperdal -] 1 mg PO DAILY #30 tablet 11/18/18 Risperidone [Risperdal -] 2 mg PO HS #30 tablet 11/18/18 Thiamine HCl [Vitamin B1 -] 100 mg PO HS #30 tablet 11/18/18
== END 2018-11-18 09:10 | disposition home or self-care (01) | DRG 772 ==
LOC: YASAS 08:14 → Y3W 11:16
PROVIDERS: ADMIT Neuromusculoskeletal Medicine & OMM; ATTEND Neuromusculoskeletal Medicine & OMM
PROC: HZ42ZZZ Group Counseling for Substance Abuse Treatment, Cognitive-Behavioral (ICD-10-PCS; principal; 2018-11-05)
DX: F10.230 Alcohol dependence with withdrawal, uncomplicated (principal); F14.20 Cocaine dependence, uncomplicated; F12.20 Cannabis dependence, uncomplicated; F17.213 Nicotine dependence, cigarettes, with withdrawal; F20.0 Paranoid schizophrenia; I10 Essential (primary) hypertension; K21.9 Gastro-esophageal reflux disease without esophagitis; G47.00 Insomnia, unspecified; Z91.013 Allergy to seafood; Z87.438 Personal history of other diseases of male genital organs; Z91.14 Patient's other noncompliance with medication regimen
CPT/HCPCS: 81003; J2794

== ENCOUNTER 2019-05-05 09:14 | Inpatient (IN) | payer OTHER ==
[2019-05-05 10:02] VITALS: BMI 32.7
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
[2019-05-05] MEDS ORDERED: MENTHOL/PHENOL 1 EACH UD MM PRN (10:37)
[2019-05-05] MEDS ORDERED: MAGNESIUM CITRATE 300 ML BOTTLE PO PRN (10:37)
[2019-05-05] MEDS ORDERED: P-EPHED 60MG/TRIPROLIDI 2.5MG TABLET PO PRN (10:37)
[2019-05-05] MEDS ORDERED: guaiFENesin 200 MG/10 ML 10 ML UNIT-DOSE CUPS PO PRN (10:37)
[2019-05-05] MEDS ORDERED: MAG HYDROX/AL HYDROX/SIMETH 30 ML UNIT-DOSE CUP PO PRN (10:37)
[2019-05-05] MEDS ORDERED: MAGNESIUM HYDROX 2400MG/30ML ORAL SUSPENSION 30 ML CUP PO PRN (10:37)
[2019-05-05] MEDS ORDERED: IBUPROFEN 400 MG TABLET (FP) PO PRN (10:37)
[2019-05-05] MEDS ORDERED: ACETAMINOPHEN 325 MG TABLET (FP) PO PRN (10:37)
[2019-05-05] MEDS ORDERED: LOPERAMIDE HCL 2 MG CAPSULE PO PRN (10:37)
[2019-05-05 14:49] LABS: HEMATOCRIT 38.1 % (35.4-49); HEMOGLOBIN 12.3 GM/dL (11.7-16.9); MCH 25.3 pg (25.7-33.7); MCHC 32.3 g/dl (32.0-35.9); MEAN CELL VOLUME 78.5 fl (80-96); MEAN PLT VOLUME 8.3 fl (7.5-11.1); PLATELET COUNT 202 K/MM3 (134-434); RBC 4.85 M/mm3 (4.00-5.60); RDW 14.6 % (11.9-15.9); WHITE BLOOD COUNT 5.1 K/mm3 (4.0-10.0)
[2019-05-05 15:03] LABS: ALBUMIN 3.6 g/dl (3.4-5.0); BILIRUBIN,TOTAL 0.3 mg/dL (0.2-1); BLOOD UREA NITROGEN 19.9 mg/dL (7-18); CREATININE 1.3 mg/dL (0.55-1.3); TOT PROT 7.3 g/dl (6.4-8.2)
[2019-05-05] MEDS: THIAMINE HCL 100 MG TABLET (FP) PO SCH (23:00)
[2019-05-06 09:57] LABS: PH,URINE 7.5 (5.0-8.0); URINE APPEARANCE CLEAR; URINE BILIRUBIN NEGATIVE (NEGATIVE); URINE COLOR YELLOW; URINE GLUCOSE (UA) NEGATIVE (NEGATIVE); URINE KETONE TRACE (NEGATIVE); URINE LEUK ESTERASE NEGATIVE (NEGATIVE); URINE NITRITE NEGATIVE (NEGATIVE); URINE PROTEIN NEGATIVE (NEGATIVE)
--- NOTE | 2019-05-06 10:06 | PN ---
[facility] Progress Note Note: CBC, BMP 05/05/19 11:00 05/05/19 11:00 Vital Signs Period Temp Pulse Resp BP Sys/Lubin Pulse Ox Last 24 Hr 96.8 F-97.7 F 71-86 18-20 118-127/70-84 Patient admitted to rehab 05/05/19. VS stable, elevated random glucose and BUN. Last 4 admissions reviewed;no safety concerns documented on any admission. Orders reviewed, home meds reviewed,problem list reviewed. Patient stable.
[2019-05-06] MEDS: PRENATAL VITAMINS W/ FOLIC ACID TABLET (FP) PO SCH (10:41)
[2019-05-06] MEDS: THIAMINE HCL 100 MG TABLET (FP) PO SCH (21:26)
[2019-05-07] MEDS: PRENATAL VITAMINS W/ FOLIC ACID TABLET (FP) PO SCH (10:22)
[2019-05-07] MEDS: THIAMINE HCL 100 MG TABLET (FP) PO SCH (21:49)
[2019-05-08] MEDS: PRENATAL VITAMINS W/ FOLIC ACID TABLET (FP) PO SCH (10:10)
[2019-05-08] MEDS: MELATONIN 5 MG TABLETS PO PRN (21:03)
[2019-05-08] MEDS: THIAMINE HCL 100 MG TABLET (FP) PO SCH (21:03)
[2019-05-09] MEDS: PRENATAL VITAMINS W/ FOLIC ACID TABLET (FP) PO SCH (09:48)
[2019-05-09] MEDS: THIAMINE HCL 100 MG TABLET (FP) PO SCH (21:46)
[2019-05-10] MEDS: PRENATAL VITAMINS W/ FOLIC ACID TABLET (FP) PO SCH (10:26)
[2019-05-10] MEDS: THIAMINE HCL 100 MG TABLET (FP) PO SCH (22:13)
[2019-05-11] MEDS: PRENATAL VITAMINS W/ FOLIC ACID TABLET (FP) PO SCH (09:31)
[2019-05-11] MEDS: THIAMINE HCL 100 MG TABLET (FP) PO SCH (23:25)
[2019-05-12] MEDS: PRENATAL VITAMINS W/ FOLIC ACID TABLET (FP) PO SCH (09:43)
[2019-05-12] MEDS: THIAMINE HCL 100 MG TABLET (FP) PO SCH (21:24)
[2019-05-12] MEDS: MELATONIN 5 MG TABLETS PO PRN (21:24)
[2019-05-13] MEDS: PRENATAL VITAMINS W/ FOLIC ACID TABLET (FP) PO SCH (09:40)
[2019-05-13] MEDS: THIAMINE HCL 100 MG TABLET (FP) PO SCH (21:03)
[2019-05-13] MEDS: MELATONIN 5 MG TABLETS PO PRN (21:03)
[2019-05-14] MEDS: PRENATAL VITAMINS W/ FOLIC ACID TABLET (FP) PO SCH (09:37)
[2019-05-14] MEDS: THIAMINE HCL 100 MG TABLET (FP) PO SCH (21:47)
[2019-05-15] MEDS: PRENATAL VITAMINS W/ FOLIC ACID TABLET (FP) PO SCH (10:00)
[2019-05-15] MEDS: THIAMINE HCL 100 MG TABLET (FP) PO SCH (21:08)
[2019-05-15] MEDS: MELATONIN 5 MG TABLETS PO PRN (21:08)
[2019-05-16] MEDS: PRENATAL VITAMINS W/ FOLIC ACID TABLET (FP) PO SCH (09:59)
[2019-05-16] MEDS: THIAMINE HCL 100 MG TABLET (FP) PO SCH (21:27)
[2019-05-17] MEDS: PRENATAL VITAMINS W/ FOLIC ACID TABLET (FP) PO SCH (09:45)
[2019-05-17] MEDS: THIAMINE HCL 100 MG TABLET (FP) PO SCH (21:32)
[2019-05-18 07:00] VITALS: PULSE 68
[2019-05-18] MEDS: PRENATAL VITAMINS W/ FOLIC ACID TABLET (FP) PO SCH (09:31)
[2019-05-18] MEDS: THIAMINE HCL 100 MG TABLET (FP) PO SCH (21:05)
[2019-05-19 07:13] VITALS: BP 145/94; TEMP 97.7
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
[2019-05-19] MEDS: PRENATAL VITAMINS W/ FOLIC ACID TABLET (FP) PO SCH (09:29)
== END 2019-05-19 09:38 | disposition home or self-care (01) | DRG 772 ==
LOC: YASAS 09:14 → Y3W 10:44
PROVIDERS: ADMIT Neuromusculoskeletal Medicine & OMM; ATTEND Neuromusculoskeletal Medicine & OMM
PROC: HZ42ZZZ Group Counseling for Substance Abuse Treatment, Cognitive-Behavioral (ICD-10-PCS; principal; 2019-05-05)
DX: F10.20 Alcohol dependence, uncomplicated (principal); F14.20 Cocaine dependence, uncomplicated; F12.20 Cannabis dependence, uncomplicated; F17.210 Nicotine dependence, cigarettes, uncomplicated; I10 Essential (primary) hypertension; R73.9 Hyperglycemia, unspecified; R79.89 Other specified abnormal findings of blood chemistry; Z91.14 Patient's other noncompliance with medication regimen; Z91.013 Allergy to seafood
CPT/HCPCS: 36415; 80053; 81003; 85027; 86593; 86803; 87389

== ENCOUNTER 2019-11-22 09:49 | Inpatient (IN) | payer OTHER ==
--- NOTE | 2019-11-22 10:57 | BHS.RME ---
Substance Use & Tx History - Substance Use History Alcohol Substance amount: 1 pint of stefan/6 packs of 16 ozs of beer Frequency of use: Daily Substance route: Oral Date of Last Use: 11/21/19 Cocaine-Crack Substance amount: 60$ Frequency of use: Once a month Substance route: Smoking Date of Last Use: 11/21/19 - Last Treatment Date of last treatment: [facility]/2019 Where was last treatment: Detox Physical/Psych/Mental Status - Behavior General Behavior: Increased activity (restlessness, agitation) Eye Contact: Normal - Cooperativeness Cooperativeness: Cooperative - Thinking Thought Processes: Logical Thought content: Future oriented - Physical Health Problems Is patient presently having any pain?: No Does patient presently have any injuries (include location): No Does patient currently have a fever: No CIWA Nausea/Vomitin Muscle Tremors: 3 Anxiety: 3 Agitation: 3 Paroxysmal Sweats: No Perspiration Orientation: 0-Oriented Tacttile Disturbances: 1-Very Mild Itch/Numbness Auditory Disturbances: 0-None Visual Disturbances: 0-None Headache: 2-Mild CIWA-Ar Total Score: 14
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
[2019-11-22] MEDS ORDERED: ONDANSETRON *ODT* 4 MG TABLET SL ONE (11:23)
[2019-11-22] MEDS ORDERED: METHOCARBAMOL 500 MG TABLET PO PRN (11:23)
[2019-11-22] MEDS ORDERED: chlordiazePOXIDE HCL 25 MG CAPSULE PO PRN (11:23)
[2019-11-22] MEDS ORDERED: MAG HYDROX/AL HYDROX/SIMETH 30 ML UNIT-DOSE CUP PO PRN (11:23)
[2019-11-22] MEDS ORDERED: MAGNESIUM HYDROX 2400MG/30ML ORAL SUSPENSION 30 ML CUP PO PRN (11:23)
[2019-11-22] MEDS ORDERED: NICOTINE POLACRILEX 2 MG GUM BUC PRN (11:23)
[2019-11-22] MEDS ORDERED: IBUPROFEN 400 MG TABLET (FP) PO PRN (11:23)
[2019-11-22] MEDS ORDERED: MAGNESIUM CITRATE 300 ML BOTTLE PO PRN (11:23)
[2019-11-22] MEDS ORDERED: MENTHOL/PHENOL 1 EACH UD MM PRN (11:23)
[2019-11-22] MEDS ORDERED: BISMUTH SUBSALICYLATE 524 MG/30 ML UD PO PRN (11:23)
[2019-11-22] MEDS ORDERED: ACETAMINOPHEN 325 MG TABLET (FP) PO PRN ×2 (11:23)
[2019-11-22 11:54] VITALS: BMI 33.0
[2019-11-22] MEDS ORDERED: TUBERCULIN PPD 5 TU/0.1ML VIAL ID ONE (12:48)
[2019-11-22] MEDS: hydrOXYzine PAMOATE 25 MG CAPSULE (FP) PO SCH ×3 (13:16→22:10)
[2019-11-22] MEDS: chlordiazePOXIDE HCL 25 MG CAPSULE PO SCH ×2 (17:37→22:10)
[2019-11-22] MEDS: THIAMINE HCL 100 MG TABLET (FP) PO SCH (22:10)
[2019-11-22] MEDS: MELATONIN 5 MG TABLETS PO SCH (22:10)
[2019-11-22 22:33] LABS: PH,URINE 5.5 (5.0-8.0); URINE APPEARANCE CLEAR; URINE BILIRUBIN NEGATIVE (NEGATIVE); URINE COLOR YELLOW; URINE GLUCOSE (UA) NEGATIVE (NEGATIVE); URINE KETONE TRACE (NEGATIVE); URINE LEUK ESTERASE TRACE (NEGATIVE); URINE NITRITE NEGATIVE (NEGATIVE); URINE PROTEIN NEGATIVE (NEGATIVE)
[2019-11-22 22:49] LABS: EPI CELLS 24.1 /uL (0-25.1); HYALINE CASTS 6.03 /uL (0-3.1); URINE BACTERIA 10.5 /uL (0-1359); URINE RBC 10.6 /uL (0-23.9)
[2019-11-23] MEDS: chlordiazePOXIDE HCL 25 MG CAPSULE PO SCH ×4 (06:55→22:10)
[2019-11-23] MEDS: hydrOXYzine PAMOATE 25 MG CAPSULE (FP) PO SCH ×5 (06:55→22:10)
[2019-11-23 09:17] LABS: HEMATOCRIT 39.1 % (35.4-49); HEMOGLOBIN 12.5 GM/dL (11.7-16.9); MCH 25.9 pg (25.7-33.7); MEAN CELL VOLUME 80.8 fl (80-96); MEAN PLT VOLUME 8.5 fl (7.5-11.1); PLATELET COUNT 184 K/MM3 (134-434); RBC 4.84 M/mm3 (4.00-5.60); RDW 14.9 % (11.9-15.9); WHITE BLOOD COUNT 3.7 K/mm3 (4.0-10.0)
[2019-11-23 09:36] LABS: ALBUMIN 3.2 g/dl (3.4-5.0); BILIRUBIN,TOTAL 0.5 mg/dL (0.2-1); BLOOD UREA NITROGEN 15.5 mg/dL (7-18); CALCIUM 8.6 mg/dL (8.5-10.1); TOT PROT 6.3 g/dl (6.4-8.2)
[2019-11-23] MEDS: PRENATAL VITAMINS W/ FOLIC ACID TABLET (FP) PO SCH (10:06)
[2019-11-23] MEDS: NICOTINE 7 MG/24 HOURS TOPICAL PATCH TD SCH (10:07)
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
--- NOTE | 2019-11-23 10:36 | PN ---
S CIWA - CIWA Score Nausea/Vomitin-No Nausea/No Vomiting Muscle Tremors: 2 Anxiety: 3 Agitation: 3 Paroxysmal Sweats: 1-Minimal Palms Moist Orientation: 0-Oriented Tacttile Disturbances: 0-None Auditory Disturbances: 2-Mild Harshness/Frighten Visual Disturbances: 0-None Headache: 0-None Present CIWA-Ar Total Score: 11 BHS Progress Note (SOAP) Subjective: Complains of sweats, irritability, anxiety and tremors Objective: 11/23/19 10:35 Vital Signs 11/23/19 11/23/19 11/23/19 03:30 06:12 08:50 Temperature 97.6 F 97.7 F Pulse Rate 62 76 Respiratory 18 18 18 Rate Blood Pressure 100/70 115/78 Laboratory Last Values WBC 3.7 K/mm3 (4.0-10.0) L 11/23/19 07:35 RBC 4.84 M/mm3 (4.00-5.60) 11/23/19 07:35 Hgb 12.5 GM/dL (11.7-16.9) 11/23/19 07:35 Hct 39.1 % (35.4-49) 11/23/19 07:35 MCV 80.8 fl (80-96) 11/23/19 07:35 MCH 25.9 pg (25.7-33.7) 11/23/19 07:35 MCHC 32.0 g/dl (32.0-35.9) 11/23/19 07:35 RDW 14.9 % (11.9-15.9) 11/23/19 07:35 Plt Count 184 K/MM3 (134-434) 11/23/19 07:35 MPV 8.5 fl (7.5-11.1) 11/23/19 07:35 Sodium 144 mmol/L (136-145) 11/23/19 07:35 Potassium 4.0 mmol/L (3.5-5.1) 11/23/19 07:35 Chloride 110 mmol/L (98-107) H 11/23/19 07:35 Carbon Dioxide 26 mmol/L (21-32) 11/23/19 07:35 Anion Gap 8 MMOL/L (8-16) 11/23/19 07:35 BUN 15.5 mg/dL (7-18) 11/23/19 07:35 Creatinine 1.0 mg/dL (0.55-1.3) 11/23/19 07:35 Est GFR (CKD-EPI)AfAm 99.15 11/23/19 07:35 Est GFR (CKD-EPI)NonAf 85.55 11/23/19 07:35 Random Glucose 118 mg/dL (74-106) H 11/23/19 07:35 Calcium 8.6 mg/dL (8.5-10.1) 11/23/19 07:35 Total Bilirubin 0.5 mg/dL (0.2-1) 11/23/19 07:35 AST 14 U/L (15-37) L 11/23/19 07:35 ALT 17 U/L (13-61) 11/23/19 07:35 Alkaline Phosphatase 51 U/L (45-117) 11/23/19 07:35 Total Protein 6.3 g/dl (6.4-8.2) L 11/23/19 07:35 Albumin 3.2 g/dl (3.4-5.0) L 11/23/19 07:35 Urine Color Yellow 11/22/19 22:20 Urine Appearance Clear 11/22/19 22:20 Urine pH 5.5 (5.0-8.0) D 11/22/19 22:20 Ur Specific [place] 1.037 (1.010-1.035) H 11/22/19 22:20 Urine Protein Negative (NEGATIVE) 11/22/19 22:20 Urine Glucose (UA) Negative (NEGATIVE) 11/22/19 22:20 Urine Ketones Trace (NEGATIVE) H 11/22/19 22:20 Urine Blood Negative (NEGATIVE) 11/22/19 22:20 Urine Nitrite Negative (NEGATIVE) 11/22/19 22:20 Urine Bilirubin Negative (NEGATIVE) 11/22/19 22:20 Urine Urobilinogen 1.0 mg/dL (0.2-1.0) 11/22/19 22:20 Ur Leukocyte Esterase Trace (NEGATIVE) 11/22/19 22:20 Urine WBC (Auto) 67.0 /uL (0-25.8) 11/22/19 22:20 Urine RBC (Auto) 10.6 /uL (0-23.9) 07/04/20 22:20 Urine Casts (Auto) 6.03 /uL (0-3.1) 11/22/19 22:20 U Epithel Cells (Auto) 24.1 /uL (0-25.1) 11/22/19 22:20 Urine Bacteria (Auto) 10.5 /uL (0-1359) 11/22/19 22:20 Syphilis Serology Non-reactive (NONREACTIVE) 11/23/19 07:35 HIV Ag/Ab Combo Qual Negative (NEGATIVE) 11/23/19 07:35 Labs reviewed. Assessment: 11/23/19 10:35 Alert and oriented x3, in no acute respiratory distress Full ROM, skin warm to touch, ambulatory on unit without assistance. Mild withdrawal symptoms. Plan: Continue detox protocol.
[2019-11-23] MEDS: MELATONIN 5 MG TABLETS PO SCH (22:10)
[2019-11-23] MEDS: THIAMINE HCL 100 MG TABLET (FP) PO SCH (22:10)
[2019-11-24] MEDS: chlordiazePOXIDE HCL 25 MG CAPSULE PO SCH ×4 (05:47→22:43)
[2019-11-24] MEDS: hydrOXYzine PAMOATE 25 MG CAPSULE (FP) PO SCH ×5 (05:47→22:42)
[2019-11-24] MEDS: PRENATAL VITAMINS W/ FOLIC ACID TABLET (FP) PO SCH (10:19)
[2019-11-24] MEDS: NICOTINE 7 MG/24 HOURS TOPICAL PATCH TD SCH (10:19)
--- NOTE | 2019-11-24 11:52 | PN ---
S CIWA - CIWA Score Nausea/Vomitin-No Nausea/No Vomiting Muscle Tremors: 3 Anxiety: 3 Agitation: 0-Normal Activity Paroxysmal Sweats: 1-Minimal Palms Moist Orientation: 0-Oriented Tacttile Disturbances: 0-None Auditory Disturbances: 0-None Visual Disturbances: 0-None Headache: 0-None Present CIWA-Ar Total Score: 7 BHS Progress Note (SOAP) Subjective: c/o slight anxiety sl tremors sweats detox proceeding well Objective: 11/24/19 11:46 Vital Signs - 24 hr 11/23/19 11/23/19 11/23/19 12:50 16:35 20:48 Temperature 97.3 F L 97.1 F L 97.3 F L Pulse Rate 69 71 83 Respiratory 18 20 17 Rate Blood Pressure 112/80 114/77 133/80 O2 Sat by Pulse 96 95 Oximetry (%) 11/24/19 11/24/19 11/24/19 00:30 03:30 06:23 Temperature 97.6 F Pulse Rate 60 Respiratory 18 20 18 Rate Blood Pressure 107/72 O2 Sat by Pulse 97 Oximetry (%) 11/24/19 09:10 Temperature 98 F Pulse Rate 78 Respiratory 18 Rate Blood Pressure 138/93 O2 Sat by Pulse 97 Oximetry (%) Laboratory Tests 11/22/19 11/23/19 11/23/19 22:20 07:35 07:35 WBC RBC Hgb Hct MCV MCH MCHC RDW Plt Count MPV Sodium Potassium Chloride Carbon Dioxide Anion Gap BUN Creatinine Est GFR (CKD-EPI)AfAm Est GFR (CKD-EPI)NonAf Random Glucose Calcium Total Bilirubin AST ALT Alkaline Phosphatase Total Protein Albumin Urine Color Yellow Urine Appearance Clear Urine pH 5.5 D Ur Specific [place] 1.037 H Urine Protein Negative Urine Glucose (UA) Negative Urine Ketones Trace H Urine Blood Negative Urine Nitrite Negative Urine Bilirubin Negative Urine Urobilinogen 1.0 Ur Leukocyte Esterase Trace Urine WBC (Auto) 67.0 Urine RBC (Auto) 10.6 Urine Casts (Auto) 6.03 U Epithel Cells (Auto) 24.1 Urine Bacteria (Auto) 10.5 Syphilis Serology Non-reactive HIV Ag/Ab Combo Qual Negative 11/23/19 11/23/19 07:35 07:35 WBC 3.7 L RBC 4.84 Hgb 12.5 Hct 39.1 MCV 80.8 MCH 25.9 MCHC 32.0 RDW 14.9 Plt Count 184 MPV 8.5 Sodium 144 Potassium 4.0 Chloride 110 H Carbon Dioxide 26 Anion Gap 8 BUN 15.5 Creatinine 1.0 Est GFR (CKD-EPI)AfAm 99.15 Est GFR (CKD-EPI)NonAf 85.55 Random Glucose 118 H Calcium 8.6 Total Bilirubin 0.5 AST 14 L ALT 17 Alkaline Phosphatase 51 Total Protein 6.3 L Albumin 3.2 L Urine Color Urine Appearance Urine pH Ur Specific [place] Urine Protein Urine Glucose (UA) Urine Ketones Urine Blood Urine Nitrite Urine Bilirubin Urine Urobilinogen Ur Leukocyte Esterase Urine WBC (Auto) Urine RBC (Auto) Urine Casts (Auto) U Epithel Cells (Auto) Urine Bacteria (Auto) Syphilis Serology HIV Ag/Ab Combo Qual covid -19 result pending alert o x 3 nad oob ambulating with steady gait Assessment: 11/24/19 11:47 withdrawal sx Plan: continue detox increase po fluids maintain safety FBS x 2, r/o hyperglycemia
[2019-11-24] MEDS: THIAMINE HCL 100 MG TABLET (FP) PO SCH (22:42)
[2019-11-24] MEDS: MELATONIN 5 MG TABLETS PO SCH (22:42)
[2019-11-25] MEDS ORDERED: chlordiazePOXIDE HCL 10 MG CAPSULE PO PRN
[2019-11-25] MEDS: hydrOXYzine PAMOATE 25 MG CAPSULE (FP) PO SCH ×5 (06:26→22:40)
[2019-11-25] MEDS: chlordiazePOXIDE HCL 10 MG CAPSULE PO SCH ×4 (06:27→22:40)
[2019-11-25] MEDS: NICOTINE 7 MG/24 HOURS TOPICAL PATCH TD SCH (10:11)
[2019-11-25] MEDS: PRENATAL VITAMINS W/ FOLIC ACID TABLET (FP) PO SCH (10:11)
--- NOTE | 2019-11-25 10:53 | PN ---
S CIWA - CIWA Score Nausea/Vomitin-No Nausea/No Vomiting Muscle Tremors: 2 Anxiety: 2 Agitation: 2 Paroxysmal Sweats: No Perspiration Orientation: 0-Oriented Tacttile Disturbances: 0-None Auditory Disturbances: 0-None Visual Disturbances: 0-None Headache: 0-None Present CIWA-Ar Total Score: 6 BHS Progress Note (SOAP) Subjective: Reports decreased withdrawal sx sl anxiety fatigue Objective: 11/25/19 10:49 Vital Signs - 24 hr 11/24/19 11/24/19 11/24/19 12:39 17:00 20:52 Temperature 98.5 F 97.3 F L 98.0 F Pulse Rate 75 75 76 Respiratory 18 20 20 Rate Blood Pressure 106/64 114/73 145/90 O2 Sat by Pulse 95 96 95 Oximetry (%) 11/25/19 11/25/19 11/25/19 00:30 03:30 06:20 Temperature 98.4 F Pulse Rate 60 Respiratory 18 18 18 Rate Blood Pressure 143/98 O2 Sat by Pulse 97 Oximetry (%) Laboratory Tests 11/22/19 11/22/19 11/23/19 11:45 22:20 07:35 WBC RBC Hgb Hct MCV MCH MCHC RDW Plt Count MPV Sodium Potassium Chloride Carbon Dioxide Anion Gap BUN Creatinine Est GFR (CKD-EPI)AfAm Est GFR (CKD-EPI)NonAf POC Glucometer Random Glucose Calcium Total Bilirubin AST ALT Alkaline Phosphatase Total Protein Albumin Urine Color Yellow Urine Appearance Clear Urine pH 5.5 D Ur Specific [place] 1.037 H Urine Protein Negative Urine Glucose (UA) Negative Urine Ketones Trace H Urine Blood Negative Urine Nitrite Negative Urine Bilirubin Negative Urine Urobilinogen 1.0 Ur Leukocyte Esterase Trace Urine WBC (Auto) 67.0 Urine RBC (Auto) 10.6 Urine Casts (Auto) 6.03 U Epithel Cells (Auto) 24.1 Urine Bacteria (Auto) 10.5 Syphilis Serology Non-reactive COVID-19 ([facility]) Not detected HIV Ag/Ab Combo Qual 11/23/19 11/23/19 11/23/19 07:35 07:35 07:35 WBC 3.7 L RBC 4.84 Hgb 12.5 Hct 39.1 MCV 80.8 MCH 25.9 MCHC 32.0 RDW 14.9 Plt Count 184 MPV 8.5 Sodium 144 Potassium 4.0 Chloride 110 H Carbon Dioxide 26 Anion Gap 8 BUN 15.5 Creatinine 1.0 Est GFR (CKD-EPI)AfAm 99.15 Est GFR (CKD-EPI)NonAf 85.55 POC Glucometer Random Glucose 118 H Calcium 8.6 Total Bilirubin 0.5 AST 14 L ALT 17 Alkaline Phosphatase 51 Total Protein 6.3 L Albumin 3.2 L Urine Color Urine Appearance Urine pH Ur Specific [place] Urine Protein Urine Glucose (UA) Urine Ketones Urine Blood Urine Nitrite Urine Bilirubin Urine Urobilinogen Ur Leukocyte Esterase Urine WBC (Auto) Urine RBC (Auto) Urine Casts (Auto) U Epithel Cells (Auto) Urine Bacteria (Auto) Syphilis Serology COVID-19 ([facility]OHAN) HIV Ag/Ab Combo Qual Negative 11/25/19 06:29 WBC RBC Hgb Hct MCV MCH MCHC RDW Plt Count MPV Sodium Potassium Chloride Carbon Dioxide Anion Gap BUN Creatinine Est GFR (CKD-EPI)AfAm Est GFR (CKD-EPI)NonAf POC Glucometer 120 Random Glucose Calcium Total Bilirubin AST ALT Alkaline Phosphatase Total Protein Albumin Urine Color Urine Appearance Urine pH Ur Specific [place] Urine Protein Urine Glucose (UA) Urine Ketones Urine Blood Urine Nitrite Urine Bilirubin Urine Urobilinogen Ur Leukocyte Esterase Urine WBC (Auto) Urine RBC (Auto) Urine Casts (Auto) U Epithel Cells (Auto) Urine Bacteria (Auto) Syphilis Serology COVID-19 ([facility]OHAN) HIV Ag/Ab Combo Qual trace leuk in urine covid-19 not detected alert o x 3 nad oob ambulating with steady gait Assessment: 11/25/19 10:50 mild withdrawal sx Plan: continue detox increase po fluids maintain safety repeat UA
[2019-11-25 17:21] LABS: PH,URINE 8.5 (5.0-8.0); URINE APPEARANCE CLEAR; URINE BILIRUBIN NEGATIVE (NEGATIVE); URINE COLOR YELLOW; URINE GLUCOSE (UA) NEGATIVE (NEGATIVE); URINE KETONE NEGATIVE (NEGATIVE); URINE LEUK ESTERASE NEGATIVE (NEGATIVE); URINE NITRITE NEGATIVE (NEGATIVE); URINE PROTEIN NEGATIVE (NEGATIVE)
[2019-11-25] MEDS: MELATONIN 5 MG TABLETS PO SCH (22:40)
[2019-11-25] MEDS: THIAMINE HCL 100 MG TABLET (FP) PO SCH (22:40)
[2019-11-26] MEDS ORDERED: chlordiazePOXIDE HCL 10 MG CAPSULE PO SCH (05:00)
[2019-11-26 05:34] VITALS: TEMP 97.7
[2019-11-26] MEDS: hydrOXYzine PAMOATE 25 MG CAPSULE (FP) PO SCH ×2 (06:12→10:11)
[2019-11-26] MEDS: PRENATAL VITAMINS W/ FOLIC ACID TABLET (FP) PO SCH (10:11)
[2019-11-26] MEDS: NICOTINE 7 MG/24 HOURS TOPICAL PATCH TD SCH (10:12)
--- NOTE | 2019-11-26 10:36 | PN ---
[facility] CIWA - CIWA Score Nausea/Vomitin-No Nausea/No Vomiting Muscle Tremors: 2 Anxiety: 2 Agitation: 0-Normal Activity Paroxysmal Sweats: 3 Orientation: 0-Oriented Tacttile Disturbances: 0-None Auditory Disturbances: 0-None Visual Disturbances: 0-None Headache: 0-None Present CIWA-Ar Total Score: 7 BHS Progress Note (SOAP) Subjective: Reports detox is proceeding well and 'just resting". last dose of librium 10 mg on 11/27/19. slight anxiety increased sweats Objective: 11/26/19 10:33 Vital Signs - 24 hr 11/25/19 11/25/19 11/25/19 13:25 16:50 20:55 Temperature 97.9 F 98.2 F 97.5 F L Pulse Rate 75 85 84 Respiratory 18 18 18 Rate Blood Pressure 133/71 144/106 H 132/98 O2 Sat by Pulse 95 96 Oximetry (%) 11/26/19 11/26/19 00:30 05:33 Temperature 97.7 F Pulse Rate 65 Respiratory 18 18 Rate Blood Pressure 128/73 O2 Sat by Pulse 96 Oximetry (%) Laboratory Tests 11/22/19 11/22/19 11/23/19 11:45 22:20 07:35 WBC RBC Hgb Hct MCV MCH MCHC RDW Plt Count MPV Sodium Potassium Chloride Carbon Dioxide Anion Gap BUN Creatinine Est GFR (CKD-EPI)AfAm Est GFR (CKD-EPI)NonAf POC Glucometer Random Glucose Calcium Total Bilirubin AST ALT Alkaline Phosphatase Total Protein Albumin Urine Color Yellow Urine Appearance Clear Urine pH 5.5 D Ur Specific [place] 1.037 H Urine Protein Negative Urine Glucose (UA) Negative Urine Ketones Trace H Urine Blood Negative Urine Nitrite Negative Urine Bilirubin Negative Urine Urobilinogen 1.0 Ur Leukocyte Esterase Trace Urine WBC (Auto) 67.0 Urine RBC (Auto) 10.6 Urine Casts (Auto) 6.03 U Epithel Cells (Auto) 24.1 Urine Bacteria (Auto) 10.5 Syphilis Serology Non-reactive COVID-19 ([facility]) Not detected HIV Ag/Ab Combo Qual 11/23/19 11/23/19 11/23/19 07:35 07:35 07:35 WBC 3.7 L RBC 4.84 Hgb 12.5 Hct 39.1 MCV 80.8 MCH 25.9 MCHC 32.0 RDW 14.9 Plt Count 184 MPV 8.5 Sodium 144 Potassium 4.0 Chloride 110 H Carbon Dioxide 26 Anion Gap 8 BUN 15.5 Creatinine 1.0 Est GFR (CKD-EPI)AfAm 99.15 Est GFR (CKD-EPI)NonAf 85.55 POC Glucometer Random Glucose 118 H Calcium 8.6 Total Bilirubin 0.5 AST 14 L ALT 17 Alkaline Phosphatase 51 Total Protein 6.3 L Albumin 3.2 L Urine Color Urine Appearance Urine pH Ur Specific [place] Urine Protein Urine Glucose (UA) Urine Ketones Urine Blood Urine Nitrite Urine Bilirubin Urine Urobilinogen Ur Leukocyte Esterase Urine WBC (Auto) Urine RBC (Auto) Urine Casts (Auto) U Epithel Cells (Auto) Urine Bacteria (Auto) Syphilis Serology COVID-19 ([facility]) HIV Ag/Ab Combo Qual Negative 11/25/19 11/25/19 11/26/19 06:29 15:09 06:16 WBC RBC Hgb Hct MCV MCH MCHC RDW Plt Count MPV Sodium Potassium Chloride Carbon Dioxide Anion Gap BUN Creatinine Est GFR (CKD-EPI)AfAm Est GFR (CKD-EPI)NonAf POC Glucometer 120 113 Random Glucose Calcium Total Bilirubin AST ALT Alkaline Phosphatase Total Protein Albumin Urine Color Yellow Urine Appearance Clear Urine pH 8.5 H D Ur Specific [place] 1.021 Urine Protein Negative Urine Glucose (UA) Negative Urine Ketones Negative Urine Blood Negative Urine Nitrite Negative Urine Bilirubin Negative Urine Urobilinogen 1.0 Ur Leukocyte Esterase Negative Urine WBC (Auto) Urine RBC (Auto) Urine Casts (Auto) U Epithel Cells (Auto) Urine Bacteria (Auto) Syphilis Serology COVID-19 ([facility]) HIV Ag/Ab Combo Qual covid-19 not detected Assessment: 11/26/19 10:34 mild withdrawal sx Plan: continue detox increase po fluids maintain safety d/c pt in a.m if stable f/u with counselor for final aftercare referral plans.
[2019-11-26 12:21] VITALS: BP 125/92; PULSE 83
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
[2019-11-27] MEDS ORDERED: chlordiazePOXIDE HCL 10 MG CAPSULE PO ONE (05:00)
== END 2019-11-26 13:15 | disposition home or self-care (01) | DRG 774 ==
LOC: YASAS 09:49 → Y5N DETOX 11:23
PROVIDERS: ADMIT Allergy & Immunology; ATTEND Allergy & Immunology
PROC: HZ2ZZZZ Detoxification Services for Substance Abuse Treatment (ICD-10-PCS; principal; 2019-11-22)
DX: F10.230 Alcohol dependence with withdrawal, uncomplicated (principal); F14.20 Cocaine dependence, uncomplicated; F12.20 Cannabis dependence, uncomplicated; F17.213 Nicotine dependence, cigarettes, with withdrawal; F20.0 Paranoid schizophrenia; F32.9 Major depressive disorder, single episode, unspecified; I10 Essential (primary) hypertension; K21.9 Gastro-esophageal reflux disease without esophagitis; M54.5 Low back pain; G89.29 Other chronic pain; Z86.19 Personal history of other infectious and parasitic diseases; Z91.410 Personal history of adult physical and sexual abuse; Z87.442 Personal history of urinary calculi; Z91.14 Patient's other noncompliance with medication regimen; Z91.018 Allergy to other foods
CPT/HCPCS: 36415; 80053; 81003; 82962; 85027; 86780; 87389; U0003

== ENCOUNTER 2020-01-04 08:53 | Inpatient (IN) | payer OTHER ==
--- NOTE | 2020-01-04 09:25 | BHS.RME ---
Substance Use & Tx History - Substance Use History Alcohol Substance amount: 1 pint of stefan/6 packs of 16 ozs of beer Frequency of use: Daily Substance route: Oral Date of Last Use: 01/04/20 Cocaine- Powder Substance amount: 40 $ of cocaine Substance route: Inhalation (ex: sniffing or snorting) Date of Last Use: 01/02/20 - Last Treatment Date of last treatment: [facility] 11/22/19 to 11/26/19 Where was last treatment: Rehab Physical/Psych/Mental Status - Behavior Eye Contact: Normal - Cooperativeness Cooperativeness: Cooperative - Thinking Thought Processes: Logical Thought content: Future oriented - Physical Health Problems Is patient presently having any pain?: No Does patient presently have any injuries (include location): No Does patient currently have a fever: No CIWA Nausea/Vomitin Muscle Tremors: 3 Anxiety: 3 Agitation: 3 Paroxysmal Sweats: 1-Minimal Palms Moist Orientation: 0-Oriented Tacttile Disturbances: 0-None Auditory Disturbances: 0-None Visual Disturbances: 0-None Headache: 2-Mild CIWA-Ar Total Score: 14
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
[2020-01-04] MEDS ORDERED: ACETAMINOPHEN 325 MG TABLET (FP) PO PRN ×2 (09:51)
[2020-01-04] MEDS ORDERED: MAGNESIUM CITRATE 300 ML BOTTLE PO PRN (09:51)
[2020-01-04] MEDS ORDERED: ONDANSETRON *ODT* 4 MG TABLET SL ONE (09:51)
[2020-01-04] MEDS ORDERED: NICOTINE POLACRILEX 2 MG GUM BUC PRN (09:51)
[2020-01-04] MEDS ORDERED: MENTHOL/PHENOL 1 EACH UD MM PRN (09:51)
[2020-01-04] MEDS ORDERED: MAG HYDROX/AL HYDROX/SIMETH 30 ML UNIT-DOSE CUP PO PRN (09:51)
[2020-01-04] MEDS ORDERED: IBUPROFEN 400 MG TABLET (FP) PO PRN (09:51)
[2020-01-04] MEDS ORDERED: MAGNESIUM HYDROX 2400MG/30ML ORAL SUSPENSION 30 ML CUP PO PRN (09:51)
[2020-01-04] MEDS ORDERED: BISMUTH SUBSALICYLATE 524 MG/30 ML UD PO PRN (09:51)
[2020-01-04] MEDS ORDERED: METHOCARBAMOL 500 MG TABLET PO PRN (09:51)
[2020-01-04] MEDS ORDERED: chlordiazePOXIDE HCL 25 MG CAPSULE PO PRN (09:51)
[2020-01-04 10:00] VITALS: BMI 32.8
[2020-01-04] MEDS: hydrOXYzine PAMOATE 25 MG CAPSULE (FP) PO SCH ×4 (12:57→22:37)
[2020-01-04] MEDS: PRENATAL VITAMINS W/ FOLIC ACID TABLET (FP) PO SCH (12:57)
[2020-01-04] MEDS: chlordiazePOXIDE HCL 25 MG CAPSULE PO SCH ×3 (12:57→22:37)
[2020-01-04] MEDS: NICOTINE 21 MG/24 HOURS TOPICAL PATCH TD SCH (12:57)
[2020-01-04] MEDS: MELATONIN 5 MG TABLETS PO SCH (22:37)
[2020-01-04] MEDS: THIAMINE HCL 100 MG TABLET (FP) PO SCH (22:37)
[2020-01-05] MEDS: chlordiazePOXIDE HCL 25 MG CAPSULE PO SCH ×4 (05:22→22:42)
[2020-01-05] MEDS: hydrOXYzine PAMOATE 25 MG CAPSULE (FP) PO SCH ×5 (05:23→22:43)
[2020-01-05] MEDS: PRENATAL VITAMINS W/ FOLIC ACID TABLET (FP) PO SCH (10:47)
[2020-01-05] MEDS: NICOTINE 21 MG/24 HOURS TOPICAL PATCH TD SCH (10:49)
[2020-01-05 12:08] LABS: HEMATOCRIT 39.2 % (35.4-49); HEMOGLOBIN 12.7 GM/dL (11.7-16.9); MCH 26.2 pg (25.7-33.7); MCHC 32.4 g/dl (32.0-35.9); MEAN CELL VOLUME 80.8 fl (80-96); MEAN PLT VOLUME 8.9 fl (7.5-11.1); PLATELET COUNT 178 K/MM3 (134-434); RBC 4.86 M/mm3 (4.00-5.60); RDW 14.6 % (11.9-15.9); WHITE BLOOD COUNT 3.4 K/mm3 (4.0-10.0)
[2020-01-05 13:33] LABS: ALBUMIN 3.1 g/dl (3.4-5.0); BILIRUBIN,TOTAL 0.2 mg/dL (0.2-1); BLOOD UREA NITROGEN 18.2 mg/dL (7-18); CALCIUM 8.6 mg/dL (8.5-10.1); CREATININE 1.1 mg/dL (0.55-1.3); POTASSIUM 4.1 mmol/L (3.5-5.1); TOT PROT 6.2 g/dl (6.4-8.2)
--- NOTE | 2020-01-05 14:22 | PN ---
S CIWA - CIWA Score Nausea/Vomitin Muscle Tremors: 2 Anxiety: 2 Agitation: 2 Paroxysmal Sweats: 2 Orientation: 0-Oriented Tacttile Disturbances: 1-Very Mild Itch/Numbness Auditory Disturbances: 0-None Visual Disturbances: 1-Very Mild Sensitivity Headache: 1-Very Mild CIWA-Ar Total Score: 13 BHS Progress Note (SOAP) Subjective: alert,irritable,anxious,interrupted sleep,tremor,aching pain Objective: 01/05/20 17:47 Vital Signs Temperature 97.1 F L 01/05/20 16:40 Pulse Rate 72 01/05/20 16:40 Respiratory Rate 18 01/05/20 16:40 Blood Pressure 113/78 01/05/20 16:40 O2 Sat by Pulse Oximetry (%) 97 01/05/20 06:36 Laboratory Last Values WBC 3.4 K/mm3 (4.0-10.0) L 01/05/20 08:15 RBC 4.86 M/mm3 (4.00-5.60) 01/05/20 08:15 Hgb 12.7 GM/dL (11.7-16.9) 01/05/20 08:15 Hct 39.2 % (35.4-49) 01/05/20 08:15 MCV 80.8 fl (80-96) 01/05/20 08:15 MCH 26.2 pg (25.7-33.7) 01/05/20 08:15 MCHC 32.4 g/dl (32.0-35.9) 01/05/20 08:15 RDW 14.6 % (11.9-15.9) 01/05/20 08:15 Plt Count 178 K/MM3 (134-434) 01/05/20 08:15 MPV 8.9 fl (7.5-11.1) 01/05/20 08:15 Sodium 141 mmol/L (136-145) 01/05/20 08:15 Potassium 4.1 mmol/L (3.5-5.1) 01/05/20 08:15 Chloride 107 mmol/L (98-107) 01/05/20 08:15 Carbon Dioxide 28 mmol/L (21-32) 01/05/20 08:15 Anion Gap 6 MMOL/L (8-16) L 01/05/20 08:15 BUN 18.2 mg/dL (7-18) H 01/05/20 08:15 Creatinine 1.1 mg/dL (0.55-1.3) 01/05/20 08:15 Est GFR (CKD-EPI)AfAm 88.36 01/05/20 08:15 Est GFR (CKD-EPI)NonAf 76.24 01/05/20 08:15 Random Glucose 106 mg/dL (74-106) 01/05/20 08:15 Calcium 8.6 mg/dL (8.5-10.1) 01/05/20 08:15 Total Bilirubin 0.2 mg/dL (0.2-1) 01/05/20 08:15 AST 18 U/L (15-37) 01/05/20 08:15 ALT 16 U/L (13-61) 01/05/20 08:15 Alkaline Phosphatase 50 U/L (45-117) 01/05/20 08:15 Total Protein 6.2 g/dl (6.4-8.2) L 01/05/20 08:15 Albumin 3.1 g/dl (3.4-5.0) L 01/05/20 08:15 Urine Color Yellow 01/05/20 11:40 Urine Appearance Clear 01/05/20 11:40 Urine pH 5.0 (5.0-8.0) D 01/05/20 11:40 Ur Specific [place] 1.025 (1.010-1.035) 01/05/20 11:40 Urine Protein Negative (NEGATIVE) 01/05/20 11:40 Urine Glucose (UA) Negative (NEGATIVE) 01/05/20 11:40 Urine Ketones Trace (NEGATIVE) 01/05/20 11:40 Urine Blood Negative (NEGATIVE) 01/05/20 11:40 Urine Nitrite Negative (NEGATIVE) 01/05/20 11:40 Urine Bilirubin Negative (NEGATIVE) 01/05/20 11:40 Urine Urobilinogen 1.0 mg/dL (0.2-1.0) 01/05/20 11:40 Ur Leukocyte Esterase Negative (NEGATIVE) 01/05/20 11:40 Syphilis Serology Non-reactive (NONREACTIVE) 01/05/20 08:15 HIV Ag/Ab Combo Qual Negative (NEGATIVE) 01/05/20 08:15 Assessment: 01/05/20 17:48 withdrawal symptom Plan: continue detox librium regimen,encourage oral fluid
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
[2020-01-05 16:48] LABS: URINE APPEARANCE Clear; URINE BILIRUBIN Negative (NEGATIVE); URINE COLOR Yellow; URINE GLUCOSE (UA) Negative (NEGATIVE); URINE KETONE Trace (NEGATIVE); URINE LEUK ESTERASE Negative (NEGATIVE); URINE NITRITE Negative (NEGATIVE); URINE PROTEIN Negative (NEGATIVE)
[2020-01-05] MEDS: MELATONIN 5 MG TABLETS PO SCH (22:43)
[2020-01-05] MEDS: THIAMINE HCL 100 MG TABLET (FP) PO SCH (22:43)
[2020-01-06] MEDS: chlordiazePOXIDE HCL 25 MG CAPSULE PO SCH ×4 (05:12→22:18)
[2020-01-06] MEDS: hydrOXYzine PAMOATE 25 MG CAPSULE (FP) PO SCH ×5 (05:12→22:18)
[2020-01-06] MEDS: PRENATAL VITAMINS W/ FOLIC ACID TABLET (FP) PO SCH (10:28)
[2020-01-06] MEDS: NICOTINE 21 MG/24 HOURS TOPICAL PATCH TD SCH (10:29)
--- NOTE | 2020-01-06 13:46 | PN ---
S CIWA - CIWA Score Nausea/Vomitin-Mild Nausea/No Vomiting Muscle Tremors: 2 Anxiety: 2 Agitation: 1-Slight > Activity Paroxysmal Sweats: No Perspiration Orientation: 0-Oriented Tacttile Disturbances: 0-None Auditory Disturbances: 0-None Visual Disturbances: 0-None Headache: 1-Very Mild CIWA-Ar Total Score: 7 S Progress Note (SOAP) Subjective: alert,irritable,anxious,interrupted sleep,aching pain in the body Objective: 01/06/20 13:45 Vital Signs Temperature 96.6 F L 01/06/20 09:20 Pulse Rate 99 H 01/06/20 09:20 Respiratory Rate 20 01/06/20 09:20 Blood Pressure 123/83 01/06/20 09:20 O2 Sat by Pulse Oximetry (%) 96 01/06/20 06:09 Assessment: 01/06/20 13:45 withdrawal symptom Plan: continue detox librium regimen,Dr Rodriguez consultation greatly appreciated
[2020-01-06] MEDS: MELATONIN 5 MG TABLETS PO SCH (22:18)
[2020-01-06] MEDS: THIAMINE HCL 100 MG TABLET (FP) PO SCH (22:18)
[2020-01-07] MEDS ORDERED: chlordiazePOXIDE HCL 10 MG CAPSULE PO PRN
[2020-01-07] MEDS: hydrOXYzine PAMOATE 25 MG CAPSULE (FP) PO SCH ×5 (05:19→22:26)
[2020-01-07] MEDS: chlordiazePOXIDE HCL 10 MG CAPSULE PO SCH ×4 (05:20→22:27)
[2020-01-07] MEDS: PRENATAL VITAMINS W/ FOLIC ACID TABLET (FP) PO SCH (10:15)
[2020-01-07] MEDS: NICOTINE 21 MG/24 HOURS TOPICAL PATCH TD SCH (10:15)
--- NOTE | 2020-01-07 14:08 | PN ---
S CIWA - CIWA Score Nausea/Vomitin-No Nausea/No Vomiting Muscle Tremors: 2 Anxiety: 2 Agitation: 1-Slight > Activity Paroxysmal Sweats: No Perspiration Orientation: 0-Oriented Tacttile Disturbances: 0-None Auditory Disturbances: 0-None Visual Disturbances: 0-None Headache: 1-Very Mild CIWA-Ar Total Score: 6 BHS Progress Note (SOAP) Subjective: alert,irritable,anxious,interrupted sleep Objective: 01/07/20 14:06 Vital Signs Temperature 97.4 F L 01/07/20 12:36 Pulse Rate 80 01/07/20 12:36 Respiratory Rate 18 01/07/20 12:36 Blood Pressure 129/75 01/07/20 12:36 O2 Sat by Pulse Oximetry (%) 97 01/07/20 12:36 Assessment: 01/07/20 14:07 withdrawal symptom Plan: continue detox librium regimen
[2020-01-07] MEDS: THIAMINE HCL 100 MG TABLET (FP) PO SCH (22:26)
[2020-01-07] MEDS: MELATONIN 5 MG TABLETS PO SCH (22:27)
[2020-01-08] MEDS: chlordiazePOXIDE HCL 10 MG CAPSULE PO SCH ×2 (05:20→17:40)
[2020-01-08] MEDS: hydrOXYzine PAMOATE 25 MG CAPSULE (FP) PO SCH ×5 (05:20→22:10)
[2020-01-08] MEDS: PRENATAL VITAMINS W/ FOLIC ACID TABLET (FP) PO SCH (10:44)
[2020-01-08] MEDS: NICOTINE 21 MG/24 HOURS TOPICAL PATCH TD SCH (10:44)
--- NOTE | 2020-01-08 16:59 | PN ---
S CIWA - CIWA Score Nausea/Vomitin-No Nausea/No Vomiting Muscle Tremors: 1-None Visible, but [place] Anxiety: 1-Mildly Anxious Agitation: 1-Slight > Activity Paroxysmal Sweats: No Perspiration Orientation: 0-Oriented Tacttile Disturbances: 0-None Auditory Disturbances: 0-None Visual Disturbances: 0-None Headache: 1-Very Mild CIWA-Ar Total Score: 4 BHS Progress Note (SOAP) Subjective: alert,irritable,anxious,interrupted sleep,aching pain Objective: 01/08/20 16:53 Vital Signs Temperature 97.1 F L 01/08/20 12:54 Pulse Rate 99 H 01/08/20 12:54 Respiratory Rate 18 01/08/20 12:54 Blood Pressure 131/87 01/08/20 12:54 O2 Sat by Pulse Oximetry (%) 98 01/08/20 12:54 Assessment: 01/08/20 16:57 withdrawal symptom Plan: continue detox librium regimen,discharge in am
[2020-01-08] MEDS: MELATONIN 5 MG TABLETS PO SCH (22:10)
[2020-01-08] MEDS: THIAMINE HCL 100 MG TABLET (FP) PO SCH (22:10)
[2020-01-09] MEDS ORDERED: chlordiazePOXIDE HCL 10 MG CAPSULE PO ONE (05:00)
[2020-01-09] MEDS: hydrOXYzine PAMOATE 25 MG CAPSULE (FP) PO SCH ×2 (05:44→10:33)
[2020-01-09 09:40] VITALS: BP 133/89; PULSE 67; TEMP 97.1
[2020-01-09] MEDS: PRENATAL VITAMINS W/ FOLIC ACID TABLET (FP) PO SCH (10:32)
[2020-01-09] MEDS: NICOTINE 21 MG/24 HOURS TOPICAL PATCH TD SCH (10:33)
[2020-01-09] MEDS ORDERED: MASKS NR ONE (10:35)
--- NOTE | 2020-01-09 12:21 | PN ---
[facility] CIWA - CIWA Score Nausea/Vomitin-No Nausea/No Vomiting Muscle Tremors: None Anxiety: 1-Mildly Anxious Agitation: 0-Normal Activity Paroxysmal Sweats: No Perspiration Orientation: 0-Oriented Tacttile Disturbances: 0-None Auditory Disturbances: 0-None Visual Disturbances: 0-None Headache: 0-None Present CIWA-Ar Total Score: 1 S Progress Note (SOAP) Subjective: alert,no complaint Objective: 01/09/20 12:23 Vital Signs Temperature 97.1 F L 01/09/20 08:41 Pulse Rate 67 01/09/20 08:41 Respiratory Rate 20 01/09/20 08:41 Blood Pressure 133/89 01/09/20 08:41 O2 Sat by Pulse Oximetry (%) 96 01/09/20 06:32 Assessment: 01/09/20 12:24 detox complete,no withdrawal symptom Plan: stable for discharge today for [facility]
--- NOTE | 2020-01-09 12:33 | DS ---
[facility] Detox Discharge Summary Admission Date: 01/04/20 Discharge Date: 01/09/20 - History Present History: Alcohol Dependence, Cannabis Dependence Additional Comments: alert,oriented x 3 ambulation on the unit lung clear on auscultation bilaterally abdomen no pain or tenderness no edema of legs detox completed,no withdrawal symptom total time of discharge 35 minutes follow up with after care program as arrangement revelation Pertinent Past History: nicotine dependence history of schizophrenia history of kidney stone history of right knee surgery history of schizophrenia hypertension - Physical Exam Results Vital Signs: Vital Signs Temperature 97.1 F L 01/09/20 08:41 Pulse Rate 67 01/09/20 08:41 Respiratory Rate 20 01/09/20 08:41 Blood Pressure 133/89 01/09/20 08:41 O2 Sat by Pulse Oximetry (%) 96 01/09/20 06:32 Pertinent Admission Physical Exam Findings: withdrawal signs and symptom Laboratory Last Values WBC 3.4 K/mm3 (4.0-10.0) L 01/05/20 08:15 RBC 4.86 M/mm3 (4.00-5.60) 01/05/20 08:15 Hgb 12.7 GM/dL (11.7-16.9) 01/05/20 08:15 Hct 39.2 % (35.4-49) 01/05/20 08:15 MCV 80.8 fl (80-96) 01/05/20 08:15 MCH 26.2 pg (25.7-33.7) 01/05/20 08:15 MCHC 32.4 g/dl (32.0-35.9) 01/05/20 08:15 RDW 14.6 % (11.9-15.9) 01/05/20 08:15 Plt Count 178 K/MM3 (134-434) 01/05/20 08:15 MPV 8.9 fl (7.5-11.1) 01/05/20 08:15 Sodium 141 mmol/L (136-145) 01/05/20 08:15 Potassium 4.1 mmol/L (3.5-5.1) 01/05/20 08:15 Chloride 107 mmol/L (98-107) 01/05/20 08:15 Carbon Dioxide 28 mmol/L (21-32) 01/05/20 08:15 Anion Gap 6 MMOL/L (8-16) L 01/05/20 08:15 BUN 18.2 mg/dL (7-18) H 01/05/20 08:15 Creatinine 1.1 mg/dL (0.55-1.3) 01/05/20 08:15 Est GFR (CKD-EPI)AfAm 88.36 01/05/20 08:15 Est GFR (CKD-EPI)NonAf 76.24 01/05/20 08:15 Random Glucose 106 mg/dL (74-106) 01/05/20 08:15 Calcium 8.6 mg/dL (8.5-10.1) 01/05/20 08:15 Total Bilirubin 0.2 mg/dL (0.2-1) 01/05/20 08:15 AST 18 U/L (15-37) 01/05/20 08:15 ALT 16 U/L (13-61) 01/05/20 08:15 Alkaline Phosphatase 50 U/L (45-117) 01/05/20 08:15 Total Protein 6.2 g/dl (6.4-8.2) L 01/05/20 08:15 Albumin 3.1 g/dl (3.4-5.0) L 01/05/20 08:15 Urine Color Yellow 01/05/20 11:40 Urine Appearance Clear 01/05/20 11:40 Urine pH 5.0 (5.0-8.0) D 01/05/20 11:40 Ur Specific [place] 1.025 (1.010-1.035) 01/05/20 11:40 Urine Protein Negative (NEGATIVE) 01/05/20 11:40 Urine Glucose (UA) Negative (NEGATIVE) 01/05/20 11:40 Urine Ketones Trace (NEGATIVE) 01/05/20 11:40 Urine Blood Negative (NEGATIVE) 01/05/20 11:40 Urine Nitrite Negative (NEGATIVE) 01/05/20 11:40 Urine Bilirubin Negative (NEGATIVE) 01/05/20 11:40 Urine Urobilinogen 1.0 mg/dL (0.2-1.0) 01/05/20 11:40 Ur Leukocyte Esterase Negative (NEGATIVE) 01/05/20 11:40 Urine Crystals (Auto) 2-4 /hpf 01/05/20 11:40 Syphilis Serology Non-reactive (NONREACTIVE) 01/05/20 08:15 COVID-19 (YOHAN) Not detected (Not Detected) 01/04/20 Unknown HIV Ag/Ab Combo Qual Negative (NEGATIVE) 01/05/20 08:15 Vital Signs Temperature 97.1 F L 01/09/20 08:41 Pulse Rate 67 01/09/20 08:41 Respiratory Rate 01/09/20 08:41 Blood Pressure 133/89 01/09/20 08:41 O2 Sat by Pulse Oximetry (%) 96 01/09/20 06:32 - Treatment Hospital Course: Detox Protocol Followed, Detoxed Safely, Responded well, Discharged Condition Good, Rehab Referral Accepted Patient has Accepted a Rehab Referral to: [facility] - Medication Discharge Medications: Ambulatory Orders Lisinopril [Prinivil] 10 mg PO DAILY 01/04/20 - Diagnosis (1) History of schizophrenia Status: Chronic (2) Alcohol dependence with uncomplicated withdrawal Status: Acute (3) Cocaine dependence, uncomplicated Status: Chronic (4) Nicotine dependence Status: Chronic Qualifiers: Nicotine product type: cigarettes Substance use status: in withdrawal Q ualified Code(s): F17.213 - Nicotine dependence, cigarettes, with withdrawal (5) History of hypertension Status: Chronic (6) Kidney stone on right side Status: Resolved (7) History of right knee surgery Status: Acute - AMA Did Patient Leave Against Medical Advice: No
== END 2020-01-09 11:33 | disposition other institution (70) | DRG 774 ==
LOC: YASAS 08:53 → Y3N 10:30
PROVIDERS: ADMIT Allergy & Immunology; ATTEND Allergy & Immunology
PROC: HZ2ZZZZ Detoxification Services for Substance Abuse Treatment (ICD-10-PCS; principal; 2020-01-04)
DX: F10.230 Alcohol dependence with withdrawal, uncomplicated (principal); F14.20 Cocaine dependence, uncomplicated; F12.20 Cannabis dependence, uncomplicated; F17.210 Nicotine dependence, cigarettes, uncomplicated; F33.9 Major depressive disorder, recurrent, unspecified; F20.9 Schizophrenia, unspecified; K21.9 Gastro-esophageal reflux disease without esophagitis; Z86.19 Personal history of other infectious and parasitic diseases; Z91.14 Patient's other noncompliance with medication regimen; Z87.442 Personal history of urinary calculi; Z87.828 Personal history of other (healed) physical injury and trauma; Z56.0 Unemployment, unspecified; Z91.013 Allergy to seafood
CPT/HCPCS: 36415; 80053; 81003; 85027; 86780; 87389; U0003

== ENCOUNTER 2020-01-09 11:39 | Inpatient (IN) | payer OTHER ==
[2020-01-09] MEDS ORDERED: hydrOXYzine PAMOATE 25 MG CAPSULE (FP) PO PRN (14:08)
[2020-01-09] MEDS ORDERED: IBUPROFEN 400 MG TABLET (FP) PO PRN (14:08)
[2020-01-09] MEDS ORDERED: NICOTINE POLACRILEX 2 MG GUM BUC PRN (14:08)
[2020-01-09] MEDS ORDERED: MAG HYDROX/AL HYDROX/SIMETH 30 ML UNIT-DOSE CUP PO PRN (14:08)
[2020-01-09] MEDS ORDERED: P-EPHED 60MG/TRIPROLIDI 2.5MG TABLET PO PRN (14:08)
[2020-01-09] MEDS ORDERED: ACETAMINOPHEN 325 MG TABLET (FP) PO PRN (14:08)
[2020-01-09] MEDS ORDERED: MAGNESIUM HYDROX 2400MG/30ML ORAL SUSPENSION 30 ML CUP PO PRN (14:08)
[2020-01-09] MEDS ORDERED: MENTHOL/PHENOL 1 EACH UD MM PRN (14:08)
[2020-01-09] MEDS ORDERED: LOPERAMIDE HCL 2 MG CAPSULE PO PRN (14:08)
[2020-01-09] MEDS ORDERED: MAGNESIUM CITRATE 300 ML BOTTLE PO PRN (14:08)
[2020-01-09] MEDS ORDERED: guaiFENesin 200 MG/10 ML 10 ML UNIT-DOSE CUPS PO PRN (14:08)
--- NOTE | 2020-01-09 14:09 | HP ---
[facility] Rehab Assess/Revision - Admission History Admitted to Rehab from: [facility] - Vital signs Vital Signs: Vital Signs Period Temp Pulse Resp BP Sys/Lubin Pulse Ox Last 24 Hr 97.7 F 75 18 122/79 97 - Findings Detox History & Physical reviewed: Yes Concur with findings: Yes Inpatient Rehab Admission - Rehab Decision to Admit Inpatient rehab admission?: Yes - Initial Determination Are CD services needed?: Yes Free of communicable disease: Yes Not in need of hospitalization: Yes - Rehab Admission Criteria Previous failed treatment: Yes Poor recovery environment: Yes Comorbidities: Yes Lacks judgement: No Patient is meeting Inpatient Rehab admission criteria:: Yes
[2020-01-09] MEDS: MELATONIN 5 MG TABLETS PO SCH (21:23)
[2020-01-09] MEDS: THIAMINE HCL 100 MG TABLET (FP) PO SCH (21:23)
[2020-01-10] MEDS: PRENATAL VITAMINS W/ FOLIC ACID TABLET (FP) PO SCH (10:12)
[2020-01-10] MEDS: NICOTINE 21 MG/24 HOURS TOPICAL PATCH TD SCH (10:12)
[2020-01-10] MEDS: LISINOPRIL 10 MG TABLET (FP) PO SCH (10:13)
[2020-01-10] MEDS: THIAMINE HCL 100 MG TABLET (FP) PO SCH (22:23)
[2020-01-10] MEDS: MELATONIN 5 MG TABLETS PO SCH (22:23)
[2020-01-11] MEDS: LISINOPRIL 10 MG TABLET (FP) PO SCH (09:08)
[2020-01-11] MEDS: NICOTINE 21 MG/24 HOURS TOPICAL PATCH TD SCH (09:08)
[2020-01-11] MEDS: PRENATAL VITAMINS W/ FOLIC ACID TABLET (FP) PO SCH (09:08)
[2020-01-11] MEDS: MELATONIN 5 MG TABLETS PO SCH (22:28)
[2020-01-11] MEDS: THIAMINE HCL 100 MG TABLET (FP) PO SCH (22:29)
[2020-01-12] MEDS: LISINOPRIL 10 MG TABLET (FP) PO SCH (10:19)
[2020-01-12] MEDS: PRENATAL VITAMINS W/ FOLIC ACID TABLET (FP) PO SCH (10:19)
[2020-01-12] MEDS: NICOTINE 21 MG/24 HOURS TOPICAL PATCH TD SCH (10:20)
[2020-01-12] MEDS: MELATONIN 5 MG TABLETS PO SCH (21:33)
[2020-01-12] MEDS: THIAMINE HCL 100 MG TABLET (FP) PO SCH (21:33)
[2020-01-13] MEDS: LISINOPRIL 10 MG TABLET (FP) PO SCH (09:51)
[2020-01-13] MEDS: PRENATAL VITAMINS W/ FOLIC ACID TABLET (FP) PO SCH (09:51)
[2020-01-13] MEDS: NICOTINE 21 MG/24 HOURS TOPICAL PATCH TD SCH (09:52)
[2020-01-13] MEDS: THIAMINE HCL 100 MG TABLET (FP) PO SCH (21:50)
[2020-01-13] MEDS: MELATONIN 5 MG TABLETS PO SCH (21:50)
[2020-01-14] MEDS: LISINOPRIL 10 MG TABLET (FP) PO SCH (10:06)
[2020-01-14] MEDS: PRENATAL VITAMINS W/ FOLIC ACID TABLET (FP) PO SCH (10:06)
[2020-01-14] MEDS: NICOTINE 21 MG/24 HOURS TOPICAL PATCH TD SCH (10:07)
[2020-01-14] MEDS: THIAMINE HCL 100 MG TABLET (FP) PO SCH (21:26)
[2020-01-14] MEDS: MELATONIN 5 MG TABLETS PO SCH (21:26)
[2020-01-15] MEDS: PRENATAL VITAMINS W/ FOLIC ACID TABLET (FP) PO SCH (09:18)
[2020-01-15] MEDS: NICOTINE 21 MG/24 HOURS TOPICAL PATCH TD SCH (09:18)
[2020-01-15] MEDS: LISINOPRIL 10 MG TABLET (FP) PO SCH (09:18)
[2020-01-15] MEDS: THIAMINE HCL 100 MG TABLET (FP) PO SCH (21:32)
[2020-01-15] MEDS: MELATONIN 5 MG TABLETS PO SCH (21:32)
[2020-01-16] MEDS: LISINOPRIL 10 MG TABLET (FP) PO SCH (09:34)
[2020-01-16] MEDS: PRENATAL VITAMINS W/ FOLIC ACID TABLET (FP) PO SCH (09:34)
[2020-01-16] MEDS: NICOTINE 21 MG/24 HOURS TOPICAL PATCH TD SCH (09:35)
[2020-01-16] MEDS: THIAMINE HCL 100 MG TABLET (FP) PO SCH (21:34)
[2020-01-16] MEDS: MELATONIN 5 MG TABLETS PO SCH (21:34)
[2020-01-17] MEDS: NICOTINE 21 MG/24 HOURS TOPICAL PATCH TD SCH (10:14)
[2020-01-17] MEDS: PRENATAL VITAMINS W/ FOLIC ACID TABLET (FP) PO SCH (10:15)
[2020-01-17] MEDS: LISINOPRIL 10 MG TABLET (FP) PO SCH (10:15)
[2020-01-17] MEDS: MELATONIN 5 MG TABLETS PO SCH (21:28)
[2020-01-17] MEDS: THIAMINE HCL 100 MG TABLET (FP) PO SCH (21:28)
[2020-01-18] MEDS: PRENATAL VITAMINS W/ FOLIC ACID TABLET (FP) PO SCH (09:23)
[2020-01-18] MEDS: LISINOPRIL 10 MG TABLET (FP) PO SCH (09:23)
[2020-01-18] MEDS: NICOTINE 21 MG/24 HOURS TOPICAL PATCH TD SCH (09:23)
[2020-01-18] MEDS: THIAMINE HCL 100 MG TABLET (FP) PO SCH (21:26)
[2020-01-18] MEDS: MELATONIN 5 MG TABLETS PO SCH (21:26)
[2020-01-19] MEDS: PRENATAL VITAMINS W/ FOLIC ACID TABLET (FP) PO SCH (09:51)
[2020-01-19] MEDS: LISINOPRIL 10 MG TABLET (FP) PO SCH (09:51)
[2020-01-19] MEDS: NICOTINE 21 MG/24 HOURS TOPICAL PATCH TD SCH (09:51)
[2020-01-19] MEDS: THIAMINE HCL 100 MG TABLET (FP) PO SCH (21:42)
[2020-01-19] MEDS: MELATONIN 5 MG TABLETS PO SCH (21:42)
[2020-01-20] MEDS: LISINOPRIL 10 MG TABLET (FP) PO SCH (10:00)
[2020-01-20] MEDS: NICOTINE 21 MG/24 HOURS TOPICAL PATCH TD SCH (10:00)
[2020-01-20] MEDS: PRENATAL VITAMINS W/ FOLIC ACID TABLET (FP) PO SCH (10:00)
[2020-01-20] MEDS: MELATONIN 5 MG TABLETS PO SCH (21:23)
[2020-01-20] MEDS: THIAMINE HCL 100 MG TABLET (FP) PO SCH (21:23)
[2020-01-21] MEDS: LISINOPRIL 10 MG TABLET (FP) PO SCH (10:01)
[2020-01-21] MEDS: PRENATAL VITAMINS W/ FOLIC ACID TABLET (FP) PO SCH (10:01)
[2020-01-21] MEDS: NICOTINE 21 MG/24 HOURS TOPICAL PATCH TD SCH (10:01)
[2020-01-21] MEDS: THIAMINE HCL 100 MG TABLET (FP) PO SCH (21:11)
[2020-01-21] MEDS: MELATONIN 5 MG TABLETS PO SCH (21:11)
[2020-01-22] MEDS: PRENATAL VITAMINS W/ FOLIC ACID TABLET (FP) PO SCH (09:03)
[2020-01-22] MEDS: LISINOPRIL 10 MG TABLET (FP) PO SCH (09:03)
[2020-01-22] MEDS: NICOTINE 21 MG/24 HOURS TOPICAL PATCH TD SCH (09:04)
[2020-01-22] MEDS: THIAMINE HCL 100 MG TABLET (FP) PO SCH (21:23)
[2020-01-22] MEDS: MELATONIN 5 MG TABLETS PO SCH (21:23)
[2020-01-23 09:14] VITALS: BP 130/92; PULSE 73; TEMP 97.3
[2020-01-23] MEDS: LISINOPRIL 10 MG TABLET (FP) PO SCH (09:26)
[2020-01-23] MEDS: PRENATAL VITAMINS W/ FOLIC ACID TABLET (FP) PO SCH (09:27)
[2020-01-23] MEDS: NICOTINE 21 MG/24 HOURS TOPICAL PATCH TD SCH (09:33)
--- NOTE | 2020-01-23 10:15 | DS ---
[facility] Rehab Discharge Summary - [facility] Rehab Discharge Summary Admission Date: 01/09/20 Discharge Date: 01/23/20 - History Present History: Alcohol dependence, Cocaine dependence - Discharge Physical Exam Vital Signs: Vital Signs Temperature 97.3 F L 01/23/20 08:54 Pulse Rate 73 01/23/20 08:54 Respiratory Rate 19 01/23/20 08:54 Blood Pressure 130/92 01/23/20 08:54 O2 Sat by Pulse Oximetry (%) 96 01/23/20 08:54 ROS: DENIES SHAKES, SWEATS, ALCOHOL CRAVINGS, ANXIETY, RESTLESSNESS AND HEADACHE. PE: ALERT AND ORIENTED X 3 SKIN WARM AND DRY +PERRLA, EOMS INTACT B/L GI NT, BD EXT FULL ROM, AMB AD SUBHASH NO TREMORS DENIES SI/HI A/P; ALCOHOL/COCAINE DEPENDENCE PATIENT IS MEDICALLY STABLE FOR DISCHARGE AFTERCARE ARRANGED FOR [facility] 01/27/2020 AT 9:30AM - Treatment Discharge Condition: Discharge condition good Hospital Course: PATIENT DISCHARGED FROM REHAB TODAY FOR ALCOHOL DEPENDENCE. HE IS MEDICALLY STABLE AND DENIES SI/HI. DURING COURSE OF TREATMENT, PATIENT ATTENDED GROUP MEETINGS AND 1:1 SESSIONS WITH COUNSELOR. AFTERCARE ARRANGED FOR ALEXIS DARYA, [facility]EN[facility] 01/27/2020 AT 9:30AM. PATIENT ENCOURAGED TO CONTINUE WITH OTP GROUP MEETINGS AND FOLLOW UP WITH PCP RECOMMENDED. Ambulatory Orders Lisinopril [Prinivil] 10 mg PO DAILY #30 tablet 01/22/20 - Medication Discharge Medications: Ambulatory Orders Lisinopril [Prinivil] 10 mg PO DAILY #30 tablet 01/22/20 - Medication-Assisted Treatment (MAT) Medication-Assisted Treatment (MAT): No - Discharge Instructions Diet, activity, other medical instructions: Diet: ELIZABETH TOLERATED Activity: AMB AD SUBHASH TOLERATED Other medical instructions: F/U WITH PCP RECOMMENDED - Follow-up Referral Minutes to complete discharge: 35 - AMA Did Patient Leave Against Medical Advice: No
== END 2020-01-23 09:30 | disposition home or self-care (01) | DRG 772 ==
LOC: YASAS 11:39 → Y3W 11:40
PROVIDERS: ADMIT Allergy & Immunology; ATTEND Allergy & Immunology
PROC: HZ42ZZZ Group Counseling for Substance Abuse Treatment, Cognitive-Behavioral (ICD-10-PCS; principal; 2020-01-09)
DX: F10.20 Alcohol dependence, uncomplicated (principal); F14.20 Cocaine dependence, uncomplicated; I10 Essential (primary) hypertension

== ENCOUNTER 2020-07-20 09:28 | Inpatient (IN) | payer OTHER ==
[2020-07-20 09:55] VITALS: BMI 33.6
[2020-07-20] MEDS ORDERED: NICOTINE POLACRILEX 2 MG GUM BUC PRN (11:27)
[2020-07-20] MEDS ORDERED: IBUPROFEN 400 MG TABLET (FP) PO PRN (11:27)
[2020-07-20] MEDS ORDERED: MAGNESIUM CITRATE 300 ML BOTTLE PO PRN (11:27)
[2020-07-20] MEDS ORDERED: MENTHOL/PHENOL 1 EACH UD MM PRN (11:27)
[2020-07-20] MEDS ORDERED: METHOCARBAMOL 500 MG TABLET PO PRN (11:27)
[2020-07-20] MEDS ORDERED: chlordiazePOXIDE HCL 25 MG CAPSULE PO PRN (11:27)
[2020-07-20] MEDS ORDERED: MAGNESIUM HYDROX 2400MG/30ML ORAL SUSPENSION 30 ML CUP PO PRN (11:27)
[2020-07-20] MEDS ORDERED: ONDANSETRON *ODT* 4 MG TABLET SL PRN (11:27)
[2020-07-20] MEDS ORDERED: ACETAMINOPHEN 325 MG TABLET (FP) PO PRN ×2 (11:27)
[2020-07-20] MEDS ORDERED: MAG HYDROX/AL HYDROX/SIMETH 30 ML UNIT-DOSE CUP PO PRN (11:27)
[2020-07-20] MEDS ORDERED: BISMUTH SUBSALICYLATE 524 MG/30 ML UD PO PRN (11:27)
[2020-07-20] MEDS: PRENATAL VITAMINS W/ FOLIC ACID TABLET (FP) PO SCH (13:59)
[2020-07-20] MEDS: hydrOXYzine PAMOATE 25 MG CAPSULE (FP) PO SCH ×3 (13:59→22:26)
[2020-07-20] MEDS: LISINOPRIL 10 MG TABLET PO SCH (13:59)
[2020-07-20 17:31] LABS: POTASSIUM 4.4 mmol/L (3.5-5.1)
[2020-07-20 17:33] LABS: HEMATOCRIT 42.3 % (35.4-49); HEMOGLOBIN 13.7 GM/dL (11.7-16.9); MCHC 32.5 g/dl (32.0-35.9); MEAN CELL VOLUME 79.9 fl (80-96); MEAN PLT VOLUME 8.4 fl (7.5-11.1); PLATELET COUNT 221 K/MM3 (134-434); RBC 5.29 M/mm3 (4.00-5.60); RDW 14.3 % (11.9-15.9); WHITE BLOOD COUNT 4.1 K/mm3 (4.0-10.0)
[2020-07-20 17:34] LABS: ALBUMIN 3.8 g/dl (3.4-5.0); BLOOD UREA NITROGEN 17.5 mg/dL (7-18); CALCIUM 9.6 mg/dL (8.5-10.1)
[2020-07-20 17:38] LABS: CREATININE 1.2 mg/dL (0.55-1.3)
[2020-07-20 17:39] LABS: BILIRUBIN,TOTAL 0.4 mg/dL (0.2-1)
[2020-07-20 18:31] LABS: HIV INTERPRETATION NEGATIVE (NEGATIVE)
[2020-07-20] MEDS: chlordiazePOXIDE HCL 25 MG CAPSULE PO SCH ×2 (18:39→22:26)
[2020-07-20] MEDS: THIAMINE HCL 100 MG TABLET (FP) PO SCH (22:26)
[2020-07-20] MEDS: MELATONIN 5 MG TABLETS PO SCH (22:28)
[2020-07-21] MEDS: hydrOXYzine PAMOATE 25 MG CAPSULE (FP) PO SCH ×5 (06:01→23:56)
[2020-07-21] MEDS: chlordiazePOXIDE HCL 25 MG CAPSULE PO SCH ×4 (06:01→23:56)
[2020-07-21] MEDS: LISINOPRIL 10 MG TABLET PO SCH (10:31)
[2020-07-21] MEDS: PRENATAL VITAMINS W/ FOLIC ACID TABLET (FP) PO SCH (10:31)
[2020-07-21] MEDS: MELATONIN 5 MG TABLETS PO SCH (23:56)
[2020-07-21] MEDS: THIAMINE HCL 100 MG TABLET (FP) PO SCH (23:56)
[2020-07-22] MEDS: hydrOXYzine PAMOATE 25 MG CAPSULE (FP) PO SCH ×5 (05:59→23:41)
[2020-07-22] MEDS: chlordiazePOXIDE HCL 25 MG CAPSULE PO SCH ×4 (05:59→23:41)
[2020-07-22] MEDS: PRENATAL VITAMINS W/ FOLIC ACID TABLET (FP) PO SCH (10:23)
[2020-07-22] MEDS: LISINOPRIL 10 MG TABLET PO SCH (10:24)
[2020-07-22] MEDS: THIAMINE HCL 100 MG TABLET (FP) PO SCH (23:41)
[2020-07-22] MEDS: MELATONIN 5 MG TABLETS PO SCH (23:41)
[2020-07-23] MEDS ORDERED: chlordiazePOXIDE HCL 10 MG CAPSULE PO PRN
[2020-07-23] MEDS: hydrOXYzine PAMOATE 25 MG CAPSULE (FP) PO SCH ×5 (05:37→23:41)
[2020-07-23] MEDS: chlordiazePOXIDE HCL 10 MG CAPSULE PO SCH ×4 (05:37→23:40)
[2020-07-23] MEDS: LISINOPRIL 10 MG TABLET PO SCH (10:43)
[2020-07-23] MEDS: PRENATAL VITAMINS W/ FOLIC ACID TABLET (FP) PO SCH (10:43)
[2020-07-23] MEDS: THIAMINE HCL 100 MG TABLET (FP) PO SCH (23:41)
[2020-07-23] MEDS: MELATONIN 5 MG TABLETS PO SCH (23:41)
[2020-07-24] MEDS: hydrOXYzine PAMOATE 25 MG CAPSULE (FP) PO SCH ×5 (05:55→23:09)
[2020-07-24] MEDS: chlordiazePOXIDE HCL 10 MG CAPSULE PO SCH ×2 (05:56→18:30)
[2020-07-24] MEDS: LISINOPRIL 10 MG TABLET PO SCH (10:18)
[2020-07-24] MEDS: PRENATAL VITAMINS W/ FOLIC ACID TABLET (FP) PO SCH (10:18)
[2020-07-24] MEDS: MELATONIN 5 MG TABLETS PO SCH (23:09)
[2020-07-24] MEDS: THIAMINE HCL 100 MG TABLET (FP) PO SCH (23:09)
[2020-07-25] MEDS ORDERED: chlordiazePOXIDE HCL 10 MG CAPSULE PO ONE (05:00)
[2020-07-25] MEDS: hydrOXYzine PAMOATE 25 MG CAPSULE (FP) PO SCH ×2 (05:20→11:11)
[2020-07-25 09:37] VITALS: BP 115/65; PULSE 76; TEMP 97.3
[2020-07-25] MEDS: PRENATAL VITAMINS W/ FOLIC ACID TABLET (FP) PO SCH (11:10)
[2020-07-25] MEDS: LISINOPRIL 10 MG TABLET PO SCH (11:11)
== END 2020-07-25 12:40 | disposition other institution (70) | DRG 774 ==
LOC: YASAS 09:28 → Y6N 13:30
PROVIDERS: ADMIT Allergy & Immunology; ATTEND Allergy & Immunology
PROC: HZ2ZZZZ Detoxification Services for Substance Abuse Treatment (ICD-10-PCS; principal; 2020-07-20)
DX: F10.230 Alcohol dependence with withdrawal, uncomplicated (principal); F14.20 Cocaine dependence, uncomplicated; F17.213 Nicotine dependence, cigarettes, with withdrawal; F19.24 Other psychoactive substance dependence with psychoactive substance-induced mood disorder; F20.9 Schizophrenia, unspecified; I10 Essential (primary) hypertension; K21.9 Gastro-esophageal reflux disease without esophagitis; M54.5 Low back pain; G89.29 Other chronic pain; Z87.442 Personal history of urinary calculi; Z86.19 Personal history of other infectious and parasitic diseases; Z91.013 Allergy to seafood; Z56.0 Unemployment, unspecified; Z59.0 Homelessness; Z91.14 Patient's other noncompliance with medication regimen
CPT/HCPCS: 36415; 80053; 85027; 86780; 87389; 93005; 93010; C9803; U0003

== ENCOUNTER 2020-07-25 12:35 | Inpatient (IN) | payer OTHER ==
[~2020-07-25 12:35] MED LIST: ACETAMINOPHEN 325 MG TABLET (FP) PO PRN; IBUPROFEN 400 MG TABLET (FP) PO PRN; LOPERAMIDE HCL 2 MG CAPSULE PO PRN; MAG HYDROX/AL HYDROX/SIMETH 30 ML UNIT-DOSE CUP PO PRN; MAGNESIUM CITRATE 300 ML BOTTLE PO PRN; MAGNESIUM HYDROX 2400MG/30ML ORAL SUSPENSION 30 ML CUP PO PRN; P-EPHED 60MG/TRIPROLIDI 2.5MG TABLET PO PRN; guaiFENesin 200 MG/10 ML 10 ML UNIT-DOSE CUPS PO PRN
[2020-07-25] MEDS ORDERED: FLU VACCINE (FLULAVAL) PF 60 MCG/0.5 ML SYRINGE 2020-2021 IM ONE (13:30)
[2020-07-25] MEDS: THIAMINE HCL 100 MG TABLET (FP) PO SCH (21:54)
[2020-07-25] MEDS: MELATONIN 5 MG TABLETS PO SCH (21:54)
[2020-07-26] MEDS: PRENATAL VITAMINS W/ FOLIC ACID TABLET (FP) PO SCH (10:39)
[2020-07-26] MEDS: LISINOPRIL 10 MG TABLET PO SCH (10:39)
[2020-07-26] MEDS: THIAMINE HCL 100 MG TABLET (FP) PO SCH (23:33)
[2020-07-26] MEDS: MELATONIN 5 MG TABLETS PO SCH (23:33)
[2020-07-27] MEDS: LISINOPRIL 10 MG TABLET PO SCH (10:35)
[2020-07-27] MEDS: PRENATAL VITAMINS W/ FOLIC ACID TABLET (FP) PO SCH (10:35)
[2020-07-27] MEDS: MELATONIN 5 MG TABLETS PO SCH (22:05)
[2020-07-27] MEDS: THIAMINE HCL 100 MG TABLET (FP) PO SCH (22:05)
[2020-07-28] MEDS: PRENATAL VITAMINS W/ FOLIC ACID TABLET (FP) PO SCH (10:32)
[2020-07-28] MEDS: LISINOPRIL 10 MG TABLET PO SCH (10:32)
[2020-07-28] MEDS: MELATONIN 5 MG TABLETS PO SCH (21:00)
[2020-07-28] MEDS: THIAMINE HCL 100 MG TABLET (FP) PO SCH (21:00)
[2020-07-29] MEDS: PRENATAL VITAMINS W/ FOLIC ACID TABLET (FP) PO SCH (10:26)
[2020-07-29] MEDS: LISINOPRIL 10 MG TABLET PO SCH (10:26)
[2020-07-29] MEDS: MELATONIN 5 MG TABLETS PO SCH (21:44)
[2020-07-29] MEDS: THIAMINE HCL 100 MG TABLET (FP) PO SCH (21:44)
[2020-07-30] MEDS: PRENATAL VITAMINS W/ FOLIC ACID TABLET (FP) PO SCH (10:58)
[2020-07-30] MEDS: LISINOPRIL 10 MG TABLET PO SCH (10:58)
[2020-07-30] MEDS: THIAMINE HCL 100 MG TABLET (FP) PO SCH (21:00)
[2020-07-30] MEDS: MELATONIN 5 MG TABLETS PO SCH (21:00)
[2020-07-31] MEDS: PRENATAL VITAMINS W/ FOLIC ACID TABLET (FP) PO SCH (10:24)
[2020-07-31] MEDS: LISINOPRIL 10 MG TABLET PO SCH (10:24)
[2020-07-31] MEDS: MELATONIN 5 MG TABLETS PO SCH (21:45)
[2020-07-31] MEDS: THIAMINE HCL 100 MG TABLET (FP) PO SCH (21:45)
[2020-08-01] MEDS: PRENATAL VITAMINS W/ FOLIC ACID TABLET (FP) PO SCH (10:38)
[2020-08-01] MEDS: LISINOPRIL 10 MG TABLET PO SCH (10:38)
[2020-08-01] MEDS ORDERED: MASKS NR ONE (10:39)
[2020-08-01] MEDS: MELATONIN 5 MG TABLETS PO SCH (21:01)
[2020-08-01] MEDS: THIAMINE HCL 100 MG TABLET (FP) PO SCH (21:01)
[2020-08-02] MEDS: PRENATAL VITAMINS W/ FOLIC ACID TABLET (FP) PO SCH (10:57)
[2020-08-02] MEDS: LISINOPRIL 10 MG TABLET PO SCH (10:58)
[2020-08-02] MEDS: MELATONIN 5 MG TABLETS PO SCH (21:35)
[2020-08-02] MEDS: THIAMINE HCL 100 MG TABLET (FP) PO SCH (21:35)
[2020-08-03] MEDS: LISINOPRIL 10 MG TABLET PO SCH (10:36)
[2020-08-03] MEDS: PRENATAL VITAMINS W/ FOLIC ACID TABLET (FP) PO SCH (10:36)
[2020-08-03] MEDS: MELATONIN 5 MG TABLETS PO SCH (21:50)
[2020-08-03] MEDS: THIAMINE HCL 100 MG TABLET (FP) PO SCH (21:50)
[2020-08-04] MEDS: PRENATAL VITAMINS W/ FOLIC ACID TABLET (FP) PO SCH (10:37)
[2020-08-04] MEDS: LISINOPRIL 10 MG TABLET PO SCH (10:37)
[2020-08-04] MEDS: MELATONIN 5 MG TABLETS PO SCH (22:13)
[2020-08-04] MEDS: THIAMINE HCL 100 MG TABLET (FP) PO SCH (22:13)
[2020-08-05] MEDS: PRENATAL VITAMINS W/ FOLIC ACID TABLET (FP) PO SCH (10:32)
[2020-08-05] MEDS: LISINOPRIL 10 MG TABLET PO SCH (10:32)
[2020-08-05] MEDS: THIAMINE HCL 100 MG TABLET (FP) PO SCH (22:44)
[2020-08-05] MEDS: MELATONIN 5 MG TABLETS PO SCH (22:44)
[2020-08-06] MEDS: PRENATAL VITAMINS W/ FOLIC ACID TABLET (FP) PO SCH (10:35)
[2020-08-06] MEDS: LISINOPRIL 10 MG TABLET PO SCH (10:35)
[2020-08-06] MEDS: THIAMINE HCL 100 MG TABLET (FP) PO SCH (20:30)
[2020-08-06] MEDS: MELATONIN 5 MG TABLETS PO SCH (21:52)
[2020-08-07] MEDS: LISINOPRIL 10 MG TABLET PO SCH (10:08)
[2020-08-07] MEDS: PRENATAL VITAMINS W/ FOLIC ACID TABLET (FP) PO SCH (10:08)
[2020-08-07] MEDS: THIAMINE HCL 100 MG TABLET (FP) PO SCH (20:35)
[2020-08-07] MEDS: MELATONIN 5 MG TABLETS PO SCH (21:55)
[2020-08-08] MEDS: LISINOPRIL 10 MG TABLET PO SCH (10:05)
[2020-08-08] MEDS: PRENATAL VITAMINS W/ FOLIC ACID TABLET (FP) PO SCH (10:05)
[2020-08-08] MEDS: THIAMINE HCL 100 MG TABLET (FP) PO SCH (20:30)
[2020-08-08] MEDS: MELATONIN 5 MG TABLETS PO SCH (21:46)
[2020-08-09] MEDS: PRENATAL VITAMINS W/ FOLIC ACID TABLET (FP) PO SCH (10:46)
[2020-08-09] MEDS: LISINOPRIL 10 MG TABLET PO SCH (10:46)
[2020-08-09] MEDS: MELATONIN 5 MG TABLETS PO SCH (21:53)
[2020-08-09] MEDS: THIAMINE HCL 100 MG TABLET (FP) PO SCH (21:53)
[2020-08-10] MEDS: LISINOPRIL 10 MG TABLET PO SCH (09:35)
[2020-08-10] MEDS: PRENATAL VITAMINS W/ FOLIC ACID TABLET (FP) PO SCH (09:35)
[2020-08-10] MEDS: THIAMINE HCL 100 MG TABLET (FP) PO SCH (20:30)
[2020-08-10] MEDS: MELATONIN 5 MG TABLETS PO SCH (21:45)
[2020-08-11] MEDS: LISINOPRIL 10 MG TABLET PO SCH (10:18)
[2020-08-11] MEDS: PRENATAL VITAMINS W/ FOLIC ACID TABLET (FP) PO SCH (10:18)
[2020-08-11] MEDS: THIAMINE HCL 100 MG TABLET (FP) PO SCH (20:35)
[2020-08-11] MEDS: MELATONIN 5 MG TABLETS PO SCH (21:55)
[2020-08-12] MEDS: PRENATAL VITAMINS W/ FOLIC ACID TABLET (FP) PO SCH (10:09)
[2020-08-12] MEDS: LISINOPRIL 10 MG TABLET PO SCH (10:09)
[2020-08-12] MEDS: THIAMINE HCL 100 MG TABLET (FP) PO SCH (20:25)
[2020-08-12] MEDS: MELATONIN 5 MG TABLETS PO SCH (21:35)
[2020-08-13] MEDS: LISINOPRIL 10 MG TABLET PO SCH (10:13)
[2020-08-13] MEDS: PRENATAL VITAMINS W/ FOLIC ACID TABLET (FP) PO SCH (10:13)
[2020-08-13] MEDS: MELATONIN 5 MG TABLETS PO SCH (21:39)
[2020-08-13] MEDS: THIAMINE HCL 100 MG TABLET (FP) PO SCH (21:39)
[2020-08-14] MEDS: PRENATAL VITAMINS W/ FOLIC ACID TABLET (FP) PO SCH (10:02)
[2020-08-14] MEDS: LISINOPRIL 10 MG TABLET PO SCH (10:02)
[2020-08-14] MEDS: MELATONIN 5 MG TABLETS PO SCH (21:53)
[2020-08-14] MEDS: THIAMINE HCL 100 MG TABLET (FP) PO SCH (21:53)
[2020-08-15] MEDS: PRENATAL VITAMINS W/ FOLIC ACID TABLET (FP) PO SCH (09:51)
[2020-08-15] MEDS: LISINOPRIL 10 MG TABLET PO SCH (09:51)
[2020-08-15] MEDS: MELATONIN 5 MG TABLETS PO SCH (22:19)
[2020-08-15] MEDS: THIAMINE HCL 100 MG TABLET (FP) PO SCH (22:19)
[2020-08-16] MEDS: LISINOPRIL 10 MG TABLET PO SCH (10:27)
[2020-08-16] MEDS: PRENATAL VITAMINS W/ FOLIC ACID TABLET (FP) PO SCH (10:27)
[2020-08-16] MEDS: MELATONIN 5 MG TABLETS PO SCH (21:41)
[2020-08-16] MEDS: THIAMINE HCL 100 MG TABLET (FP) PO SCH (21:41)
[2020-08-17] MEDS: PRENATAL VITAMINS W/ FOLIC ACID TABLET (FP) PO SCH (10:05)
[2020-08-17] MEDS: LISINOPRIL 10 MG TABLET PO SCH (10:05)
[2020-08-17] MEDS: THIAMINE HCL 100 MG TABLET (FP) PO SCH (20:25)
[2020-08-17] MEDS: MELATONIN 5 MG TABLETS PO SCH (21:51)
[2020-08-18] MEDS: LISINOPRIL 10 MG TABLET PO SCH (10:34)
[2020-08-18] MEDS: PRENATAL VITAMINS W/ FOLIC ACID TABLET (FP) PO SCH (10:34)
[2020-08-18] MEDS: THIAMINE HCL 100 MG TABLET (FP) PO SCH (20:25)
[2020-08-18] MEDS: MELATONIN 5 MG TABLETS PO SCH (22:30)
[2020-08-19] MEDS: PRENATAL VITAMINS W/ FOLIC ACID TABLET (FP) PO SCH (09:41)
[2020-08-19] MEDS: LISINOPRIL 10 MG TABLET PO SCH (09:41)
[2020-08-19] MEDS: THIAMINE HCL 100 MG TABLET (FP) PO SCH (21:47)
[2020-08-19] MEDS: MELATONIN 5 MG TABLETS PO SCH (21:47)
[2020-08-20 07:09] VITALS: BP 133/87; PULSE 68; TEMP 97.5
[2020-08-20] MEDS: LISINOPRIL 10 MG TABLET PO SCH (09:09)
[2020-08-20] MEDS: PRENATAL VITAMINS W/ FOLIC ACID TABLET (FP) PO SCH (09:09)
[2020-08-20] MEDS ORDERED: MASKS NR ONE (09:11)
== END 2020-08-20 09:25 | disposition home or self-care (01) | DRG 772 ==
LOC: YASAS 12:35 → Y3W 12:36
PROVIDERS: ADMIT Allergy & Immunology; ATTEND Allergy & Immunology
PROC: HZ42ZZZ Group Counseling for Substance Abuse Treatment, Cognitive-Behavioral (ICD-10-PCS; principal; 2020-07-25)
DX: F10.20 Alcohol dependence, uncomplicated (principal); F14.20 Cocaine dependence, uncomplicated; F17.210 Nicotine dependence, cigarettes, uncomplicated; F41.8 Other specified anxiety disorders; F32.9 Major depressive disorder, single episode, unspecified; I10 Essential (primary) hypertension; K21.9 Gastro-esophageal reflux disease without esophagitis
CPT/HCPCS: C9803; G0008; Q2036; U0003

== ENCOUNTER 2020-11-19 23:13 | Emergency (ER) | payer OTHER ==
[2020-11-19 23:27] VITALS: BMI 39.1
[2020-11-20 08:15] VITALS: BP 128/65; PULSE 69; TEMP 97.9
== END 2020-11-20 08:00 | disposition home or self-care (01) ==
LOC: JER 23:13
DX: F10.20 Alcohol dependence, uncomplicated (principal)
CPT/HCPCS: 99281-25

== ENCOUNTER 2020-11-20 09:02 | Inpatient (IN) | payer OTHER ==
[2020-11-20 10:06] VITALS: BMI 35.4
[2020-11-20] MEDS ORDERED: MAGNESIUM CITRATE 300 ML BOTTLE PO PRN (15:51)
[2020-11-20] MEDS ORDERED: IBUPROFEN 400 MG TABLET (FP) PO PRN (15:51)
[2020-11-20] MEDS ORDERED: METHOCARBAMOL 500 MG TABLET PO PRN (15:51)
[2020-11-20] MEDS ORDERED: NICOTINE POLACRILEX 2 MG GUM BUC PRN (15:51)
[2020-11-20] MEDS ORDERED: ACETAMINOPHEN 325 MG TABLET (FP) PO PRN ×2 (15:51)
[2020-11-20] MEDS ORDERED: ONDANSETRON *ODT* 4 MG TABLET SL PRN (15:51)
[2020-11-20] MEDS ORDERED: MENTHOL/PHENOL 1 EACH UD MM PRN (15:51)
[2020-11-20] MEDS ORDERED: MAGNESIUM HYDROX 2400MG/30ML ORAL SUSPENSION 30 ML CUP PO PRN (15:51)
[2020-11-20] MEDS ORDERED: MAG HYDROX/AL HYDROX/SIMETH 30 ML UNIT-DOSE CUP PO PRN (15:51)
[2020-11-20] MEDS ORDERED: BISMUTH SUBSALICYLATE 524 MG/30 ML PO PRN (15:51)
[2020-11-20] MEDS ORDERED: diazePAM 5 MG TABLET PO PRN (15:51)
[2020-11-20] MEDS: hydrOXYzine PAMOATE 25 MG CAPSULE (FP) PO SCH ×2 (18:10→22:47)
[2020-11-20] MEDS: diazePAM 5 MG TABLET PO SCH ×2 (18:11→22:49)
[2020-11-20] MEDS: THIAMINE HCL 100 MG TABLET (FP) PO SCH (22:47)
[2020-11-20] MEDS: MELATONIN 5 MG TABLETS PO SCH (22:49)
[2020-11-21] MEDS: hydrOXYzine PAMOATE 25 MG CAPSULE (FP) PO SCH ×5 (06:04→22:29)
[2020-11-21] MEDS: diazePAM 5 MG TABLET PO SCH ×4 (06:04→22:29)
[2020-11-21] MEDS: PRENATAL VITAMINS W/ FOLIC ACID TABLET (FP) PO SCH (10:09)
[2020-11-21] MEDS: THIAMINE HCL 100 MG TABLET (FP) PO SCH (22:28)
[2020-11-21] MEDS: MELATONIN 5 MG TABLETS PO SCH (22:31)
[2020-11-22] MEDS: diazePAM 5 MG TABLET PO SCH ×3 (06:03→22:18)
[2020-11-22] MEDS: hydrOXYzine PAMOATE 25 MG CAPSULE (FP) PO SCH ×5 (06:06→22:17)
[2020-11-22] MEDS: PRENATAL VITAMINS W/ FOLIC ACID TABLET (FP) PO SCH (10:12)
[2020-11-22] MEDS: THIAMINE HCL 100 MG TABLET (FP) PO SCH (22:17)
[2020-11-22] MEDS: MELATONIN 5 MG TABLETS PO SCH (22:22)
[2020-11-23] MEDS: diazePAM 5 MG TABLET PO SCH ×2 (05:58→17:56)
[2020-11-23] MEDS: hydrOXYzine PAMOATE 25 MG CAPSULE (FP) PO SCH ×5 (05:58→22:09)
[2020-11-23] MEDS: PRENATAL VITAMINS W/ FOLIC ACID TABLET (FP) PO SCH (10:15)
[2020-11-23 14:18] LABS: HEMATOCRIT 41.8 % (35.4-49); HEMOGLOBIN 13.1 GM/dL (11.7-16.9); MCH 25.3 pg (25.7-33.7); MCHC 31.4 g/dl (32.0-35.9); MEAN CELL VOLUME 80.6 fl (80-96); MEAN PLT VOLUME 8.8 fl (7.5-11.1); PLATELET COUNT 160 10^3/uL (134-434); RBC 5.18 M/mm3 (4.00-5.60); RDW 13.8 % (11.9-15.9); WHITE BLOOD COUNT 3.2 K/mm3 (4.0-10.0)
[2020-11-23 14:29] LABS: CALCIUM 8.7 mg/dL (8.5-10.1)
[2020-11-23 14:30] LABS: ALBUMIN 3.2 g/dl (3.4-5.0); BLOOD UREA NITROGEN 13.1 mg/dL (7-18)
[2020-11-23 14:33] LABS: CREATININE 0.9 mg/dL (0.55-1.3)
[2020-11-23 14:34] LABS: BILIRUBIN,TOTAL 0.3 mg/dL (0.2-1); TOT PROT 6.4 g/dl (6.4-8.2)
[2020-11-23] MEDS: THIAMINE HCL 100 MG TABLET (FP) PO SCH (22:09)
[2020-11-23] MEDS: MELATONIN 5 MG TABLETS PO SCH (22:10)
[2020-11-24] MEDS ORDERED: diazePAM 5 MG TABLET PO ONE (06:00)
[2020-11-24 06:07] LABS: SARS-CoV-2 NAA Not Detected (Not Detected)
[2020-11-24] MEDS: hydrOXYzine PAMOATE 25 MG CAPSULE (FP) PO SCH ×2 (06:18→10:15)
[2020-11-24 09:20] VITALS: BP 142/97; PULSE 73; TEMP 97.3
[2020-11-24] MEDS: PRENATAL VITAMINS W/ FOLIC ACID TABLET (FP) PO SCH (10:15)
== END 2020-11-24 12:09 | disposition other institution (70) | DRG 774 ==
LOC: YASAS 09:02 → Y6N 16:31
PROVIDERS: ADMIT Allergy & Immunology; ATTEND Allergy & Immunology
PROC: HZ2ZZZZ Detoxification Services for Substance Abuse Treatment (ICD-10-PCS; principal; 2020-11-20)
DX: F10.230 Alcohol dependence with withdrawal, uncomplicated (principal); F14.20 Cocaine dependence, uncomplicated; F12.20 Cannabis dependence, uncomplicated; F17.213 Nicotine dependence, cigarettes, with withdrawal; F19.24 Other psychoactive substance dependence with psychoactive substance-induced mood disorder; Z91.013 Allergy to seafood; Z86.59 Personal history of other mental and behavioral disorders; Z87.438 Personal history of other diseases of male genital organs; Z62.810 Personal history of physical and sexual abuse in childhood; Z56.0 Unemployment, unspecified; Z59.0 Homelessness
CPT/HCPCS: 36415; 80053; 85027; 86780; C9803; U0003; U0005

== ENCOUNTER 2020-11-24 12:35 | Inpatient (IN) | payer OTHER ==
[2020-11-24] MEDS ORDERED: NICOTINE POLACRILEX 2 MG GUM BUC PRN (14:15)
[2020-11-24] MEDS ORDERED: MAG HYDROX/AL HYDROX/SIMETH 30 ML UNIT-DOSE CUP PO PRN (14:15)
[2020-11-24] MEDS ORDERED: hydrOXYzine PAMOATE 25 MG CAPSULE (FP) PO PRN (14:15)
[2020-11-24] MEDS ORDERED: IBUPROFEN 400 MG TABLET (FP) PO PRN (14:15)
[2020-11-24] MEDS ORDERED: P-EPHED 60MG/TRIPROLIDI 2.5MG TABLET PO PRN (14:15)
[2020-11-24] MEDS ORDERED: ACETAMINOPHEN 325 MG TABLET (FP) PO PRN (14:15)
[2020-11-24] MEDS ORDERED: MENTHOL/PHENOL 1 EACH UD MM PRN (14:15)
[2020-11-24] MEDS ORDERED: MAGNESIUM HYDROX 2400MG/30ML ORAL SUSPENSION 30 ML CUP PO PRN (14:15)
[2020-11-24] MEDS ORDERED: LOPERAMIDE HCL 2 MG CAPSULE PO PRN (14:15)
[2020-11-24] MEDS ORDERED: guaiFENesin 200 MG/10 ML 10 ML UNIT-DOSE CUPS PO PRN (14:15)
[2020-11-24] MEDS ORDERED: MAGNESIUM CITRATE 300 ML BOTTLE PO PRN (14:15)
[2020-11-24] MEDS: THIAMINE HCL 100 MG TABLET (FP) PO SCH (21:45)
[2020-11-24] MEDS ORDERED: MELATONIN 5 MG TABLETS PO SCH (22:00)
[2020-11-25] MEDS: NICOTINE 14 MG/24 HOURS TOPICAL PATCH TD SCH (10:03)
[2020-11-25] MEDS: PRENATAL VITAMINS W/ FOLIC ACID TABLET (FP) PO SCH (10:03)
[2020-11-25] MEDS: THIAMINE HCL 100 MG TABLET (FP) PO SCH (21:55)
[2020-11-25] MEDS ORDERED: SUVOREXANT 10 MG TABLET PO PRN (22:00)
[2020-11-26] MEDS: NICOTINE 14 MG/24 HOURS TOPICAL PATCH TD SCH (09:56)
[2020-11-26] MEDS: PRENATAL VITAMINS W/ FOLIC ACID TABLET (FP) PO SCH (09:56)
[2020-11-26] MEDS ORDERED: COVID-19 VAC,AD26(JANSSEN)/PF 0.5 ML IM ONE (11:00)
[2020-11-26] MEDS: THIAMINE HCL 100 MG TABLET (FP) PO SCH (21:44)
[2020-11-27] MEDS: PRENATAL VITAMINS W/ FOLIC ACID TABLET (FP) PO SCH (10:12)
[2020-11-27] MEDS: NICOTINE 14 MG/24 HOURS TOPICAL PATCH TD SCH (10:12)
[2020-11-27] MEDS: THIAMINE HCL 100 MG TABLET (FP) PO SCH (23:42)
[2020-11-28] MEDS: PRENATAL VITAMINS W/ FOLIC ACID TABLET (FP) PO SCH (10:02)
[2020-11-28] MEDS: NICOTINE 14 MG/24 HOURS TOPICAL PATCH TD SCH (10:02)
[2020-11-28] MEDS: THIAMINE HCL 100 MG TABLET (FP) PO SCH (21:12)
[2020-11-29] MEDS: PRENATAL VITAMINS W/ FOLIC ACID TABLET (FP) PO SCH (09:37)
[2020-11-29] MEDS: NICOTINE 14 MG/24 HOURS TOPICAL PATCH TD SCH (09:38)
[2020-11-29] MEDS: THIAMINE HCL 100 MG TABLET (FP) PO SCH (23:43)
[2020-11-30] MEDS: PRENATAL VITAMINS W/ FOLIC ACID TABLET (FP) PO SCH (10:28)
[2020-11-30] MEDS: NICOTINE 14 MG/24 HOURS TOPICAL PATCH TD SCH (10:29)
[2020-11-30] MEDS: THIAMINE HCL 100 MG TABLET (FP) PO SCH (21:31)
[2020-12-01] MEDS: PRENATAL VITAMINS W/ FOLIC ACID TABLET (FP) PO SCH (10:08)
[2020-12-01] MEDS: NICOTINE 14 MG/24 HOURS TOPICAL PATCH TD SCH (10:09)
[2020-12-01] MEDS: THIAMINE HCL 100 MG TABLET (FP) PO SCH (21:52)
[2020-12-02] MEDS: PRENATAL VITAMINS W/ FOLIC ACID TABLET (FP) PO SCH (10:22)
[2020-12-02] MEDS: NICOTINE 14 MG/24 HOURS TOPICAL PATCH TD SCH (10:22)
[2020-12-02] MEDS: THIAMINE HCL 100 MG TABLET (FP) PO SCH (21:43)
[2020-12-03] MEDS: NICOTINE 14 MG/24 HOURS TOPICAL PATCH TD SCH (09:38)
[2020-12-03] MEDS: PRENATAL VITAMINS W/ FOLIC ACID TABLET (FP) PO SCH (09:38)
[2020-12-03] MEDS: THIAMINE HCL 100 MG TABLET (FP) PO SCH (22:26)
[2020-12-04] MEDS: PRENATAL VITAMINS W/ FOLIC ACID TABLET (FP) PO SCH (09:46)
[2020-12-04] MEDS: NICOTINE 14 MG/24 HOURS TOPICAL PATCH TD SCH (09:47)
[2020-12-04] MEDS: THIAMINE HCL 100 MG TABLET (FP) PO SCH (21:49)
[2020-12-05] MEDS: PRENATAL VITAMINS W/ FOLIC ACID TABLET (FP) PO SCH (09:55)
[2020-12-05] MEDS: NICOTINE 14 MG/24 HOURS TOPICAL PATCH TD SCH (09:56)
[2020-12-05] MEDS: THIAMINE HCL 100 MG TABLET (FP) PO SCH (21:42)
[2020-12-06] MEDS: NICOTINE 14 MG/24 HOURS TOPICAL PATCH TD SCH (09:55)
[2020-12-06] MEDS: PRENATAL VITAMINS W/ FOLIC ACID TABLET (FP) PO SCH (09:56)
[2020-12-06] MEDS: THIAMINE HCL 100 MG TABLET (FP) PO SCH (23:11)
[2020-12-07] MEDS: NICOTINE 14 MG/24 HOURS TOPICAL PATCH TD SCH (09:53)
[2020-12-07] MEDS: PRENATAL VITAMINS W/ FOLIC ACID TABLET (FP) PO SCH (09:53)
[2020-12-07] MEDS: THIAMINE HCL 100 MG TABLET (FP) PO SCH (21:55)
[2020-12-08] MEDS: PRENATAL VITAMINS W/ FOLIC ACID TABLET (FP) PO SCH (09:53)
[2020-12-08] MEDS: NICOTINE 14 MG/24 HOURS TOPICAL PATCH TD SCH (09:53)
[2020-12-08] MEDS: LISINOPRIL 10 MG TABLET PO SCH (09:55)
[2020-12-08] MEDS: metFORMIN HCL 500 MG TABLET (FP) PO SCH (16:38)
[2020-12-08] MEDS: INSULIN SLIDING SCALE (NOVOLOG) 1 VIAL SQ SCH (16:39)
[2020-12-08] MEDS: THIAMINE HCL 100 MG TABLET (FP) PO SCH (21:49)
[2020-12-09] MEDS: INSULIN SLIDING SCALE (NOVOLOG) 1 VIAL SQ SCH ×2 (06:00→16:44)
[2020-12-09] MEDS: metFORMIN HCL 500 MG TABLET (FP) PO SCH ×2 (06:00→16:43)
[2020-12-09] MEDS: PRENATAL VITAMINS W/ FOLIC ACID TABLET (FP) PO SCH (09:59)
[2020-12-09] MEDS: NICOTINE 14 MG/24 HOURS TOPICAL PATCH TD SCH (09:59)
[2020-12-09] MEDS: LISINOPRIL 10 MG TABLET PO SCH (10:00)
[2020-12-09] MEDS: THIAMINE HCL 100 MG TABLET (FP) PO SCH (21:43)
[2020-12-10] MEDS: metFORMIN HCL 500 MG TABLET (FP) PO SCH ×2 (06:23→16:25)
[2020-12-10] MEDS: INSULIN SLIDING SCALE (NOVOLOG) 1 VIAL SQ SCH ×2 (06:25→16:26)
[2020-12-10] MEDS ORDERED: INSULIN (NOVOLOG) ASPART 100 UNITS/ML 10ML VIAL ONE (06:58)
[2020-12-10] MEDS: LISINOPRIL 10 MG TABLET PO SCH (10:06)
[2020-12-10] MEDS: PRENATAL VITAMINS W/ FOLIC ACID TABLET (FP) PO SCH (10:06)
[2020-12-10] MEDS: NICOTINE 14 MG/24 HOURS TOPICAL PATCH TD SCH (10:07)
[2020-12-10] MEDS: THIAMINE HCL 100 MG TABLET (FP) PO SCH (21:36)
[2020-12-11] MEDS: metFORMIN HCL 500 MG TABLET (FP) PO SCH ×2 (06:06→16:50)
[2020-12-11] MEDS: INSULIN SLIDING SCALE (NOVOLOG) 1 VIAL SQ SCH ×2 (06:06→16:55)
[2020-12-11] MEDS: LISINOPRIL 10 MG TABLET PO SCH (09:48)
[2020-12-11] MEDS: PRENATAL VITAMINS W/ FOLIC ACID TABLET (FP) PO SCH (09:48)
[2020-12-11] MEDS: NICOTINE 14 MG/24 HOURS TOPICAL PATCH TD SCH (09:48)
[2020-12-11] MEDS: THIAMINE HCL 100 MG TABLET (FP) PO SCH (23:12)
[2020-12-12] MEDS: metFORMIN HCL 500 MG TABLET (FP) PO SCH ×2 (06:09→16:10)
[2020-12-12] MEDS: INSULIN SLIDING SCALE (NOVOLOG) 1 VIAL SQ SCH ×2 (06:09→16:35)
[2020-12-12] MEDS: LISINOPRIL 10 MG TABLET PO SCH (09:30)
[2020-12-12] MEDS: NICOTINE 14 MG/24 HOURS TOPICAL PATCH TD SCH (09:31)
[2020-12-12] MEDS: PRENATAL VITAMINS W/ FOLIC ACID TABLET (FP) PO SCH (09:31)
[2020-12-12] MEDS: THIAMINE HCL 100 MG TABLET (FP) PO SCH (22:25)
[2020-12-13] MEDS: INSULIN SLIDING SCALE (NOVOLOG) 1 VIAL SQ SCH ×2 (06:51→16:35)
[2020-12-13] MEDS: metFORMIN HCL 500 MG TABLET (FP) PO SCH ×2 (06:51→16:35)
[2020-12-13] MEDS: PRENATAL VITAMINS W/ FOLIC ACID TABLET (FP) PO SCH (10:11)
[2020-12-13] MEDS: NICOTINE 14 MG/24 HOURS TOPICAL PATCH TD SCH (10:11)
[2020-12-13] MEDS: LISINOPRIL 10 MG TABLET PO SCH (10:12)
[2020-12-13] MEDS: THIAMINE HCL 100 MG TABLET (FP) PO SCH (21:41)
[2020-12-14] MEDS: INSULIN SLIDING SCALE (NOVOLOG) 1 VIAL SQ SCH ×2 (06:40→16:43)
[2020-12-14] MEDS: metFORMIN HCL 500 MG TABLET (FP) PO SCH ×2 (06:40→16:41)
[2020-12-14] MEDS: NICOTINE 14 MG/24 HOURS TOPICAL PATCH TD SCH (10:15)
[2020-12-14] MEDS: PRENATAL VITAMINS W/ FOLIC ACID TABLET (FP) PO SCH (10:15)
[2020-12-14] MEDS: LISINOPRIL 10 MG TABLET PO SCH (10:15)
[2020-12-14] MEDS: THIAMINE HCL 100 MG TABLET (FP) PO SCH (21:40)
[2020-12-15] MEDS: metFORMIN HCL 500 MG TABLET (FP) PO SCH ×2 (06:18→16:38)
[2020-12-15] MEDS: INSULIN SLIDING SCALE (NOVOLOG) 1 VIAL SQ SCH ×2 (06:19→16:59)
[2020-12-15] MEDS: PRENATAL VITAMINS W/ FOLIC ACID TABLET (FP) PO SCH (09:47)
[2020-12-15] MEDS: LISINOPRIL 10 MG TABLET PO SCH (09:47)
[2020-12-15] MEDS: NICOTINE 14 MG/24 HOURS TOPICAL PATCH TD SCH (09:47)
[2020-12-15] MEDS: THIAMINE HCL 100 MG TABLET (FP) PO SCH (21:45)
[2020-12-16] MEDS: metFORMIN HCL 500 MG TABLET (FP) PO SCH ×2 (06:13→16:22)
[2020-12-16] MEDS: INSULIN SLIDING SCALE (NOVOLOG) 1 VIAL SQ SCH ×2 (06:13→16:22)
[2020-12-16] MEDS: LISINOPRIL 10 MG TABLET PO SCH (10:14)
[2020-12-16] MEDS: PRENATAL VITAMINS W/ FOLIC ACID TABLET (FP) PO SCH (10:14)
[2020-12-16] MEDS: NICOTINE 14 MG/24 HOURS TOPICAL PATCH TD SCH (10:14)
[2020-12-16] MEDS: THIAMINE HCL 100 MG TABLET (FP) PO SCH (22:40)
[2020-12-17] MEDS: metFORMIN HCL 500 MG TABLET (FP) PO SCH ×2 (07:19→16:51)
[2020-12-17] MEDS: INSULIN SLIDING SCALE (NOVOLOG) 1 VIAL SQ SCH ×2 (07:19→16:52)
[2020-12-17] MEDS: PRENATAL VITAMINS W/ FOLIC ACID TABLET (FP) PO SCH (09:57)
[2020-12-17] MEDS: LISINOPRIL 10 MG TABLET PO SCH (09:57)
[2020-12-17] MEDS: NICOTINE 14 MG/24 HOURS TOPICAL PATCH TD SCH (09:58)
[2020-12-17] MEDS: THIAMINE HCL 100 MG TABLET (FP) PO SCH (22:50)
[2020-12-18] MEDS: metFORMIN HCL 500 MG TABLET (FP) PO SCH ×2 (06:48→16:12)
[2020-12-18] MEDS: INSULIN SLIDING SCALE (NOVOLOG) 1 VIAL SQ SCH ×2 (06:50→16:13)
[2020-12-18] MEDS ORDERED: INSULIN (NOVOLOG) ASPART 100 UNITS/ML 10ML VIAL ONE (06:56)
[2020-12-18] MEDS: NICOTINE 14 MG/24 HOURS TOPICAL PATCH TD SCH (10:18)
[2020-12-18] MEDS: PRENATAL VITAMINS W/ FOLIC ACID TABLET (FP) PO SCH (10:18)
[2020-12-18] MEDS: LISINOPRIL 10 MG TABLET PO SCH (10:19)
[2020-12-18] MEDS: THIAMINE HCL 100 MG TABLET (FP) PO SCH (21:47)
[2020-12-19] MEDS: metFORMIN HCL 500 MG TABLET (FP) PO SCH ×2 (06:41→16:57)
[2020-12-19] MEDS: INSULIN SLIDING SCALE (NOVOLOG) 1 VIAL SQ SCH ×2 (06:43→16:57)
[2020-12-19] MEDS ORDERED: INSULIN (NOVOLOG) ASPART 100 UNITS/ML 10ML VIAL ONE (06:48)
[2020-12-19] MEDS: LISINOPRIL 10 MG TABLET PO SCH (10:02)
[2020-12-19] MEDS: PRENATAL VITAMINS W/ FOLIC ACID TABLET (FP) PO SCH (10:02)
[2020-12-19] MEDS: NICOTINE 14 MG/24 HOURS TOPICAL PATCH TD SCH (10:03)
[2020-12-19] MEDS: THIAMINE HCL 100 MG TABLET (FP) PO SCH (23:17)
[2020-12-20] MEDS: INSULIN SLIDING SCALE (NOVOLOG) 1 VIAL SQ SCH (06:17)
[2020-12-20] MEDS: metFORMIN HCL 500 MG TABLET (FP) PO SCH (06:17)
[2020-12-20 06:51] VITALS: BP 142/85; PULSE 72; TEMP 97.7
[2020-12-20] MEDS: NICOTINE 14 MG/24 HOURS TOPICAL PATCH TD SCH (09:14)
[2020-12-20] MEDS: PRENATAL VITAMINS W/ FOLIC ACID TABLET (FP) PO SCH (09:14)
[2020-12-20] MEDS: LISINOPRIL 10 MG TABLET PO SCH (09:14)
== END 2020-12-20 09:30 | disposition home or self-care (01) | DRG 772 ==
LOC: YASAS 12:35 → Y3W 12:36
PROVIDERS: ADMIT Allergy & Immunology; ATTEND Allergy & Immunology
PROC: HZ42ZZZ Group Counseling for Substance Abuse Treatment, Cognitive-Behavioral (ICD-10-PCS; principal; 2020-11-24)
DX: F10.20 Alcohol dependence, uncomplicated (principal); F14.20 Cocaine dependence, uncomplicated; F12.20 Cannabis dependence, uncomplicated; F17.210 Nicotine dependence, cigarettes, uncomplicated; I10 Essential (primary) hypertension; E11.65 Type 2 diabetes mellitus with hyperglycemia; K21.9 Gastro-esophageal reflux disease without esophagitis; Z91.013 Allergy to seafood; Z87.438 Personal history of other diseases of male genital organs; Z79.84 Long term (current) use of oral hypoglycemic drugs; Z56.0 Unemployment, unspecified; Z59.0 Homelessness
CPT/HCPCS: 0031A; 82962; 83036; 91303

== ENCOUNTER 2021-10-18 10:15 | Inpatient (IN) | payer OTHER ==
[2021-10-18 10:44] VITALS: BMI 31.8
[2021-10-18] MEDS ORDERED: BISMUTH SUBSALICYLATE 262 MG/15 ML BTL PO PRN (11:10)
[2021-10-18] MEDS ORDERED: BENZOCAINE/MENTHOL (CHLORASEPTIC ) LOZENGE MM PRN (11:10)
[2021-10-18] MEDS ORDERED: NICOTINE 10 MG CARTRIDGE (INHALER) IH PRN (11:10)
[2021-10-18] MEDS ORDERED: ACETAMINOPHEN 325 MG TABLET (FP) PO PRN ×2 (11:10)
[2021-10-18] MEDS ORDERED: LOPERAMIDE HCL 2 MG CAPSULE PO PRN (11:10)
[2021-10-18] MEDS ORDERED: MAG HYDROX/AL HYDROX/SIMETH 30 ML UNIT-DOSE CUP PO PRN (11:10)
[2021-10-18] MEDS ORDERED: ONDANSETRON *ODT* 4 MG TABLET SL PRN (11:10)
[2021-10-18] MEDS ORDERED: METHOCARBAMOL 500 MG TABLET PO PRN (11:10)
[2021-10-18] MEDS ORDERED: MAGNESIUM HYDROX 2400MG/30ML ORAL SUSPENSION 30 ML CUP PO PRN (11:10)
[2021-10-18] MEDS ORDERED: MAGNESIUM CITRATE 300 ML BOTTLE PO PRN (11:10)
[2021-10-18] MEDS ORDERED: DICYCLOMINE HCL 10 MG CAPSULE PO PRN (11:10)
[2021-10-18] MEDS ORDERED: IBUPROFEN 400 MG TABLET (FP) PO PRN (11:10)
[2021-10-18] MEDS ORDERED: chlordiazePOXIDE HCL 25 MG CAPSULE PO PRN (11:10)
[2021-10-18] MEDS: chlordiazePOXIDE HCL 25 MG CAPSULE PO SCH ×3 (11:59→22:28)
[2021-10-18] MEDS: PRENATAL VITAMINS W/ FOLIC ACID TABLET (FP) PO SCH (12:52)
[2021-10-18] MEDS: NICOTINE 7 MG/24 HOURS TOPICAL PATCH TD SCH (12:52)
[2021-10-18] MEDS: hydrOXYzine PAMOATE 25 MG CAPSULE (FP) PO SCH ×3 (14:04→22:28)
[2021-10-18 17:27] LABS: HEMATOCRIT 38.9 % (35.4-49); HEMOGLOBIN 12.7 GM/dL (11.7-16.9); MCH 25.9 pg (25.7-33.7); MCHC 32.7 g/dl (32.0-35.9); MEAN CELL VOLUME 79.3 fl (80-96); MEAN PLT VOLUME 7.9 fl (7.5-11.1); PLATELET COUNT 212 10^3/uL (134-434); RBC 4.91 M/mm3 (4.00-5.60); RDW 14.6 % (11.9-15.9)
[2021-10-18 17:34] LABS: BLOOD UREA NITROGEN 16.9 mg/dL (7-18); CALCIUM 9.5 mg/dL (8.5-10.1)
[2021-10-18 17:35] LABS: ALBUMIN 3.9 g/dl (3.4-5.0)
[2021-10-18 17:37] LABS: CREATININE 1.2 mg/dL (0.55-1.3)
[2021-10-18 17:39] LABS: BILIRUBIN,TOTAL 0.9 mg/dL (0.2-1); TOT PROT 7.4 g/dl (6.4-8.2)
[2021-10-18] MEDS: metFORMIN HCL 500 MG TABLET (FP) PO SCH (17:52)
[2021-10-18] MEDS: THIAMINE HCL 100 MG TABLET (FP) PO SCH (22:28)
[2021-10-18] MEDS: MELATONIN 5 MG TABLETS PO SCH (22:32)
[2021-10-19] MEDS: metFORMIN HCL 500 MG TABLET (FP) PO SCH ×2 (07:16→17:53)
[2021-10-19] MEDS: hydrOXYzine PAMOATE 25 MG CAPSULE (FP) PO SCH ×5 (07:16→22:19)
[2021-10-19] MEDS: chlordiazePOXIDE HCL 25 MG CAPSULE PO SCH ×4 (07:17→22:18)
[2021-10-19] MEDS: LISINOPRIL 10 MG TABLET PO SCH (10:09)
[2021-10-19] MEDS: PRENATAL VITAMINS W/ FOLIC ACID TABLET (FP) PO SCH (10:09)
[2021-10-19] MEDS: NICOTINE 7 MG/24 HOURS TOPICAL PATCH TD SCH (10:11)
[2021-10-19] MEDS: THIAMINE HCL 100 MG TABLET (FP) PO SCH (22:19)
[2021-10-19] MEDS: MELATONIN 5 MG TABLETS PO SCH (22:19)
[2021-10-20] MEDS: chlordiazePOXIDE HCL 25 MG CAPSULE PO SCH ×4 (05:39→22:41)
[2021-10-20] MEDS: hydrOXYzine PAMOATE 25 MG CAPSULE (FP) PO SCH ×5 (05:40→22:41)
[2021-10-20] MEDS: metFORMIN HCL 500 MG TABLET (FP) PO SCH ×2 (06:51→18:31)
[2021-10-20] MEDS: PRENATAL VITAMINS W/ FOLIC ACID TABLET (FP) PO SCH (11:13)
[2021-10-20] MEDS: NICOTINE 7 MG/24 HOURS TOPICAL PATCH TD SCH (11:13)
[2021-10-20] MEDS: LISINOPRIL 10 MG TABLET PO SCH (11:13)
[2021-10-20] MEDS: MELATONIN 5 MG TABLETS PO SCH (22:40)
[2021-10-20] MEDS: THIAMINE HCL 100 MG TABLET (FP) PO SCH (22:41)
[2021-10-21] MEDS ORDERED: chlordiazePOXIDE HCL 10 MG CAPSULE PO PRN
[2021-10-21] MEDS: chlordiazePOXIDE HCL 10 MG CAPSULE PO SCH ×4 (06:29→22:09)
[2021-10-21] MEDS: hydrOXYzine PAMOATE 25 MG CAPSULE (FP) PO SCH ×5 (06:29→22:08)
[2021-10-21] MEDS: metFORMIN HCL 500 MG TABLET (FP) PO SCH ×2 (06:30→17:39)
[2021-10-21] MEDS: LISINOPRIL 10 MG TABLET PO SCH (10:18)
[2021-10-21] MEDS: PRENATAL VITAMINS W/ FOLIC ACID TABLET (FP) PO SCH (10:18)
[2021-10-21] MEDS: NICOTINE 7 MG/24 HOURS TOPICAL PATCH TD SCH (10:19)
[2021-10-21] MEDS: MELATONIN 5 MG TABLETS PO SCH (22:08)
[2021-10-21] MEDS: THIAMINE HCL 100 MG TABLET (FP) PO SCH (22:08)
[2021-10-22] MEDS: hydrOXYzine PAMOATE 25 MG CAPSULE (FP) PO SCH ×5 (07:58→23:46)
[2021-10-22] MEDS: chlordiazePOXIDE HCL 10 MG CAPSULE PO SCH ×2 (07:58→17:00)
[2021-10-22] MEDS: metFORMIN HCL 500 MG TABLET (FP) PO SCH ×2 (08:01→16:30)
[2021-10-22] MEDS: PRENATAL VITAMINS W/ FOLIC ACID TABLET (FP) PO SCH (09:52)
[2021-10-22] MEDS: LISINOPRIL 10 MG TABLET PO SCH (09:52)
[2021-10-22] MEDS: NICOTINE 7 MG/24 HOURS TOPICAL PATCH TD SCH (09:53)
[2021-10-22] MEDS: THIAMINE HCL 100 MG TABLET (FP) PO SCH (23:46)
[2021-10-22] MEDS: MELATONIN 5 MG TABLETS PO SCH (23:46)
[2021-10-23] MEDS ORDERED: chlordiazePOXIDE HCL 10 MG CAPSULE PO ONE (05:00)
[2021-10-23] MEDS: metFORMIN HCL 500 MG TABLET (FP) PO SCH (06:01)
[2021-10-23] MEDS: hydrOXYzine PAMOATE 25 MG CAPSULE (FP) PO SCH ×2 (06:01→10:58)
[2021-10-23 09:15] VITALS: BP 96/59; PULSE 78; TEMP 98
[2021-10-23] MEDS: LISINOPRIL 10 MG TABLET PO SCH (10:58)
[2021-10-23] MEDS: PRENATAL VITAMINS W/ FOLIC ACID TABLET (FP) PO SCH (10:58)
[2021-10-23] MEDS: NICOTINE 7 MG/24 HOURS TOPICAL PATCH TD SCH (10:58)
== END 2021-10-23 10:07 | disposition other institution (70) | DRG 774 ==
LOC: YASAS 10:15 → Y3N 11:36
PROVIDERS: ADMIT Allergy & Immunology; ATTEND Surgery
PROC: HZ2ZZZZ Detoxification Services for Substance Abuse Treatment (ICD-10-PCS; principal; 2021-10-18)
DX: F10.230 Alcohol dependence with withdrawal, uncomplicated (principal); F14.20 Cocaine dependence, uncomplicated; F17.210 Nicotine dependence, cigarettes, uncomplicated; F20.9 Schizophrenia, unspecified; I10 Essential (primary) hypertension; E11.65 Type 2 diabetes mellitus with hyperglycemia; Z79.84 Long term (current) use of oral hypoglycemic drugs; M54.50 Low back pain, unspecified; G89.29 Other chronic pain; Z91.013 Allergy to seafood
CPT/HCPCS: 36415; 80053; 82962; 85027; 86780; C9803-CS; U0003; U0005

== ENCOUNTER 2021-10-23 11:13 | Inpatient (IN) | payer OTHER ==
[2021-10-23] MEDS ORDERED: LOPERAMIDE HCL 2 MG CAPSULE PO PRN (15:11)
[2021-10-23] MEDS ORDERED: hydrOXYzine PAMOATE 25 MG CAPSULE (FP) PO PRN (15:11)
[2021-10-23] MEDS ORDERED: MAGNESIUM CITRATE 300 ML BOTTLE PO PRN (15:11)
[2021-10-23] MEDS ORDERED: IBUPROFEN 400 MG TABLET (FP) PO PRN (15:11)
[2021-10-23] MEDS ORDERED: MAGNESIUM HYDROX 2400MG/30ML ORAL SUSPENSION 30 ML CUP PO PRN (15:11)
[2021-10-23] MEDS ORDERED: ACETAMINOPHEN 325 MG TABLET (FP) PO PRN (15:11)
[2021-10-23] MEDS ORDERED: MAG HYDROX/AL HYDROX/SIMETH 30 ML UNIT-DOSE CUP PO PRN (15:11)
[2021-10-23] MEDS ORDERED: P-EPHED 60MG/TRIPROLIDI 2.5MG TABLET PO PRN (15:11)
[2021-10-23] MEDS ORDERED: guaiFENesin 200 MG/10 ML 10 ML UNIT-DOSE CUPS PO PRN (15:11)
[2021-10-23] MEDS ORDERED: NICOTINE 10 MG CARTRIDGE (INHALER) IH PRN (15:11)
[2021-10-23] MEDS: metFORMIN HCL 500 MG TABLET (FP) PO SCH (17:11)
[2021-10-23] MEDS: INSULIN SLIDING SCALE (NOVOLOG) 1 VIAL SQ SCH (17:13)
[2021-10-23] MEDS: THIAMINE HCL 100 MG TABLET (FP) PO SCH (21:37)
[2021-10-23] MEDS: MELATONIN 5 MG TABLETS PO SCH (21:37)
[2021-10-24] MEDS: INSULIN SLIDING SCALE (NOVOLOG) 1 VIAL SQ SCH ×2 (07:09→16:30)
[2021-10-24] MEDS: metFORMIN HCL 500 MG TABLET (FP) PO SCH ×2 (07:09→16:29)
[2021-10-24] MEDS: PRENATAL VITAMINS W/ FOLIC ACID TABLET (FP) PO SCH (10:26)
[2021-10-24] MEDS: NICOTINE 7 MG/24 HOURS TOPICAL PATCH TD SCH (10:27)
[2021-10-24] MEDS: LISINOPRIL 10 MG TABLET PO SCH (10:27)
[2021-10-24] MEDS: THIAMINE HCL 100 MG TABLET (FP) PO SCH (21:56)
[2021-10-24] MEDS: MELATONIN 5 MG TABLETS PO SCH (21:56)
[2021-10-25] MEDS: metFORMIN HCL 500 MG TABLET (FP) PO SCH ×2 (06:18→16:25)
[2021-10-25] MEDS: INSULIN SLIDING SCALE (NOVOLOG) 1 VIAL SQ SCH ×2 (06:19→16:25)
[2021-10-25] MEDS: PRENATAL VITAMINS W/ FOLIC ACID TABLET (FP) PO SCH (09:56)
[2021-10-25] MEDS: NICOTINE 7 MG/24 HOURS TOPICAL PATCH TD SCH (09:56)
[2021-10-25] MEDS: LISINOPRIL 10 MG TABLET PO SCH (09:56)
[2021-10-25 10:51] LABS: URINE APPEARANCE CLEAR; URINE BILIRUBIN NEGATIVE (NEGATIVE); URINE COLOR YELLOW; URINE GLUCOSE (UA) NEGATIVE (NEGATIVE); URINE KETONE NEGATIVE (NEGATIVE); URINE LEUK ESTERASE NEGATIVE (NEGATIVE); URINE NITRITE NEGATIVE (NEGATIVE); URINE PROTEIN NEGATIVE (NEGATIVE); URINE UROBILINOGEN 0.2 mg/dL (0.2-1.0)
[2021-10-25] MEDS: MELATONIN 5 MG TABLETS PO SCH (22:35)
[2021-10-25] MEDS: THIAMINE HCL 100 MG TABLET (FP) PO SCH (22:35)
[2021-10-26] MEDS: metFORMIN HCL 500 MG TABLET (FP) PO SCH ×2 (06:37→16:32)
[2021-10-26] MEDS: INSULIN SLIDING SCALE (NOVOLOG) 1 VIAL SQ SCH ×2 (06:38→16:33)
[2021-10-26] MEDS: PRENATAL VITAMINS W/ FOLIC ACID TABLET (FP) PO SCH (09:50)
[2021-10-26] MEDS: LISINOPRIL 10 MG TABLET PO SCH (09:50)
[2021-10-26] MEDS: NICOTINE 7 MG/24 HOURS TOPICAL PATCH TD SCH (09:51)
[2021-10-26] MEDS: THIAMINE HCL 100 MG TABLET (FP) PO SCH (21:14)
[2021-10-26] MEDS: MELATONIN 5 MG TABLETS PO SCH (21:14)
[2021-10-27] MEDS: metFORMIN HCL 500 MG TABLET (FP) PO SCH ×2 (06:51→16:37)
[2021-10-27] MEDS: INSULIN SLIDING SCALE (NOVOLOG) 1 VIAL SQ SCH ×2 (06:52→16:38)
[2021-10-27] MEDS: LISINOPRIL 10 MG TABLET PO SCH (10:58)
[2021-10-27] MEDS: PRENATAL VITAMINS W/ FOLIC ACID TABLET (FP) PO SCH (10:58)
[2021-10-27] MEDS: NICOTINE 7 MG/24 HOURS TOPICAL PATCH TD SCH (11:16)
[2021-10-27] MEDS: THIAMINE HCL 100 MG TABLET (FP) PO SCH (21:20)
[2021-10-27] MEDS: MELATONIN 5 MG TABLETS PO SCH (21:20)
[2021-10-28] MEDS: metFORMIN HCL 500 MG TABLET (FP) PO SCH ×2 (06:23→16:51)
[2021-10-28] MEDS: INSULIN SLIDING SCALE (NOVOLOG) 1 VIAL SQ SCH ×2 (06:23→16:52)
[2021-10-28] MEDS: PRENATAL VITAMINS W/ FOLIC ACID TABLET (FP) PO SCH (09:50)
[2021-10-28] MEDS: LISINOPRIL 10 MG TABLET PO SCH (09:51)
[2021-10-28] MEDS: NICOTINE 7 MG/24 HOURS TOPICAL PATCH TD SCH (09:51)
[2021-10-28] MEDS: THIAMINE HCL 100 MG TABLET (FP) PO SCH (23:33)
[2021-10-28] MEDS: MELATONIN 5 MG TABLETS PO SCH (23:33)
[2021-10-29] MEDS: metFORMIN HCL 500 MG TABLET (FP) PO SCH ×2 (06:00→16:39)
[2021-10-29] MEDS: INSULIN SLIDING SCALE (NOVOLOG) 1 VIAL SQ SCH ×2 (06:33→16:40)
[2021-10-29] MEDS: NICOTINE 7 MG/24 HOURS TOPICAL PATCH TD SCH (10:31)
[2021-10-29] MEDS: LISINOPRIL 10 MG TABLET PO SCH (10:32)
[2021-10-29] MEDS: PRENATAL VITAMINS W/ FOLIC ACID TABLET (FP) PO SCH (10:32)
[2021-10-29] MEDS: MELATONIN 5 MG TABLETS PO SCH (21:45)
[2021-10-29] MEDS: THIAMINE HCL 100 MG TABLET (FP) PO SCH (21:45)
[2021-10-30] MEDS: metFORMIN HCL 500 MG TABLET (FP) PO SCH ×2 (06:12→17:15)
[2021-10-30] MEDS: INSULIN SLIDING SCALE (NOVOLOG) 1 VIAL SQ SCH ×2 (06:13→17:15)
[2021-10-30] MEDS: LISINOPRIL 10 MG TABLET PO SCH (10:25)
[2021-10-30] MEDS: PRENATAL VITAMINS W/ FOLIC ACID TABLET (FP) PO SCH (10:25)
[2021-10-30] MEDS: NICOTINE 7 MG/24 HOURS TOPICAL PATCH TD SCH (10:26)
[2021-10-30] MEDS: MELATONIN 5 MG TABLETS PO SCH (21:45)
[2021-10-30] MEDS: THIAMINE HCL 100 MG TABLET (FP) PO SCH (21:45)
[2021-10-31] MEDS: metFORMIN HCL 500 MG TABLET (FP) PO SCH ×2 (06:58→16:45)
[2021-10-31] MEDS: INSULIN SLIDING SCALE (NOVOLOG) 1 VIAL SQ SCH ×2 (06:58→16:45)
[2021-10-31] MEDS: PRENATAL VITAMINS W/ FOLIC ACID TABLET (FP) PO SCH (10:14)
[2021-10-31] MEDS: LISINOPRIL 10 MG TABLET PO SCH (10:14)
[2021-10-31] MEDS: NICOTINE 7 MG/24 HOURS TOPICAL PATCH TD SCH (10:15)
[2021-10-31] MEDS: risperiDONE 1 MG TABLET PO SCH ×2 (14:22→21:14)
[2021-10-31] MEDS: MELATONIN 5 MG TABLETS PO SCH (21:15)
[2021-10-31] MEDS: THIAMINE HCL 100 MG TABLET (FP) PO SCH (21:15)
[2021-11-01] MEDS: metFORMIN HCL 500 MG TABLET (FP) PO SCH ×2 (07:02→16:57)
[2021-11-01] MEDS: INSULIN SLIDING SCALE (NOVOLOG) 1 VIAL SQ SCH ×2 (07:03→16:59)
[2021-11-01] MEDS: NICOTINE 7 MG/24 HOURS TOPICAL PATCH TD SCH (11:10)
[2021-11-01] MEDS: LISINOPRIL 10 MG TABLET PO SCH (11:15)
[2021-11-01] MEDS: risperiDONE 1 MG TABLET PO SCH ×2 (11:15→21:42)
[2021-11-01] MEDS: PRENATAL VITAMINS W/ FOLIC ACID TABLET (FP) PO SCH (11:16)
[2021-11-01 12:06] LABS: HIV INTERPRETATION NEGATIVE (NEGATIVE)
[2021-11-01] MEDS: THIAMINE HCL 100 MG TABLET (FP) PO SCH (21:42)
[2021-11-01] MEDS: MELATONIN 5 MG TABLETS PO SCH (21:42)
[2021-11-02] MEDS: metFORMIN HCL 500 MG TABLET (FP) PO SCH ×2 (06:56→16:31)
[2021-11-02] MEDS: INSULIN SLIDING SCALE (NOVOLOG) 1 VIAL SQ SCH ×2 (06:57→16:33)
[2021-11-02] MEDS: NICOTINE 7 MG/24 HOURS TOPICAL PATCH TD SCH (10:46)
[2021-11-02] MEDS: risperiDONE 1 MG TABLET PO SCH ×2 (10:46→21:27)
[2021-11-02] MEDS: PRENATAL VITAMINS W/ FOLIC ACID TABLET (FP) PO SCH (10:46)
[2021-11-02] MEDS: LISINOPRIL 10 MG TABLET PO SCH (10:46)
[2021-11-02] MEDS: THIAMINE HCL 100 MG TABLET (FP) PO SCH (21:26)
[2021-11-02] MEDS: MELATONIN 5 MG TABLETS PO SCH (21:26)
[2021-11-03] MEDS ORDERED: INSULIN SLIDING SCALE (NOVOLOG) 1 VIAL SQ ONE (01:20)
[2021-11-03] MEDS: metFORMIN HCL 500 MG TABLET (FP) PO SCH ×2 (07:21→17:01)
[2021-11-03] MEDS: INSULIN SLIDING SCALE (NOVOLOG) 1 VIAL SQ SCH ×2 (07:22→17:03)
[2021-11-03] MEDS: risperiDONE 1 MG TABLET PO SCH ×2 (10:15→21:20)
[2021-11-03] MEDS: PRENATAL VITAMINS W/ FOLIC ACID TABLET (FP) PO SCH (10:15)
[2021-11-03] MEDS: LISINOPRIL 10 MG TABLET PO SCH (10:16)
[2021-11-03] MEDS: NICOTINE 7 MG/24 HOURS TOPICAL PATCH TD SCH (10:16)
[2021-11-03] MEDS ORDERED: METHOCARBAMOL 500 MG TABLET PO PRN (13:05)
[2021-11-03] MEDS: LIDOCAINE 5% TOPICAL PATCH TP SCH (14:14)
[2021-11-03] MEDS: MELATONIN 5 MG TABLETS PO SCH (21:20)
[2021-11-03] MEDS: LIDOCAINE PATCH REMOVAL MC SCH (21:20)
[2021-11-03] MEDS: THIAMINE HCL 100 MG TABLET (FP) PO SCH (21:20)
[2021-11-04] MEDS: metFORMIN HCL 500 MG TABLET (FP) PO SCH ×2 (08:06→16:48)
[2021-11-04] MEDS: INSULIN SLIDING SCALE (NOVOLOG) 1 VIAL SQ SCH ×2 (08:06→16:50)
[2021-11-04] MEDS: PRENATAL VITAMINS W/ FOLIC ACID TABLET (FP) PO SCH (10:54)
[2021-11-04] MEDS: NICOTINE 7 MG/24 HOURS TOPICAL PATCH TD SCH (10:54)
[2021-11-04] MEDS: LIDOCAINE 5% TOPICAL PATCH TP SCH (10:54)
[2021-11-04] MEDS: risperiDONE 1 MG TABLET PO SCH ×2 (10:55→21:47)
[2021-11-04] MEDS: LISINOPRIL 10 MG TABLET PO SCH (10:55)
[2021-11-04] MEDS: THIAMINE HCL 100 MG TABLET (FP) PO SCH (21:47)
[2021-11-04] MEDS: MELATONIN 5 MG TABLETS PO SCH (21:47)
[2021-11-04] MEDS: LIDOCAINE PATCH REMOVAL MC SCH (21:48)
[2021-11-05] MEDS: metFORMIN HCL 500 MG TABLET (FP) PO SCH ×2 (06:59→16:56)
[2021-11-05] MEDS: INSULIN SLIDING SCALE (NOVOLOG) 1 VIAL SQ SCH ×2 (06:59→16:56)
[2021-11-05] MEDS: risperiDONE 1 MG TABLET PO SCH ×2 (10:18→21:54)
[2021-11-05] MEDS: LIDOCAINE 5% TOPICAL PATCH TP SCH (10:18)
[2021-11-05] MEDS: NICOTINE 7 MG/24 HOURS TOPICAL PATCH TD SCH (10:18)
[2021-11-05] MEDS: PRENATAL VITAMINS W/ FOLIC ACID TABLET (FP) PO SCH (10:18)
[2021-11-05] MEDS: LISINOPRIL 10 MG TABLET PO SCH (10:18)
[2021-11-05] MEDS: THIAMINE HCL 100 MG TABLET (FP) PO SCH (21:54)
[2021-11-05] MEDS: LIDOCAINE PATCH REMOVAL MC SCH (21:54)
[2021-11-05] MEDS: MELATONIN 5 MG TABLETS PO SCH (21:54)
[2021-11-06] MEDS: INSULIN SLIDING SCALE (NOVOLOG) 1 VIAL SQ SCH ×2 (06:59→17:00)
[2021-11-06] MEDS: metFORMIN HCL 500 MG TABLET (FP) PO SCH ×2 (06:59→16:30)
[2021-11-06] MEDS: PRENATAL VITAMINS W/ FOLIC ACID TABLET (FP) PO SCH (10:54)
[2021-11-06] MEDS: LISINOPRIL 10 MG TABLET PO SCH (10:54)
[2021-11-06] MEDS: risperiDONE 1 MG TABLET PO SCH ×2 (10:54→21:52)
[2021-11-06] MEDS: LIDOCAINE 5% TOPICAL PATCH TP SCH (10:55)
[2021-11-06] MEDS: NICOTINE 7 MG/24 HOURS TOPICAL PATCH TD SCH (10:55)
[2021-11-06] MEDS: THIAMINE HCL 100 MG TABLET (FP) PO SCH (21:52)
[2021-11-06] MEDS: MELATONIN 5 MG TABLETS PO SCH (21:52)
[2021-11-06] MEDS: LIDOCAINE PATCH REMOVAL MC SCH (23:07)
[2021-11-07] MEDS: metFORMIN HCL 500 MG TABLET (FP) PO SCH ×2 (07:03→16:45)
[2021-11-07] MEDS: INSULIN SLIDING SCALE (NOVOLOG) 1 VIAL SQ SCH ×2 (07:04→16:47)
[2021-11-07] MEDS: PRENATAL VITAMINS W/ FOLIC ACID TABLET (FP) PO SCH (10:25)
[2021-11-07] MEDS: LIDOCAINE 5% TOPICAL PATCH TP SCH (10:25)
[2021-11-07] MEDS: risperiDONE 1 MG TABLET PO SCH ×2 (10:25→21:18)
[2021-11-07] MEDS: LISINOPRIL 10 MG TABLET PO SCH (10:25)
[2021-11-07] MEDS: NICOTINE 7 MG/24 HOURS TOPICAL PATCH TD SCH (10:26)
[2021-11-07] MEDS: LIDOCAINE PATCH REMOVAL MC SCH (21:18)
[2021-11-07] MEDS: MELATONIN 5 MG TABLETS PO SCH (21:18)
[2021-11-07] MEDS: THIAMINE HCL 100 MG TABLET (FP) PO SCH (21:18)
[2021-11-08] MEDS: metFORMIN HCL 500 MG TABLET (FP) PO SCH ×2 (06:48→16:50)
[2021-11-08] MEDS: INSULIN SLIDING SCALE (NOVOLOG) 1 VIAL SQ SCH ×2 (06:48→17:40)
[2021-11-08] MEDS: PRENATAL VITAMINS W/ FOLIC ACID TABLET (FP) PO SCH (10:47)
[2021-11-08] MEDS: NICOTINE 7 MG/24 HOURS TOPICAL PATCH TD SCH (10:48)
[2021-11-08] MEDS: LISINOPRIL 10 MG TABLET PO SCH (10:48)
[2021-11-08] MEDS: risperiDONE 1 MG TABLET PO SCH ×2 (10:48→22:32)
[2021-11-08] MEDS: LIDOCAINE 5% TOPICAL PATCH TP SCH (10:48)
[2021-11-08] MEDS ORDERED: COLLOIDAL OATMEAL 1 BAR EACH TP PRN (14:16)
[2021-11-08] MEDS: THIAMINE HCL 100 MG TABLET (FP) PO SCH (22:32)
[2021-11-08] MEDS: MELATONIN 5 MG TABLETS PO SCH (22:32)
[2021-11-08] MEDS: LIDOCAINE PATCH REMOVAL MC SCH (22:32)
[2021-11-09] MEDS: INSULIN SLIDING SCALE (NOVOLOG) 1 VIAL SQ SCH ×2 (06:45→16:39)
[2021-11-09] MEDS: metFORMIN HCL 500 MG TABLET (FP) PO SCH ×2 (06:45→16:40)
[2021-11-09] MEDS: LISINOPRIL 10 MG TABLET PO SCH (10:10)
[2021-11-09] MEDS: risperiDONE 1 MG TABLET PO SCH ×2 (10:10→21:25)
[2021-11-09] MEDS: PRENATAL VITAMINS W/ FOLIC ACID TABLET (FP) PO SCH (10:10)
[2021-11-09] MEDS: LIDOCAINE 5% TOPICAL PATCH TP SCH (10:11)
[2021-11-09] MEDS: NICOTINE 7 MG/24 HOURS TOPICAL PATCH TD SCH (10:11)
[2021-11-09] MEDS: MELATONIN 5 MG TABLETS PO SCH (21:25)
[2021-11-09] MEDS: THIAMINE HCL 100 MG TABLET (FP) PO SCH (21:25)
[2021-11-09] MEDS: LIDOCAINE PATCH REMOVAL MC SCH (21:25)
[2021-11-10] MEDS: metFORMIN HCL 500 MG TABLET (FP) PO SCH ×2 (06:56→17:08)
[2021-11-10] MEDS: INSULIN SLIDING SCALE (NOVOLOG) 1 VIAL SQ SCH ×2 (07:02→17:10)
[2021-11-10] MEDS: LISINOPRIL 10 MG TABLET PO SCH (10:19)
[2021-11-10] MEDS: PRENATAL VITAMINS W/ FOLIC ACID TABLET (FP) PO SCH (10:19)
[2021-11-10] MEDS: NICOTINE 7 MG/24 HOURS TOPICAL PATCH TD SCH (10:19)
[2021-11-10] MEDS: risperiDONE 1 MG TABLET PO SCH ×2 (10:19→21:10)
[2021-11-10] MEDS: LIDOCAINE 5% TOPICAL PATCH TP SCH (10:20)
[2021-11-10] MEDS: MELATONIN 5 MG TABLETS PO SCH (21:10)
[2021-11-10] MEDS: LIDOCAINE PATCH REMOVAL MC SCH (21:10)
[2021-11-10] MEDS: THIAMINE HCL 100 MG TABLET (FP) PO SCH (21:10)
[2021-11-11] MEDS: metFORMIN HCL 500 MG TABLET (FP) PO SCH ×2 (06:15→16:29)
[2021-11-11] MEDS: INSULIN SLIDING SCALE (NOVOLOG) 1 VIAL SQ SCH ×2 (07:22→18:35)
[2021-11-11] MEDS: risperiDONE 1 MG TABLET PO SCH ×2 (09:52→21:19)
[2021-11-11] MEDS: LISINOPRIL 10 MG TABLET PO SCH (09:52)
[2021-11-11] MEDS: PRENATAL VITAMINS W/ FOLIC ACID TABLET (FP) PO SCH (09:53)
[2021-11-11] MEDS: NICOTINE 7 MG/24 HOURS TOPICAL PATCH TD SCH (09:53)
[2021-11-11] MEDS: LIDOCAINE 5% TOPICAL PATCH TP SCH (09:53)
[2021-11-11] MEDS: MELATONIN 5 MG TABLETS PO SCH (21:19)
[2021-11-11] MEDS: THIAMINE HCL 100 MG TABLET (FP) PO SCH (21:19)
[2021-11-11] MEDS: LIDOCAINE PATCH REMOVAL MC SCH (21:19)
[2021-11-12] MEDS: metFORMIN HCL 500 MG TABLET (FP) PO SCH ×2 (06:27→16:33)
[2021-11-12] MEDS: INSULIN SLIDING SCALE (NOVOLOG) 1 VIAL SQ SCH ×2 (07:24→16:34)
[2021-11-12] MEDS: LIDOCAINE 5% TOPICAL PATCH TP SCH (09:53)
[2021-11-12] MEDS: LISINOPRIL 10 MG TABLET PO SCH (09:54)
[2021-11-12] MEDS: PRENATAL VITAMINS W/ FOLIC ACID TABLET (FP) PO SCH (09:54)
[2021-11-12] MEDS: NICOTINE 7 MG/24 HOURS TOPICAL PATCH TD SCH (09:54)
[2021-11-12] MEDS: risperiDONE 1 MG TABLET PO SCH ×2 (09:54→21:17)
[2021-11-12] MEDS: LIDOCAINE PATCH REMOVAL MC SCH (21:17)
[2021-11-12] MEDS: MELATONIN 5 MG TABLETS PO SCH (21:17)
[2021-11-12] MEDS: THIAMINE HCL 100 MG TABLET (FP) PO SCH (21:17)
[2021-11-13] MEDS: metFORMIN HCL 500 MG TABLET (FP) PO SCH ×2 (06:42→16:56)
[2021-11-13] MEDS: INSULIN SLIDING SCALE (NOVOLOG) 1 VIAL SQ SCH ×2 (06:43→16:57)
[2021-11-13] MEDS: risperiDONE 1 MG TABLET PO SCH ×2 (10:37→21:02)
[2021-11-13] MEDS: PRENATAL VITAMINS W/ FOLIC ACID TABLET (FP) PO SCH (10:37)
[2021-11-13] MEDS: LIDOCAINE 5% TOPICAL PATCH TP SCH (10:38)
[2021-11-13] MEDS: LISINOPRIL 10 MG TABLET PO SCH (10:40)
[2021-11-13] MEDS: NICOTINE 7 MG/24 HOURS TOPICAL PATCH TD SCH (10:40)
[2021-11-13] MEDS: THIAMINE HCL 100 MG TABLET (FP) PO SCH (21:02)
[2021-11-13] MEDS: LIDOCAINE PATCH REMOVAL MC SCH (21:02)
[2021-11-13] MEDS: MELATONIN 5 MG TABLETS PO SCH (21:02)
[2021-11-14] MEDS: INSULIN SLIDING SCALE (NOVOLOG) 1 VIAL SQ SCH ×2 (06:42→17:02)
[2021-11-14] MEDS: metFORMIN HCL 500 MG TABLET (FP) PO SCH ×2 (06:42→16:59)
[2021-11-14] MEDS: LISINOPRIL 10 MG TABLET PO SCH (10:05)
[2021-11-14] MEDS: NICOTINE 7 MG/24 HOURS TOPICAL PATCH TD SCH (10:05)
[2021-11-14] MEDS: LIDOCAINE 5% TOPICAL PATCH TP SCH (10:05)
[2021-11-14] MEDS: risperiDONE 1 MG TABLET PO SCH ×2 (10:05→21:39)
[2021-11-14] MEDS: PRENATAL VITAMINS W/ FOLIC ACID TABLET (FP) PO SCH (10:05)
[2021-11-14] MEDS: THIAMINE HCL 100 MG TABLET (FP) PO SCH (21:38)
[2021-11-14] MEDS: MELATONIN 5 MG TABLETS PO SCH (21:38)
[2021-11-14] MEDS: LIDOCAINE PATCH REMOVAL MC SCH (21:39)
[2021-11-15] MEDS: INSULIN SLIDING SCALE (NOVOLOG) 1 VIAL SQ SCH ×2 (06:35→17:40)
[2021-11-15] MEDS: metFORMIN HCL 500 MG TABLET (FP) PO SCH ×2 (06:35→16:55)
[2021-11-15] MEDS: PRENATAL VITAMINS W/ FOLIC ACID TABLET (FP) PO SCH (10:47)
[2021-11-15] MEDS: risperiDONE 1 MG TABLET PO SCH ×2 (10:47→21:12)
[2021-11-15] MEDS: LIDOCAINE 5% TOPICAL PATCH TP SCH (10:47)
[2021-11-15] MEDS: NICOTINE 7 MG/24 HOURS TOPICAL PATCH TD SCH (10:48)
[2021-11-15] MEDS: LISINOPRIL 10 MG TABLET PO SCH (10:48)
[2021-11-15] MEDS: MELATONIN 5 MG TABLETS PO SCH (21:12)
[2021-11-15] MEDS: THIAMINE HCL 100 MG TABLET (FP) PO SCH (21:12)
[2021-11-15] MEDS: LIDOCAINE PATCH REMOVAL MC SCH (21:12)
[2021-11-16] MEDS: metFORMIN HCL 500 MG TABLET (FP) PO SCH ×2 (07:36→16:29)
[2021-11-16] MEDS: INSULIN SLIDING SCALE (NOVOLOG) 1 VIAL SQ SCH ×2 (07:37→16:29)
[2021-11-16] MEDS: LIDOCAINE 5% TOPICAL PATCH TP SCH (10:09)
[2021-11-16] MEDS: NICOTINE 7 MG/24 HOURS TOPICAL PATCH TD SCH (10:11)
[2021-11-16] MEDS: PRENATAL VITAMINS W/ FOLIC ACID TABLET (FP) PO SCH (10:11)
[2021-11-16] MEDS: risperiDONE 1 MG TABLET PO SCH ×2 (10:11→21:09)
[2021-11-16] MEDS: LISINOPRIL 10 MG TABLET PO SCH (10:11)
[2021-11-16] MEDS: MELATONIN 5 MG TABLETS PO SCH (21:09)
[2021-11-16] MEDS: THIAMINE HCL 100 MG TABLET (FP) PO SCH (21:09)
[2021-11-16] MEDS: LIDOCAINE PATCH REMOVAL MC SCH (21:10)
[2021-11-17] MEDS: INSULIN SLIDING SCALE (NOVOLOG) 1 VIAL SQ SCH ×2 (07:37→16:24)
[2021-11-17] MEDS: metFORMIN HCL 500 MG TABLET (FP) PO SCH ×2 (07:37→16:24)
[2021-11-17] MEDS: LISINOPRIL 10 MG TABLET PO SCH (10:30)
[2021-11-17] MEDS: PRENATAL VITAMINS W/ FOLIC ACID TABLET (FP) PO SCH (10:30)
[2021-11-17] MEDS: LIDOCAINE 5% TOPICAL PATCH TP SCH (10:31)
[2021-11-17] MEDS: NICOTINE 7 MG/24 HOURS TOPICAL PATCH TD SCH (10:31)
[2021-11-17] MEDS: risperiDONE 1 MG TABLET PO SCH ×2 (10:32→21:24)
[2021-11-17] MEDS: THIAMINE HCL 100 MG TABLET (FP) PO SCH (21:24)
[2021-11-17] MEDS: MELATONIN 5 MG TABLETS PO SCH (21:24)
[2021-11-17] MEDS: LIDOCAINE PATCH REMOVAL MC SCH (21:25)
[2021-11-18] MEDS: metFORMIN HCL 500 MG TABLET (FP) PO SCH (06:21)
[2021-11-18] MEDS: INSULIN SLIDING SCALE (NOVOLOG) 1 VIAL SQ SCH (06:23)
[2021-11-18 07:16] VITALS: BP 151/76; PULSE 68; TEMP 97.1
[2021-11-18] MEDS: PRENATAL VITAMINS W/ FOLIC ACID TABLET (FP) PO SCH (09:04)
[2021-11-18] MEDS: LISINOPRIL 10 MG TABLET PO SCH (09:04)
[2021-11-18] MEDS: risperiDONE 1 MG TABLET PO SCH (09:04)
[2021-11-18] MEDS: LIDOCAINE 5% TOPICAL PATCH TP SCH (09:15)
[2021-11-18] MEDS: NICOTINE 7 MG/24 HOURS TOPICAL PATCH TD SCH (09:16)
== END 2021-11-18 09:11 | disposition home or self-care (01) | DRG 772 ==
LOC: YASAS 11:13 → Y3W 11:14
PROVIDERS: ADMIT Allergy & Immunology; ATTEND Psychiatry & Neurology Psychiatry
PROC: HZ42ZZZ Group Counseling for Substance Abuse Treatment, Cognitive-Behavioral (ICD-10-PCS; principal; 2021-10-23)
DX: F10.20 Alcohol dependence, uncomplicated (principal); F14.20 Cocaine dependence, uncomplicated; F12.20 Cannabis dependence, uncomplicated; F17.210 Nicotine dependence, cigarettes, uncomplicated; F20.0 Paranoid schizophrenia; F19.282 Other psychoactive substance dependence with psychoactive substance-induced sleep disorder; F19.280 Other psychoactive substance dependence with psychoactive substance-induced anxiety disorder; I10 Essential (primary) hypertension; E11.65 Type 2 diabetes mellitus with hyperglycemia; K21.9 Gastro-esophageal reflux disease without esophagitis; M54.59 Other low back pain; G89.29 Other chronic pain; Z91.013 Allergy to seafood; Z79.84 Long term (current) use of oral hypoglycemic drugs; Z87.438 Personal history of other diseases of male genital organs; Z91.51 Personal history of suicidal behavior; Z56.0 Unemployment, unspecified; Z59.00 Homelessness unspecified
CPT/HCPCS: 36415; 81003; 82962; 86803; 87389; J2794

== ENCOUNTER 2022-04-15 08:45 | Inpatient (IN) | payer OTHER ==
[2022-04-15 11:02] VITALS: BMI 35.2
[2022-04-15] MEDS ORDERED: hydrOXYzine PAMOATE 25 MG CAPSULE (FP) PO PRN (11:17)
[2022-04-15] MEDS ORDERED: LOPERAMIDE HCL 2 MG CAPSULE PO PRN (11:17)
[2022-04-15] MEDS ORDERED: BENZOCAINE/MENTHOL (CHLORASEPTIC ) LOZENGE MM PRN (11:17)
[2022-04-15] MEDS ORDERED: IBUPROFEN 600 MG TABLET (FP) PO PRN (11:17)
[2022-04-15] MEDS ORDERED: MAGNESIUM HYDROX 2400MG/30ML ORAL SUSPENSION 30 ML CUP PO PRN (11:17)
[2022-04-15] MEDS ORDERED: IBUPROFEN 400 MG TABLET (FP) PO PRN (11:17)
[2022-04-15] MEDS ORDERED: MAG HYDROX/AL HYDROX/SIMETH 30 ML UNIT-DOSE CUP PO PRN (11:17)
[2022-04-15] MEDS ORDERED: DICYCLOMINE HCL 10 MG CAPSULE PO PRN (11:17)
[2022-04-15] MEDS ORDERED: NALOXONE HCL (KLOXXADO) 8 MG SPRAY NS PRN (11:17)
[2022-04-15] MEDS ORDERED: ONDANSETRON *ODT* 4 MG TABLET SL PRN (11:17)
[2022-04-15] MEDS ORDERED: NICOTINE 10 MG CARTRIDGE (INHALER) IH PRN (11:17)
[2022-04-15] MEDS ORDERED: METHOCARBAMOL 500 MG TABLET PO PRN (11:17)
[2022-04-15] MEDS ORDERED: ACETAMINOPHEN 325 MG TABLET (FP) PO PRN ×2 (11:17)
[2022-04-15] MEDS ORDERED: POLYETHYLENE GLYCOL (HEALTHYLAX) 3350 17 GM PACKET PO PRN (11:17)
[2022-04-15] MEDS ORDERED: BISMUTH SUBSALICYLATE 524 MG/30 ML PO PRN (11:17)
[2022-04-15] MEDS: metFORMIN HCL 500 MG TABLET (FP) PO SCH (17:30)
[2022-04-15] MEDS: MELATONIN 5 MG TABLETS PO SCH (21:26)
[2022-04-15] MEDS: THIAMINE HCL 100 MG TABLET (FP) PO SCH (21:26)
[2022-04-15 21:28] VITALS: RESP 18
[2022-04-16] MEDS: metFORMIN HCL 500 MG TABLET (FP) PO SCH ×2 (06:11→17:30)
[2022-04-16] MEDS: LISINOPRIL 10 MG TABLET PO SCH (10:39)
[2022-04-16] MEDS: PRENATAL VITAMINS W/ FOLIC ACID TABLET (FP) PO SCH (10:39)
[2022-04-16 12:26] LABS: CALCIUM 8.7 mg/dL (8.5-10.1)
[2022-04-16 12:27] LABS: BLOOD UREA NITROGEN 10.5 mg/dL (7-18)
[2022-04-16 12:30] LABS: CREATININE 0.9 mg/dL (0.55-1.3)
[2022-04-16 12:31] LABS: TOT PROT 6.3 g/dl (6.4-8.2)
[2022-04-16 12:32] LABS: BILIRUBIN,TOTAL 0.2 mg/dL (0.2-1)
[2022-04-16 12:39] LABS: HEMOGLOBIN 12.8 GM/dL (11.7-16.9); MCH 25.1 pg (25.7-33.7); MCHC 31.2 g/dl (32.0-35.9); MEAN CELL VOLUME 80.5 fl (80-96); MEAN PLT VOLUME 7.6 fl (7.5-11.1); PLATELET COUNT 219 10^3/uL (134-434); RBC 5.09 M/mm3 (4.00-5.60); RDW 14.1 % (11.9-15.9); WHITE BLOOD COUNT 4.5 K/mm3 (4.0-10.0)
[2022-04-16] MEDS: THIAMINE HCL 100 MG TABLET (FP) PO SCH (22:00)
[2022-04-16] MEDS: MELATONIN 5 MG TABLETS PO SCH (22:00)
[2022-04-17] MEDS: metFORMIN HCL 500 MG TABLET (FP) PO SCH (06:04)
[2022-04-17 09:39] VITALS: BP 153/100; PULSE 68; TEMP 97.1
[2022-04-17] MEDS: PRENATAL VITAMINS W/ FOLIC ACID TABLET (FP) PO SCH (10:27)
[2022-04-17] MEDS: LISINOPRIL 10 MG TABLET PO SCH (10:27)
== END 2022-04-17 13:51 | disposition other institution (70) | DRG 774 ==
LOC: YASAS 08:45 → UNDOADMIN 12:01 → Y6N 12:01
PROVIDERS: ADMIT Allergy & Immunology; ATTEND Surgery
PROC: HZ2ZZZZ Detoxification Services for Substance Abuse Treatment (ICD-10-PCS; principal; 2022-04-15)
DX: F10.230 Alcohol dependence with withdrawal, uncomplicated (principal); F14.20 Cocaine dependence, uncomplicated; F12.20 Cannabis dependence, uncomplicated; F17.210 Nicotine dependence, cigarettes, uncomplicated; I10 Essential (primary) hypertension; E11.9 Type 2 diabetes mellitus without complications; Z79.84 Long term (current) use of oral hypoglycemic drugs
CPT/HCPCS: 36415; 80053; 82962; 85027; 86780; 87811; C9803-CS; U0003; U0005

== ENCOUNTER 2022-04-17 14:04 | Inpatient (IN) | payer OTHER ==
[2022-04-17] MEDS ORDERED: BENZOCAINE/MENTHOL (CHLORASEPTIC ) LOZENGE MM PRN (15:24)
[2022-04-17] MEDS ORDERED: guaiFENesin 200 MG/10 ML 10 ML UNIT-DOSE CUPS PO PRN (15:24)
[2022-04-17] MEDS ORDERED: MAGNESIUM HYDROX 2400MG/30ML ORAL SUSPENSION 30 ML CUP PO PRN (15:24)
[2022-04-17] MEDS ORDERED: hydrOXYzine PAMOATE 25 MG CAPSULE (FP) PO PRN (15:24)
[2022-04-17] MEDS ORDERED: POLYETHYLENE GLYCOL (HEALTHYLAX) 3350 17 GM PACKET PO PRN (15:24)
[2022-04-17] MEDS ORDERED: IBUPROFEN 400 MG TABLET (FP) PO PRN (15:24)
[2022-04-17] MEDS ORDERED: ACETAMINOPHEN 325 MG TABLET (FP) PO PRN (15:24)
[2022-04-17] MEDS ORDERED: NICOTINE 10 MG CARTRIDGE (INHALER) IH PRN (15:24)
[2022-04-17] MEDS ORDERED: P-EPHED 60MG/TRIPROLIDI 2.5MG TABLET PO PRN (15:24)
[2022-04-17] MEDS ORDERED: MAG HYDROX/AL HYDROX/SIMETH 30 ML UNIT-DOSE CUP PO PRN (15:24)
[2022-04-17] MEDS ORDERED: LOPERAMIDE HCL 2 MG CAPSULE PO PRN (15:24)
[2022-04-17 15:43] VITALS: RESP 18
[2022-04-17] MEDS: metFORMIN HCL 500 MG TABLET (FP) PO SCH (17:06)
[2022-04-17] MEDS: LIDOCAINE PATCH REMOVAL MC SCH (23:10)
[2022-04-17] MEDS: MELATONIN 5 MG TABLETS PO SCH (23:10)
[2022-04-17] MEDS: THIAMINE HCL 100 MG TABLET (FP) PO SCH (23:11)
[2022-04-18] MEDS: metFORMIN HCL 500 MG TABLET (FP) PO SCH ×2 (06:23→16:39)
[2022-04-18] MEDS: LIDOCAINE 5% TOPICAL PATCH TP SCH (09:15)
[2022-04-18] MEDS: PRENATAL VITAMINS W/ FOLIC ACID TABLET (FP) PO SCH (09:16)
[2022-04-18] MEDS: LISINOPRIL 10 MG TABLET PO SCH (09:16)
[2022-04-18] MEDS: MELATONIN 5 MG TABLETS PO SCH (22:39)
[2022-04-18] MEDS: LIDOCAINE PATCH REMOVAL MC SCH (22:39)
[2022-04-18] MEDS: THIAMINE HCL 100 MG TABLET (FP) PO SCH (22:40)
[2022-04-19] MEDS: metFORMIN HCL 500 MG TABLET (FP) PO SCH ×2 (06:42→16:50)
[2022-04-19] MEDS: PRENATAL VITAMINS W/ FOLIC ACID TABLET (FP) PO SCH (10:23)
[2022-04-19] MEDS: LISINOPRIL 10 MG TABLET PO SCH (10:24)
[2022-04-19] MEDS: LIDOCAINE 5% TOPICAL PATCH TP SCH (10:24)
[2022-04-19] MEDS: LIDOCAINE PATCH REMOVAL MC SCH (21:30)
[2022-04-19] MEDS: THIAMINE HCL 100 MG TABLET (FP) PO SCH (21:31)
[2022-04-19] MEDS: MELATONIN 5 MG TABLETS PO SCH (21:31)
[2022-04-20] MEDS: metFORMIN HCL 500 MG TABLET (FP) PO SCH ×2 (06:00→16:26)
[2022-04-20] MEDS: PRENATAL VITAMINS W/ FOLIC ACID TABLET (FP) PO SCH (09:53)
[2022-04-20] MEDS: LIDOCAINE 5% TOPICAL PATCH TP SCH (09:54)
[2022-04-20] MEDS: LISINOPRIL 10 MG TABLET PO SCH (09:54)
[2022-04-20] MEDS: THIAMINE HCL 100 MG TABLET (FP) PO SCH (21:24)
[2022-04-20] MEDS: LIDOCAINE PATCH REMOVAL MC SCH (21:24)
[2022-04-20] MEDS: MELATONIN 5 MG TABLETS PO SCH (21:24)
[2022-04-21] MEDS: metFORMIN HCL 500 MG TABLET (FP) PO SCH ×2 (06:24→16:48)
[2022-04-21] MEDS: LISINOPRIL 10 MG TABLET PO SCH (09:36)
[2022-04-21] MEDS: PRENATAL VITAMINS W/ FOLIC ACID TABLET (FP) PO SCH (09:36)
[2022-04-21] MEDS: LIDOCAINE 5% TOPICAL PATCH TP SCH (09:36)
[2022-04-21] MEDS: risperiDONE 1 MG TABLET PO SCH (21:34)
[2022-04-21] MEDS: MELATONIN 5 MG TABLETS PO SCH (21:35)
[2022-04-21] MEDS: THIAMINE HCL 100 MG TABLET (FP) PO SCH (21:35)
[2022-04-21] MEDS: LIDOCAINE PATCH REMOVAL MC SCH (21:35)
[2022-04-22] MEDS: metFORMIN HCL 500 MG TABLET (FP) PO SCH ×2 (06:07→17:01)
[2022-04-22] MEDS: LISINOPRIL 10 MG TABLET PO SCH (10:14)
[2022-04-22] MEDS: PRENATAL VITAMINS W/ FOLIC ACID TABLET (FP) PO SCH (10:14)
[2022-04-22] MEDS: LIDOCAINE 5% TOPICAL PATCH TP SCH (10:15)
[2022-04-22] MEDS: MELATONIN 5 MG TABLETS PO SCH (21:31)
[2022-04-22] MEDS: risperiDONE 1 MG TABLET PO SCH (21:31)
[2022-04-22] MEDS: LIDOCAINE PATCH REMOVAL MC SCH (21:32)
[2022-04-22] MEDS: THIAMINE HCL 100 MG TABLET (FP) PO SCH (21:32)
[2022-04-23] MEDS: metFORMIN HCL 500 MG TABLET (FP) PO SCH ×2 (06:31→17:18)
[2022-04-23] MEDS: LISINOPRIL 10 MG TABLET PO SCH (09:44)
[2022-04-23] MEDS: PRENATAL VITAMINS W/ FOLIC ACID TABLET (FP) PO SCH (09:44)
[2022-04-23] MEDS: LIDOCAINE 5% TOPICAL PATCH TP SCH (09:45)
[2022-04-23] MEDS: risperiDONE 1 MG TABLET PO SCH (21:30)
[2022-04-23] MEDS: LIDOCAINE PATCH REMOVAL MC SCH (21:31)
[2022-04-23] MEDS: THIAMINE HCL 100 MG TABLET (FP) PO SCH (21:31)
[2022-04-23] MEDS: MELATONIN 5 MG TABLETS PO SCH (21:31)
[2022-04-24] MEDS: metFORMIN HCL 500 MG TABLET (FP) PO SCH ×2 (06:29→16:19)
[2022-04-24] MEDS: PRENATAL VITAMINS W/ FOLIC ACID TABLET (FP) PO SCH (09:32)
[2022-04-24] MEDS: LIDOCAINE 5% TOPICAL PATCH TP SCH (09:32)
[2022-04-24] MEDS: LISINOPRIL 10 MG TABLET PO SCH (09:33)
[2022-04-24] MEDS: MELATONIN 5 MG TABLETS PO SCH (21:15)
[2022-04-24] MEDS: LIDOCAINE PATCH REMOVAL MC SCH (21:15)
[2022-04-24] MEDS: risperiDONE 1 MG TABLET PO SCH (21:15)
[2022-04-24] MEDS: THIAMINE HCL 100 MG TABLET (FP) PO SCH (21:15)
[2022-04-25] MEDS: metFORMIN HCL 500 MG TABLET (FP) PO SCH ×2 (06:20→16:27)
[2022-04-25] MEDS: LIDOCAINE 5% TOPICAL PATCH TP SCH (09:54)
[2022-04-25] MEDS: PRENATAL VITAMINS W/ FOLIC ACID TABLET (FP) PO SCH (09:55)
[2022-04-25] MEDS: LISINOPRIL 10 MG TABLET PO SCH (09:55)
[2022-04-25] MEDS: THIAMINE HCL 100 MG TABLET (FP) PO SCH (21:26)
[2022-04-25] MEDS: LIDOCAINE PATCH REMOVAL MC SCH (21:26)
[2022-04-25] MEDS: risperiDONE 1 MG TABLET PO SCH (21:26)
[2022-04-25] MEDS: MELATONIN 5 MG TABLETS PO SCH (21:26)
[2022-04-26] MEDS: metFORMIN HCL 500 MG TABLET (FP) PO SCH ×2 (06:16→16:40)
[2022-04-26] MEDS: LIDOCAINE 5% TOPICAL PATCH TP SCH (09:51)
[2022-04-26] MEDS: PRENATAL VITAMINS W/ FOLIC ACID TABLET (FP) PO SCH (09:51)
[2022-04-26] MEDS: LISINOPRIL 10 MG TABLET PO SCH (09:51)
[2022-04-26] MEDS: risperiDONE 1 MG TABLET PO SCH (21:21)
[2022-04-26] MEDS: MELATONIN 5 MG TABLETS PO SCH (21:22)
[2022-04-26] MEDS: LIDOCAINE PATCH REMOVAL MC SCH (21:22)
[2022-04-26] MEDS: THIAMINE HCL 100 MG TABLET (FP) PO SCH (21:22)
[2022-04-27] MEDS: metFORMIN HCL 500 MG TABLET (FP) PO SCH ×2 (06:07→16:36)
[2022-04-27] MEDS: PRENATAL VITAMINS W/ FOLIC ACID TABLET (FP) PO SCH (10:06)
[2022-04-27] MEDS: LIDOCAINE 5% TOPICAL PATCH TP SCH (10:06)
[2022-04-27] MEDS: LISINOPRIL 10 MG TABLET PO SCH (10:06)
[2022-04-27] MEDS: risperiDONE 1 MG TABLET PO SCH (21:18)
[2022-04-27] MEDS: LIDOCAINE PATCH REMOVAL MC SCH (21:18)
[2022-04-27] MEDS: MELATONIN 5 MG TABLETS PO SCH (21:18)
[2022-04-27] MEDS: THIAMINE HCL 100 MG TABLET (FP) PO SCH (21:18)
[2022-04-28] MEDS: metFORMIN HCL 500 MG TABLET (FP) PO SCH (06:01)
[2022-04-28 09:06] VITALS: BP 150/89; PULSE 75; TEMP 97.8
== END 2022-04-28 09:53 | disposition home or self-care (01) | DRG 772 ==
LOC: YASAS 14:04 → Y3W 14:05
PROVIDERS: ADMIT Allergy & Immunology; ATTEND Psychiatry & Neurology Pain Medicine
PROC: HZ42ZZZ Group Counseling for Substance Abuse Treatment, Cognitive-Behavioral (ICD-10-PCS; principal; 2022-04-17)
DX: F10.20 Alcohol dependence, uncomplicated (principal); F14.20 Cocaine dependence, uncomplicated; F17.210 Nicotine dependence, cigarettes, uncomplicated; F20.0 Paranoid schizophrenia; I10 Essential (primary) hypertension; K21.9 Gastro-esophageal reflux disease without esophagitis; E11.9 Type 2 diabetes mellitus without complications; Z79.84 Long term (current) use of oral hypoglycemic drugs; M54.50 Low back pain, unspecified; G89.29 Other chronic pain; Z87.442 Personal history of urinary calculi; Z91.013 Allergy to seafood; Z56.0 Unemployment, unspecified
CPT/HCPCS: 82962; J2794

== ENCOUNTER 2022-09-07 11:14 | Inpatient (IN) | payer OTHER ==
[2022-09-07 13:22] VITALS: BMI 31.6
[2022-09-07] MEDS ORDERED: BENZONATATE 200 MG CAPSULE PO PRN (14:41)
[2022-09-07] MEDS ORDERED: ONDANSETRON *ODT* 4 MG TABLET SL PRN (14:41)
[2022-09-07] MEDS ORDERED: NICOTINE 10 MG CARTRIDGE (INHALER) IH PRN (14:41)
[2022-09-07] MEDS ORDERED: ACETAMINOPHEN 325 MG TABLET (FP) PO PRN (14:41)
[2022-09-07] MEDS ORDERED: MAGNESIUM HYDROX 2400MG/30ML ORAL SUSPENSION 30 ML CUP PO PRN (14:41)
[2022-09-07] MEDS ORDERED: NALOXONE HCL 0.4 MG/ML VIAL IM PRN (14:41)
[2022-09-07] MEDS ORDERED: hydrOXYzine PAMOATE 25 MG CAPSULE (FP) PO PRN (14:41)
[2022-09-07] MEDS ORDERED: MAG HYDROX/AL HYDROX/SIMETH 30 ML UNIT-DOSE CUP PO PRN (14:41)
[2022-09-07] MEDS ORDERED: NALOXONE HCL (KLOXXADO) 8 MG SPRAY NS PRN (14:41)
[2022-09-07] MEDS ORDERED: DICYCLOMINE HCL 10 MG CAPSULE PO PRN (14:41)
[2022-09-07] MEDS ORDERED: guaiFENesin 600 MG TABLET.ER (FP) PO PRN (14:41)
[2022-09-07] MEDS ORDERED: LOPERAMIDE HCL 2 MG CAPSULE PO PRN (14:41)
[2022-09-07] MEDS ORDERED: METHOCARBAMOL 500 MG TABLET PO PRN (14:41)
[2022-09-07] MEDS ORDERED: BISMUTH SUBSALICYLATE 262 MG/15 ML BTL PO PRN (14:41)
[2022-09-07] MEDS ORDERED: IBUPROFEN 600 MG TABLET (FP) PO PRN (14:41)
[2022-09-07] MEDS ORDERED: IBUPROFEN 400 MG TABLET (FP) PO PRN (14:41)
[2022-09-07] MEDS ORDERED: BENZOCAINE/MENTHOL (CHLORASEPTIC ) LOZENGE MM PRN (14:41)
[2022-09-07] MEDS ORDERED: POLYETHYLENE GLYCOL (HEALTHYLAX) 3350 17 GM PACKET PO PRN (14:41)
[2022-09-07] MEDS: PRENATAL VITAMINS W/ FOLIC ACID TABLET (FP) PO SCH (15:57)
[2022-09-07] MEDS: NICOTINE 14 MG/24 HOURS TOPICAL PATCH TD SCH (15:57)
[2022-09-07] MEDS ORDERED: NICOTINE 14 MG/24 HOURS TOPICAL PATCH TD ONE (15:59)
[2022-09-07] MEDS ORDERED: PRENATAL VITAMINS W/ FOLIC ACID TABLET (FP) PO ONE (15:59)
[2022-09-08] MEDS: metFORMIN HCL 500 MG TABLET (FP) PO SCH ×3 (00:36→17:02)
[2022-09-08] MEDS: THIAMINE HCL 100 MG TABLET (FP) PO SCH ×2 (00:37→22:25)
[2022-09-08] MEDS: MELATONIN 5 MG TABLETS PO SCH ×2 (00:37→22:25)
[2022-09-08] MEDS ORDERED: chlordiazePOXIDE HCL 25 MG CAPSULE PO PRN (09:35)
[2022-09-08] MEDS: PRENATAL VITAMINS W/ FOLIC ACID TABLET (FP) PO SCH (10:34)
[2022-09-08] MEDS: NICOTINE 14 MG/24 HOURS TOPICAL PATCH TD SCH (10:34)
[2022-09-08] MEDS: LISINOPRIL 10 MG TABLET PO SCH (10:34)
[2022-09-08] MEDS: chlordiazePOXIDE HCL 25 MG CAPSULE PO SCH ×3 (10:36→22:25)
[2022-09-08 11:14] LABS: CALCIUM 8.9 mg/dL (8.5-10.1)
[2022-09-08 11:15] LABS: ALBUMIN 3.3 g/dl (3.4-5.0); BLOOD UREA NITROGEN 26.5 mg/dL (7-18)
[2022-09-08 11:18] LABS: CREATININE 1.3 mg/dL (0.55-1.3)
[2022-09-08 11:20] LABS: BILIRUBIN,TOTAL 0.9 mg/dL (0.2-1); TOT PROT 6.6 g/dl (6.4-8.2)
[2022-09-08 11:28] LABS: HEMATOCRIT 38.1 % (35.4-49); HEMOGLOBIN 12.7 GM/dL (11.7-16.9); MCH 25.9 pg (25.7-33.7); MCHC 33.3 g/dl (32.0-35.9); MEAN CELL VOLUME 77.9 fl (80-96); MEAN PLT VOLUME 8.1 fl (7.5-11.1); PLATELET COUNT 166 10^3/uL (134-434); RBC 4.89 M/mm3 (4.00-5.60); RDW 13.8 % (11.9-15.9); WHITE BLOOD COUNT 3.3 K/mm3 (4.0-10.0)
[2022-09-09] MEDS: chlordiazePOXIDE HCL 25 MG CAPSULE PO SCH ×4 (05:34→22:33)
[2022-09-09] MEDS: metFORMIN HCL 500 MG TABLET (FP) PO SCH ×2 (06:06→17:16)
[2022-09-09] MEDS: NICOTINE 14 MG/24 HOURS TOPICAL PATCH TD SCH (10:57)
[2022-09-09] MEDS: PRENATAL VITAMINS W/ FOLIC ACID TABLET (FP) PO SCH (10:58)
[2022-09-09] MEDS: LISINOPRIL 10 MG TABLET PO SCH (10:58)
[2022-09-09] MEDS: THIAMINE HCL 100 MG TABLET (FP) PO SCH (22:33)
[2022-09-09] MEDS: MELATONIN 5 MG TABLETS PO SCH (22:33)
[2022-09-10] MEDS: chlordiazePOXIDE HCL 25 MG CAPSULE PO SCH ×4 (05:39→22:02)
[2022-09-10] MEDS: metFORMIN HCL 500 MG TABLET (FP) PO SCH ×2 (06:23→17:26)
[2022-09-10] MEDS: NICOTINE 14 MG/24 HOURS TOPICAL PATCH TD SCH (10:36)
[2022-09-10] MEDS: PRENATAL VITAMINS W/ FOLIC ACID TABLET (FP) PO SCH (10:36)
[2022-09-10] MEDS: LISINOPRIL 10 MG TABLET PO SCH (10:37)
[2022-09-10] MEDS: THIAMINE HCL 100 MG TABLET (FP) PO SCH (22:02)
[2022-09-10] MEDS: MELATONIN 5 MG TABLETS PO SCH (22:02)
[2022-09-11] MEDS ORDERED: chlordiazePOXIDE HCL 10 MG CAPSULE PO PRN
[2022-09-11] MEDS: chlordiazePOXIDE HCL 10 MG CAPSULE PO SCH ×4 (06:49→22:32)
[2022-09-11] MEDS: metFORMIN HCL 500 MG TABLET (FP) PO SCH ×2 (06:54→17:09)
[2022-09-11] MEDS: PRENATAL VITAMINS W/ FOLIC ACID TABLET (FP) PO SCH (10:32)
[2022-09-11] MEDS: NICOTINE 14 MG/24 HOURS TOPICAL PATCH TD SCH (10:32)
[2022-09-11] MEDS: LISINOPRIL 10 MG TABLET PO SCH (10:32)
[2022-09-11] MEDS: MELATONIN 5 MG TABLETS PO SCH (22:32)
[2022-09-11] MEDS: THIAMINE HCL 100 MG TABLET (FP) PO SCH (22:32)
[2022-09-12] MEDS: chlordiazePOXIDE HCL 10 MG CAPSULE PO SCH ×2 (05:32→17:03)
[2022-09-12] MEDS: metFORMIN HCL 500 MG TABLET (FP) PO SCH ×2 (06:06→17:03)
[2022-09-12] MEDS: PRENATAL VITAMINS W/ FOLIC ACID TABLET (FP) PO SCH (10:26)
[2022-09-12] MEDS: LISINOPRIL 10 MG TABLET PO SCH (10:26)
[2022-09-12] MEDS: NICOTINE 14 MG/24 HOURS TOPICAL PATCH TD SCH (10:27)
[2022-09-12] MEDS: THIAMINE HCL 100 MG TABLET (FP) PO SCH (22:27)
[2022-09-12] MEDS: MELATONIN 5 MG TABLETS PO SCH (22:27)
[2022-09-13] MEDS ORDERED: chlordiazePOXIDE HCL 10 MG CAPSULE PO ONE (05:00)
[2022-09-13] MEDS: metFORMIN HCL 500 MG TABLET (FP) PO SCH (06:13)
[2022-09-13 06:44] VITALS: RESP 16; TEMP 97.7
[2022-09-13 09:16] VITALS: BP 146/90; PULSE 81
[2022-09-13] MEDS: LISINOPRIL 10 MG TABLET PO SCH (10:12)
[2022-09-13] MEDS: PRENATAL VITAMINS W/ FOLIC ACID TABLET (FP) PO SCH (10:12)
[2022-09-13] MEDS: NICOTINE 14 MG/24 HOURS TOPICAL PATCH TD SCH (10:13)
== END 2022-09-13 11:22 | disposition other institution (70) | DRG 774 ==
LOC: YASAS 11:14 → Y3N 09-08 03:32 → UNDOADMIN 09-08 03:32
PROVIDERS: ADMIT Allergy & Immunology; ATTEND Surgery
PROC: HZ2ZZZZ Detoxification Services for Substance Abuse Treatment (ICD-10-PCS; principal; 2022-09-08)
DX: F10.230 Alcohol dependence with withdrawal, uncomplicated (principal); F14.20 Cocaine dependence, uncomplicated; F12.20 Cannabis dependence, uncomplicated; F17.210 Nicotine dependence, cigarettes, uncomplicated; F20.0 Paranoid schizophrenia; I10 Essential (primary) hypertension; K21.9 Gastro-esophageal reflux disease without esophagitis; E11.9 Type 2 diabetes mellitus without complications; Z79.84 Long term (current) use of oral hypoglycemic drugs; Z56.0 Unemployment, unspecified; Z59.00 Homelessness unspecified; Z91.013 Allergy to seafood
CPT/HCPCS: 36415; 80053; 82962; 85027; 86780; C9803-CS; U0003; U0005

== ENCOUNTER 2022-09-13 11:28 | Inpatient (IN) | payer OTHER ==
[2022-09-13 12:02] VITALS: RESP 18
[2022-09-13] MEDS ORDERED: hydrOXYzine PAMOATE 25 MG CAPSULE (FP) PO PRN (12:40)
[2022-09-13] MEDS ORDERED: guaiFENesin 600 MG TABLET.ER (FP) PO PRN (12:40)
[2022-09-13] MEDS ORDERED: MAGNESIUM HYDROX 2400MG/30ML ORAL SUSPENSION 30 ML CUP PO PRN (12:40)
[2022-09-13] MEDS ORDERED: BENZOCAINE/MENTHOL (CHLORASEPTIC ) LOZENGE MM PRN (12:40)
[2022-09-13] MEDS ORDERED: MAG HYDROX/AL HYDROX/SIMETH 30 ML UNIT-DOSE CUP PO PRN (12:40)
[2022-09-13] MEDS ORDERED: NALOXONE HCL 0.4 MG/ML VIAL IVPUSH PRN (12:40)
[2022-09-13] MEDS ORDERED: NALOXONE HCL (KLOXXADO) 8 MG SPRAY NS PRN (12:40)
[2022-09-13] MEDS ORDERED: METHOCARBAMOL 500 MG TABLET PO PRN (12:40)
[2022-09-13] MEDS ORDERED: IBUPROFEN 600 MG TABLET (FP) PO PRN (12:40)
[2022-09-13] MEDS ORDERED: AMMONIUM LACTATE 12% LOTION 225 GM BOTTLE TP PRN (12:40)
[2022-09-13] MEDS ORDERED: LOPERAMIDE HCL 2 MG CAPSULE PO PRN (12:40)
[2022-09-13] MEDS ORDERED: BENZONATATE 200 MG CAPSULE PO PRN (12:40)
[2022-09-13] MEDS ORDERED: ACETAMINOPHEN 325 MG TABLET (FP) PO PRN (12:40)
[2022-09-13] MEDS ORDERED: COLLOIDAL OATMEAL 1 BAR EACH TP PRN (12:40)
[2022-09-13] MEDS ORDERED: POLYETHYLENE GLYCOL (HEALTHYLAX) 3350 17 GM PACKET PO PRN (12:40)
[2022-09-13] MEDS ORDERED: IBUPROFEN 400 MG TABLET (FP) PO PRN (12:40)
[2022-09-13] MEDS: metFORMIN HCL 500 MG TABLET (FP) PO SCH (16:26)
[2022-09-13] MEDS: THIAMINE HCL 100 MG TABLET (FP) PO SCH (21:21)
[2022-09-13] MEDS: MELATONIN 5 MG TABLETS PO SCH (21:21)
[2022-09-14] MEDS: metFORMIN HCL 500 MG TABLET (FP) PO SCH ×2 (06:09→16:25)
[2022-09-14] MEDS: PRENATAL VITAMINS W/ FOLIC ACID TABLET (FP) PO SCH (09:55)
[2022-09-14] MEDS: LISINOPRIL 10 MG TABLET PO SCH (09:55)
[2022-09-14] MEDS: risperiDONE 0.5 MG TABLET PO SCH ×2 (13:04→21:27)
[2022-09-14] MEDS: NICOTINE 10 MG CARTRIDGE (INHALER) IH PRN (16:24)
[2022-09-14] MEDS: THIAMINE HCL 100 MG TABLET (FP) PO SCH (21:27)
[2022-09-14] MEDS: MELATONIN 5 MG TABLETS PO SCH (21:27)
[2022-09-15] MEDS: metFORMIN HCL 500 MG TABLET (FP) PO SCH ×2 (07:00→16:42)
[2022-09-15] MEDS: LISINOPRIL 10 MG TABLET PO SCH (10:22)
[2022-09-15] MEDS: PRENATAL VITAMINS W/ FOLIC ACID TABLET (FP) PO SCH (10:22)
[2022-09-15] MEDS: risperiDONE 0.5 MG TABLET PO SCH ×2 (10:22→21:00)
[2022-09-15] MEDS: NICOTINE 10 MG CARTRIDGE (INHALER) IH PRN (16:42)
[2022-09-15] MEDS: MELATONIN 5 MG TABLETS PO SCH (21:00)
[2022-09-15] MEDS: THIAMINE HCL 100 MG TABLET (FP) PO SCH (21:00)
[2022-09-16] MEDS: metFORMIN HCL 500 MG TABLET (FP) PO SCH ×2 (06:06→16:22)
[2022-09-16] MEDS: PRENATAL VITAMINS W/ FOLIC ACID TABLET (FP) PO SCH (09:24)
[2022-09-16] MEDS: LISINOPRIL 10 MG TABLET PO SCH (09:24)
[2022-09-16] MEDS: risperiDONE 0.5 MG TABLET PO SCH ×2 (09:24→21:30)
[2022-09-16] MEDS: THIAMINE HCL 100 MG TABLET (FP) PO SCH (21:31)
[2022-09-16] MEDS: MELATONIN 5 MG TABLETS PO SCH (21:31)
[2022-09-17 06:31] VITALS: TEMP 97.5
[2022-09-17] MEDS: metFORMIN HCL 500 MG TABLET (FP) PO SCH (06:37)
[2022-09-17] MEDS: risperiDONE 0.5 MG TABLET PO SCH (09:11)
[2022-09-17] MEDS: PRENATAL VITAMINS W/ FOLIC ACID TABLET (FP) PO SCH (09:11)
[2022-09-17] MEDS: LISINOPRIL 10 MG TABLET PO SCH (09:11)
[2022-09-17] MEDS: NICOTINE 10 MG CARTRIDGE (INHALER) IH PRN (09:12)
[2022-09-17 10:07] VITALS: BP 148/99; PULSE 89
== END 2022-09-17 13:54 | disposition left against medical advice (07) | DRG 770 ==
LOC: YASAS 11:28 → Y3W 11:29
PROVIDERS: ADMIT Allergy & Immunology; ATTEND Psychiatry & Neurology Pain Medicine
PROC: HZ42ZZZ Group Counseling for Substance Abuse Treatment, Cognitive-Behavioral (ICD-10-PCS; principal; 2022-09-13)
DX: F10.20 Alcohol dependence, uncomplicated (principal); F14.20 Cocaine dependence, uncomplicated; F17.210 Nicotine dependence, cigarettes, uncomplicated; F20.9 Schizophrenia, unspecified; I10 Essential (primary) hypertension; E11.9 Type 2 diabetes mellitus without complications; Z79.84 Long term (current) use of oral hypoglycemic drugs
CPT/HCPCS: 36415; 82962; 86803

== ENCOUNTER 2022-11-26 15:22 | Inpatient (IN) | payer OTHER ==
[2022-11-26 16:58] VITALS: BMI 28.5
[2022-11-26] MEDS ORDERED: BISMUTH SUBSALICYLATE 524 MG/30 ML PO PRN (17:46)
[2022-11-26] MEDS ORDERED: NALOXONE HCL 0.4 MG/ML VIAL IM PRN (17:46)
[2022-11-26] MEDS ORDERED: MAGNESIUM HYDROX 2400MG/30ML ORAL SUSPENSION 30 ML CUP PO PRN (17:46)
[2022-11-26] MEDS ORDERED: MAG HYDROX/AL HYDROX/SIMETH 30 ML UNIT-DOSE CUP PO PRN (17:46)
[2022-11-26] MEDS ORDERED: POLYETHYLENE GLYCOL (HEALTHYLAX) 3350 17 GM PACKET PO PRN (17:46)
[2022-11-26] MEDS ORDERED: BENZONATATE 200 MG CAPSULE PO PRN (17:46)
[2022-11-26] MEDS ORDERED: ACETAMINOPHEN 325 MG TABLET (FP) PO PRN (17:46)
[2022-11-26] MEDS ORDERED: BENZOCAINE/MENTHOL (CHLORASEPTIC ) LOZENGE MM PRN (17:46)
[2022-11-26] MEDS ORDERED: IBUPROFEN 600 MG TABLET (FP) PO PRN (17:46)
[2022-11-26] MEDS ORDERED: ONDANSETRON *ODT* 4 MG TABLET SL PRN (17:46)
[2022-11-26] MEDS ORDERED: NICOTINE 10 MG CARTRIDGE (INHALER) IH PRN (17:46)
[2022-11-26] MEDS ORDERED: chlordiazePOXIDE HCL 25 MG CAPSULE PO PRN (17:46)
[2022-11-26] MEDS ORDERED: NALOXONE HCL (KLOXXADO) 8 MG SPRAY NS PRN (17:46)
[2022-11-26] MEDS ORDERED: guaiFENesin 600 MG TABLET.ER (FP) PO PRN (17:46)
[2022-11-26] MEDS ORDERED: NICOTINE POLACRILEX 2 MG GUM BUC PRN (17:46)
[2022-11-26] MEDS ORDERED: DICYCLOMINE HCL 10 MG CAPSULE PO PRN (17:46)
[2022-11-26] MEDS ORDERED: LOPERAMIDE HCL 2 MG CAPSULE PO PRN (17:46)
[2022-11-26] MEDS ORDERED: IBUPROFEN 400 MG TABLET (FP) PO PRN (17:46)
[2022-11-26] MEDS ORDERED: hydrOXYzine PAMOATE 25 MG CAPSULE (FP) PO PRN (17:46)
[2022-11-26] MEDS ORDERED: METHOCARBAMOL 500 MG TABLET PO PRN (17:46)
[2022-11-26] MEDS: MELATONIN 5 MG TABLETS PO SCH (22:28)
[2022-11-26] MEDS: THIAMINE HCL 100 MG TABLET (FP) PO SCH (22:29)
[2022-11-26] MEDS: chlordiazePOXIDE HCL 25 MG CAPSULE PO SCH (22:30)
[2022-11-27] MEDS: chlordiazePOXIDE HCL 25 MG CAPSULE PO SCH ×4 (05:59→22:43)
[2022-11-27] MEDS: metFORMIN HCL 500 MG TABLET (FP) PO SCH ×2 (07:50→17:27)
[2022-11-27] MEDS: LISINOPRIL 10 MG TABLET PO SCH (10:29)
[2022-11-27] MEDS: PRENATAL VITAMINS W/ FOLIC ACID TABLET (FP) PO SCH (10:29)
[2022-11-27 11:09] LABS: POTASSIUM 3.5 mmol/L (3.5-5.1)
[2022-11-27 11:12] LABS: HEMATOCRIT 39.6 % (35.4-49); HEMOGLOBIN 12.4 GM/dL (11.7-16.9); MCH 25.1 pg (25.7-33.7); MCHC 31.4 g/dl (32.0-35.9); MEAN CELL VOLUME 79.8 fl (80-96); MEAN PLT VOLUME 8.2 fl (7.5-11.1); PLATELET COUNT 190 10^3/uL (134-434); RBC 4.96 M/mm3 (4.00-5.60); RDW 14.1 % (11.9-15.9); WHITE BLOOD COUNT 3.6 K/mm3 (4.0-10.0)
[2022-11-27 11:14] LABS: BLOOD UREA NITROGEN 16.3 mg/dL (7-18); CALCIUM 9.4 mg/dL (8.5-10.1)
[2022-11-27 11:17] LABS: ALBUMIN 3.2 g/dl (3.4-5.0)
[2022-11-27 11:19] LABS: BILIRUBIN,TOTAL 0.8 mg/dL (0.2-1); TOT PROT 6.7 g/dl (6.4-8.2)
[2022-11-27] MEDS: THIAMINE HCL 100 MG TABLET (FP) PO SCH (22:42)
[2022-11-27] MEDS: MELATONIN 5 MG TABLETS PO SCH (22:45)
[2022-11-28] MEDS: metFORMIN HCL 500 MG TABLET (FP) PO SCH ×2 (06:00→17:31)
[2022-11-28] MEDS: chlordiazePOXIDE HCL 25 MG CAPSULE PO SCH ×4 (06:00→22:35)
[2022-11-28] MEDS: PRENATAL VITAMINS W/ FOLIC ACID TABLET (FP) PO SCH (10:39)
[2022-11-28] MEDS: LISINOPRIL 10 MG TABLET PO SCH (10:40)
[2022-11-28] MEDS: THIAMINE HCL 100 MG TABLET (FP) PO SCH (22:35)
[2022-11-28] MEDS: MELATONIN 5 MG TABLETS PO SCH (22:36)
[2022-11-29] MEDS ORDERED: chlordiazePOXIDE HCL 10 MG CAPSULE PO PRN
[2022-11-29] MEDS: chlordiazePOXIDE HCL 10 MG CAPSULE PO SCH ×4 (06:00→23:02)
[2022-11-29] MEDS: metFORMIN HCL 500 MG TABLET (FP) PO SCH ×2 (06:13→17:25)
[2022-11-29] MEDS: LISINOPRIL 10 MG TABLET PO SCH (10:54)
[2022-11-29] MEDS: PRENATAL VITAMINS W/ FOLIC ACID TABLET (FP) PO SCH (10:54)
[2022-11-29] MEDS: MELATONIN 5 MG TABLETS PO SCH (23:03)
[2022-11-29] MEDS: THIAMINE HCL 100 MG TABLET (FP) PO SCH (23:03)
[2022-11-30] MEDS: chlordiazePOXIDE HCL 10 MG CAPSULE PO SCH ×2 (05:50→16:51)
[2022-11-30] MEDS: metFORMIN HCL 500 MG TABLET (FP) PO SCH ×2 (06:04→16:50)
[2022-11-30] MEDS: LISINOPRIL 10 MG TABLET PO SCH (10:33)
[2022-11-30] MEDS: PRENATAL VITAMINS W/ FOLIC ACID TABLET (FP) PO SCH (10:33)
[2022-11-30] MEDS: MELATONIN 5 MG TABLETS PO SCH (23:38)
[2022-11-30] MEDS: THIAMINE HCL 100 MG TABLET (FP) PO SCH (23:38)
[2022-12-01] MEDS ORDERED: chlordiazePOXIDE HCL 10 MG CAPSULE PO ONE (05:00)
[2022-12-01] MEDS: metFORMIN HCL 500 MG TABLET (FP) PO SCH (06:17)
[2022-12-01 06:32] VITALS: TEMP 97.6
[2022-12-01 09:26] VITALS: BP 113/73; PULSE 75; RESP 18
[2022-12-01] MEDS: LISINOPRIL 10 MG TABLET PO SCH (10:17)
[2022-12-01] MEDS: PRENATAL VITAMINS W/ FOLIC ACID TABLET (FP) PO SCH (10:17)
== END 2022-12-01 11:20 | disposition home or self-care (01) | DRG 774 ==
LOC: YASAS 15:22 → Y6N 18:01
PROVIDERS: ADMIT Allergy & Immunology; ATTEND Surgery
PROC: HZ2ZZZZ Detoxification Services for Substance Abuse Treatment (ICD-10-PCS; principal; 2022-11-26)
DX: F10.230 Alcohol dependence with withdrawal, uncomplicated (principal); F14.20 Cocaine dependence, uncomplicated; F12.20 Cannabis dependence, uncomplicated; F17.210 Nicotine dependence, cigarettes, uncomplicated; I10 Essential (primary) hypertension; E11.9 Type 2 diabetes mellitus without complications; Z79.84 Long term (current) use of oral hypoglycemic drugs; M54.50 Low back pain, unspecified; G89.29 Other chronic pain; Z62.810 Personal history of physical and sexual abuse in childhood; Z86.59 Personal history of other mental and behavioral disorders; Z87.442 Personal history of urinary calculi; Z59.00 Homelessness unspecified
CPT/HCPCS: 36415; 80053; 82962; 85027; 86780; 87635; 87811

== ENCOUNTER 2022-12-10 13:13 | Inpatient (IN) | payer OTHER ==
[2022-12-10 14:44] VITALS: BMI 30.5
[2022-12-10] MEDS ORDERED: POLYETHYLENE GLYCOL (HEALTHYLAX) 3350 17 GM PACKET PO PRN (18:03)
[2022-12-10] MEDS ORDERED: ACETAMINOPHEN 325 MG TABLET (FP) PO PRN (18:03)
[2022-12-10] MEDS ORDERED: DICYCLOMINE HCL 10 MG CAPSULE PO PRN (18:03)
[2022-12-10] MEDS ORDERED: BENZOCAINE/MENTHOL (CHLORASEPTIC ) LOZENGE MM PRN (18:03)
[2022-12-10] MEDS ORDERED: BISMUTH SUBSALICYLATE 524 MG/30 ML PO PRN (18:03)
[2022-12-10] MEDS ORDERED: guaiFENesin 600 MG TABLET.ER (FP) PO PRN (18:03)
[2022-12-10] MEDS ORDERED: MAGNESIUM HYDROX 2400MG/30ML ORAL SUSPENSION 30 ML CUP PO PRN (18:03)
[2022-12-10] MEDS ORDERED: IBUPROFEN 400 MG TABLET (FP) PO PRN (18:03)
[2022-12-10] MEDS ORDERED: ONDANSETRON *ODT* 4 MG TABLET SL PRN (18:03)
[2022-12-10] MEDS ORDERED: NALOXONE HCL 0.4 MG/ML VIAL IM PRN (18:03)
[2022-12-10] MEDS ORDERED: hydrOXYzine PAMOATE 25 MG CAPSULE (FP) PO PRN (18:03)
[2022-12-10] MEDS ORDERED: BENZONATATE 200 MG CAPSULE PO PRN (18:03)
[2022-12-10] MEDS ORDERED: MAG HYDROX/AL HYDROX/SIMETH 30 ML UNIT-DOSE CUP PO PRN (18:03)
[2022-12-10] MEDS ORDERED: NALOXONE HCL (KLOXXADO) 8 MG SPRAY NS PRN (18:03)
[2022-12-10] MEDS ORDERED: LOPERAMIDE HCL 2 MG CAPSULE PO PRN (18:03)
[2022-12-10] MEDS: LISINOPRIL 10 MG TABLET PO SCH (18:40)
[2022-12-10] MEDS: MELATONIN 5 MG TABLETS PO SCH (22:26)
[2022-12-10] MEDS: THIAMINE HCL 100 MG TABLET (FP) PO SCH (22:27)
[2022-12-11] MEDS: metFORMIN HCL 500 MG TABLET (FP) PO SCH ×2 (06:16→17:34)
[2022-12-11] MEDS: PRENATAL VITAMINS W/ FOLIC ACID TABLET (FP) PO SCH (10:09)
[2022-12-11] MEDS: LISINOPRIL 10 MG TABLET PO SCH (10:10)
[2022-12-11] MEDS ORDERED: chlordiazePOXIDE HCL 25 MG CAPSULE PO PRN (10:33)
[2022-12-11] MEDS: chlordiazePOXIDE HCL 25 MG CAPSULE PO SCH ×3 (10:45→22:15)
[2022-12-11 10:46] LABS: CHLORIDE 111 mmol/L (98-107); POTASSIUM 4.1 mmol/L (3.5-5.1); SODIUM 143 mmol/L (136-145)
[2022-12-11 10:48] LABS: HEMATOCRIT 39.1 % (35.4-49); HEMOGLOBIN 12.6 GM/dL (11.7-16.9); MCH 25.6 pg (25.7-33.7); MCHC 32.2 g/dl (32.0-35.9); MEAN CELL VOLUME 79.6 fl (80-96); MEAN PLT VOLUME 8.8 fl (7.5-11.1); PLATELET COUNT 194 10^3/uL (134-434); RBC 4.91 M/mm3 (4.00-5.60); RDW 14.1 % (11.9-15.9); WHITE BLOOD COUNT 4.4 K/mm3 (4.0-10.0)
[2022-12-11] MEDS: IBUPROFEN 600 MG TABLET (FP) PO PRN (10:48)
[2022-12-11] MEDS: METHOCARBAMOL 500 MG TABLET PO PRN (10:49)
[2022-12-11 10:51] LABS: ANION GAP 5 MMOL/L (8-16); BLOOD UREA NITROGEN 16.1 mg/dL (7-18); CO2 27 mmol/L (21-32); GLUCOSE,RANDOM 129 mg/dL (74-106)
[2022-12-11 10:54] LABS: SGOT/AST 14 U/L (15-37); SGPT/ALT 16 U/L (13-61)
[2022-12-11 10:56] LABS: BILIRUBIN,TOTAL 0.3 mg/dL (0.2-1); TOT PROT 6.5 g/dl (6.4-8.2)
[2022-12-11 10:57] LABS: ALK PHOS 63 U/L (45-117)
[2022-12-11] MEDS: THIAMINE HCL 100 MG TABLET (FP) PO SCH (22:15)
[2022-12-11] MEDS: MELATONIN 5 MG TABLETS PO SCH (22:15)
[2022-12-12] MEDS: chlordiazePOXIDE HCL 25 MG CAPSULE PO SCH ×4 (05:44→22:16)
[2022-12-12] MEDS: metFORMIN HCL 500 MG TABLET (FP) PO SCH ×2 (06:06→17:30)
[2022-12-12] MEDS: LISINOPRIL 10 MG TABLET PO SCH (10:07)
[2022-12-12] MEDS: PRENATAL VITAMINS W/ FOLIC ACID TABLET (FP) PO SCH (10:07)
[2022-12-12] MEDS: THIAMINE HCL 100 MG TABLET (FP) PO SCH (22:16)
[2022-12-12] MEDS: MELATONIN 5 MG TABLETS PO SCH (22:16)
[2022-12-13] MEDS: chlordiazePOXIDE HCL 25 MG CAPSULE PO SCH ×4 (05:40→23:10)
[2022-12-13] MEDS: metFORMIN HCL 500 MG TABLET (FP) PO SCH ×2 (06:48→17:29)
[2022-12-13] MEDS: LISINOPRIL 10 MG TABLET PO SCH (10:18)
[2022-12-13] MEDS: PRENATAL VITAMINS W/ FOLIC ACID TABLET (FP) PO SCH (10:18)
[2022-12-13] MEDS: THIAMINE HCL 100 MG TABLET (FP) PO SCH (23:09)
[2022-12-13] MEDS: MELATONIN 5 MG TABLETS PO SCH (23:09)
[2022-12-14] MEDS ORDERED: chlordiazePOXIDE HCL 10 MG CAPSULE PO PRN
[2022-12-14] MEDS: chlordiazePOXIDE HCL 10 MG CAPSULE PO SCH ×4 (06:00→22:50)
[2022-12-14] MEDS: metFORMIN HCL 500 MG TABLET (FP) PO SCH ×2 (06:12→17:30)
[2022-12-14] MEDS: PRENATAL VITAMINS W/ FOLIC ACID TABLET (FP) PO SCH (10:14)
[2022-12-14] MEDS: LISINOPRIL 10 MG TABLET PO SCH (10:14)
[2022-12-14] MEDS: THIAMINE HCL 100 MG TABLET (FP) PO SCH (22:48)
[2022-12-14] MEDS: MELATONIN 5 MG TABLETS PO SCH (22:51)
[2022-12-15] MEDS: chlordiazePOXIDE HCL 10 MG CAPSULE PO SCH ×2 (05:46→17:32)
[2022-12-15] MEDS: metFORMIN HCL 500 MG TABLET (FP) PO SCH ×2 (06:11→17:14)
[2022-12-15] MEDS: IBUPROFEN 600 MG TABLET (FP) PO PRN (09:36)
[2022-12-15] MEDS: METHOCARBAMOL 500 MG TABLET PO PRN (09:36)
[2022-12-15] MEDS: LISINOPRIL 10 MG TABLET PO SCH (10:36)
[2022-12-15] MEDS: PRENATAL VITAMINS W/ FOLIC ACID TABLET (FP) PO SCH (10:36)
[2022-12-15 15:43] VITALS: BP 144/97; PULSE 71; RESP 69; TEMP 97.7
[2022-12-16] MEDS ORDERED: chlordiazePOXIDE HCL 10 MG CAPSULE PO ONE (05:00)
== END 2022-12-15 17:36 | disposition home or self-care (01) | DRG 774 ==
LOC: YASAS 13:13 → Y3N 18:17
PROVIDERS: ADMIT Allergy & Immunology; ATTEND Surgery
PROC: HZ2ZZZZ Detoxification Services for Substance Abuse Treatment (ICD-10-PCS; principal; 2022-12-10)
DX: F10.230 Alcohol dependence with withdrawal, uncomplicated (principal); F14.20 Cocaine dependence, uncomplicated; F12.20 Cannabis dependence, uncomplicated; F17.210 Nicotine dependence, cigarettes, uncomplicated; E78.5 Hyperlipidemia, unspecified; I10 Essential (primary) hypertension; E11.9 Type 2 diabetes mellitus without complications; Z79.84 Long term (current) use of oral hypoglycemic drugs; M54.50 Low back pain, unspecified; W19.XXXA Unspecified fall, initial encounter; Y92.239 Unspecified place in hospital as the place of occurrence of the external cause
CPT/HCPCS: 36415; 80053; 80307; 82962; 85027; 86780; 87635

== ENCOUNTER 2022-12-15 10:02 | Emergency (ER) | payer OTHER ==
[2022-12-15] MEDS ORDERED: LIDOCAINE 5% TOPICAL PATCH TP ONE (10:27)
[2022-12-15] MEDS ORDERED: LIDOCAINE 5% TOPICAL PATCH ONE ×2 (11:00→11:01)
[2022-12-15 11:18] VITALS: BP 115/67; PULSE 67; RESP 18; TEMP 97.5; BMI 31.4
== END 2022-12-15 13:42 | disposition home or self-care (01) ==
LOC: JER 10:02
DX: S02.2XXA Fracture of nasal bones, initial encounter for closed fracture (principal); F19.20 Other psychoactive substance dependence, uncomplicated; W19.XXXA Unspecified fall, initial encounter
CPT/HCPCS: 70450-TC; 72125-TC; 99284-25

== ENCOUNTER 2024-02-05 09:41 | Inpatient (IN) | payer OTHER ==
[2024-02-05 10:22] VITALS: BMI 29.2
[2024-02-05] MEDS ORDERED: MAGNESIUM HYDROX 2400MG/30ML ORAL SUSPENSION 30 ML CUP PO PRN (11:01)
[2024-02-05] MEDS ORDERED: POLYETHYLENE GLYCOL (HEALTHYLAX) 3350 17 GM PACKET PO PRN (11:01)
[2024-02-05] MEDS ORDERED: MAG HYDROX/AL HYDROX/SIMETH 30 ML UNIT-DOSE CUP PO PRN (11:01)
[2024-02-05] MEDS ORDERED: BISMUTH SUBSALICYLATE 524 MG/30 ML PO PRN (11:01)
[2024-02-05] MEDS ORDERED: NALOXONE (NARCAN) HCL 4 MG/0.1 ML SPRAY NS PRN (11:01)
[2024-02-05] MEDS ORDERED: DICYCLOMINE HCL 10 MG CAPSULE PO PRN (11:01)
[2024-02-05] MEDS ORDERED: hydrOXYzine PAMOATE 25 MG CAPSULE (FP) PO PRN (11:01)
[2024-02-05] MEDS ORDERED: ONDANSETRON *ODT* 4 MG TABLET SL PRN (11:01)
[2024-02-05] MEDS ORDERED: IBUPROFEN 600 MG TABLET (FP) PO PRN (11:01)
[2024-02-05] MEDS ORDERED: NALOXONE HCL 0.4 MG/ML VIAL IM PRN (11:01)
[2024-02-05] MEDS ORDERED: LOPERAMIDE HCL 2 MG CAPSULE PO PRN (11:01)
[2024-02-05] MEDS ORDERED: guaiFENesin 600 MG TABLET.ER (FP) PO PRN (11:01)
[2024-02-05] MEDS ORDERED: BENZOCAINE/MENTHOL (CHLORASEPTIC ) LOZENGE MM PRN (11:01)
[2024-02-05] MEDS ORDERED: METHOCARBAMOL 500 MG TABLET PO PRN (11:01)
[2024-02-05] MEDS ORDERED: BENZONATATE 200 MG CAPSULE PO PRN (11:01)
[2024-02-05] MEDS ORDERED: IBUPROFEN 400 MG TABLET (FP) PO PRN (11:01)
[2024-02-05] MEDS ORDERED: ACETAMINOPHEN 325 MG TABLET (FP) PO PRN (11:01)
[2024-02-05] MEDS ORDERED: chlordiazePOXIDE HCL 25 MG CAPSULE PO PRN (11:12)
[2024-02-05] MEDS: PRENATAL VITAMINS W/ FOLIC ACID TABLET (FP) PO SCH (13:30)
[2024-02-05] MEDS ORDERED: cloNIDine HCL 0.1 MG TABLET PO PRN (15:54)
[2024-02-05] MEDS: chlordiazePOXIDE HCL 25 MG CAPSULE PO SCH (17:25)
[2024-02-05] MEDS: INSULIN ASPART SLIDING SCALE (NOVOLOG) 1 VIAL SQ SCH (17:25)
[2024-02-05] MEDS: THIAMINE 100 MG TABLET PO SCH (22:20)
[2024-02-05] MEDS: MELATONIN 5 MG TABLETS PO SCH (22:20)
[2024-02-06] MEDS: LISINOPRIL 10 MG TABLET PO SCH (10:53)
[2024-02-06 13:51] LABS: HEMATOCRIT 39.7 % (35.4-49); HEMOGLOBIN 12.6 GM/dL (11.7-16.9); MCH 25.7 pg (25.7-33.7); MCHC 31.8 g/dl (32.0-35.9); MEAN CELL VOLUME 80.8 fl (80-96); MEAN PLT VOLUME 9.2 fl (7.5-11.1); PLATELET COUNT 156 10^3/uL (134-434); RBC 4.91 M/mm3 (4.00-5.60); RDW 14.5 % (11.9-15.9); WHITE BLOOD COUNT 3.8 K/mm3 (4.0-10.0)
[2024-02-06 14:55] LABS: POTASSIUM 3.9 mmol/L (3.5-5.1)
[2024-02-06 14:57] LABS: CALCIUM 9.4 mg/dL (8.5-10.1)
[2024-02-06 14:58] LABS: ALBUMIN 3.5 g/dl (3.4-5.0); BLOOD UREA NITROGEN 14.1 mg/dL (7-18)
[2024-02-06 15:01] LABS: CREATININE 1.1 mg/dL (0.55-1.3)
[2024-02-06 15:04] LABS: BILIRUBIN,TOTAL 0.5 mg/dL (0.2-1)
[2024-02-07] MEDS: chlordiazePOXIDE HCL 25 MG CAPSULE PO SCH (05:35)
[2024-02-07] MEDS ORDERED: INSULIN ASPART SLIDING SCALE (NOVOLOG) 1 VIAL SQ ONE (11:19)
[2024-02-08] MEDS ORDERED: chlordiazePOXIDE HCL 10 MG CAPSULE PO PRN
[2024-02-08] MEDS: chlordiazePOXIDE HCL 10 MG CAPSULE PO SCH (05:42)
[2024-02-09] MEDS: chlordiazePOXIDE HCL 10 MG CAPSULE PO SCH (05:40)
[2024-02-10] MEDS: chlordiazePOXIDE HCL 10 MG CAPSULE PO ONE (05:59)
[2024-02-10 10:03] VITALS: BP 129/71; PULSE 74; RESP 18; TEMP 96.8
== END 2024-02-10 13:05 | disposition home or self-care (01) | DRG 774 ==
LOC: YASAS 09:41 → Y3N 12:07
PROVIDERS: ADMIT Allergy & Immunology; ATTEND Surgery
PROC: HZ2ZZZZ Detoxification Services for Substance Abuse Treatment (ICD-10-PCS; principal; 2024-02-05)
DX: F10.230 Alcohol dependence with withdrawal, uncomplicated (principal); F14.20 Cocaine dependence, uncomplicated; F12.20 Cannabis dependence, uncomplicated; F17.210 Nicotine dependence, cigarettes, uncomplicated; I10 Essential (primary) hypertension; E11.9 Type 2 diabetes mellitus without complications; Z79.84 Long term (current) use of oral hypoglycemic drugs; Z56.0 Unemployment, unspecified; Z59.00 Homelessness unspecified
CPT/HCPCS: 36415; 80053; 80305; 80307; 82140; 82962; 83036; 85027; 86780; 93005; 93010